=== PATIENT | male | born 1945 | race Caucasian/White ===

== ENCOUNTER → 2017-10-04 09:44 | Outpatient (CLI) | payer MEDICARE, SELFPAY ==
[2017-10-04 11:13] LABS: Absolute Lymphocyte Count 0.58 X10^3/ul (0.83-4.51); Absolute Neutrophil Count 7.9 X10^3/uL (2.0-7.7); Basophil# 0.04 X10^3/uL; Basophil% 0.4 % (0-1); Eosinophil# 0.19 X10^3/uL; Hematocrit 27.2 % (40-54); Hemoglobin 8.2 g/dl (13.0-16.5); Lymphocyte # 0.58 X10^3/ul (4.0); Lymphocyte % 6.2 % (19-41); Mean Corp Hgb Conc 30.1 g/gl (32-36); Mean Corpuscular Hgb 25.6 pg (27.0-32.0); Mean Platelet Vol. 9.4 fl (6.2-12.0); Monocyte# 0.58 X10^3/uL; Monocyte% 6.2 % (0-10); Neutrophil # 7.86 X10^3/uL (2.7-7.7); Platelet Count 267 K/mm3 (150-450); RBC Distribution Width CV 18.6 % (11.6-14.6); RBC Distribution Width SD 55.9 fl (35.1-43.9); White Blood Count 9.4 K/mm3 (4.4-11.0)
[2017-10-04 11:16] LABS: POSITIVE COUNT NO; POSITIVE DIFFERENTIAL YES; POSITIVE MORPHOLOGY NO
[2017-10-04 11:17] LABS: Differential Indicated SCAN CRITERIA MET
[2017-10-04 11:29] LABS: ALB/GLOB Ratio 0.9 RATIO (0.9-2.4); AST(SGOT) 22 U/L (15-37); Alanine Aminotransfer ALT/SGPT 31 U/L (16-61); Albumin, Serum 3.5 g/dL (3.2-5.0); Alkaline Phosphatase 88 U/L (45-117); Anion Gap 14 (5-15); BUN 34 mg/dL (7-18); BUN/Creat Ratio 13.9 RATIO (10-20); Calcium,Total 9.2 mg/dL (8.5-10.1); Chloride 101 mmol/L (98-107); Creatinine, Serum 2.44 mg/dL (0.70-1.30); EST Glomerular Filtration Rate 28 mL/min (>60); Est Glom Filt Rate - Afr Amer 34 mL/min (>60); Globulin 3.9 g/dL (2.2-4.2); Glucose 132 mg/dL (70-110); Potassium 3.9 mmol/L (3.5-5.1); Protein, Total 7.4 g/dL (6.4-8.2); Sodium Level 139 mmol/L (136-145)
[2017-10-04 11:32] LABS: Hypochromasia 2+; Platelet Estimate ADEQUATE (ADEQ); Polychromasia RARE
--- NOTE | 2017-10-04 13:48 | PFT ---
INTRODUCTION: The patient is a 72-year-old male currently under the care of Dr. Argueat that presents for pulmonary function testing secondary to a diagnosis of morbid obesity. Respiratory therapy reports good patient effort and reports no other concerns. Bronchodilators were used during testing. INTERPRETATION: Forced expiration spirometry demonstrates no evidence of a large airways obstructive ventilatory defect. There was no significant response to aerosolized bronchodilators, based upon strict ATS criteria. Spirograms are of good quality and plateau normally. The respiratory flow volume loop appears normal. Body plethysmography was performed and reveals a decreased TLC to 4.02 L, 70% of predicted, indicative of a mild restrictive ventilatory defect. Diffusing capacity by single breath CO is severely reduced at 44% of predicted. When compared to previous pulmonary function studies dated December 2016 there has been a 19% reduction in the patient's diffusing capacity. IMPRESSION: These pulmonary function studies demonstrate the presence of a mild restrictive ventilatory defect with a disproportionate reduction in diffusing capacity. There has been a significant reduction in DLCO since PFTs were last completed in December 2016. Clinical correlation is recommended.
== END ==
LOC: PSN 09:45 → LAB 10:43
PROVIDERS: Family Provider Family Medicine; PCP Family Medicine; Visit Provider Internal Medicine Critical Care Medicine
DX: E66.01 Morbid (severe) obesity due to excess calories (principal); D86.86 Sarcoid arthropathy; D86.0 Sarcoidosis of lung; M65.351 Trigger finger, right little finger; Z79.899 Other long term (current) drug therapy
CPT/HCPCS: 36415; 80053; 85025; 94060; 94726; 94729

== ENCOUNTER → 2017-10-11 10:36 | Outpatient (CLI) | payer MEDICARE, SELFPAY ==
[2017-07-15 23:29] VITALS: BP 157/79
[2017-08-16 13:05] VITALS: BP 126/62; BMI 42.1
[2017-10-11 11:28] VITALS: PULSE 100; PULSE 65; PULSE 84; PULSE 87; PULSE 89; PULSE 92; PULSE 98; O2SAT 98; O2SAT 99
--- NOTE | 2017-10-11 11:34 | CPS ---
Pt arrived for study on RA and uses walker when ambulatory. During test pt states oxygen is not his problem nor will it help fix him. During minute 2 pt stated he needed to sit down or he would collapse. Therapist assisted pt to bench and which pt stated he can't walk anymore. As of minute 3 to end of test pt remained sitting on bench and no further steps were walked.
--- NOTE | 2017-10-12 11:21 | WT_ITS ---
PSN 6 Minute Walk Test - 6 Minute Walk Test 6 Minute Walk Test: 6 Minute Walk Test PSN:6-Minute Walk Test Start: 10/11/17 11: 28 Freq: Status: Active Protocol: [id number].6MINW Document 10/11/17 11:28 SMB (Rec: 10/11/17 11:38 SMB [id number]) 6 Minute Walk Test Date Performed 10/11/17 Time Performed 11:15 Height 5 ft 7 in Weight: 122.47 kg Weight in Pounds 270.[address]: Josh Argueta Assistive device used: Walker Pre-test Oxygen Delivery Method Room Air Pulse Ox (%) 98 Pulse Rate (60-100 beats/min) 89 Dyspnea Sarah Scale (0-10) 0.5 Exertion Sarah Scale (6-20) 6 1st minute Oxygen Delivery Method Room Air Pulse Ox (%) 99 Pulse Rate (60-100 beats/min) 65 Number of Rests Taken 2 Reported Symptoms Increased Work of Breathing 2nd minute Oxygen Delivery Method Room Air Pulse Ox (%) 99 Pulse Rate (60-100 beats/min) 98 Number of Rests Taken 3 Reported Symptoms Increased Work of Breathing 3rd minute Oxygen Delivery Method Room Air Pulse Ox (%) 98 Pulse Rate (60-100 beats/min) 100 Number of Rests Taken 1 Reported Symptoms Increased Work of Breathing 4th minute Oxygen Delivery Method Room Air Pulse Ox (%) 99 Pulse Rate (60-100 beats/min) 89 Number of Rests Taken 1 Reported Symptoms Increased Work of Breathing 5th minute Oxygen Delivery Method Room Air Pulse Ox (%) 99 Pulse Rate (60-100 beats/min) 92 Number of Rests Taken 1 Reported Symptoms Increased Work of Breathing 6th minute Oxygen Delivery Method Room Air Pulse Ox (%) 99 Pulse Rate (60-100 beats/min) 84 Number of Rests Taken 1 Reported Symptoms Increased Work of Breathing Post-test Oxygen Delivery Method Room Air Pulse Ox (%) 98 Pulse Rate (60-100 beats/min) 87 Dyspnea Sarah Scale (0-10) 5 Exertion Sarah Scale (6-20) 14 Number of Rests Taken 0 Full Laps Walked 4 Partial Lap, Number of Tiles Walked 15 Total Distance Walked (ft) 251 10/11/17 11:34 Cardiopulmonary Services by Stephanie Hansen Pt arrived for study on RA and uses walker when ambulatory. During test pt states oxygen is not his problem nor will it help fix him. During minute 2 pt stated he needed to sit down or he would collapse. Therapist assisted pt to bench and which pt stated he can't walk anymore. As of minute 3 to end of test pt remained sitting on bench and no further steps were walked. Initialized on 10/11/17 11:34 - END OF NOTE - Interpretation Interpretation: The patient was able to ambulate only 251 feet over the course of 6 minutes on room air with the assistance of a walker. The patient did not experience any significant desaturation, but reported significant shortness of breath and weakness within 2 minutes of exertion. These findings are consistent with a cardiovascular and musculoskeletal limitation exercise tolerance. - Recommendations Recommendations: No supplemental oxygen is indicated at this time.
== END ==
PROVIDERS: Family Provider Family Medicine; PCP Family Medicine; Visit Provider Internal Medicine Critical Care Medicine
DX: E66.01 Morbid (severe) obesity due to excess calories (principal)
CPT/HCPCS: 94618

== ENCOUNTER → 2017-10-19 13:02 | Outpatient (CLI) | payer MEDICARE, SELFPAY ==
[2017-10-19 13:43] LABS: Hematocrit 25.8 % (40-54); Hemoglobin 7.8 g/dl (13.0-16.5); Mean Corp Hgb Conc 30.2 g/gl (32-36); Mean Corpuscular Hgb 25.5 pg (27.0-32.0); Mean Corpuscular Volume 84.3 fL (80-94); Mean Platelet Vol. 9.8 fl (6.2-12.0); Platelet Count 232 K/mm3 (150-450); RBC Distribution Width CV 17.3 % (11.6-14.6); RBC Distribution Width SD 51.4 fl (35.1-43.9); Red Blood Count 3.06 M/mm3 (4.6-6.2); Scan Indicated on CBC? Y/N NO; White Blood Count 6.2 K/mm3 (4.4-11.0)
[2017-10-19 14:23] LABS: Vitamin B12 1100 pg/mL (211-911)
[2017-10-19 15:03] LABS: Ferritin 12 ng/mL (26-388); Iron 42 ug/dL (65-175); Iron Binding Capacity,Total 390 ug/dL (250-450)
== END ==
PROVIDERS: Family Provider Family Medicine; PCP Family Medicine; Visit Provider Internal Medicine Nephrology
DX: D64.9 Anemia, unspecified (principal)
CPT/HCPCS: 36415; 82607; 82728; 82746; 83540; 83550; 85027

== ENCOUNTER → 2017-10-30 10:37 | Outpatient (CLI) | payer MEDICARE, SELFPAY | PROVIDERS: Family Provider Family Medicine; PCP Family Medicine; Visit Provider Internal Medicine Critical Care Medicine | DX: D86.0 Sarcoidosis of lung (principal) | CPT/HCPCS: 94762 ==

== ENCOUNTER → 2017-11-05 10:14 | Outpatient (CLI) | payer MEDICARE, SELFPAY ==
[2017-11-05 10:52] VITALS: BP 145/84; PULSE 80; RESP 20; TEMP 36.1; O2SAT 100; BMI 42.3
== END ==
PROVIDERS: Family Provider Family Medicine; PCP Family Medicine; Visit Provider Internal Medicine Nephrology
DX: N18.4 Chronic kidney disease, stage 4 (severe) (principal); D63.1 Anemia in chronic kidney disease
CPT/HCPCS: 96365; J1756; J7050

== ENCOUNTER → 2017-11-12 10:16 | Outpatient (CLI) | payer MEDICARE, SELFPAY ==
[2017-11-12 10:47] VITALS: BP 137/71; PULSE 77; RESP 16; TEMP 36; O2SAT 99
== END ==
PROVIDERS: Family Provider Family Medicine; PCP Family Medicine; Visit Provider Internal Medicine Nephrology
DX: N18.4 Chronic kidney disease, stage 4 (severe) (principal); D63.1 Anemia in chronic kidney disease
CPT/HCPCS: 96365; J1756; J7050; A4216

== ENCOUNTER → 2017-11-19 10:15 | Outpatient (CLI) | payer MEDICARE, SELFPAY ==
[2017-11-19 10:22] VITALS: BP 148/73; PULSE 84; RESP 14; TEMP 36.2; O2SAT 98; BMI 42.3
== END ==
PROVIDERS: Family Provider Family Medicine; PCP Family Medicine; Visit Provider Internal Medicine Nephrology
DX: N18.4 Chronic kidney disease, stage 4 (severe) (principal); D63.1 Anemia in chronic kidney disease
CPT/HCPCS: 96365; J1756; J7050

== ENCOUNTER → 2017-11-22 12:57 | Outpatient (CLI) | payer MEDICARE, SELFPAY ==
[2017-11-22 14:38] LABS: Anion Gap 11 (5-15); BUN 37 mg/dL (7-18); BUN/Creat Ratio 18.6 RATIO (10-20); Calcium,Total 8.7 mg/dL (8.5-10.1); Chloride 105 mmol/L (98-107); Creatinine, Serum 1.99 mg/dL (0.70-1.30); EST Glomerular Filtration Rate 35 mL/min (>60); Est Glom Filt Rate - Afr Amer 42 mL/min (>60); Ferritin 276 ng/mL (26-388); Glucose 146 mg/dL (74-106); Iron 32 ug/dL (65-175); Iron Binding Capacity,Total 318 ug/dL (250-450); Potassium 3.7 mmol/L (3.5-5.1); Sodium Level 142 mmol/L (136-145)
[2017-11-23 09:36] LABS: Vitamin B12 745 pg/mL (211-911)
== END ==
PROVIDERS: Family Provider Family Medicine; PCP Family Medicine; Visit Provider Internal Medicine Nephrology
DX: N18.4 Chronic kidney disease, stage 4 (severe) (principal); D64.9 Anemia, unspecified
CPT/HCPCS: 36415; 80048; 82607; 82728; 82746; 83540; 83550

== ENCOUNTER → 2017-11-26 10:11 | Outpatient (CLI) | payer MEDICARE, SELFPAY ==
[2017-11-26 10:18] VITALS: BP 142/40; PULSE 82; RESP 18; TEMP 36.1; O2SAT 99; BMI 42.3
== END ==
PROVIDERS: Family Provider Family Medicine; PCP Family Medicine; Visit Provider Internal Medicine Nephrology
DX: N18.4 Chronic kidney disease, stage 4 (severe) (principal); D63.1 Anemia in chronic kidney disease
CPT/HCPCS: 96365; J1756; J7050; A4216

== ENCOUNTER 2017-12-07 06:49 | Inpatient (IN) | payer MEDICARE, SELFPAY ==
[2017-12-07] VITALS (12 sets, daily range): BP systolic 109–146; BP diastolic 55–86; PULSE 79–119; RESP 12–18; TEMP 36.4–36.8; O2SAT 94–98; BMI 43.7; BMI 41.8
--- NOTE | 2017-12-07 07:19 | EKG12_ITS ---
Test Reason : WEAKNESS Blood Pressure : / mmHG Vent. Rate : 078 BPM Atrial Rate : 078 BPM P-R Int : 204 ms QRS Dur : 106 ms QT Int : 420 ms P-R-T Axes : 040 009 002 degrees QTc Int : 478 ms Normal sinus rhythm Normal ECG Confirmed by TRINITY SU MD ([id number]), senior technical editor STEPHEN SANDY ([id number]) on 12/11/2017 8:21:38 AM Referred By: DC Confirmed By:TRINITY SU MD
--- NOTE | 2017-12-07 07:19 | RAD_ITS ---
STUDY: X-RAY CHEST REASON FOR EXAM: Male, 72 years old. Weakness and fatigue TECHNIQUE: Single AP portable view of the chest. COMPARISON: 07/14/2017 FINDINGS: Hypoinflated lungs. Lungs are essentially clear. No acute air space disease or infiltrates. There is no demonstrated pleural abnormality. There is mild cardiac enlargement. Normal mediastinum and jacqueline. Normal visualized pulmonary arteries. Normal visualized aortic arch and descending thoracic aorta. There are diffuse degenerative changes of the visualized thoracic spine. There is degenerative osteoarthritis of the bilateral shoulders. There is no demonstrated abnormality of the visualized soft tissue structures of the upper abdomen. RAD/Chest 1 View (Portable) IMPRESSION: No acute findings Electronically Signed: Prasanna Allen DO at 7:57 EDT Tel , Service support ,
[2017-12-07 07:43] LABS: ALB/GLOB Ratio 0.9 RATIO (0.9-2.4); AST(SGOT) 25 U/L (15-37); Alanine Aminotransfer ALT/SGPT 31 U/L (16-61); Albumin, Serum 3.6 g/dL (3.2-5.0); Alkaline Phosphatase 86 U/L (45-117); Anion Gap 16 (5-15); BUN 51 mg/dL (7-18); BUN/Creat Ratio 17.3 RATIO (10-20); Calcium,Total 8.9 mg/dL (8.5-10.1); Chloride 98 mmol/L (98-107); Creatinine, Serum 2.94 mg/dL (0.70-1.30); EST Glomerular Filtration Rate 22 mL/min (>60); Est Glom Filt Rate - Afr Amer 27 mL/min (>60); Estimated Creatinine Clearance 20.61 ml/min; Glucose 141 mg/dL (74-106); Magnesium 2.4 mg/dL (1.6-2.6); Phosphorus 3.5 mg/dL (2.5-4.9); Protein, Total 7.6 g/dL (6.4-8.2); Sodium Level 141 mmol/L (136-145)
[2017-12-07 07:45] LABS: Absolute Lymphocyte Count 0.72 X10^3/ul (0.83-4.51); Absolute Neutrophil Count 6.4 X10^3/uL (2.0-7.7); Basophil# 0.03 X10^3/uL; Basophil% 0.4 % (0-1); Differential Indicated SCAN CRITERIA MET; Eosinophil# 0.15 X10^3/uL; Eosinophils% 1.9 % (0-5); Hematocrit 30.3 % (40-54); Hemoglobin 9.2 g/dl (13.0-16.5); Lymphocyte # 0.72 X10^3/ul (4.0); Mean Corp Hgb Conc 30.4 g/gl (32-36); Mean Corpuscular Hgb 26.1 pg (27.0-32.0); Mean Corpuscular Volume 86.1 fL (80-94); Mean Platelet Vol. 9.7 fl (6.2-12.0); Monocyte# 0.63 X10^3/uL; Monocyte% 7.8 % (0-10); Neutrophil # 6.42 X10^3/uL (2.7-7.7); Neutrophil % 79.9 % (47-70); POSITIVE COUNT NO; POSITIVE DIFFERENTIAL NO; POSITIVE MORPHOLOGY YES; Platelet Count 246 K/mm3 (150-450); RBC Distribution Width SD 63.7 fl (35.1-43.9); Red Blood Count 3.52 M/mm3 (4.6-6.2)
--- NOTE | 2017-12-07 07:55 | ED.VISSUMM ---
- ER Visit Summary Date of Service: 12/07/17 Chief Complaint: Tired History of Present Illness: The patient is a 72 M who feels a generalized tiredness and fatigue. Symptoms started about a month and a half ago and are progressively getting worse. This morning he could not even walk across the room and he felt exhausted. He has a history of sarcoidosis. He also has a history of chronic kidney disease stage IV. He has anemia and coronary disease. He tells me that he is supposed to have a coronary bypass, but is too unhealthy at this time. He has had transfusions and iron infusions for his anemia. He denies chest pain, but does get short of breath. No nausea, vomiting, or diarrhea. No urinary symptoms. No cough or fever. Physical Examination: Vitals are unremarkable. Afebrile. No acute distress. Skin is pale. Mucous membranes are pale. Heart is regular. Lungs are clear but limited secondary to effort. Abdomen is soft and nontender. Patient has symmetric lower extremity edema. No focal or lateralizing neurologic abnormalities grossly. Test Results: EKG showed sinus rhythm. No sign of acute ischemia or infarction pattern. I am awaiting results of a chest x-ray and laboratory studies at this time. Emergency Department Course and Treatment: Patient was placed on a monitor. He will likely need admission as I suspect chronic kidney disease, anemia, and cardiopulmonary complications. I am awaiting results at this time. Workup was fairly unremarkable. He is anemic but his hemoglobin is 9.2. Potassium 3.0. Mag and false normal. Creatinine is slightly elevated at 2.94 and BUN is 51. Urinalysis fairly unremarkable. Troponin and BNP unremarkable. Chest x-ray showed no acute abnormalities. I thought that maybe the patient can go home, and we had an ambulation trial. He felt extremely short of breath with just a couple steps. His oxygen dropped to 92% on room air, but his heart rate dropped to the 40s. Called the hospitalist for admission. Treatment Plan: As above Disposition: Admission Impression: 1. Dyspnea 2. Anemia 3. CKD 4. Bradycardia 5. Hypokalemia This note was generated with Fandeavor dictation software. It may contain incorrect words, spelling, and punctuation that were not noted in review of the chart prior to signing ED Disposition - Plan for ED Patient: Chief Complaint: Weakness Referrals: Vaughn Armenta III, MD [Primary Care Provider] -
[2017-12-07 08:06] LABS: Anisocytosis 1+; Ovalocyte 2+
[2017-12-07 08:08] LABS: Mucous, Urine 0 SEEN /hpf (<or=2+); Red Blood Cells-Urine 0 SEEN /hpf (0-5)
[2017-12-07 08:14] LABS: Color, Urine Yellow (Yellow); Glucose, Dipstick Normal (Normal); Ketone-Dipstick Negative (Negative); Leukocyte Esterase-Dipstick 25 /ul (Negative); Nitrite-Dipstick Negative (Negative); Occult Blood-Urine Negative /ul (Negative); Protein-Dipstick Negative (Negative); Urine Bilirubin Dipstick Negative (Negative); Urine Clarity Clear (Clear); Urine Urobilinogen Normal (Normal)
[2017-12-07 08:32] LABS: Bacteria RARE /hpf (None Seen); Hyaline Cast 0-5 SEEN /lpf (0-5); Squamous Epithelial Cells - UA 0-5 SEEN /hpf (0-5); White Blood Cells 0-5 SEEN /hpf (0-5)
[2017-12-07 10:46] LABS: BNP,B-Type NATRIURETIC PEPTIDE 36.2 pg/mL (0-100)
--- NOTE | 2017-12-07 15:17 | PCM.HP.STD ---
Problem List (1) Weakness Status: Acute (2) Body mass index (BMI) of 40.0-44.9 in adult Status: Chronic (3) Chronic diastolic (congestive) heart failure Status: Chronic (4) Chronic kidney disease Status: Chronic Qualifiers: (5) Hyperlipemia, mixed Status: Chronic (6) Sarcoidosis Status: Chronic (7) Debility Status: Acute (8) Cardiomyopathy Status: Chronic (9) Iron deficiency anemia Status: Chronic (10) GERD (gastroesophageal reflux disease) Status: Chronic Qualifiers: (11) Hypertension Status: Chronic Qualifiers: (12) Coronary artery disease Status: Chronic Qualifiers: History of Present Illness Date of Admission: 12/07/17 Chief Complaint: fatigue The patient is a 72 year old M who presented to the ED with chief complaint of lethargy increasing over the past several weeks. He has a hx significant for CKD for which he follows Dr. Carcamo, CAD for which he follows Dr. Kam with current multi vessel disease but is not a CABG candidate, and sarcoidosis in his lungs, kidneys, and joints - he follows Dr. Argueta for his lungs. He has been receiving iron infusions for the last week for severe anemia which with a Hgb in the 7's. He reports todays Hgb is significantly better than it usually is. He says his renal function was at his baseline when he saw Dr. Carcamo a week ago. His fatigue has only worsened. Today he became severely tired and SOB just putting on his pants and walking from bed to a chair in the same room. He does have a cough with white mucus production. He denies sick contacts. He has no CP, dizziness, or LH. In the ER he was found to have increased creatinine and had an episode of bradycardia with a pulse of 44 when ambulating. He notes that his BLE edema has improved lately, and that his weight is down from 278 to 267 lbs since starting xaroxalyn. He feels that his worsening renal function has to do with his prednisone being reduced from 10 to 7.[address] Alba for rheumatology. [] Past Medical History Past Medical History (Chronic Problems): Chronic Problems (Last Reviewed 10/16/17 @ 08:39 by Kimberli Adan) Dyspnea (Chronic) Hypercalcemia (Chronic) Body mass index (BMI) of 40.0-44.9 in adult (Chronic) Chronic diastolic (congestive) heart failure (Chronic) Bilateral leg edema (Chronic) Hypersomnia (Chronic) Chronic kidney disease (Chronic) Hyperlipemia, mixed (Chronic) Diastolic dysfunction (Chronic) Atherosclerosis of [place] coronary artery of [place] heart without angina pectoris (Chronic) Polyarthropathy (Chronic) Morbid obesity (Chronic) Sarcoidosis (Chronic) Cardiomyopathy (Chronic) Iron deficiency anemia (Chronic) Constipation (Chronic) 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 Gout (Chronic) Morbid obesity with BMI of 40.0-44.9, adult (Chronic) GERD (gastroesophageal reflux disease) (Chronic) Allergic rhinitis (Chronic) Hypertension (Chronic) Nephrolithiasis (Chronic) Renal cyst (Chronic) Splenomegaly (Chronic) Coronary artery disease (Chronic) CKD (chronic kidney disease) stage 4, GFR 15-29 ml/min (Chronic) Polyarthropathy of ankle and foot (Chronic) Allergies Influenza Virus Vaccines Allergy (Verified 12/07/17 06:56) CAN'T BREATHE Latex, Natural Rubber Allergy (Verified 12/07/17 06:56) Rash Penicillins Allergy (Verified 12/07/17 06:56) CAN'T BREATHE Sulfa (Sulfonamide Antibiotics) Allergy (Verified 12/07/17 06:56) Rash PEPPERS Allergy (Uncoded 12/07/17 06:56) Anaphylaxis Home Medications: Ambulatory Orders Medication Instructions Recorded Aspirin [Aspirin, Baby] 81 mg PO DAILY@0800 09/10/16 Atorvastatin Calcium [Lipitor] 80 mg PO QHS 09/10/16 Carvedilol [Coreg (Beta Trevor)] 25 mg PO BID 09/10/16 Multivitamin [Daily Multiple 1 ea PO DAILY 09/10/16 Vitamin] Hydroxychloroquine [Plaquenil] 200 mg PO BIDCM 12/29/16 Pantoprazole Sodium [Protonix] 40 mg PO DAILY 12/29/16 Allopurinol 200 mg PO DAILY 07/14/17 Iron Polysaccharide Complex 150 mg PO TID #90 07/23/17 [Ferrex 150] doxazosin 2 mg tablet 2 mg PO QDAY tab 08/16/17 leflunomide 10 mg tablet 10 mg PO QDAY 08/16/17 furosemide 40 mg tablet 80 mg PO BID tab 10/16/17 prednisone 10 mg tablet 5 mg PO DAILY tab 10/16/17 0.9% Saline Lock 5 - 30 ml IV UD PRN syringe 04/06/18 Potassium Chloride [K-Dur] 20 meq PO DAILY 12/07/17 Surgical History: no surgical history Psychiatric History: No pertinent psych hx Lives: Spouse/ Significant Other Smoking Status: Never smoker Tobacco Use: Non-smoker Alcohol: None Drugs: None - *Family History Maternal History Items: Diabetes, - - His mother in her 90s of old age Paternal History Items: Diabetes, - - Father of congestive heart failure in his 80s and had diabetes mellitus Sibling History Items: Diabetes - His sister has diabetes. Review of Systems Constitutional: Denies: Chills, Fever, Weight Change HEENT: Denies: Head Aches, Sinus Congestion, Sinus Drainage Cardiovascular: Denies: Chest Pain, Palpitations Respiratory: Denies: Cough, Shortness of breath at rest, Sputum production Gastrointestinal: Denies: Abdominal Pain, Nausea, Vomiting Genitourinary: Denies: Dysuria Musculoskeletal: Denies: Joint Pain, Joint Tenderness Skin: Denies: Rash, Wounds Neurological: Denies: Numbness, Tingling, Focal weakness Psychiatric: Denies: Anxiety, Depression, Homicidal Ideations, Suicidal Ideations Hematologic/ Lymphatic: Denies: Easy Bruising, Easy Bleeding VTE Information - Inpt Only VTE Present on Admission: No VTE Mechan Device Prophylaxis: SCD's - Physical Exam General: Alert, Oriented x3, Cooperative HEENT: Atraumatic, PERRLA, EOMI, Normocephalic Neck: Supple, No JVD, Negative Carotid Bruits Lungs: Clear to auscultation, Normal air movement Cardiovascular: Regular rate, No murmurs Abdomen: Bowel Sounds Present, Soft, Non Tender Extremities: No edema, Capillary Refill Less than 3 Seconds, Edema - non pitting Skin: No rashes, No breakdown Musculoskeletal: No Tenderness to Palpation of Joints or Extremities Neurological: Cranial nerves II-XII grossly intact Psych/Mental Status: Normal Affect, Appropriate, Alert and oriented to time, place, person, mood and affect Vital Signs Temp Pulse Resp BP Pulse Ox 97.5 F L 83 16 128/67 H 97 12/07/17 13:00 12/07/17 13:56 12/07/17 13:00 12/07/17 13:00 12/07/17 13:00 Oxygen Delivery Method Room Air Weight: 121.1 kg Body Mass Index (BMI) 41.8 Assessment/Plan 1. Increased lethargy - iron defiency anemia is actually improved from last week after receiving iron infusions. He does have a productive cough and SOB, will check influenza screen. He did have an episode of bradycardia at 44 bpm in the ER while ambuting. Will maintain him on Tele here. Get PTOT evals. UA is negative. CXR is negative. Will also check orthos. 2. VICKI on CKD - hold diuretics tonight. He has been significantly diuresed lately dropping his weight from 278-267 over the past week, he has no pitting in his legs currently, they are somewhat puffy. Consult to his magnetic resonance technologist Dr. Carcamo who just saw him last week. 3. CAD - he has significant CAD, however, he went to [facility] last year for CABG but was told he could not have this done. Dr. Kam has been managing him medically. EKG is normal. Troponin is negative. Continue home meds. Asa/Statin, coreg. 4. Hypokalemia - replete. Recheck in AM. Mag normal. 5. Sarcoidosis - pulm, renal, and joint manifestations. Maintain current PO prednisone dose. Continue other anti-rheumatics. Pt of Dr. Jorge. Follows [facility] for pulm manifestations. prior + lung bx. 6. Iron def. Anemia - as above, improved. Monitor. 7. Chronic diastolic CHF - stable. Diuretics held. Restart when appropriate. Immanuel wrap. 8. Morbid obesity with mild hyperglycemia on presentation - Dietary consult. Check A1C. At risk of steroid induced diabetes. + family hx of DM, with his significant coronary disease he should be treated aggressively for DM or pre-DM. 9. GERD - continue PPI. DVT ppx: SCDs DC planning: very weak, may need additional assistance. Has been to TCU in past. This patient was seen by Pop Gomez PA-C under the supervision of Doctor Tucker.
[2017-12-07] MEDS: Hydroxychloroquine 200 MG Tablet PO (17:40)
[2017-12-07] MEDS: Allopurinol 100 MG Tablet 200 MG PO (17:40)
[2017-12-07] MEDS: Carvedilol 25 MG Tablet PO (21:45)
[2017-12-07] MEDS: Iron Polysaccharide Complex 150 MG CAPSULE PO (21:45)
[2017-12-07] MEDS: Aspirin 81 MG TAB.CHEW PO (21:45)
[2017-12-07] MEDS: Atorvastatin Calcium 80 MG Tablet PO (21:45)
[2017-12-08] VITALS (12 sets, daily range): BP systolic 102–141; BP diastolic 34–74; PULSE 80–103; RESP 16–18; TEMP 36.4–37.1; O2SAT 97–98
[2017-12-08] MEDS: Iron Polysaccharide Complex 150 MG CAPSULE PO ×3 (06:30→22:44)
[2017-12-08 08:24] LABS: Absolute Lymphocyte Count 0.75 X10^3/ul (0.83-4.51); Absolute Neutrophil Count 5.1 X10^3/uL (2.0-7.7); Basophil# 0.03 X10^3/uL; Basophil% 0.5 % (0-1); Eosinophil# 0.17 X10^3/uL; Eosinophils% 2.6 % (0-5); Hematocrit 27.2 % (40-54); Hemoglobin 8.2 g/dl (13.0-16.5); Lymphocyte # 0.75 X10^3/ul (4.0); Lymphocyte % 11.5 % (19-41); Mean Corp Hgb Conc 30.1 g/gl (32-36); Mean Corpuscular Hgb 25.9 pg (27.0-32.0); Mean Corpuscular Volume 86.1 fL (80-94); Mean Platelet Vol. 9.4 fl (6.2-12.0); Monocyte# 0.46 X10^3/uL; Neutrophil # 5.09 X10^3/uL (2.7-7.7); Neutrophil % 77.8 % (47-70); Platelet Count 203 K/mm3 (150-450); RBC Distribution Width CV 20.6 % (11.6-14.6); RBC Distribution Width SD 62.3 fl (35.1-43.9); Red Blood Count 3.16 M/mm3 (4.6-6.2); White Blood Count 6.5 K/mm3 (4.4-11.0)
[2017-12-08 08:26] LABS: Differential Indicated SCAN CRITERIA MET; POSITIVE COUNT NO; POSITIVE DIFFERENTIAL NO; POSITIVE MORPHOLOGY YES
[2017-12-08] MEDS: predniSONE 10 MG Tablet 5 MG PO (08:54)
[2017-12-08] MEDS: Hydroxychloroquine 200 MG Tablet PO ×2 (08:56→16:43)
[2017-12-08 08:57] LABS: Hemoglobin A1c 4.8 % (4.2-6.3)
[2017-12-08] MEDS: Pantoprazole Sodium 40 MG Tablet PO (09:00)
[2017-12-08] MEDS: Leflunomide 10 MG TABLET PO (09:00)
[2017-12-08] MEDS: Doxazosin 1 MG Tablet 2 MG PO (09:00)
[2017-12-08] MEDS: Carvedilol 25 MG Tablet PO ×2 (09:00→22:44)
[2017-12-08 09:09] LABS: Anion Gap 13 (5-15); BUN 49 mg/dL (7-18); BUN/Creat Ratio 18.3 RATIO (10-20); Calcium,Total 8.7 mg/dL (8.5-10.1); Chloride 98 mmol/L (98-107); Creatinine, Serum 2.68 mg/dL (0.70-1.30); EST Glomerular Filtration Rate 25 mL/min (>60); Est Glom Filt Rate - Afr Amer 30 mL/min (>60); Estimated Creatinine Clearance 22.61 ml/min; Glucose 113 mg/dL (74-106); Potassium 3.1 mmol/L (3.5-5.1); Sodium Level 138 mmol/L (136-145)
[2017-12-08 09:14] LABS: Anisocytosis 2+
--- NOTE | 2017-12-08 11:29 | NURSING ---
pt was unable to complete standing BP for orthostatic vital signs due to leg fatigue.
--- NOTE | 2017-12-08 11:39 | CASEMGMT ---
See assessemnt. SW spoke w/pt and in room in regard to discharge plan. Pt plans to return home at discharge. SW asked about home health, and pt both declined. Pt has been going to [facility] to exercise, and states they do not want anyone in their home if it's not necessary. indicates she does all homemaking, and helps pt w/meds. sets up pt's shower, pt able to do all other personal ADL's. No further needs anticipated, pt home, likely today. BETTY Vázquez, SCALE EXPERT
--- NOTE | 2017-12-08 13:36 | PN_ITS ---
Addendum entered and electronically signed by MIMI Concepcion 12/08/17 13:43: Code Visit Problem list #10 Orthostatic hypotension - + orthos. Suspect dehydration. Continue to hold diuretic. Original Note: Subjective: Pt did not get any sleep last night, complains this is worse than usual, however he normally does not sleep more than 1-2 hours at a time. He states he has been told he has sleep apnea but refuses to have a formal sleep study even though this was strongly recommended by Dr. Argueta. He states that he does not care if he dies in his sleep because he is going to anyway. He continues to have an occasional productive cough. He does not feel overall any better or worse than when he came in. He has no fever or chills. He is not SOB at all. He reports that the edema in his legs remains much better than normal. He thinks he started xaroxalyn this past sunday. - Physical Exam General: Alert, Oriented x3, Cooperative HEENT: Atraumatic, PERRLA, EOMI, Normocephalic Neck: Supple, No JVD, Negative Carotid Bruits Lungs: Clear to auscultation, Normal air movement Cardiovascular: Regular rate, No murmurs Abdomen: Bowel Sounds Present, Soft, Non Tender, Obese Extremities: No edema, Capillary Refill Less than 3 Seconds, - - immanuel wraps in place Skin: No rashes, No breakdown Musculoskeletal: No Tenderness to Palpation of Joints or Extremities Neurological: Cranial nerves II-XII grossly intact Psych/Mental Status: Normal Affect, Appropriate, Alert and oriented to time, place, person, mood and affect Vital Signs Temp Pulse Resp BP Pulse Ox 98.5 F 85 18 130/55 H 98 12/08/17 08:55 12/08/17 11:59 12/08/17 08:55 12/08/17 11:28 12/08/17 08:55 Oxygen Delivery Method Room Air Weight: 121.1 kg Body Mass Index (BMI) 41.8 Orthostatic Vital Signs Start: 12/08/17 11:27 Freq: q24h Status: Active Protocol: Activity Type Activity Date Activity User E-Sign Co-Sign Detail Recorded Client Recorded Date Recorded By Document 12/08/17 11:28 DANIEL [id number] 12/08/17 11:29 IVYK 12/08/17 11:28 Orthostatic Vitals Standing -Pulse Rate (60-100) 97 Sitting -Blood Pressure (90/60-120/80) 102/72 -Extremity Use Right Arm -Pulse Rate (60-100) 92 Lying -Blood Pressure (90/60-120/80) 130/55 H -Extremity Use Right Arm -Pulse Rate (60-100) 87 Intake and Output for Last 24 Hours 12/06/17 12/07/17 12/08/17 23:59 23:59 23:59 Intake Total 810 / 810 1000 / 1000 Output Total 700 / 700 1100 / 1100 Balance 110 / 110 -100 / -100 Microbiology Past 72 Hours 12/07/17 16:02 Influenza Types A,B Direct FA (SYED) - Final Mucosa - Nose Laboratory Tests Past 24 Hrs 12/08/17 12/08/17 12/08/17 07:35 07:35 07:35 WBC 6.5 RBC 3.16 L Hgb 8.2 L Hct 27.2 L MCV 86.1 MCH 25.9 L MCHC 30.1 L RDW 20.6 H RDW Differential 62.3 H Plt Count 203 MPV 9.4 Immature Gran % (Auto) 0.600 Neut % (Auto) 77.8 H Lymph % (Auto) 11.5 L [place] % (Auto) 7.0 Eos % (Auto) 2.6 Baso % (Auto) 0.5 Absolute Neuts (auto) 5.1 Absolute Lymphs (auto) 0.75 L Total Counted Not Reportable Anisocytosis 2+ Sodium 138 Potassium 3.1 L Chloride 98 Carbon Dioxide 27.0 Anion Gap 13 BUN 49 H Creatinine 2.68 H Estim Creat Clear Calc 22.61 Est GFR (MDRD) Af Amer 30 L Est GFR (MDRD) Non-Af 25 L BUN/Creatinine Ratio 18.3 Glucose 113 H Hemoglobin A1c 4.8 Calcium 8.7 Medical Necessity - Tobacco Use Smoking Status: Never smoker Tobacco Use: Non-smoker Assessment/Plan 1. Increased lethargy - i suspect this is a combination of his chronic anemia and untreated sleep apnea. He refuses to consider a workup for YAIMA. He had a supposed episode of bradycardia with a pulse of 44 in the ER on the pulse ox, but he had a normal EKG and he has had no episodes of clair on the monitor. 2. VICKI on CKD - improved. Diuretics remain held. Wait for renal consult. He will need to at least restart lasix at DC. Monitor for fluid overload. I suspect this is from the xaroxalyn started this week. 3. CAD - he has significant CAD, however, he went to [facility] last year for CABG but was told he could not have this done. Dr. Kam has been managing him medically. EKG is normal. Troponin is negative. Continue home meds. Asa/Statin, coreg. 4. Hypokalemia - continue to replete. Mag/Phos normal. 5. Sarcoidosis - pulm, renal, and joint manifestations. Maintain current PO prednisone dose. Continue other anti-rheumatics. Pt of Dr. Jorge. Follows [facility] for pulm manifestations. prior + lung bx. 6. Iron def. Anemia - Small decline. Monitor. 7. Chronic diastolic CHF - stable. Diuretics held. Restart when appropriate. Immanuel wrap. No peripheral edema. Clear lungs. Large weight loss in the last week. 8. Morbid obesity with mild hyperglycemia on presentation - Dietary consult. A1C is normal. Glucose remains slightly high. 9. GERD - continue PPI. DVT ppx: SCDs DC planning: very weak, may need additional assistance. Has been to TCU in past. This patient was seen by Pop Gomez PA-C under the supervision of Doctor Tucker.
--- NOTE | 2017-12-08 16:05 | NURSING ---
Answering service for Carlos Alberto paged again for consult.
[2017-12-08] MEDS: Allopurinol 100 MG Tablet 200 MG PO (16:43)
[2017-12-08] MEDS: Atorvastatin Calcium 80 MG Tablet PO (22:44)
[2017-12-08] MEDS: Aspirin 81 MG TAB.CHEW PO (22:44)
[2017-12-08] MEDS: MELATONIN 3 MG TABLET PO (22:48)
[2017-12-09] VITALS (11 sets, daily range): BP systolic 97–129; BP diastolic 48–61; PULSE 70–83; RESP 16–18; TEMP 36.6–36.8; O2SAT 96–97
[2017-12-09] MEDS: Iron Polysaccharide Complex 150 MG CAPSULE PO ×3 (06:08→21:43)
[2017-12-09 06:13] LABS: Anion Gap 10 (5-15); BUN 44 mg/dL (7-18); BUN/Creat Ratio 18.4 RATIO (10-20); Calcium,Total 9.1 mg/dL (8.5-10.1); Chloride 101 mmol/L (98-107); Creatinine, Serum 2.39 mg/dL (0.70-1.30); EST Glomerular Filtration Rate 28 mL/min (>60); Est Glom Filt Rate - Afr Amer 34 mL/min (>60); Estimated Creatinine Clearance 25.35 ml/min; Glucose 100 mg/dL (74-106); Potassium 3.3 mmol/L (3.5-5.1); Sodium Level 138 mmol/L (136-145)
[2017-12-09 06:18] LABS: Absolute Lymphocyte Count 0.64 X10^3/ul (0.83-4.51); Absolute Neutrophil Count 4.6 X10^3/uL (2.0-7.7); Basophil# 0.02 X10^3/uL; Basophil% 0.3 % (0-1); Eosinophil# 0.17 X10^3/uL; Eosinophils% 2.8 % (0-5); Hematocrit 26.4 % (40-54); Lymphocyte # 0.64 X10^3/ul (4.0); Lymphocyte % 10.7 % (19-41); Mean Corp Hgb Conc 30.3 g/gl (32-36); Mean Corpuscular Hgb 26.1 pg (27.0-32.0); Mean Corpuscular Volume 86.3 fL (80-94); Mean Platelet Vol. 9.6 fl (6.2-12.0); Monocyte% 8.3 % (0-10); Neutrophil # 4.61 X10^3/uL (2.7-7.7); Neutrophil % 77.1 % (47-70); Platelet Count 198 K/mm3 (150-450); RBC Distribution Width CV 20.7 % (11.6-14.6); RBC Distribution Width SD 62.6 fl (35.1-43.9); Red Blood Count 3.06 M/mm3 (4.6-6.2)
[2017-12-09 06:36] LABS: Differential Indicated SCAN CRITERIA MET; POSITIVE COUNT NO; POSITIVE DIFFERENTIAL NO; POSITIVE MORPHOLOGY YES
[2017-12-09] MEDS: predniSONE 10 MG Tablet 5 MG PO (10:15)
[2017-12-09] MEDS: Hydroxychloroquine 200 MG Tablet PO ×2 (10:15→17:53)
[2017-12-09] MEDS: Doxazosin 1 MG Tablet 2 MG PO (10:16)
[2017-12-09] MEDS: Carvedilol 25 MG Tablet PO ×2 (10:16→21:43)
[2017-12-09] MEDS: Leflunomide 10 MG TABLET PO (10:17)
[2017-12-09] MEDS: Pantoprazole Sodium 40 MG Tablet PO (10:17)
--- NOTE | 2017-12-09 10:43 | PCM.CONS.R ---
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 ADHF with baseline creatinine less 2.5 with CLD admitted with weakness with hypotension and orthostatic with creatinine peaked 2.8 now trending down.Anemia of chronic diseases and debility, bradycardia symptoms better after discontinuing diuretics. - Allergies Allergies: Allergies Influenza Virus Vaccines Allergy (Verified 12/07/17 06:56) CAN'T BREATHE Latex, Natural Rubber Allergy (Verified 12/07/17 06:56) Rash Penicillins Allergy (Verified 12/07/17 06:56) CAN'T BREATHE Sulfa (Sulfonamide Antibiotics) Allergy (Verified 12/07/17 06:56) Rash PEPPERS Allergy (Uncoded 12/07/17 06:56) Anaphylaxis - Current Medications Current Medications: Current Medications Allopurinol (Zyloprim) 200 mg PO DINNER [facility] Last Admin: 12/08/17 16:43 Dose: 200 mg Aspirin (Aspirin, Baby) 81 mg PO DAILY@2200 [facility] Last Admin: 12/08/17 22:44 Dose: 81 mg Atorvastatin Calcium (Lipitor) 80 mg PO QHS [facility] Last Admin: 12/08/17 22:44 Dose: 80 mg Carvedilol (Coreg) 25 mg PO BID [facility] Last Admin: 12/09/17 10:16 Dose: 25 mg Doxazosin Mesylate (Cardura) 2 mg PO DAILY [facility] Last Admin: 12/09/17 10:16 Dose: 2 mg Guaifenesin (Robitussin Dm) 5 ml PO Q6H PRN PRN PRN Reason: COUGH Hydroxychloroquine [facility] Admin: 12/09/17 10:15 Dose: 200 mg Leflunomide (Leflunomide) 10 mg PO DAILY [facility] Last Admin: 12/09/17 10:17 Dose: 10 mg Melatonin (Melatonin) 3 mg PO QHS [facility] Last Admin: 12/08/17 22:48 Dose: 3 mg Pantoprazole Sodium (Protonix) 40 mg PO DAILY [facility] Last Admin: 12/09/17 10:17 Dose: 40 mg Polysaccharide Iron Complex (Ferrex 150) 150 mg PO TID [facility] Last Admin: 12/09/17 06:08 Dose: 150 mg Potassium Chloride (K-Dur) 40 meq PO DAILYCM ALEX Potassium Chloride (K-Dur) 60 meq PO X1 ONE Stop: 12/09/17 10:30 Prednisone () 5 mg PO DAILY@0800 [facility] Last Admin: 12/09/17 10:15 Dose: 5 mg Sodium Chloride () 5 - 30 ml IV UD PRN PRN Reason: SALINE FLUSH - Past Medical History Past Medical History (Chronic Problems): Chronic Problems (Last Reviewed 10/16/17 @ 08:39 by Kimebrli Adan) Dyspnea (Chronic) Hypercalcemia (Chronic) Body mass index (BMI) of 40.0-44.9 in adult (Chronic) Chronic diastolic (congestive) heart failure (Chronic) Bilateral leg edema (Chronic) Hypersomnia (Chronic) Chronic kidney disease (Chronic) Hyperlipemia, mixed (Chronic) Diastolic dysfunction (Chronic) Atherosclerosis of [place] coronary artery of [place] heart without angina pectoris (Chronic) Polyarthropathy (Chronic) Morbid obesity (Chronic) Sarcoidosis (Chronic) Cardiomyopathy (Chronic) Iron deficiency anemia (Chronic) Constipation (Chronic) 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 Gout (Chronic) Morbid obesity with BMI of 40.0-44.9, adult (Chronic) GERD (gastroesophageal reflux disease) (Chronic) Allergic rhinitis (Chronic) Hypertension (Chronic) Nephrolithiasis (Chronic) Renal cyst (Chronic) Splenomegaly (Chronic) Coronary artery disease (Chronic) CKD (chronic kidney disease) stage 4, GFR 15-29 ml/min (Chronic) Polyarthropathy of ankle and foot (Chronic) - Past Surgical History Surgical History: no surgical history - Social History Smoking Status: Never smoker Alcohol: None Drugs: None - Family History Maternal Family History: Family History (Last Reviewed 10/16/17 @ 08:39 by Kimberli Adan) Father Diabetes Heart failure Sister Diabetes Mother Diabetes History Items: Diabetes, - - His mother in her 90s of old age Paternal Family History: Family History (Last Reviewed 10/16/17 @ 08:39 by Kimberli Adan) Father Diabetes Heart failure Sister Diabetes Mother Diabetes History Items: Diabetes, - - Father of congestive heart failure in his 80s and had diabetes mellitus Sibling Family History: Family History (Last Reviewed 10/16/17 @ 08:39 by Kimberli Adan) Father Diabetes Heart failure Sister Diabetes Mother Diabetes History Items: Diabetes - His sister has diabetes. Review of Systems HEENT: Reports: Difficulty Hearing Cardiovascular: Reports: Palpitations, Syncope Respiratory: Denies: Cough, Shortness of breath at rest, Sputum production Gastrointestinal: Denies: Abdominal Pain, Nausea, Vomiting Genitourinary: Reports: Dysuria Musculoskeletal: Reports: Arm Pain Neurological: Reports: Balance problems Psychiatric: Reports: Anxiety Hematologic/ Lymphatic: Denies: Easy Bruising, Easy Bleeding - Physical Exam General: Alert, Oriented x3, Cooperative HEENT: Atraumatic, PERRLA, EOMI, Normocephalic Neck: Supple, No JVD, Negative Carotid Bruits Lungs: Clear to auscultation, Normal air movement Cardiovascular: Regular rate, No murmurs Abdomen: Bowel Sounds Present, Soft, Non Tender Extremities: No edema, Capillary Refill Less than 3 Seconds Skin: No rashes, No breakdown Musculoskeletal: No Tenderness to Palpation of Joints or Extremities Vital Signs Temp Pulse Resp BP Pulse Ox 98.0 F 70 18 118/48 L 96 12/09/17 10:12 12/09/17 10:12 12/09/17 10:12 12/09/17 10:12 12/09/17 10:12 Oxygen Delivery Method Room Air Weight: 120.5 kg Body Mass Index (BMI) 41.8 Orthostatic Vital Signs Start: 12/08/17 11:27 Freq: q24h Status: Active Protocol: Activity Type Activity Date Activity User E-Sign Co-Sign Detail Recorded Client Recorded Date Recorded By Document 12/09/17 04:23 CÉSAR [id number] 12/09/17 04:30 NORMAB 12/09/17 04:23 Orthostatic Vitals Sitting -Blood Pressure (90/60-120/80) 97/48 L -Extremity Use Left Arm Lying -Blood Pressure (90/60-120/80) 129/61 H -Extremity Use Left Arm -Pulse Rate (60-100) 77 Intake and Output for Last 24 Hours 12/07/17 12/08/17 12/09/17 23:59 23:59 23:59 Intake Total 810 / 810 0 / 2090 240 / 240 Output Total 700 / 700 2000 / 2000 600 / 600 Balance 110 / 110 90 / 90 -360 / -360 Microbiology Past 72 Hours 12/07/17 16:02 Influenza Types A,B Direct FA (SYED) - Final Mucosa - Nose Laboratory Tests Past 24 Hrs 12/09/17 12/09/17 05:36 05:36 WBC 6.0 RBC 3.06 L Hgb 8.0 L Hct 26.4 L MCV 86.3 MCH 26.1 L MCHC 30.3 L RDW 20.7 H RDW Differential 62.6 H Plt Count 198 MPV 9.6 Immature Gran % (Auto) 0.800 Neut % (Auto) 77.1 H Lymph % (Auto) 10.7 L [place] % (Auto) 8.3 Eos % (Auto) 2.8 Baso % (Auto) 0.3 Absolute Neuts (auto) 4.6 Absolute Lymphs (auto) 0.64 L Total Counted Not Reportable Sodium 138 Potassium 3.3 L Chloride 101 Carbon Dioxide 27.0 Anion Gap 10 BUN 44 H Creatinine 2.39 H Estim Creat Clear Calc 25.35 Est GFR (MDRD) Af Amer 34 L Est GFR (MDRD) Non-Af 28 L BUN/Creatinine Ratio 18.4 Glucose 100 Calcium 9.1 Assessment/Plan non oliguric VICKI on CKD IV creatinine peaked 2.8 secondary to over diuresis with hypokalemia and contraction alkalosis- agree for holding diuretics- no need of [employer] Anemia - recommend IV iron 200mg daily for 3 days and Aranesp 100mmcg x 1 HTN marked peripheral vascular dilatation- hold doxazosin and decrease carvedilol to 12.5 mg BID hold diuretics CHF now hypovolumic hold diuresis Sarcoidosis with CLD stable FO resolved Hypokalemia due to kaliuresis replete with 40 meq
--- NOTE | 2017-12-09 10:53 | CON.PCM_ITS ---
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 ADHF with baseline creatinine less 2.5 with CLD admitted with weakness with hypotension and orthostatic with creatinine peaked 2.8 now trending down.Anemia of chronic diseases and debility, bradycardia symptoms better after discontinuing diuretics. - Allergies Allergies: Allergies Influenza Virus Vaccines Allergy (Verified 12/07/17 06:56) CAN'T BREATHE Latex, Natural Rubber Allergy (Verified 12/07/17 06:56) Rash Penicillins Allergy (Verified 12/07/17 06:56) CAN'T BREATHE Sulfa (Sulfonamide Antibiotics) Allergy (Verified 12/07/17 06:56) Rash PEPPERS Allergy (Uncoded 12/07/17 06:56) Anaphylaxis - Current Medications Current Medications: Current Medications Allopurinol (Zyloprim) 200 mg PO DINNER [facility] Last Admin: 12/08/17 16:43 Dose: 200 mg Aspirin (Aspirin, Baby) 81 mg PO DAILY@2200 [facility] Last Admin: 12/08/17 22:44 Dose: 81 mg Atorvastatin Calcium (Lipitor) 80 mg PO QHS [facility] Last Admin: 12/08/17 22:44 Dose: 80 mg Carvedilol (Coreg) 25 mg PO BID [facility] Last Admin: 12/09/17 10:16 Dose: 25 mg Doxazosin Mesylate (Cardura) 2 mg PO DAILY [facility] Last Admin: 12/09/17 10:16 Dose: 2 mg Guaifenesin (Robitussin Dm) 5 ml PO Q6H PRN PRN PRN Reason: COUGH Hydroxychloroquine [facility]) [facility] Admin: 12/09/17 10:15 Dose: 200 mg Leflunomide (Leflunomide) 10 mg PO DAILY [facility] Last Admin: 12/09/17 10:17 Dose: 10 mg Melatonin (Melatonin) 3 mg PO QHS [facility] Last Admin: 12/08/17 22:48 Dose: 3 mg Pantoprazole Sodium (Protonix) 40 mg PO DAILY [facility] Last Admin: 12/09/17 10:17 Dose: 40 mg Polysaccharide Iron Complex (Ferrex 150) 150 mg PO TID [facility] Last Admin: 12/09/17 06:08 Dose: 150 mg Potassium Chloride (K-Dur) 40 meq PO DAILYCM ALEX Potassium Chloride (K-Dur) 60 meq PO X1 ONE Stop: 12/09/17 10:30 Prednisone () 5 mg PO DAILY@0800 [facility] Last Admin: 12/09/17 10:15 Dose: 5 mg Sodium Chloride () 5 - 30 ml IV UD PRN PRN Reason: SALINE FLUSH - Past Medical History Past Medical History (Chronic Problems): Chronic Problems (Last Reviewed 10/16/17 @ 08:39 by Kimberli Adan) Dyspnea (Chronic) Hypercalcemia (Chronic) Body mass index (BMI) of 40.0-44.9 in adult (Chronic) Chronic diastolic (congestive) heart failure (Chronic) Bilateral leg edema (Chronic) Hypersomnia (Chronic) Chronic kidney disease (Chronic) Hyperlipemia, mixed (Chronic) Diastolic dysfunction (Chronic) Atherosclerosis of [place] coronary artery of [place] heart without angina pectoris (Chronic) Polyarthropathy (Chronic) Morbid obesity (Chronic) Sarcoidosis (Chronic) Cardiomyopathy (Chronic) Iron deficiency anemia (Chronic) Constipation (Chronic) 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 Gout (Chronic) Morbid obesity with BMI of 40.0-44.9, adult (Chronic) GERD (gastroesophageal reflux disease) (Chronic) Allergic rhinitis (Chronic) Hypertension (Chronic) Nephrolithiasis (Chronic) Renal cyst (Chronic) Splenomegaly (Chronic) Coronary artery disease (Chronic) CKD (chronic kidney disease) stage 4, GFR 15-29 ml/min (Chronic) Polyarthropathy of ankle and foot (Chronic) - Past Surgical History Surgical History: no surgical history - Social History Smoking Status: Never smoker Alcohol: None Drugs: None - Family History Maternal Family History: Family History (Last Reviewed 10/16/17 @ 08:39 by Kimberli Adan) Father Diabetes Heart failure Sister Diabetes Mother Diabetes History Items: Diabetes, - - His mother in her 90s of old age Paternal Family History: Family History (Last Reviewed 10/16/17 @ 08:39 by Kimberli Adan) Father Diabetes Heart failure Sister Diabetes Mother Diabetes History Items: Diabetes, - - Father of congestive heart failure in his 80s and had diabetes mellitus Sibling Family History: Family History (Last Reviewed 10/16/17 @ 08:39 by Kimberli Adan) Father Diabetes Heart failure Sister Diabetes Mother Diabetes History Items: Diabetes - His sister has diabetes. Review of Systems HEENT: Reports: Difficulty Hearing Cardiovascular: Reports: Palpitations, Syncope Respiratory: Denies: Cough, Shortness of breath at rest, Sputum production Gastrointestinal: Denies: Abdominal Pain, Nausea, Vomiting Genitourinary: Reports: Dysuria Musculoskeletal: Reports: Arm Pain Neurological: Reports: Balance problems Psychiatric: Reports: Anxiety Hematologic/ Lymphatic: Denies: Easy Bruising, Easy Bleeding - Physical Exam General: Alert, Oriented x3, Cooperative HEENT: Atraumatic, PERRLA, EOMI, Normocephalic Neck: Supple, No JVD, Negative Carotid Bruits Lungs: Clear to auscultation, Normal air movement Cardiovascular: Regular rate, No murmurs Abdomen: Bowel Sounds Present, Soft, Non Tender Extremities: No edema, Capillary Refill Less than 3 Seconds Skin: No rashes, No breakdown Musculoskeletal: No Tenderness to Palpation of Joints or Extremities Vital Signs Temp Pulse Resp BP Pulse Ox 98.0 F 70 18 118/48 L 96 12/09/17 10:12 12/09/17 10:12 12/09/17 10:12 12/09/17 10:12 12/09/17 10:12 Oxygen Delivery Method Room Air Weight: 120.5 kg Body Mass Index (BMI) 41.8 Orthostatic Vital Signs Start: 12/08/17 11:27 Freq: q24h Status: Active Protocol: Activity Type Activity Date Activity User E-Sign Co-Sign Detail Recorded Client Recorded Date Recorded By Document 12/09/17 04:23 CÉSAR [id number] 12/09/17 04:30 NORMAB 12/09/17 04:23 Orthostatic Vitals Sitting -Blood Pressure (90/60-120/80) 97/48 L -Extremity Use Left Arm Lying -Blood Pressure (90/60-120/80) 129/61 H -Extremity Use Left Arm -Pulse Rate (60-100) 77 Intake and Output for Last 24 Hours 12/07/17 12/08/17 12/09/17 23:59 23:59 23:59 Intake Total 810 / 810 0 / 2090 240 / 240 Output Total 700 / 700 2000 / 2000 600 / 600 Balance 110 / 110 90 / 90 -360 / -360 Microbiology Past 72 Hours 12/07/17 16:02 Influenza Types A,B Direct FA (SYED) - Final Mucosa - Nose Laboratory Tests Past 24 Hrs 12/09/17 12/09/17 05:36 05:36 WBC 6.0 RBC 3.06 L Hgb 8.0 L Hct 26.4 L MCV 86.3 MCH 26.1 L MCHC 30.3 L RDW 20.7 H RDW Differential 62.6 H Plt Count 198 MPV 9.6 Immature Gran % (Auto) 0.800 Neut % (Auto) 77.1 H Lymph % (Auto) 10.7 L [place] % (Auto) 8.3 Eos % (Auto) 2.8 Baso % (Auto) 0.3 Absolute Neuts (auto) 4.6 Absolute Lymphs (auto) 0.64 L Total Counted Not Reportable Sodium 138 Potassium 3.3 L Chloride 101 Carbon Dioxide 27.0 Anion Gap 10 BUN 44 H Creatinine 2.39 H Estim Creat Clear Calc 25.35 Est GFR (MDRD) Af Amer 34 L Est GFR (MDRD) Non-Af 28 L BUN/Creatinine Ratio 18.4 Glucose 100 Calcium 9.1 Assessment/Plan non oliguric VICKI on CKD IV creatinine peaked 2.8 secondary to over diuresis with hypokalemia and contraction alkalosis- agree for holding diuretics- no need of [employer]OPER Anemia - recommend IV iron 200mg daily for 3 days and Aranesp 100mmcg x 1 HTN marked peripheral vascular dilatation- hold doxazosin and decrease carvedilol to 12.5 mg BID hold diuretics CHF now hypovolumic hold diuresis Sarcoidosis with CLD stable FO resolved Hypokalemia due to kaliuresis replete with 40 meq
--- NOTE | 2017-12-09 15:38 | PN_ITS ---
<Pop Gomez - Last Filed: 12/09/17 15:32> Subjective: Pt reports he has not felt as weak since admission. He has been able to get up and ambulate across the room with minimal issue. He was becoming very weak when standing at home, he could barely walk to his chair. He continues to have a cough. No CP. No dizziness or LH, no palp. Significant + orthos. He takes cardura for BPH. He is still reluctant to consider a sleep study. No swelling of his LE. No SOB. - Physical Exam General: Alert, Oriented x3, Cooperative HEENT: Atraumatic, PERRLA, EOMI, Normocephalic Neck: Supple, No JVD, Negative Carotid Bruits Lungs: Clear to auscultation, Normal air movement Cardiovascular: Regular rate, No murmurs Abdomen: Bowel Sounds Present, Soft, Non Tender Extremities: No edema, Capillary Refill Less than 3 Seconds Skin: No rashes, No breakdown Musculoskeletal: No Tenderness to Palpation of Joints or Extremities Neurological: Cranial nerves II-XII grossly intact Psych/Mental Status: Normal Affect, Appropriate, Alert and oriented to time, place, person, mood and affect Vital Signs Temp Pulse Resp BP Pulse Ox 98.0 F 75 18 118/48 L 96 12/09/17 10:12 12/09/17 11:30 12/09/17 10:12 12/09/17 10:12 12/09/17 10:12 Oxygen Delivery Method Room Air Weight: 120.5 kg Body Mass Index (BMI) 41.8 Orthostatic Vital Signs Start: 12/08/17 11:27 Freq: q24h Status: Active Protocol: Activity Type Activity Date Activity User E-Sign Co-Sign Detail Recorded Client Recorded Date Recorded By Document 12/09/17 04:23 ZZB [id number] 12/09/17 04:30 ZZB 12/09/17 04:23 Orthostatic Vitals Sitting -Blood Pressure (90/60-120/80) 97/48 L -Extremity Use Left Arm Lying -Blood Pressure (90/60-120/80) 129/61 H -Extremity Use Left Arm -Pulse Rate (60-100) 77 Intake and Output for Last 24 Hours 12/07/17 12/08/17 12/09/17 23:59 23:59 23:59 Intake Total 810 / 810 2089 / 0 840 / 840 Output Total 700 / 700 1999 / 1999 600 / 600 Balance 110 / 110 90 / 90 240 / 240 Microbiology Past 72 Hours 12/07/17 16:02 Influenza Types A,B Direct FA (SYED) - Final Mucosa - Nose Laboratory Tests Past 24 Hrs 12/09/17 12/09/17 05:36 05:36 WBC 6.0 RBC 3.06 L Hgb 8.0 L Hct 26.4 L MCV 86.3 MCH 26.1 L MCHC 30.3 L RDW 20.7 H RDW Differential 62.6 H Plt Count 198 MPV 9.6 Immature Gran % (Auto) 0.800 Neut % (Auto) 77.1 H Lymph % (Auto) 10.7 L [place] % (Auto) 8.3 Eos % (Auto) 2.8 Baso % (Auto) 0.3 Absolute Neuts (auto) 4.6 Absolute Lymphs (auto) 0.64 L Total Counted Not Reportable Sodium 138 Potassium 3.3 L Chloride 101 Carbon Dioxide 27.0 Anion Gap 10 BUN 44 H Creatinine 2.39 H Estim Creat Clear Calc 25.35 Est GFR (MDRD) Af Amer 34 L Est GFR (MDRD) Non-Af 28 L BUN/Creatinine Ratio 18.4 Glucose 100 Calcium 9.1 Medical Necessity - Tobacco Use Smoking Status: Never smoker Tobacco Use: Non-smoker Assessment/Plan 1. Increased lethargy - improving. Renal function continues to improve. Anemia still trending down. Renal to dose Epo. 2. Orthostatic hypotension - discontinue cardura. Maintain coreg at current dose. Continue to hold lasix x 1 more night. 3. VICKI on CKD - Nephro consulted. Improving. Plan to restart lasix tomorrow for discharge. Plan to remain off Xaroxalyn. 4. CAD - he has significant CAD, however, he went to [facility] last year for CABG but was told he could not have this done. Dr. Kam has been managing him medically. EKG is normal. Troponin is negative. Continue home meds. Asa/Statin, coreg. 5. Hypokalemia - continue to replete aggressively. Mag/Phos normal. 6. Sarcoidosis - pulm, renal, and joint manifestations. Maintain current PO prednisone dose. Continue other anti-rheumatics. Pt of Dr. Jorge. Follows [facility] for pulm manifestations. prior + lung bx. 7. Iron def. Anemia - as above. Epo per renal. s/p multiple iron infusions. Nephrology planning on 3 more iron infusions. Continue PO iron. 8. Chronic diastolic CHF - stable. Diuretics held. Restart when appropriate. Immanuel wrap. No peripheral edema. Clear lungs. Large weight loss in the last week. 9. Morbid obesity with mild hyperglycemia on presentation - Dietary consult. A1C is normal. 10. GERD - continue PPI. DVT ppx: SCDs DC planning: Pt will not consider placement in SNF at this time. He insists on discharge home. This patient was seen by Pop Gomez PA-C under the supervision of Doctor Caitlin. <Sunny Tucker - Last Filed: 12/09/17 17:59> - Physical Exam Vital Signs Temp Pulse Resp BP Pulse Ox 97.9 F 79 18 102/58 L 97 12/09/17 15:41 12/09/17 15:41 12/09/17 15:41 12/09/17 15:41 12/09/17 15:41 Oxygen Delivery Method Room Air Weight: 265 lb 10.512 oz Body Mass Index (BMI) 41.8 Orthostatic Vital Signs Start: 12/08/17 11:27 Freq: q24h Status: Active Protocol: Activity Type Activity Date Activity User E-Sign Co-Sign Detail Recorded Client Recorded Date Recorded By Document 12/09/17 04:23 ZZB [id number] 12/09/17 04:30 ZZB 12/09/17 04:23 Orthostatic Vitals Sitting -Blood Pressure (90/60-120/80 mm Hg) 97/48 L -Extremity Use Left Arm Lying -Blood Pressure (90/60-120/80 mm Hg) 129/61 H -Extremity Use Left Arm -Pulse Rate (60-100 beats/min) 77 Intake and Output for Last 24 Hours 12/07/17 12/08/17 12/09/17 23:59 23:59 23:59 Intake Total 810 / 810 2090 / 2090 840 / 840 Output Total 700 / 700 2000 / 2000 600 / 600 Balance 110 / 110 90 / 90 240 / 240 Microbiology Past 72 Hours 12/07/17 16:02 Influenza Types A,B Direct FA (SYED) - Final Mucosa - Nose Laboratory Tests Past 24 Hrs 12/09/17 12/09/17 05:36 05:36 WBC 6.0 RBC 3.06 L Hgb 8.0 L Hct 26.4 L MCV 86.3 MCH 26.1 L MCHC 30.3 L RDW 20.7 H RDW Differential 62.6 H Plt Count 198 MPV 9.6 Immature Gran % (Auto) 0.800 Neut % (Auto) 77.1 H Lymph % (Auto) 10.7 L [place] % (Auto) 8.3 Eos % (Auto) 2.8 Baso % (Auto) 0.3 Absolute Neuts (auto) 4.6 Absolute Lymphs (auto) 0.64 L Total Counted Not Reportable Sodium 138 Potassium 3.3 L Chloride 101 Carbon Dioxide 27.0 Anion Gap 10 BUN 44 H Creatinine 2.39 H Estim Creat Clear Calc 25.35 Est GFR (MDRD) Af Amer 34 L Est GFR (MDRD) Non-Af 28 L BUN/Creatinine Ratio 18.4 Glucose 100 Calcium 9.1 Code Visit Patient was seen independently and in conjunction with Pop LE. Orthostatic vital signs are still positive. Patient is however asymptomatic. He reports that he has very limited respiratory reserve and gets markedly short of breath with even short distances. He is not on oxygen. He recently had a 6 minute walk and did not desaturate. He also recently had an overnight trending pulse ox and there was no significant desaturation. He does wear compression stockings at home but does not put them on immediately when arising from bed and sometimes his legs are too swollen after a few hours to even get the stockings on. He was seen in consultation by Dr. Valentine from [facility] today and I reviewed his consult. He recommends iron supplementation and discontinuation of Cardura and decreasing the dose of Coreg to 12.5 mg twice daily. We will continue to hold diuretics. Repeat orthostatics will be done in the a.m. and I encouraged him to have his bring his compression stockings and so that these may be applied prior to the orthostatics in the morning. Will repeat an overnight trending pulse ox tonight. I agree with the physical exam as documented by Pop Gomez below. Inpatient E&M: 39162 Subs Hosp L2
[2017-12-09] MEDS: Allopurinol 100 MG Tablet 200 MG PO (17:53)
[2017-12-09] MEDS: Atorvastatin Calcium 80 MG Tablet PO (21:44)
[2017-12-09] MEDS: MELATONIN 3 MG TABLET PO (21:45)
[2017-12-09] MEDS: Aspirin 81 MG TAB.CHEW PO (21:45)
[2017-12-10] VITALS (11 sets, daily range): BP systolic 93–147; BP diastolic 55–84; PULSE 66–96; RESP 16–18; TEMP 36.4–36.9; O2SAT 95–98
[2017-12-10] MEDS: Iron Polysaccharide Complex 150 MG CAPSULE PO ×3 (05:46→21:34)
[2017-12-10 06:45] LABS: Anion Gap 11 (5-15); BUN 39 mg/dL (7-18); BUN/Creat Ratio 16.7 RATIO (10-20); Calcium,Total 8.9 mg/dL (8.5-10.1); Chloride 103 mmol/L (98-107); Creatinine, Serum 2.34 mg/dL (0.70-1.30); EST Glomerular Filtration Rate 29 mL/min (>60); Est Glom Filt Rate - Afr Amer 35 mL/min (>60); Estimated Creatinine Clearance 25.89 ml/min; Glucose 91 mg/dL (74-106); Potassium 3.7 mmol/L (3.5-5.1); Sodium Level 140 mmol/L (136-145)
[2017-12-10 06:54] LABS: Absolute Lymphocyte Count 0.59 X10^3/ul (0.83-4.51); Absolute Neutrophil Count 4.7 X10^3/uL (2.0-7.7); Basophil# 0.02 X10^3/uL; Basophil% 0.3 % (0-1); Eosinophil# 0.18 X10^3/uL; Hematocrit 26.6 % (40-54); Hemoglobin 8.2 g/dl (13.0-16.5); Lymphocyte # 0.59 X10^3/ul (4.0); Lymphocyte % 9.8 % (19-41); Mean Corp Hgb Conc 30.8 g/gl (32-36); Mean Corpuscular Hgb 26.1 pg (27.0-32.0); Mean Corpuscular Volume 84.7 fL (80-94); Mean Platelet Vol. 8.7 fl (6.2-12.0); Monocyte# 0.49 X10^3/uL; Monocyte% 8.1 % (0-10); Neutrophil # 4.71 X10^3/uL (2.7-7.7); Platelet Count 174 K/mm3 (150-450); RBC Distribution Width CV 20.6 % (11.6-14.6); RBC Distribution Width SD 63.1 fl (35.1-43.9); Red Blood Count 3.14 M/mm3 (4.6-6.2)
[2017-12-10 07:04] LABS: Differential Indicated SCAN CRITERIA MET; POSITIVE COUNT NO; POSITIVE DIFFERENTIAL YES; POSITIVE MORPHOLOGY YES
[2017-12-10 07:19] LABS: Anisocytosis 3+; Differential Comment SCANNED; Microcytosis 2+; Ovalocyte 1+
[2017-12-10] MEDS: predniSONE 20 MG Tablet PO (08:49)
[2017-12-10] MEDS: Hydroxychloroquine 200 MG Tablet PO ×2 (08:49→16:30)
[2017-12-10] MEDS: predniSONE 20 MG Tablet 40 MG PO (10:19)
[2017-12-10] MEDS: Carvedilol 25 MG Tablet PO ×2 (10:20→21:34)
[2017-12-10] MEDS: Pantoprazole Sodium 40 MG Tablet PO (10:20)
[2017-12-10] MEDS: Leflunomide 10 MG TABLET PO (10:24)
--- NOTE | 2017-12-10 12:09 | PCM.PN.REN ---
Subjective: Patient is complaining of severe leg pain wit any touch. \ Breathing is the same / Not on NC currently Leg edema is much better - Physical Exam General: Alert, Oriented x3 HEENT: Atraumatic Oral: Moist Mucosa Neck: Supple, No JVD Lungs: Clear to auscultation, Normal air movement, No rhonchi, No wheeze Cardiovascular: Regular rate, Regular Rhythm, Normal S1, Normal S2 Abdomen: Bowel Sounds Present, Soft, Non Tender, Non-Distended Extremities: No clubbing, No cyanosis, No edema Skin: - - severe tenderness with any touch over both legs brom knee and down Lymphatic: No Cervical, Supraclavicular, or Inguinal Adenopathy Neurological: Cranial nerves II-XII grossly intact, Neuro grossly intact Psych/Mental Status: Normal Affect Vital Signs Temp Pulse Resp BP Pulse Ox 97.6 F L 80 16 108/60 97 12/10/17 08:35 12/10/17 11:12 12/10/17 08:35 12/10/17 10:28 12/10/17 08:35 Oxygen Delivery Method Room Air Weight: 119.2 kg Body Mass Index (BMI) 41.8 Orthostatic Vital Signs Start: 12/08/17 11:27 Freq: q24h Status: Active Protocol: Activity Type Activity Date Activity User E-Sign Co-Sign Detail Recorded Client Recorded Date Recorded By Document 12/10/17 10:28 CAD [id number] 12/10/17 10:35 CAD 12/10/17 10:28 Orthostatic Vitals Standing -Blood Pressure (90/60-120/80 mm Hg) 93/61 -Extremity Use Right Arm -Pulse Rate (60-100 beats/min) 66 Sitting -Blood Pressure (90/60-120/80 mm Hg) 105/59 L -Extremity Use Right Arm -Pulse Rate (60-100 beats/min) 80 Lying -Blood Pressure (90/60-120/80 mm Hg) 108/60 -Extremity Use Right Arm -Pulse Rate (60-100 beats/min) 81 Intake and Output for Last 24 Hours 12/08/17 12/09/17 12/10/17 23:59 23:59 23:59 Intake Total 2090 / 2090 1740 / 1740 240 / 240 Output Total 1999 / 1999 1450 / 1450 500 / 500 Balance 90 / 90 290 / 290 -260 / -260 Microbiology Past 72 Hours 12/07/17 16:02 Influenza Types A,B Direct FA (SYED) - Final Mucosa - Nose Laboratory Tests Past 24 Hrs 12/10/17 12/10/17 06:00 06:00 WBC 6.0 RBC 3.14 L Hgb 8.2 L Hct 26.6 L MCV 84.7 MCH 26.1 L MCHC 30.8 L RDW 20.6 H RDW Differential 63.1 H Plt Count 174 MPV 8.7 Immature Gran % (Auto) 0.800 Neut % (Auto) 78.0 H Lymph % (Auto) 9.8 L [place] % (Auto) 8.1 Eos % (Auto) 3.0 Baso % (Auto) 0.3 Absolute Neuts (auto) 4.7 Absolute Lymphs (auto) 0.59 L Total Counted Not Reportable Differential Comment SCANNED Anisocytosis 3+ Microcytosis 2+ Ovalocytes 1+ Sodium 140 Potassium 3.7 Chloride 103 Carbon Dioxide 26.0 Anion Gap 11 BUN 39 H Creatinine 2.34 H Estim Creat Clear Calc 25.89 Est GFR (MDRD) Af Amer 35 L Est GFR (MDRD) Non-Af 29 L BUN/Creatinine Ratio 16.7 Glucose 91 Calcium 8.9 Medical Necessity - Tobacco Use Smoking Status: Never smoker Tobacco Use: Non-smoker Assessment/Plan 1- VICKI on CKD, 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 UA showed moderate LES . No WBC No protein ( VICKI is most probably from prerenal due to decreased effective circulatory volume induced by diuretics ( Patient was on lasix 40 BID and metolazone at home) along with hemodynamic instability ( VICKI is less likely due to flare od renal sarcoidosis since the UA is benign ) Cr improved with holding diuretics. Cr peaked at 2.9 mg/dL and now is stable at 2.3 mg/dL No need of diuretics for now. continue holding Please avoid ACEI/ARB No need of ORDER MANAGER 2- Hypokalemia . due to renal loss Resolved with replacement 3- Leg edema: multifactorial from CKD/CHF. improved with diuretics. Patient is at risk for right side heart failure with chronic interstitial lung disease. please do echocardiogram to evaluate the right ventricle systolic function and pressures. 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 will defer the management to the primary service Will continue to follow Jeimy Bello MD [phone]
--- NOTE | 2017-12-10 12:19 | PN.RENAL_ITS ---
Subjective: Patient is complaining of severe leg pain wit any touch. \ Breathing is the same / Not on NC currently Leg edema is much better - Physical Exam General: Alert, Oriented x3 HEENT: Atraumatic Oral: Moist Mucosa Neck: Supple, No JVD Lungs: Clear to auscultation, Normal air movement, No rhonchi, No wheeze Cardiovascular: Regular rate, Regular Rhythm, Normal S1, Normal S2 Abdomen: Bowel Sounds Present, Soft, Non Tender, Non-Distended Extremities: No clubbing, No cyanosis, No edema Skin: - - severe tenderness with any touch over both legs brom knee and down Lymphatic: No Cervical, Supraclavicular, or Inguinal Adenopathy Neurological: Cranial nerves II-XII grossly intact, Neuro grossly intact Psych/Mental Status: Normal Affect Vital Signs Temp Pulse Resp BP Pulse Ox 97.6 F L 80 16 108/60 97 12/10/17 08:35 12/10/17 11:12 12/10/17 08:35 12/10/17 10:28 12/10/17 08:35 Oxygen Delivery Method Room Air Weight: 119.2 kg Body Mass Index (BMI) 41.8 Orthostatic Vital Signs Start: 12/08/17 11:27 Freq: q24h Status: Active Protocol: Activity Type Activity Date Activity User E-Sign Co-Sign Detail Recorded Client Recorded Date Recorded By Document 12/10/17 10:28 CAD [email or web address] 12/10/17 10:35 CAD 12/10/17 10:28 Orthostatic Vitals Standing -Blood Pressure (90/60-120/80 mm Hg) 93/61 -Extremity Use Right Arm -Pulse Rate (60-100 beats/min) 66 Sitting -Blood Pressure (90/60-120/80 mm Hg) 105/59 L -Extremity Use Right Arm -Pulse Rate (60-100 beats/min) 80 Lying -Blood Pressure (90/60-120/80 mm Hg) 108/60 -Extremity Use Right Arm -Pulse Rate (60-100 beats/min) 81 Intake and Output for Last 24 Hours 12/08/17 12/09/17 12/10/17 23:59 23:59 23:59 Intake Total 2090 / 2090 1740 / 1740 240 / 240 Output Total 1999 / 1999 1450 / 1450 500 / 500 Balance 90 / 90 290 / 290 -260 / -260 Microbiology Past 72 Hours 12/07/17 16:02 Influenza Types A,B Direct FA (SYED) - Final Mucosa - Nose Laboratory Tests Past 24 Hrs 12/10/17 12/10/17 06:00 06:00 WBC 6.0 RBC 3.14 L Hgb 8.2 L Hct 26.6 L MCV 84.7 MCH 26.1 L MCHC 30.8 L RDW 20.6 H RDW Differential 63.1 H Plt Count 174 MPV 8.7 Immature Gran % (Auto) 0.800 Neut % (Auto) 78.0 H Lymph % (Auto) 9.8 L [place] % (Auto) 8.1 Eos % (Auto) 3.0 Baso % (Auto) 0.3 Absolute Neuts (auto) 4.7 Absolute Lymphs (auto) 0.59 L Total Counted Not Reportable Differential Comment SCANNED Anisocytosis 3+ Microcytosis 2+ Ovalocytes 1+ Sodium 140 Potassium 3.7 Chloride 103 Carbon Dioxide 26.0 Anion Gap 11 BUN 39 H Creatinine 2.34 H Estim Creat Clear Calc 25.89 Est GFR (MDRD) Af Amer 35 L Est GFR (MDRD) Non-Af 29 L BUN/Creatinine Ratio 16.7 Glucose 91 Calcium 8.9 Medical Necessity - Tobacco Use Smoking Status: Never smoker Tobacco Use: Non-smoker Assessment/Plan 1- VICKI on CKD, 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 UA showed moderate LES . No WBC No protein ( VICKI is most probably from prerenal due to decreased effective circulatory volume induced by diuretics ( Patient was on lasix 40 BID and metolazone at home ) along with hemodynamic instability ( VICKI is less likely due to flare od renal sarcoidosis since the UA is benign ) Cr improved with holding diuretics. Cr peaked at 2.9 mg/dL and now is stable at 2.3 mg/dL No need of diuretics for now. continue holding Please avoid ACEI/ARB No need of LOAN ANALYST 2- Hypokalemia . due to renal loss Resolved with replacement 3- Leg edema: multifactorial from CKD/CHF. improved with diuretics. Patient is at risk for right side heart failure with chronic interstitial lung disease. please do echocardiogram to evaluate the right ventricle systolic function and pressures. 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 will defer the management to the primary service Will continue to follow Jeimy Bello MD [phone]
--- NOTE | 2017-12-10 13:04 | PN_ITS ---
Subjective: BL distal leg, ankle, and foot pain today 7-05/13 despite starting 20 mg prednisone. He feels that his sarcoidosis is flaring up. He had severe pain attempting to get out of bed and transitioning to the chair where he sits now in apparent severe discomfort. He does not feel dizzy or LH today. - Physical Exam General: Alert, Oriented x3, Cooperative HEENT: Atraumatic, PERRLA, EOMI, Normocephalic Neck: Supple, No JVD, Negative Carotid Bruits Lungs: Clear to auscultation, Normal air movement Cardiovascular: Regular rate, No murmurs Abdomen: Bowel Sounds Present, Soft, Non Tender Extremities: No edema, Capillary Refill Less than 3 Seconds, - - BL LE tender to very light touch Skin: No rashes, No breakdown Musculoskeletal: No Tenderness to Palpation of Joints or Extremities Neurological: Cranial nerves II-XII grossly intact Psych/Mental Status: Normal Affect, Appropriate, Alert and oriented to time, place, person, mood and affect Vital Signs Temp Pulse Resp BP Pulse Ox 97.6 F L 80 16 108/60 97 12/10/17 08:35 12/10/17 11:12 12/10/17 08:35 12/10/17 10:28 12/10/17 08:35 Oxygen Delivery Method Room Air Weight: 119.2 kg Body Mass Index (BMI) 41.8 Orthostatic Vital Signs Start: 12/08/17 11:27 Freq: q24h Status: Active Protocol: Activity Type Activity Date Activity User E-Sign Co-Sign Detail Recorded Client Recorded Date Recorded By Document 12/10/17 10:28 CAD [id number] 12/10/17 10:35 CAD 12/10/17 10:28 Orthostatic Vitals Standing -Blood Pressure (90/60-120/80) 93/61 -Extremity Use Right Arm -Pulse Rate (60-100) 66 Sitting -Blood Pressure (90/60-120/80) 105/59 L -Extremity Use Right Arm -Pulse Rate (60-100) 80 Lying -Blood Pressure (90/60-120/80) 108/60 -Extremity Use Right Arm -Pulse Rate (60-100) 81 Intake and Output for Last 24 Hours 12/08/17 12/09/17 12/10/17 23:59 23:59 23:59 Intake Total 2089 / 2090 1740 / 1740 360 / 360 Output Total 1999 1450 / 1450 800 / 800 Balance 90 / 90 290 / 290 -440 / -440 Microbiology Past 72 Hours 12/07/17 16:02 Influenza Types A,B Direct FA (SYED) - Final Mucosa - Nose Laboratory Tests Past 24 Hrs 12/10/17 12/10/17 06:00 06:00 WBC 6.0 RBC 3.14 L Hgb 8.2 L Hct 26.6 L MCV 84.7 MCH 26.1 L MCHC 30.8 L RDW 20.6 H RDW Differential 63.1 H Plt Count 174 MPV 8.7 Immature Gran % (Auto) 0.800 Neut % (Auto) 78.0 H Lymph % (Auto) 9.8 L [place] % (Auto) 8.1 Eos % (Auto) 3.0 Baso % (Auto) 0.3 Absolute Neuts (auto) 4.7 Absolute Lymphs (auto) 0.59 L Total Counted Not Reportable Differential Comment SCANNED Anisocytosis 3+ Microcytosis 2+ Ovalocytes 1+ Sodium 140 Potassium 3.7 Chloride 103 Carbon Dioxide 26.0 Anion Gap 11 BUN 39 H Creatinine 2.34 H Estim Creat Clear Calc 25.89 Est GFR (MDRD) Af Amer 35 L Est GFR (MDRD) Non-Af 29 L BUN/Creatinine Ratio 16.7 Glucose 91 Calcium 8.9 Medical Necessity - Tobacco Use Smoking Status: Never smoker Tobacco Use: Non-smoker Assessment/Plan 1. Increased lethargy - now with sarvoid flare. Renal function continues to improve, low K resolved. Anemia stable. 2. Orthostatic hypotension - discontinue cardura. Maintain coreg at current dose. Continue to hold lasix per nephrology. 3. Chronic diastolic CHF - Currently his edema has not returned yet. Closely monitor as he has had a significantly positive fluid balance and is at risk for return of edema and CHF as we continue to hold. Nephrology wants us to continue to hold at this time. Restart when appropriate. Immanuel wrap if he can tolerate. Clear lungs. Large weight loss prior to admission. Current daily weights do not seem accurate as he has had a large gain in his daily fluid balance. 4. VICKI on CKD - Nephro consulted. Improving. Plan to restart lasix tomorrow for discharge. Do not restart lasix yet per nephro. Plan to remain off Xaroxalyn. 5. Sarcoidosis - now with acute flare up and severe lower extremity pain. - increased steroids to 60 mg today, will reevaluate in AM. Will need Rheumatology follow up. He has underlying pulm, renal, and joint manifestations. Maintain current PO prednisone dose. Continue other anti- rheumatics. Pt of Dr. Jorge. Follows [facility] for pulm manifestations. prior + lung bx. 6. CAD - he has significant CAD, however, he went to [facility] last year for CABG but was told he could not have this done. Dr. Kam has been managing him medically. EKG is normal. Troponin is negative. Continue home meds. Asa/Statin, coreg. 7. Hypokalemia - continue to replete aggressively. Mag/Phos normal. 8. Iron def. Anemia - as above. Epo per renal. s/p multiple iron infusions. Continue PO iron. 9. Morbid obesity with mild hyperglycemia on presentation - Dietary consult. A1C is normal. Will be fluctuant on high dose steroids. 10. GERD - continue PPI. 11. Hypokalemia - resolved. 12. BPH - cardura stopped for + orthos. Continue to monitor and plan for follow up with his urologist as an outpatient. DVT ppx: SCDs if he is able to tolerate them on his legs. DC planning: continue PTOT, physical needs are increased now with sarcoid flare up. This patient was seen by Pop Gomez PA-C under the supervision of Doctor Tucker.
[2017-12-10] MEDS: Allopurinol 100 MG Tablet 200 MG PO (16:30)
--- NOTE | 2017-12-10 18:47 | NURSING ---
Reviewed and agreed on all charting with Manasa Man RN
[2017-12-10] MEDS: 0.9% NaCl Peripheral Flush Adult/Peds IV (20:24)
[2017-12-10] MEDS: Aspirin 81 MG TAB.CHEW PO (21:33)
[2017-12-10] MEDS: MELATONIN 3 MG TABLET PO (21:34)
[2017-12-10] MEDS: Atorvastatin Calcium 80 MG Tablet PO (21:34)
[2017-12-11] VITALS (8 sets, daily range): BP systolic 135–153; BP diastolic 66–97; PULSE 73–87; RESP 16; TEMP 36.6–36.8; O2SAT 95–97
[2017-12-11] MEDS: Iron Polysaccharide Complex 150 MG CAPSULE PO ×2 (05:24→13:10)
[2017-12-11 06:15] LABS: Hematocrit 26.3 % (40-54); Hemoglobin 8.1 g/dl (13.0-16.5)
[2017-12-11 06:28] LABS: Anion Gap 9 (5-15); BUN 38 mg/dL (7-18); BUN/Creat Ratio 16.8 RATIO (10-20); Calcium,Total 8.9 mg/dL (8.5-10.1); Chloride 103 mmol/L (98-107); Creatinine, Serum 2.26 mg/dL (0.70-1.30); EST Glomerular Filtration Rate 30 mL/min (>60); Est Glom Filt Rate - Afr Amer 37 mL/min (>60); Estimated Creatinine Clearance 26.81 ml/min; Glucose 127 mg/dL (74-106); Potassium 4.3 mmol/L (3.5-5.1); Sodium Level 138 mmol/L (136-145)
[2017-12-11] MEDS: predniSONE 20 MG Tablet 60 MG PO (09:39)
[2017-12-11] MEDS: Carvedilol 25 MG Tablet PO (09:39)
[2017-12-11] MEDS: Hydroxychloroquine 200 MG Tablet PO (09:40)
[2017-12-11] MEDS: Leflunomide 10 MG TABLET PO (09:41)
[2017-12-11] MEDS: Pantoprazole Sodium 40 MG Tablet PO (09:48)
--- NOTE | 2017-12-11 12:13 | PCM.PN.REN ---
Subjective: Patient said his leg pain is much better. No complaints - Physical Exam General: Alert, Oriented x3 HEENT: Atraumatic Oral: Moist Mucosa Neck: Supple, No JVD Lungs: Clear to auscultation, Normal air movement, No rhonchi, No wheeze, No rales Cardiovascular: Regular rate, Regular Rhythm, Normal S1, Normal S2, No murmurs Abdomen: Bowel Sounds Present, Soft, Non Tender Extremities: No clubbing, No cyanosis, No edema Skin: No rashes Musculoskeletal: No Tenderness to Palpation of Joints or Extremities Lymphatic: No Cervical, Supraclavicular, or Inguinal Adenopathy Neurological: Cranial nerves II-XII grossly intact, Neuro grossly intact Psych/Mental Status: Normal Affect Vital Signs Temp Pulse Resp BP Pulse Ox 98.2 F 73 16 153/79 H 97 12/11/17 09:00 12/11/17 10:59 12/11/17 09:00 12/11/17 09:16 12/11/17 09:00 Oxygen Delivery Method Room Air Weight: 119.1 kg Body Mass Index (BMI) 41.8 Orthostatic Vital Signs Start: 12/08/17 11:27 Freq: q24h Status: Active Protocol: Activity Type Activity Date Activity User E-Sign Co-Sign Detail Recorded Client Recorded Date Recorded By Document 12/11/17 09:16 NN [id number] 12/11/17 09:17 NN 12/11/17 09:16 Orthostatic Vitals Lying -Blood Pressure (90/60-120/80) 153/79 H -Extremity Use Right Arm -Pulse Rate (60-100) 85 Intake and Output for Last 24 Hours 12/09/17 12/10/17 12/11/17 23:59 23:59 23:59 Intake Total 1740 / 1740 720 / 720 360 / 360 Output Total 1450 / 1450 1185 / 1185 325 / 325 Balance 290 / 290 -465 / -465 35 / 35 Laboratory Tests Past 24 Hrs 12/11/17 12/11/17 05:35 05:35 Hgb 8.1 L Hct 26.3 L Sodium 138 Potassium 4.3 Chloride 103 Carbon Dioxide 26.0 Anion Gap 9 BUN 38 H Creatinine 2.26 H Estim Creat Clear Calc 26.81 Est GFR (MDRD) Af Amer 37 L Est GFR (MDRD) Non-Af 30 L BUN/Creatinine Ratio 16.8 Glucose 127 H Calcium 8.9 Medical Necessity - Tobacco Use Smoking Status: Never smoker Tobacco Use: Non-smoker Assessment/Plan 1- VICKI on CKD, 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 UA showed moderate LES . No WBC No protein VICKI is most probably from prerenal due to decreased effective circulatory volume induced by diuretics ( Patient was on lasix 40 BID and metolazone at home) along with hemodynamic instability ( VICKI is less likely due to flare of renal sarcoidosis since the UA is benign ) Cr improved with holding diuretics. Cr peaked at 2.9 mg/dL and now is stable at 2.3 mg/dL No need of diuretics for now. continue holding Please avoid ACEI/ARB No need of EGG CRATER 2- Hypokalemia . due to renal loss will d/c Kcl since the patient is off diuretics 3- Leg edema: multifactorial from CKD/CHF. improved with diuretics. Patient is at risk for right side heart failure with chronic interstitial lung disease. please do echocardiogram to evaluate the right ventricle systolic function and pressures. 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 will defer the management to the primary service 5- Anemia: h/o iron deficiency. received IV iron before. Will give the patient one dose of Epo 10,000 U SC one time Okay to discharge the patient home from nephrology stand point. Please discharge patient on lasix 40 PO daily and norvasc 5 mg PO daily. repeat BMP in 1 week. Will arrange for follow up with Dr. Carcamo in 2 weeks after discharge Will d/w with Dr. Caitlin Bello MD [phone]
--- NOTE | 2017-12-11 12:17 | PN.RENAL_ITS ---
Subjective: Patient said his leg pain is much better. No complaints - Physical Exam General: Alert, Oriented x3 HEENT: Atraumatic Oral: Moist Mucosa Neck: Supple, No JVD Lungs: Clear to auscultation, Normal air movement, No rhonchi, No wheeze, No rales Cardiovascular: Regular rate, Regular Rhythm, Normal S1, Normal S2, No murmurs Abdomen: Bowel Sounds Present, Soft, Non Tender Extremities: No clubbing, No cyanosis, No edema Skin: No rashes Musculoskeletal: No Tenderness to Palpation of Joints or Extremities Lymphatic: No Cervical, Supraclavicular, or Inguinal Adenopathy Neurological: Cranial nerves II-XII grossly intact, Neuro grossly intact Psych/Mental Status: Normal Affect Vital Signs Temp Pulse Resp BP Pulse Ox 98.2 F 73 16 153/79 H 97 12/11/17 09:00 12/11/17 10:59 12/11/17 09:00 12/11/17 09:16 12/11/17 09:00 Oxygen Delivery Method Room Air Weight: 119.1 kg Body Mass Index (BMI) 41.8 Orthostatic Vital Signs Start: 12/08/17 11:27 Freq: q24h Status: Active Protocol: Activity Type Activity Date Activity User E-Sign Co-Sign Detail Recorded Client Recorded Date Recorded By Document 12/11/17 09:16 NN [id number] 12/11/17 09:17 NN 12/11/17 09:16 Orthostatic Vitals Lying -Blood Pressure (90/60-120/80) 153/79 H -Extremity Use Right Arm -Pulse Rate (60-100) 85 Intake and Output for Last 24 Hours 12/09/17 12/10/17 12/11/17 23:59 23:59 23:59 Intake Total 1740 / 1740 720 / 720 360 / 360 Output Total 1450 / 1450 1185 / 1185 325 / 325 Balance 290 / 290 -465 / -465 35 / 35 Laboratory Tests Past 24 Hrs 12/11/17 12/11/17 05:35 05:35 Hgb 8.1 L Hct 26.3 L Sodium 138 Potassium 4.3 Chloride 103 Carbon Dioxide 26.0 Anion Gap 9 BUN 38 H Creatinine 2.26 H Estim Creat Clear Calc 26.81 Est GFR (MDRD) Af Amer 37 L Est GFR (MDRD) Non-Af 30 L BUN/Creatinine Ratio 16.8 Glucose 127 H Calcium 8.9 Medical Necessity - Tobacco Use Smoking Status: Never smoker Tobacco Use: Non-smoker Assessment/Plan 1- VICKI on CKD, 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 UA showed moderate LES . No WBC No protein VICKI is most probably from prerenal due to decreased effective circulatory volume induced by diuretics ( Patient was on lasix 40 BID and metolazone at home ) along with hemodynamic instability ( VICKI is less likely due to flare of renal sarcoidosis since the UA is benign ) Cr improved with holding diuretics. Cr peaked at 2.9 mg/dL and now is stable at 2.3 mg/dL No need of diuretics for now. continue holding Please avoid ACEI/ARB No need of GAUGE OPERATOR 2- Hypokalemia . due to renal loss will d/c Kcl since the patient is off diuretics 3- Leg edema: multifactorial from CKD/CHF. improved with diuretics. Patient is at risk for right side heart failure with chronic interstitial lung disease. please do echocardiogram to evaluate the right ventricle systolic function and pressures. 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 will defer the management to the primary service 5- Anemia: h/o iron deficiency. received IV iron before. Will give the patient one dose of Epo 10,000 U SC one time Okay to discharge the patient home from nephrology stand point. Please discharge patient on lasix 40 PO daily and norvasc 5 mg PO daily. repeat BMP in 1 week. Will arrange for follow up with Dr. Carcamo in 2 weeks after discharge Will d/w with Dr. Caitlin Bello MD [phone]
--- NOTE | 2017-12-11 13:14 | DCINST_ITS ---
You will use the following diet at home:: Calorie/Carbohydrate Controlled ( specify 1200, 1400, etc), Cardiac - <2 grams sodium per day Your food should be the consistency of: Regular Your liquids should be the consistency of: Regular/Thin Discharge Activity: Return to Normal Activity Allergies/Adverse Reactions: Allergies Influenza Virus Vaccines Allergy (Verified 12/07/17 06:56) CAN'T BREATHE Latex, Natural Rubber Allergy (Verified 12/07/17 06:56) Rash Penicillins Allergy (Verified 12/07/17 06:56) CAN'T BREATHE Sulfa (Sulfonamide Antibiotics) Allergy (Verified 12/07/17 06:56) Rash PEPPERS Allergy (Uncoded 12/07/17 06:56) Anaphylaxis Medications to take at Discharge Aspirin [Aspirin, Baby] 81 mg PO DAILY@0800 09/10/16 Atorvastatin Calcium [Lipitor] 80 mg PO QHS 09/10/16 Carvedilol [Coreg (Beta Trevor)] 25 mg PO BID 09/10/16 Multivitamin [Daily Multiple Vitamin] 1 ea PO DAILY 09/10/16 Hydroxychloroquine [Plaquenil] 200 mg PO BIDCM 12/29/16 Pantoprazole Sodium [Protonix] 40 mg PO DAILY 12/29/16 Allopurinol 200 mg PO DAILY 07/14/17 Iron Polysaccharide Complex [Ferrex 150] 150 mg PO TID #90 07/23/17 leflunomide 10 mg tablet 10 mg PO QDAY 08/16/17 0.9% Saline Lock 5 - 30 ml IV UD PRN syringe 12/07/17 Potassium Chloride [K-Dur] 20 meq PO DAILY 12/07/17 Amlodipine [Norvasc] 5 mg PO DAILY #30 tab 12/11/17 Atorvastatin Calcium [Lipitor] 80 mg PO QHS tablet 12/11/17 Furosemide [Lasix] 40 mg PO DAILY #30 tab 12/11/17 Prednisone 5 mg PO DAILY #30 tab 12/11/17 Prednisone 10 mg PO DAILY #42 tab 12/11/17 The following prescriptions were given: Amlodipine [Norvasc] 5 mg PO DAILY #30 tab Furosemide [Lasix] 40 mg PO DAILY #30 tab Prednisone 10 mg PO DAILY #42 tab Primary Care Physician: Vaughn Armenta III, MD [Primary Care Provider] - Please follow up with your Primary Care Physician in: 2-3 weeks Please Follow Up With: Jeimy Bello MD When: 2 weeks Please Follow Up With: Chetna Faye MD When: 5-7 days Proposed Discharge Date: 12/11/17
--- NOTE | 2017-12-11 13:14 | PCM.DC.SUM ---
Discharge Date and Diagnosis Date of Admission: 12/07/17 Date of Discharge: 12/11/17 - Primary Discharge Diagnosis VICKI sarcoidosis with acute flare Orthostatic hypotension Debility suspected YAIMA, untreated Chronic iron deficiency anemia Hypokalemia Chronic diastolic CHF CAD Morbid obesity GERD BPH - Secondary Discharge Diagnosis Chronic Problems (Last Reviewed 10/16/17 @ 08:39 by Kimberli Adan) Dyspnea (Chronic) Hypercalcemia (Chronic) Body mass index (BMI) of 40.0-44.9 in adult (Chronic) Chronic diastolic (congestive) heart failure (Chronic) Bilateral leg edema (Chronic) Hypersomnia (Chronic) Chronic kidney disease (Chronic) Hyperlipemia, mixed (Chronic) Diastolic dysfunction (Chronic) Atherosclerosis of [place] coronary artery of [place] heart without angina pectoris (Chronic) Polyarthropathy (Chronic) Morbid obesity (Chronic) Sarcoidosis (Chronic) Cardiomyopathy (Chronic) Iron deficiency anemia (Chronic) Constipation (Chronic) 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 Gout (Chronic) Morbid obesity with BMI of 40.0-44.9, adult (Chronic) GERD (gastroesophageal reflux disease) (Chronic) Allergic rhinitis (Chronic) Hypertension (Chronic) Nephrolithiasis (Chronic) Renal cyst (Chronic) Splenomegaly (Chronic) Coronary artery disease (Chronic) CKD (chronic kidney disease) stage 4, GFR 15-29 ml/min (Chronic) Polyarthropathy of ankle and foot (Chronic) Hospital Course and Treatment Imaging Results: RAD/Chest 1 View (Portable) IMPRESSION: No acute findings Consults: [facility] - nephrology Operations: None Procedures: None Summary of Care Provided: Physical exam on day of discharge: General: Resting comfortably NAD Psych: A/Ox3 normal affect HEENT: PEARRLA AT [place] Neck: Supple NT CV: RRR no m/t/r/g/h Resp: CTA Abd: [id number] Soft NT no guarding or rigidity Ext: DP2+= no edema Skin: W/D normal turgor Lymph/Heme: No active bleeding or adenopathy Neuro: CN2-12 intact Hospital course: The patient is a 72 year old M with a hx of sarcoidosis with renal, pulm, and joint manifestations who presented to the ER with severe lethargy. He was found to have VICKI and hypokalemia and was admitted to the telemetry floor as there was a concern he may have had bradycardia on the pulse ox in the ER when ambulating. He had a normal EKG. He had been started on xaroxayln for edema and CHF about a week prior and had a large volume diuresis and weight loss which was felt to be the etiology for his low K and VICKI. His diuretics were held and he was given k supplementations, with good improvement in his renal function. He was also found to have significant orthostatic hypotension felt to be 2/2 his volume loss and cardura treatment for BPH. This was discontinued, and his orthos did improve somewhat. He unfortunately developed severe LE pain and further debility, feeling that his sarcoidosis was flaring up. He was started on high dose steroids which he will taper to his baseline 5 mg at [place] and we strongly encouraged close follow up with his campground cleaning attendant Dr. Soto within a week to assess this. After starting steroids he felt much better, and was ambulating in the hallways without difficulty. Also of note, he was maintained on tele throughout his stay without any episodes of bradycardia. He will also need a BMP in 1 week, and will need to see nephrology in 1 week. He was restarted on his home lasix dose, but told to not resume xaroxalyn at all. He also received 1 dose of EPO per renal prior to [place]. Please also follow up with your PCP. This patient was seen by Pop Gomez PA-C under the supervision of Doctor Tucker. [] Discharge Diet: Low fat/ Low Cholesterol, 2000 mg Sodium Diet Discharge Activity: Return to Normal Activity Home Medications: Medications to take at Discharge Aspirin [Aspirin, Baby] 81 mg PO DAILY@0800 09/10/16 Atorvastatin Calcium [Lipitor] 80 mg PO QHS 09/10/16 Carvedilol [Coreg (Beta Trevor)] 25 mg PO BID 09/10/16 Multivitamin [Daily Multiple Vitamin] 1 ea PO DAILY 09/10/16 Hydroxychloroquine [Plaquenil] 200 mg PO BIDCM 12/29/16 Pantoprazole Sodium [Protonix] 40 mg PO DAILY 12/29/16 Allopurinol 200 mg PO DAILY 07/14/17 Iron Polysaccharide Complex [Ferrex 150] 150 mg PO TID #90 07/23/17 leflunomide 10 mg tablet 10 mg PO QDAY 08/16/17 0.9% Saline Lock 5 - 30 ml IV UD PRN syringe 04/06/18 Potassium Chloride [K-Dur] 20 meq PO DAILY 12/07/17 Amlodipine [Norvasc] 5 mg PO DAILY #30 tab 12/11/17 Atorvastatin Calcium [Lipitor] 80 mg PO QHS tablet 12/11/17 Furosemide [Lasix] 40 mg PO DAILY #30 tab 12/11/17 Prednisone 5 mg PO DAILY #30 tab 12/11/17 Prednisone 10 mg PO DAILY #42 tab 12/11/17 Following Prescrptions Were Given to Patient: Amlodipine [Norvasc] 5 mg PO DAILY #30 tab Furosemide [Lasix] 40 mg PO DAILY #30 tab Prednisone 10 mg PO DAILY #42 tab Primary Care Physician: Vaughn Armenta III, MD [Primary Care Provider] - Please follow up with your Primary Care Physician in: 2-3 weeks Please Follow Up With: Jeimy Bello MD When: 2 weeks Please Follow Up With: Chetna Faye MD When: 5-7 days Disposition: Home Minutes spent on discharge:: 35 Patient Condition:: Stable Medical Necessity - Tobacco Use Smoking Status: Never smoker Tobacco Use: Non-smoker Meaningful Use Info Meaningful Use Diagnoses (Choose all that apply): None applicable
--- NOTE | 2017-12-11 13:24 | DS.PCM_ITS ---
Discharge Date and Diagnosis Date of Admission: 12/07/17 Date of Discharge: 12/11/17 - Primary Discharge Diagnosis VICKI sarcoidosis with acute flare Orthostatic hypotension Debility suspected YAIMA, untreated Chronic iron deficiency anemia Hypokalemia Chronic diastolic CHF CAD Morbid obesity GERD BPH - Secondary Discharge Diagnosis Chronic Problems (Last Reviewed 10/16/17 @ 08:39 by Kimberli Adan) Dyspnea (Chronic) Hypercalcemia (Chronic) Body mass index (BMI) of 40.0-44.9 in adult (Chronic) Chronic diastolic (congestive) heart failure (Chronic) Bilateral leg edema (Chronic) Hypersomnia (Chronic) Chronic kidney disease (Chronic) Hyperlipemia, mixed (Chronic) Diastolic dysfunction (Chronic) Atherosclerosis of [place] coronary artery of [place] heart without angina pectoris (Chronic) Polyarthropathy (Chronic) Morbid obesity (Chronic) Sarcoidosis (Chronic) Cardiomyopathy (Chronic) Iron deficiency anemia (Chronic) Constipation (Chronic) 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 Gout (Chronic) Morbid obesity with BMI of 40.0-44.9, adult (Chronic) GERD (gastroesophageal reflux disease) (Chronic) Allergic rhinitis (Chronic) Hypertension (Chronic) Nephrolithiasis (Chronic) Renal cyst (Chronic) Splenomegaly (Chronic) Coronary artery disease (Chronic) CKD (chronic kidney disease) stage 4, GFR 15-29 ml/min (Chronic) Polyarthropathy of ankle and foot (Chronic) Hospital Course and Treatment Imaging Results: RAD/Chest 1 View (Portable) IMPRESSION: No acute findings Consults: [facility] - nephrology Operations: None Procedures: None Summary of Care Provided: Physical exam on day of discharge: General: Resting comfortably NAD Psych: A/Ox3 normal affect HEENT: PEARRLA AT [place] Neck: Supple NT CV: RRR no m/t/r/g/h Resp: CTA Abd: [id number] Soft NT no guarding or rigidity Ext: DP2+= no edema Skin: W/D normal turgor Lymph/Heme: No active bleeding or adenopathy Neuro: CN2-12 intact Hospital course: The patient is a 72 year old M with a hx of sarcoidosis with renal, pulm, and joint manifestations who presented to the ER with severe lethargy. He was found to have VICKI and hypokalemia and was admitted to the telemetry floor as there was a concern he may have had bradycardia on the pulse ox in the ER when ambulating. He had a normal EKG. He had been started on xaroxayln for edema and CHF about a week prior and had a large volume diuresis and weight loss which was felt to be the etiology for his low K and VICKI. His diuretics were held and he was given k supplementations, with good improvement in his renal function. He was also found to have significant orthostatic hypotension felt to be 2/2 his volume loss and cardura treatment for BPH. This was discontinued, and his orthos did improve somewhat. He unfortunately developed severe LE pain and further debility, feeling that his sarcoidosis was flaring up. He was started on high dose steroids which he will taper to his baseline 5 mg at [place] and we strongly encouraged close follow up with his underpresser hand Dr. Soto within a week to assess this. After starting steroids he felt much better, and was ambulating in the hallways without difficulty. Also of note, he was maintained on tele throughout his stay without any episodes of bradycardia. He will also need a BMP in 1 week, and will need to see nephrology in 1 week. He was restarted on his home lasix dose, but told to not resume xaroxalyn at all. He also received 1 dose of EPO per renal prior to [place]. Please also follow up with your PCP. This patient was seen by Pop Gomez PA-C under the supervision of Doctor Tucker. [] Discharge Diet: Low fat/ Low Cholesterol, 2000 mg Sodium Diet Discharge Activity: Return to Normal Activity Home Medications: Medications to take at Discharge Aspirin [Aspirin, Baby] 81 mg PO DAILY@0800 09/10/16 Atorvastatin Calcium [Lipitor] 80 mg PO QHS 09/10/16 Carvedilol [Coreg (Beta Trevor)] 25 mg PO BID 09/10/16 Multivitamin [Daily Multiple Vitamin] 1 ea PO DAILY 09/10/16 Hydroxychloroquine [Plaquenil] 200 mg PO BIDCM 12/29/16 Pantoprazole Sodium [Protonix] 40 mg PO DAILY 12/29/16 Allopurinol 200 mg PO DAILY 07/14/17 Iron Polysaccharide Complex [Ferrex 150] 150 mg PO TID #90 07/23/17 leflunomide 10 mg tablet 10 mg PO QDAY 08/16/17 0.9% Saline Lock 5 - 30 ml IV UD PRN syringe 04/06/18 Potassium Chloride [K-Dur] 20 meq PO DAILY 12/07/17 Amlodipine [Norvasc] 5 mg PO DAILY #30 tab 12/11/17 Atorvastatin Calcium [Lipitor] 80 mg PO QHS tablet 12/11/17 Furosemide [Lasix] 40 mg PO DAILY #30 tab 12/11/17 Prednisone 5 mg PO DAILY #30 tab 12/11/17 Prednisone 10 mg PO DAILY #42 tab 12/11/17 Following Prescrptions Were Given to Patient: Amlodipine [Norvasc] 5 mg PO DAILY #30 tab Furosemide [Lasix] 40 mg PO DAILY #30 tab Prednisone 10 mg PO DAILY #42 tab Primary Care Physician: Vaughn Armenta III, MD [Primary Care Provider] - Please follow up with your Primary Care Physician in: 2-3 weeks Please Follow Up With: Jeimy Bello MD When: 2 weeks Please Follow Up With: Chetna Faye MD When: 5-7 days Disposition: Home Minutes spent on discharge:: 35 Patient Condition:: Stable Medical Necessity - Tobacco Use Smoking Status: Never smoker Tobacco Use: Non-smoker Meaningful Use Info Meaningful Use Diagnoses (Choose all that apply): None applicable
--- NOTE | 2017-12-11 15:08 | NURSING ---
Reviewed and agreed on all charting with Manasa Man RN
--- NOTE | 2017-12-13 15:54 | CASEMGMT ---
CARMEN VASQUEZ DISCHARGE F/U PHONE CALL LACE: 12 STRATA: 4 CALL DATE: 12/13/17 DISCHARGE DATE: 12/11/17 TIME OF CALL: 1553 DURATION: 2 MINUTES ADM DX: INCREASED LETHARGY, VICKI ON CKD PT VERY SHORT BUT POLITE WITH ANSWERS VIA PHONE. PT STATES THAT HE HAS BEEN 'GOOD' SINCE DISCHARGE. PT STATES NO QUESTIONS REGARDING DISCHARGE INSTRUCTIONS/MEDICATIONS. PT AWARE OF F/U APPOINTMENTS SCHEDULED. PT STATES NO SUGGESTIONS OR CONCERNS FOR VISIT AND STATES THAT [facility] IS 'FIRST CLASS.' PT DECLINES TO TAKE THIS CARMEN VASQUEZ'S PHONE NUMBER FOR ANY FURTHER CORRESPONDENCE. SSTATEN CARMEN VASQUEZ
== END 2017-12-11 14:41 | disposition home or self-care (01) | DRG 683 ==
LOC: ED 08:43 → PCU 12:25
PROVIDERS: Physician Assistant; Admitting Provider Internal Medicine; Emergency Provider Emergency Medicine; Family Provider Family Medicine; PCP Family Medicine; Visit Provider Internal Medicine
DX: N17.9 Acute kidney failure, unspecified (principal); I50.32 Chronic diastolic (congestive) heart failure; I13.0 Hypertensive heart and chronic kidney disease with heart failure and stage 1 through stage 4 chronic kidney disease, or unspecified chronic kidney disease; Z68.41 Body mass index [BMI] 40.0-44.9, adult; E87.3 Alkalosis; D86.9 Sarcoidosis, unspecified; N18.4 Chronic kidney disease, stage 4 (severe); T50.2X5A Adverse effect of carbonic-anhydrase inhibitors, benzothiadiazides and other diuretics, initial encounter; D50.9 Iron deficiency anemia, unspecified; E66.01 Morbid (severe) obesity due to excess calories; I25.10 Atherosclerotic heart disease of native coronary artery without angina pectoris; E87.6 Hypokalemia; I95.1 Orthostatic hypotension; N40.0 Benign prostatic hyperplasia without lower urinary tract symptoms; K21.9 Gastro-esophageal reflux disease without esophagitis; G47.33 Obstructive sleep apnea (adult) (pediatric); D63.8 Anemia in other chronic diseases classified elsewhere; N26.9 Renal sclerosis, unspecified; J30.9 Allergic rhinitis, unspecified; Z83.3 Family history of diabetes mellitus; Z79.82 Long term (current) use of aspirin
CPT/HCPCS: 36415; 71045; 80048; 80053; 81001; 83036; 83735; 83880; 84100; 84484; 85014; 85018; 85025; 87804; 93005; 97110; 97116; 97162; 97166; 97530; 97802; 99285; J0885; J7050; A4216

== ENCOUNTER → 2017-12-13 13:30 | Outpatient (CLI) | payer MEDICARE, SELFPAY ==
[2017-12-13 14:11] LABS: Hematocrit 33.2 % (40-54); Mean Corp Hgb Conc 30.1 g/gl (32-36); Mean Corpuscular Volume 86.2 fL (80-94); Mean Platelet Vol. 9.6 fl (6.2-12.0); Platelet Count 275 K/mm3 (150-450); RBC Distribution Width CV 20.9 % (11.6-14.6); RBC Distribution Width SD 65.3 fl (35.1-43.9); Red Blood Count 3.85 M/mm3 (4.6-6.2); White Blood Count 10.8 K/mm3 (4.4-11.0)
[2017-12-13 14:13] LABS: Scan Indicated on CBC? Y/N YES- FLAGS NOTED
== END ==
PROVIDERS: Family Provider Family Medicine; PCP Family Medicine; Visit Provider Internal Medicine Nephrology
DX: D64.9 Anemia, unspecified (principal)
CPT/HCPCS: 36415; 85027

== ENCOUNTER → 2017-12-28 13:14 | Outpatient (CLI) | payer MEDICARE, SELFPAY ==
[2017-12-28 14:24] LABS: Absolute Lymphocyte Count 0.33 X10^3/ul (0.83-4.51); Absolute Neutrophil Count 5.8 X10^3/uL (2.0-7.7); Eosinophil# 0.07 X10^3/uL; Eosinophils% 1.1 % (0-5); Hematocrit 34.2 % (40-54); Hemoglobin 10.3 g/dl (13.0-16.5); Lymphocyte # 0.33 X10^3/ul (4.0); Mean Corp Hgb Conc 30.1 g/gl (32-36); Mean Corpuscular Hgb 26.7 pg (27.0-32.0); Mean Corpuscular Volume 88.6 fL (80-94); Monocyte# 0.37 X10^3/uL; Monocyte% 5.6 % (0-10); Neutrophil # 5.77 X10^3/uL (2.7-7.7); Platelet Count 168 K/mm3 (150-450); RBC Distribution Width CV 20.4 % (11.6-14.6); RBC Distribution Width SD 64.6 fl (35.1-43.9); Red Blood Count 3.86 M/mm3 (4.6-6.2); White Blood Count 6.6 K/mm3 (4.4-11.0)
[2017-12-28 14:30] LABS: Differential Indicated SCAN CRITERIA MET; POSITIVE COUNT NO; POSITIVE DIFFERENTIAL YES; POSITIVE MORPHOLOGY YES
[2017-12-28 14:43] LABS: AST(SGOT) 25 U/L (15-37); Alanine Aminotransfer ALT/SGPT 40 U/L (16-61); Albumin, Serum 3.5 g/dL (3.2-5.0); Alkaline Phosphatase 90 U/L (45-117); Anion Gap 9 (5-15); BUN 32 mg/dL (7-18); BUN/Creat Ratio 14.7 RATIO (10-20); Calcium,Total 8.9 mg/dL (8.5-10.1); Chloride 106 mmol/L (98-107); Creatinine, Serum 2.17 mg/dL (0.70-1.30); EST Glomerular Filtration Rate 32 mL/min (>60); Est Glom Filt Rate - Afr Amer 38 mL/min (>60); Globulin 3.5 g/dL (2.2-4.2); Glucose 123 mg/dL (74-106); Potassium 3.9 mmol/L (3.5-5.1); Sodium Level 140 mmol/L (136-145)
[2017-12-28 18:43] LABS: Anisocytosis 1+
== END ==
PROVIDERS: Family Provider Family Medicine; PCP Family Medicine; Visit Provider Internal Medicine Rheumatology
DX: D86.86 Sarcoid arthropathy (principal); Z79.899 Other long term (current) drug therapy; D86.0 Sarcoidosis of lung; M65.351 Trigger finger, right little finger; N18.4 Chronic kidney disease, stage 4 (severe); D63.1 Anemia in chronic kidney disease; I25.10 Atherosclerotic heart disease of native coronary artery without angina pectoris; I50.9 Heart failure, unspecified; I12.9 Hypertensive chronic kidney disease with stage 1 through stage 4 chronic kidney disease, or unspecified chronic kidney disease
CPT/HCPCS: 36415; 80053; 85025

== ENCOUNTER → 2018-01-25 12:46 | Outpatient (CLI) | payer MEDICARE, SELFPAY ==
[2018-01-25 12:52] VITALS: PULSE 83; RESP 18; TEMP 36.2; O2SAT 97; BMI 42.3
[2018-01-25 13:05] LABS: Basophil# 0.02 X10^3/uL; Basophil% 0.2 % (0-1); Differential Indicated SCAN CRITERIA MET; Eosinophil# 0.08 X10^3/uL; Hematocrit 33.5 % (40-54); Hemoglobin 10.6 g/dl (13.0-16.5); Mean Corp Hgb Conc 31.6 g/gl (32-36); Mean Corpuscular Hgb 27.7 pg (27.0-32.0); Mean Corpuscular Volume 87.7 fL (80-94); Monocyte# 0.48 X10^3/uL; Monocyte% 5.9 % (0-10); Neutrophil # 7.01 X10^3/uL (2.7-7.7); Neutrophil % 86.8 % (47-70); POSITIVE COUNT NO; POSITIVE DIFFERENTIAL YES; POSITIVE MORPHOLOGY NO; Platelet Count 194 K/mm3 (150-450); RBC Distribution Width CV 18.7 % (11.6-14.6); RBC Distribution Width SD 58.3 fl (35.1-43.9); Red Blood Count 3.82 M/mm3 (4.6-6.2); White Blood Count 8.1 K/mm3 (4.4-11.0)
[2018-01-25 13:46] LABS: Albumin, Serum 3.6 g/dL (3.2-5.0); BUN 29 mg/dL (7-18); BUN/Creat Ratio 13.7 RATIO (10-20); Calcium,Total 9.1 mg/dL (8.5-10.1); Chloride 105 mmol/L (98-107); Creatinine, Serum 2.12 mg/dL (0.70-1.30); EST Glomerular Filtration Rate 33 mL/min (>60); Est Glom Filt Rate - Afr Amer 39 mL/min (>60); Estimated Creatinine Clearance 28.58 ml/min; Ferritin 70 ng/mL (26-388); Glucose 132 mg/dL (74-106); Iron 50 ug/dL (65-175); Iron Binding Capacity,Total 360 ug/dL (250-450); PERCENT IRON SATURATION 13.9 % (15.0-55.0); Phosphorus 3.5 mg/dL (2.5-4.9); Potassium 4.9 mmol/L (3.5-5.1); Sodium Level 144 mmol/L (136-145)
== END ==
PROVIDERS: Family Provider Family Medicine; PCP Family Medicine; Visit Provider Internal Medicine Nephrology
DX: N18.4 Chronic kidney disease, stage 4 (severe) (principal); D63.1 Anemia in chronic kidney disease
CPT/HCPCS: 36415; 80069; 82728; 83540; 83550; 85025; 96372; J0885

== ENCOUNTER → 2018-02-08 12:45 | Outpatient (CLI) | payer MEDICARE, SELFPAY ==
--- NOTE | 2018-02-08 12:45 | DT_ITS ---
This patient was seen during an EMR downtime February 04, 2018 - February 11, 2018. This patient may have a combination of paper and electronic documentation or all paper documentation. All documentation is viewable within the e-chart portion of [facility] for each patient visit.
[2018-02-08 14:12] LABS: Differential Indicated SCAN CRITERIA MET; Hematocrit 35.4 % (40-54); Hemoglobin 10.9 g/dl (13.0-16.5); Mean Corp Hgb Conc 30.8 g/gl (32-36); Mean Corpuscular Hgb 26.8 pg (27.0-32.0); Mean Platelet Vol. 10.2 fl (6.2-12.0); POSITIVE COUNT NO; POSITIVE DIFFERENTIAL YES; POSITIVE MORPHOLOGY NO; Platelet Count 200 K/mm3 (150-450); RBC Distribution Width CV 18.5 % (11.6-14.6); RBC Distribution Width SD 59.2 fl (35.1-43.9); Red Blood Count 4.07 M/mm3 (4.6-6.2); White Blood Count 9.1 K/mm3 (4.4-11.0)
[2018-02-08 14:13] LABS: Absolute Lymphocyte Count 0.48 X10^3/ul (0.83-4.51); Basophil# 0.02 X10^3/uL; Basophil% 0.2 % (0-1); Eosinophil# 0.07 X10^3/uL; Eosinophils% 0.8 % (0-5); Lymphocyte # 0.48 X10^3/ul (4.0); Lymphocyte % 5.3 % (19-41); Monocyte% 5.5 % (0-10); Neutrophil # 7.98 X10^3/uL (2.7-7.7); Neutrophil % 87.4 % (47-70)
== END ==
PROVIDERS: Family Provider Family Medicine; PCP Family Medicine; Visit Provider Internal Medicine Nephrology
DX: N18.4 Chronic kidney disease, stage 4 (severe) (principal)
CPT/HCPCS: 36415; 85025; 96372; J0885

== ENCOUNTER → 2018-02-21 12:43 | Outpatient (CLI) | payer MEDICARE, SELFPAY ==
[2018-02-21 13:21] LABS: Absolute Lymphocyte Count 0.46 X10^3/ul (0.83-4.51); Absolute Neutrophil Count 7.6 X10^3/uL (2.0-7.7); Basophil# 0.02 X10^3/uL; Basophil% 0.2 % (0-1); Eosinophils% 1.2 % (0-5); Hematocrit 34.1 % (40-54); Hemoglobin 10.4 g/dl (13.0-16.5); Lymphocyte # 0.46 X10^3/ul (4.0); Lymphocyte % 5.4 % (19-41); Mean Corp Hgb Conc 30.5 g/gl (32-36); Mean Corpuscular Hgb 26.8 pg (27.0-32.0); Mean Corpuscular Volume 87.9 fL (80-94); Mean Platelet Vol. 9.5 fl (6.2-12.0); Monocyte# 0.36 X10^3/uL; Monocyte% 4.2 % (0-10); Neutrophil # 7.55 X10^3/uL (2.7-7.7); Neutrophil % 88.3 % (47-70); Platelet Count 201 K/mm3 (150-450); RBC Distribution Width CV 18.1 % (11.6-14.6); RBC Distribution Width SD 57.9 fl (35.1-43.9); Red Blood Count 3.88 M/mm3 (4.6-6.2); White Blood Count 8.6 K/mm3 (4.4-11.0)
[2018-02-21 13:22] LABS: Differential Indicated SCAN CRITERIA MET; POSITIVE COUNT NO; POSITIVE DIFFERENTIAL YES; POSITIVE MORPHOLOGY NO
[2018-02-21 13:29] LABS: Albumin, Serum 3.4 g/dL (3.2-5.0); BUN 32 mg/dL (7-18); BUN/Creat Ratio 15.1 RATIO (10-20); Calcium,Total 9.3 mg/dL (8.5-10.1); Chloride 105 mmol/L (98-107); Creatinine, Serum 2.12 mg/dL (0.70-1.30); EST Glomerular Filtration Rate 33 mL/min (>60); Est Glom Filt Rate - Afr Amer 39 mL/min (>60); Glucose 144 mg/dL (74-106); Phosphorus 3.4 mg/dL (2.5-4.9); Potassium 4.1 mmol/L (3.5-5.1); Sodium Level 142 mmol/L (136-145)
[2018-02-21 13:35] VITALS: BP 156/72; PULSE 77; RESP 18; TEMP 36.2; O2SAT 98; BMI 42.3
== END ==
PROVIDERS: Family Provider Family Medicine; PCP Family Medicine; Visit Provider Internal Medicine Nephrology
DX: N18.4 Chronic kidney disease, stage 4 (severe) (principal); D63.1 Anemia in chronic kidney disease
CPT/HCPCS: 36415; 80069; 85025; 96372; J0885

== ENCOUNTER → 2018-03-08 12:44 | Outpatient (CLI) | payer MEDICARE, SELFPAY ==
[2018-03-08 13:12] LABS: Absolute Lymphocyte Count 0.58 X10^3/ul (0.83-4.51); Absolute Neutrophil Count 8.7 X10^3/uL (2.0-7.7); Basophil# 0.04 X10^3/uL; Basophil% 0.4 % (0-1); Eosinophil# 0.14 X10^3/uL; Eosinophils% 1.4 % (0-5); Hematocrit 33.3 % (40-54); Hemoglobin 10.6 g/dl (13.0-16.5); Lymphocyte # 0.58 X10^3/ul (4.0); Lymphocyte % 5.8 % (19-41); Mean Corp Hgb Conc 31.8 g/gl (32-36); Mean Corpuscular Hgb 27.7 pg (27.0-32.0); Mean Corpuscular Volume 86.9 fL (80-94); Mean Platelet Vol. 10.2 fl (6.2-12.0); Monocyte# 0.44 X10^3/uL; Monocyte% 4.4 % (0-10); Platelet Count 198 K/mm3 (150-450); RBC Distribution Width CV 17.3 % (11.6-14.6); RBC Distribution Width SD 53.6 fl (35.1-43.9); Red Blood Count 3.83 M/mm3 (4.6-6.2)
[2018-03-08 13:13] LABS: Differential Indicated SCAN CRITERIA MET; POSITIVE COUNT NO; POSITIVE DIFFERENTIAL YES; POSITIVE MORPHOLOGY NO
[2018-03-08 13:54] VITALS: BP 142/60; PULSE 78; RESP 16; TEMP 36.8; BMI 43.8
== END ==
PROVIDERS: Family Provider Family Medicine; PCP Family Medicine; Visit Provider Internal Medicine Nephrology
DX: N18.4 Chronic kidney disease, stage 4 (severe) (principal); D63.1 Anemia in chronic kidney disease
CPT/HCPCS: 36415; 85025; 96372; J0885

== ENCOUNTER → 2018-03-12 13:03 | Outpatient (CLI) | payer MEDICARE, SELFPAY ==
[2018-03-12 14:23] LABS: Anion Gap 13 (5-15); BUN 50 mg/dL (7-18); BUN/Creat Ratio 20.7 RATIO (10-20); Calcium,Total 9.2 mg/dL (8.5-10.1); Chloride 99 mmol/L (98-107); Creatinine, Serum 2.41 mg/dL (0.70-1.30); EST Glomerular Filtration Rate 28 mL/min (>60); Est Glom Filt Rate - Afr Amer 34 mL/min (>60); Glucose 135 mg/dL (74-106); Potassium 3.6 mmol/L (3.5-5.1); Sodium Level 139 mmol/L (136-145)
== END ==
PROVIDERS: Family Provider Family Medicine; PCP Family Medicine; Visit Provider Internal Medicine Cardiovascular Disease
DX: N18.9 Chronic kidney disease, unspecified (principal)
CPT/HCPCS: 36415; 80048

== ENCOUNTER → 2018-03-19 13:20 | Outpatient (CLI) | payer MEDICARE, SELFPAY ==
[2018-03-19 14:24] LABS: Absolute Lymphocyte Count 0.51 X10^3/ul (0.83-4.51); Absolute Neutrophil Count 9.3 X10^3/uL (2.0-7.7); Basophil# 0.03 X10^3/uL; Basophil% 0.3 % (0-1); Eosinophil# 0.14 X10^3/uL; Eosinophils% 1.3 % (0-5); Hematocrit 33.8 % (40-54); Hemoglobin 10.5 g/dl (13.0-16.5); Lymphocyte # 0.51 X10^3/ul (4.0); Lymphocyte % 4.9 % (19-41); Mean Corp Hgb Conc 31.1 g/gl (32-36); Mean Corpuscular Hgb 27.1 pg (27.0-32.0); Mean Corpuscular Volume 87.3 fL (80-94); Mean Platelet Vol. 10.2 fl (6.2-12.0); Monocyte# 0.47 X10^3/uL; Monocyte% 4.5 % (0-10); Neutrophil # 9.27 X10^3/uL (2.7-7.7); Neutrophil % 88.4 % (47-70); Platelet Count 185 K/mm3 (150-450); RBC Distribution Width SD 56.5 fl (35.1-43.9); Red Blood Count 3.87 M/mm3 (4.6-6.2); White Blood Count 10.5 K/mm3 (4.4-11.0)
[2018-03-19 14:26] LABS: Differential Indicated SCAN CRITERIA MET; POSITIVE COUNT NO; POSITIVE DIFFERENTIAL YES; POSITIVE MORPHOLOGY NO
[2018-03-19 14:58] LABS: ALB/GLOB Ratio 0.8 RATIO (0.9-2.4); AST(SGOT) 27 U/L (15-37); Alanine Aminotransfer ALT/SGPT 33 U/L (16-61); Albumin, Serum 3.5 g/dL (3.2-5.0); Alkaline Phosphatase 83 U/L (45-117); Anion Gap 12 (5-15); BUN 54 mg/dL (7-18); BUN/Creat Ratio 20.5 RATIO (10-20); Calcium,Total 9.1 mg/dL (8.5-10.1); Chloride 100 mmol/L (98-107); Creatinine, Serum 2.63 mg/dL (0.70-1.30); EST Glomerular Filtration Rate 25 mL/min (>60); Est Glom Filt Rate - Afr Amer 31 mL/min (>60); Globulin 4.2 g/dL (2.2-4.2); Glucose 146 mg/dL (74-106); Potassium 3.7 mmol/L (3.5-5.1); Protein, Total 7.7 g/dL (6.4-8.2); Sodium Level 140 mmol/L (136-145)
== END ==
PROVIDERS: Family Provider Family Medicine; PCP Family Medicine; Visit Provider Internal Medicine Rheumatology
DX: D86.86 Sarcoid arthropathy (principal); Z79.899 Other long term (current) drug therapy; D86.0 Sarcoidosis of lung; M65.351 Trigger finger, right little finger; N18.4 Chronic kidney disease, stage 4 (severe); D63.1 Anemia in chronic kidney disease; I25.10 Atherosclerotic heart disease of native coronary artery without angina pectoris; I12.9 Hypertensive chronic kidney disease with stage 1 through stage 4 chronic kidney disease, or unspecified chronic kidney disease; I50.9 Heart failure, unspecified
CPT/HCPCS: 36415; 80053; 85025

== ENCOUNTER → 2018-03-22 12:53 | Outpatient (CLI) | payer MEDICARE, SELFPAY ==
[2018-03-22 13:16] LABS: Hematocrit 35.1 % (40-54); Hemoglobin 11.1 g/dl (13.0-16.5); Mean Corp Hgb Conc 31.6 g/gl (32-36); Mean Corpuscular Hgb 27.7 pg (27.0-32.0); Mean Corpuscular Volume 87.5 fL (80-94); Mean Platelet Vol. 9.9 fl (6.2-12.0); Platelet Count 198 K/mm3 (150-450); RBC Distribution Width CV 17.9 % (11.6-14.6); RBC Distribution Width SD 55.4 fl (35.1-43.9); Red Blood Count 4.01 M/mm3 (4.6-6.2); Scan Indicated on CBC? Y/N NO; White Blood Count 9.9 K/mm3 (4.4-11.0)
[2018-03-22 13:25] LABS: Albumin, Serum 3.7 g/dL (3.2-5.0); BUN 49 mg/dL (7-18); BUN/Creat Ratio 19.1 RATIO (10-20); Calcium,Total 9.5 mg/dL (8.5-10.1); Chloride 98 mmol/L (98-107); Creatinine, Serum 2.56 mg/dL (0.70-1.30); EST Glomerular Filtration Rate 26 mL/min (>60); Est Glom Filt Rate - Afr Amer 32 mL/min (>60); Glucose 131 mg/dL (74-106); Phosphorus 3.1 mg/dL (2.5-4.9); Potassium 3.6 mmol/L (3.5-5.1); Sodium Level 138 mmol/L (136-145)
[2018-03-22 13:27] VITALS: BP 122/61; PULSE 80; RESP 16; TEMP 36.2; O2SAT 97; BMI 42.3
== END ==
PROVIDERS: Family Provider Family Medicine; PCP Family Medicine; Visit Provider Internal Medicine Nephrology
DX: N18.4 Chronic kidney disease, stage 4 (severe) (principal); D63.1 Anemia in chronic kidney disease
CPT/HCPCS: 36415; 80069; 85027; 96372; J0885

== ENCOUNTER → 2018-04-02 11:11 | Outpatient (CLI) | payer MEDICARE, SELFPAY ==
[2018-04-02 12:37] LABS: Protein, Urine (Random) 14.1 mg/dL (<11.9); Protein:Creat Ratio 172 mg/g CRE (0-200)
[2018-04-02 12:44] LABS: Anion Gap 16 (5-15); BUN 58 mg/dL (7-18); BUN/Creat Ratio 21.8 RATIO (10-20); Calcium,Total 9.3 mg/dL (8.5-10.1); Chloride 96 mmol/L (98-107); Creatinine, Serum 2.66 mg/dL (0.70-1.30); EST Glomerular Filtration Rate 25 mL/min (>60); Est Glom Filt Rate - Afr Amer 30 mL/min (>60); Glucose 137 mg/dL (74-106); Potassium 3.5 mmol/L (3.5-5.1); Sodium Level 140 mmol/L (136-145); Uric Acid 9.4 mg/dL (3.5-7.2)
== END ==
PROVIDERS: Family Provider Family Medicine; PCP Family Medicine; Visit Provider Internal Medicine Nephrology
DX: N18.4 Chronic kidney disease, stage 4 (severe) (principal); E79.0 Hyperuricemia without signs of inflammatory arthritis and tophaceous disease
CPT/HCPCS: 36415; 80048; 82570; 84156; 84550

== ENCOUNTER 2018-04-03 10:09 | Emergency (ER) | payer MEDICARE, SELFPAY ==
[2018-04-03 10:11] VITALS: BP 126/80; PULSE 86; RESP 22; TEMP 36.2; O2SAT 98; BMI 42.5
[2018-04-03 10:21] VITALS: BP 130/65; PULSE 82; RESP 15; O2SAT 100
[2018-04-03 10:24] VITALS: O2SAT 100
--- NOTE | 2018-04-03 10:42 | RAD_ITS ---
STUDY: X-RAY CHEST REASON FOR EXAM: Male, 72 years old. Increasing shortness of breath. The patient has a history of sarcoidosis. TECHNIQUE: AP and lateral views of the chest. COMPARISON: Comparison is made with prior study dated December 07, 2017. FINDINGS: EKG lectures are seen. Stable appearance of the nodular density in the left upper lobe measuring 2.3 cm x 2.2 cm. Stable increased interstitial markings in both lungs worse in the lung bases in keeping with the patient's history of sarcoidosis. There is no demonstrated pleural abnormality. There is mild cardiac enlargement. Normal mediastinum and jacqueline. Normal visualized pulmonary arteries. There is atherosclerotic tortuosity of the aortic arch and descending thoracic aorta. There are degenerative changes of the visualized thoracic spine. Normal visualized ribs, clavicles, and shoulders. There is no demonstrated abnormality of the visualized soft tissue structures of the upper abdomen. RAD/Chest PA and Lateral IMPRESSION: Stable examination. No acute infiltration is seen. Electronically Signed: Mathew Maurer MD at 12:33 EDT Tel [phone], Service support ,
--- NOTE | 2018-04-03 10:42 | EKG12_ITS ---
Test Reason : SOB Blood Pressure : / mmHG Vent. Rate : 080 BPM Atrial Rate : 080 BPM P-R Int : 212 ms QRS Dur : 132 ms QT Int : 414 ms P-R-T Axes : 033 034 -06 degrees QTc Int : 477 ms Sinus rhythm with 1st degree A-V block Non-specific intra-ventricular conduction block Abnormal ECG Confirmed by MARY RAND, PRITI ([id number]), editor book STEPHEN SANDY ([id number]) on 04/04/2018 11:56:44 AM Referred By: Floridalma Carcamo Confirmed By:PRITI HERNANDEZ MD
[2018-04-03 11:29] LABS: Absolute Lymphocyte Count 0.47 X10^3/ul (0.83-4.51); Absolute Neutrophil Count 6.8 X10^3/uL (2.0-7.7); Basophil# 0.02 X10^3/uL; Basophil% 0.3 % (0-1); Eosinophil# 0.05 X10^3/uL; Eosinophils% 0.6 % (0-5); Hemoglobin 9.1 g/dl (13.0-16.5); Lymphocyte # 0.47 X10^3/ul (4.0); Lymphocyte % 5.9 % (19-41); Mean Corp Hgb Conc 31.4 g/gl (32-36); Mean Corpuscular Hgb 27.7 pg (27.0-32.0); Mean Corpuscular Volume 88.1 fL (80-94); Mean Platelet Vol. 10.2 fl (6.2-12.0); Monocyte# 0.52 X10^3/uL; Monocyte% 6.6 % (0-10); Neutrophil # 6.77 X10^3/uL (2.7-7.7); Neutrophil % 85.7 % (47-70); Platelet Count 180 K/mm3 (150-450); RBC Distribution Width CV 18.8 % (11.6-14.6); RBC Distribution Width SD 59.1 fl (35.1-43.9); Red Blood Count 3.29 M/mm3 (4.6-6.2); White Blood Count 7.9 K/mm3 (4.4-11.0)
[2018-04-03 11:30] LABS: Differential Indicated SCAN CRITERIA MET; POSITIVE COUNT NO; POSITIVE DIFFERENTIAL YES; POSITIVE MORPHOLOGY NO
[2018-04-03] MEDS: 0.9% Normal Saline 1,000 ML 150 ML IV (11:40)
[2018-04-03 11:42] LABS: Anion Gap 8 (5-15); BUN 64 mg/dL (7-18); BUN/Creat Ratio 24.2 RATIO (10-20); Calcium,Total 9.4 mg/dL (8.5-10.1); Chloride 97 mmol/L (98-107); Creatinine, Serum 2.64 mg/dL (0.70-1.30); EST Glomerular Filtration Rate 25 mL/min (>60); Est Glom Filt Rate - Afr Amer 31 mL/min (>60); Estimated Creatinine Clearance 22.95 ml/min; Glucose 157 mg/dL (74-106); Sodium Level 139 mmol/L (136-145)
[2018-04-03 11:53] LABS: BNP,B-Type NATRIURETIC PEPTIDE 56.2 pg/mL (0-100)
[2018-04-03 12:09] VITALS: BP 108/62; PULSE 73; RESP 15; O2SAT 99
--- NOTE | 2018-04-03 13:17 | ED.DCSUM_ITS ---
- ER Visit Summary Date of Service: 04/03/18 Chief Complaint: [Shortness of breath] History of Present Illness: The patient is a 72 M [presents with shortness of breath since yesterday morning. Patient has had a cough for about 2 months and is been coughing up some yellow sputum. Patient states that yesterday try to stand while he was at the hospital get some blood test done and he felt very weak. Patient states she has been having a hard time sleeping when lying flat and having a hard time breathing. Patient's had some mild discomfort in his chest especially with deep breath. Patient had a metallic taste in his mouth today. Patient states that he always has black stool due to iron that he takes which is a chronic finding for him. Patient does have a history of coronary artery disease and has had evaluations by cardiology and is been [facility] however he was deemed not to be a surgical candidate although he does need a four-vessel CABG. Patient has a history of sarcoidosis as well and stage IV renal failure.] Physical Examination: [HEENT-PERRLA, EOMI. Cranial nerves II through XII grossly intact. TMs clear. Mucous membranes moist. No adenopathy. Cardiovascular-regular rate and rhythm out of 6 systolic ejection murmur Lungs-clear to auscultation, chest wall stable without crepitus or subcu emphysema Abdomen-normoactive bowel sounds, soft, nontender, no rebound or rigidity, no peritoneal signs. Extremities-intact ?4, normal range of motion, normal pulses, atraumatic]. Patient has +1 edema both lower extremities. Test Results: [EKG obtained on arrival shows sinus rhythm with a ventricular rate of 80 bpm. Patient had a first-degree AV block. Patient had some nonspecific ST changes noted laterally and inferiorly. CBC with differential showed a white count of 7.9, hemoglobin 9.1, hematocrit 29, platelets 180. Chemistries unremarkable other than slightly depressed potassium at 3.0. His BUN was 64 and creatinine was 2.64. Troponin was 0.289. BNP was 59. Chest x- ray showed nothing acute.] Emergency Department Course and Treatment: [Patient was given 40 mEq potassium chloride p.o. and he will be admitted to the hospitalist] Treatment Plan: [Admit] Disposition: [Admit] Impression: [Dyspnea Elevated troponin Anemia Hypokalemia Chronic renal failure] This note was generated with Dragon dictation software. It may contain incorrect words, spelling, and punctuation that were not noted in review of the chart prior to signing ED Disposition - Plan for ED Patient: Chief Complaint: Shortness of Breath Referrals: Vaughn Armenta III, MD [Primary Care Provider] -
[2018-04-03 13:25] LABS: Platelet Estimate ADEQUATE (ADEQ)
[2018-04-03 13:26] LABS: Anisocytosis 2+; Ovalocyte 1+; Red Cell Morphology N CHROM NORMAL (NORM C&C)
[2018-04-03 13:57] VITALS: BP 127/52; PULSE 80; RESP 16; O2SAT 98
--- NOTE | 2018-04-03 13:59 | ED.VISSUMM ---
- ER Visit Summary Date of Service: 04/03/18 Chief Complaint: [This is an addendum to my initial dictation] History of Present Illness: The patient is a 72 M [presented with dyspnea and was found to have an elevated troponin and anemia with a hemoglobin 9.1. Patient was evaluated by hospitalist who spoke with patient's bracelet form coverer and at this point the patient is now refusing admission for further workup and evaluation of his anemia and dyspnea. Patient understands that I cannot rule out acute coronary syndrome. Patient states that he understands that he is not a surgical candidate and he would be medical management only. He understands that I am not clear if his troponin will continue to elevate which could be a life-threatening issue and he understands that his anemia could continue to worsen as I do not have a clear etiology for this as well. Patient is refusing admission and understands my concerns. Patient's is with him and at this point they agree that they will be going home. Patient will sign out AGAINST MEDICAL ADVICE] Physical Examination: [] Test Results: [] Emergency Department Course and Treatment: [] Treatment Plan: [] Disposition: [Signed out AGAINST MEDICAL ADVICE]. Patient understands he may return at any time and advised to return if chest pain, increasing shortness of breath, or condition should worsen in any way. Impression: [Dyspnea Anemia Elevated troponin Chronic renal failure] This note was generated with [employer] dictation software. It may contain incorrect words, spelling, and punctuation that were not noted in review of the chart prior to signing ED Disposition - Plan for ED Patient: Chief Complaint: Shortness of Breath Instructions: ED Dyspnea Shortness of Breath Referrals: Vaughn Armenta III, MD [Primary Care Provider] - 3-5 Days
--- NOTE | 2018-04-04 10:25 | CM.ED ---
ED CALLBACK: Call placed to patient with no answer. Voicemail left with return contact information.
== END 2018-04-03 14:30 | disposition home or self-care (01) ==
PROVIDERS: Emergency Provider Emergency Medicine; Family Provider Family Medicine; PCP Family Medicine
DX: R06.00 Dyspnea, unspecified (principal); D64.9 Anemia, unspecified; E87.6 Hypokalemia; N18.9 Chronic kidney disease, unspecified; I25.10 Atherosclerotic heart disease of native coronary artery without angina pectoris; I25.2 Old myocardial infarction; D86.9 Sarcoidosis, unspecified; I44.0 Atrioventricular block, first degree
CPT/HCPCS: 36415; 71046; 80048; 83880; 84484; 85025; 87040; 87077; 87186; 93005; 99284; J7030; A4216

== ENCOUNTER → 2018-04-05 12:39 | Outpatient (CLI) | payer MEDICARE, SELFPAY ==
[2018-04-05 13:04] VITALS: BP 100/77; PULSE 78; RESP 16; TEMP 36.5; O2SAT 96; BMI 42.3
[2018-04-05 13:09] LABS: Absolute Lymphocyte Count 0.64 X10^3/ul (0.83-4.51); Absolute Neutrophil Count 7.6 X10^3/uL (2.0-7.7); Basophil# 0.02 X10^3/uL; Basophil% 0.2 % (0-1); Eosinophil# 0.04 X10^3/uL; Eosinophils% 0.5 % (0-5); Hematocrit 28.4 % (40-54); Hemoglobin 8.9 g/dl (13.0-16.5); Lymphocyte # 0.64 X10^3/ul (4.0); Lymphocyte % 7.4 % (19-41); Mean Corp Hgb Conc 31.3 g/gl (32-36); Mean Corpuscular Hgb 27.7 pg (27.0-32.0); Mean Corpuscular Volume 88.5 fL (80-94); Monocyte# 0.32 X10^3/uL; Monocyte% 3.7 % (0-10); Neutrophil # 7.57 X10^3/uL (2.7-7.7); Neutrophil % 87.5 % (47-70); POSITIVE COUNT NO; POSITIVE DIFFERENTIAL NO; POSITIVE MORPHOLOGY NO; Platelet Count 181 K/mm3 (150-450); RBC Distribution Width CV 18.9 % (11.6-14.6); RBC Distribution Width SD 60.1 fl (35.1-43.9); Red Blood Count 3.21 M/mm3 (4.6-6.2); White Blood Count 8.7 K/mm3 (4.4-11.0)
[2018-04-05 13:37] LABS: Ferritin 49 ng/mL (26-388); Iron 38 ug/dL (65-175); Iron Binding Capacity,Total 363 ug/dL (250-450); PERCENT IRON SATURATION 10.5 % (15.0-55.0)
== END ==
PROVIDERS: Family Provider Family Medicine; PCP Family Medicine; Visit Provider Internal Medicine Nephrology
DX: N18.4 Chronic kidney disease, stage 4 (severe) (principal); D63.1 Anemia in chronic kidney disease; N15.1 Renal and perinephric abscess
CPT/HCPCS: 36415; 82728; 83540; 83550; 85025; 96372; J0885

== ENCOUNTER → 2018-04-10 14:09 | Outpatient (CLI) | payer MEDICARE, SELFPAY | PROVIDERS: Family Provider Family Medicine; PCP Family Medicine; Visit Provider Family Medicine | DX: R78.81 Bacteremia (principal) | CPT/HCPCS: 36415; 87040 ==

== ENCOUNTER 2018-04-14 14:41 | Inpatient (IN) | payer MEDICARE, SELFPAY ==
[2018-04-14] VITALS (10 sets, daily range): BP systolic 122–181; BP diastolic 76–102; PULSE 80–93; RESP 13–22; TEMP 36.5–37.2; O2SAT 97–99; BMI 42.3; BMI 125.4; BMI 43.2
--- NOTE | 2018-04-14 15:11 | ED.DCSUM_ITS ---
- ER Visit Summary Date of Service: 04/14/18 Chief Complaint: Shortness of breath/chest pain History of Present Illness: The patient is a 72 M with a history of sarcoidosis , cardiomyopathy, coronary artery disease, chronic kidney disease. Patient states that he needs to have a four-way bypass surgery but is not a candidate due to his other medical problems. Patient reports shortness of breath when waking from a nap. He sat upright and try the cough, but did not bring up much sputum. He states his breathing did not improve. When getting in the car to come to the hospital he developed some chest heaviness. That now seems to be improved. Breathing is improved but not back to baseline at this time. He denies wheezing. He has not had recent fever or chills. Physical Examination: Vital signs include blood pressure of 181/93, temp 98.9, heart rate 93, respiratory rate 22, pulse ox 98% on 2 L nasal cannula. Head neck examination unremarkable. Heart is regular rate and rhythm. Lung sounds are slightly diminished. Abdomen is soft nontender. Extremity examination was 2+ edema in the lower extremities that is symmetric. No sign of cellulitis. Test Results: EKG is sinus at 97 with inferior and lateral ST depression and T- wave inversions. This is more pronounced when compared to his EKG from last week. Two-view chest x-ray shows moderate vascular congestion. CBC was a white count 11.5. Hemoglobin is 9.2 which is consistent with his prior values. Chemistry studies reveal BUN 36 and creatinine 2.68, which is again consistent with his baseline. Glucose is 181. His troponin is 0.871. Last week his troponin was 0.289. BNP is 314. Emergency Department Course and Treatment: Repeat examination patient is resting comfortably. He states his breathing is nearly back to baseline. He denies any chest heaviness or pressure. Repeat EKG is performed. Inferior lateral ST depression remains but is not as pronounced as the initial EKG. Patient is given his dose of aspirin as he normally only takes it at bedtime. I spoke with Dr. Paula who advised me to have hospitalist admit the patient and they would see him in the morning. Heparin drip will be started. I spoke with the hospitalist. Treatment Plan: [] Disposition: Admit Impression: 1. Chest pain, improved 2. CHF 3. Elevated troponin This note was generated with Dragon dictation software. It may contain incorrect words, spelling, and punctuation that were not noted in review of the chart prior to signing ED Disposition - Plan for ED Patient: Chief Complaint: Chest Pain Referrals: Vaughn Armenta III, MD [Primary Care Provider] -
--- NOTE | 2018-04-14 15:20 | RAD_ITS ---
STUDY: X-RAY CHEST REASON FOR EXAM: Male, 72 years old. Shortness of breath TECHNIQUE: Frontal view of the chest COMPARISON: 04/03/2018 FINDINGS: There are moderate congestive changes noted. The lungs are otherwise clear. There are no pleural effusions. There is no pneumothorax. The heart is enlarged, but stable. The visualized osseous structures are within normal limits. RAD/Chest PA and Lateral IMPRESSION: Moderate pulmonary vascular congestion. Electronically Signed: Parviz Busch, at 15:40 EDT Tel , Service support ,
[2018-04-14 15:22] LABS: Absolute Lymphocyte Count 1.32 X10^3/ul (0.83-4.51); Basophil# 0.03 X10^3/uL; Basophil% 0.3 % (0-1); Eosinophils% 0.9 % (0-5); Hematocrit 31.2 % (40-54); Hemoglobin 9.2 g/dl (13.0-16.5); Lymphocyte # 1.32 X10^3/ul (4.0); Lymphocyte % 11.4 % (19-41); Mean Corp Hgb Conc 29.5 g/gl (32-36); Mean Corpuscular Hgb 26.9 pg (27.0-32.0); Mean Corpuscular Volume 91.2 fL (80-94); Mean Platelet Vol. 9.9 fl (6.2-12.0); Monocyte# 0.05 X10^3/uL; Monocyte% 0.4 % (0-10); Neutrophil # 9.95 X10^3/uL (2.7-7.7); Neutrophil % 86.3 % (47-70); POSITIVE COUNT NO; POSITIVE DIFFERENTIAL NO; POSITIVE MORPHOLOGY NO; Platelet Count 272 K/mm3 (150-450); RBC Distribution Width SD 62.5 fl (35.1-43.9); Red Blood Count 3.42 M/mm3 (4.6-6.2); White Blood Count 11.5 K/mm3 (4.4-11.0)
[2018-04-14 15:39] LABS: Anion Gap 10 (5-15); BUN 36 mg/dL (7-18); BUN/Creat Ratio 13.4 RATIO (10-20); Calcium,Total 9.1 mg/dL (8.5-10.1); Chloride 104 mmol/L (98-107); Creatinine, Serum 2.68 mg/dL (0.70-1.30); EST Glomerular Filtration Rate 25 mL/min (>60); Est Glom Filt Rate - Afr Amer 30 mL/min (>60); Estimated Creatinine Clearance 22.61 ml/min; Glucose 181 mg/dL (74-106); Sodium Level 141 mmol/L (136-145)
[2018-04-14] MEDS: Aspirin 325 MG Tablet PO (16:18)
--- NOTE | 2018-04-14 16:29 | NURSING ---
DR VELOZ IN ER
[2018-04-14] MEDS: Heparin Injection (Vial) 5,000 UNIT/ML VIAL 9500 UNIT IV (16:38)
[2018-04-14] MEDS: HEPARIN/D5w 25,000 UNITS 25,000 UNITS/250 ML IV.SOLN. 16 UNITS IV (16:38)
--- NOTE | 2018-04-14 16:53 | PCM.HP.STD ---
Problem List (1) NSTEMI (non-ST elevated myocardial infarction) Status: Acute (2) CHF (congestive heart failure) Status: Acute Qualifiers: Heart failure type: unspecified Heart failure chronicity: acute Qualified Code(s): I50.9 - Heart failure, unspecified History of Present Illness Date of Admission: 04/14/18 Chief Complaint: shortness of breath The patient is a 72 year old M presents with shortness of breath that began today. Patient was in his normal state of health and then felt that he had cough and when he did, typically he feels better, however this time, he did not feel better and got worse. Notified his and taken to the hospital. Chest x-ray showed pulmonary patient had a troponin of 0.871. Patient did have feeling of someone sitting on his chest when this occurred. Patient was brought to the emergency room and received aspirin and heparin. Vision was put on oxygen and currently he is feeling better at this time. Patient was seen here on the first for shortness of breath and had a troponin of 0.2 at that time was advised patient be admitted. Patient has a complicated history and has been evaluated at tertiary facilities for intervention but due to his comorbidities was not a candidate for bypass surgery. Patient elected to go home that time. Patient will be admitted for non-ST elevation myocardial infarction as well as CHF. [] Past Medical History Past Medical History (Chronic Problems): Chronic Problems (Last Reviewed 02/26/18 @ 14:16 by Ministerio Kam MD) History of left heart catheterization (Chronic) 04/05/2016 @ [facility] per Dr. العراقي and 01/01/2017 @ [facility] per Dr. 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 Gout (Chronic) Morbid obesity with BMI of 40.0-44.9, adult (Chronic) GERD (gastroesophageal reflux disease) (Chronic) Allergic rhinitis (Chronic) Hypertension (Chronic) Nephrolithiasis (Chronic) Renal cyst (Chronic) Splenomegaly (Chronic) Coronary artery disease (Chronic) CKD (chronic kidney disease) stage 4, GFR 15-29 ml/min (Chronic) Polyarthropathy of ankle and foot (Chronic) Medical History: Medical History (Last Reviewed 04/14/18 @ 16:56 by Pancho Peterson DO) Dyspnea (Chronic) R06.00 Acute respiratory failure with hypoxia (Acute) J96.01 Hypercalcemia (Chronic) E83.52 Body mass index (BMI) of 40.0-44.9 in adult (Chronic) Z68.41 Chronic diastolic (congestive) heart failure (Chronic) I50.32 Bilateral leg edema (Chronic) R60.0 Hypersomnia (Chronic) G47.10 Chronic kidney disease (Chronic) N18.9 Hyperlipemia, mixed (Chronic) E78.2 Diastolic dysfunction (Chronic) I51.9 Atherosclerosis of [place] coronary artery of [place] heart without angina pectoris (Chronic) I25.10 NSTEMI (non-ST elevated myocardial infarction) (Acute) I21.4 Pain in right toe(s) (Acute) M79.674 Tinea unguium (Acute) B35.1 Ingrown toenail (Acute) L60.0 Anemia of chronic renal failure, stage 4 (severe) (Acute) N18.4, D63.1 Polyarthropathy (Chronic) M13.0 Edema (Acute) R60.9 Weakness (Acute) R53.1 Morbid obesity (Chronic) E66.01 Sarcoidosis (Chronic) D86.9 Debility (Acute) R53.81 Cardiomyopathy (Chronic) I42.9 Iron deficiency anemia (Chronic) D50.9 Constipation (Chronic) K59.00 Sarcoidosis of lung (Chronic) D86.0 diagnosed in 2011 on a lung biopsy Gout (Chronic) M10.9 Morbid obesity with BMI of 40.0-44.9, adult (Chronic) E66.01, Z68.41 GERD (gastroesophageal reflux disease) (Chronic) K21.9 Allergic rhinitis (Chronic) J30.9 Hypertension (Chronic) I10 Nephrolithiasis (Chronic) Renal cyst (Chronic) N28.1 Splenomegaly (Chronic) R16.1 Coronary artery disease (Chronic) I25.10 CKD (chronic kidney disease) stage 4, GFR 15-29 ml/min (Chronic) N18.4 Polyarthropathy of ankle and foot (Chronic) M13.0 Allergies Influenza Virus Vaccines Allergy (Verified 04/14/18 16:44) CAN'T BREATHE Latex, Natural Rubber Allergy (Verified 04/14/18 16:44) Rash Penicillins Allergy (Verified 04/14/18 16:44) CAN'T BREATHE Sulfa (Sulfonamide Antibiotics) Allergy (Verified 04/14/18 16:44) Rash PEPPERS Allergy (Uncoded 04/14/18 16:44) Anaphylaxis Home Medications: Ambulatory Orders Medication Instructions Recorded Aspirin [Aspirin, Baby] 81 mg PO DAILY@0800 09/10/16 Carvedilol [Coreg (Beta Trevor)] 25 mg PO BID 09/10/16 Multivitamin [Daily Multiple 1 ea PO DAILY 09/10/16 Vitamin] Hydroxychloroquine [Plaquenil] 200 mg PO BIDCM 12/29/16 Pantoprazole Sodium [Protonix] 40 mg PO DAILY 12/29/16 Allopurinol 200 mg PO DAILY 07/14/17 Iron Polysaccharide Complex 150 mg PO TID #90 07/23/17 [Ferrex 150] leflunomide 10 mg tablet 5 mg PO DAILY 08/16/17 Furosemide [Lasix] 80 mg PO DAILY 01/25/18 Prednisone 7.5 mg PO DAILY 01/25/18 Senna [Senokot] 1 tab PO DAILY 01/25/18 Surgical History: Surgical History (Last Reviewed 04/14/18 @ 16:56 by Pancho Peterson DO) History of left heart catheterization (Chronic) Z98.890 04/05/2016 @ [facility] per Dr. العراقي and 01/01/2017 @ [facility] per Dr. Kam Surgical History: no surgical history Smoking Status: Never smoker Tobacco Use: Non-smoker Alcohol: None - *Family History Maternal Family History: Family History (Last Reviewed 04/14/18 @ 16:56 by Pancho Peterson DO) Father Diabetes Heart failure Sister Diabetes Mother Diabetes History Items: Diabetes, - - His mother in her 90s of old age Paternal Family History: Family History (Last Reviewed 04/14/18 @ 16:56 by Pancho Peterson DO) Father Diabetes Heart failure Sister Diabetes Mother Diabetes History Items: Diabetes, - - Father of congestive heart failure in his 80s and had diabetes mellitus Sibling Family History: Family History (Last Reviewed 04/14/18 @ 16:56 by Pancho Peterson DO) Father Diabetes Heart failure Sister Diabetes Mother Diabetes History Items: Diabetes - His sister has diabetes. Review of Systems Constitutional: Denies: Chills, Fever, Weight Change Eyes: Denies: Blurred vision, Double vision HEENT: Denies: Head Aches, Sinus Congestion, Sinus Drainage Cardiovascular: Reports: Chest Pain, Edema - Edema is worse when his legs are more dependent and actually improved when they are up Respiratory: Reports: Cough, Shortness of Breath, Shortness of breath at rest. Denies: Sputum production Gastrointestinal: Denies: Abdominal Pain, Nausea, Vomiting Genitourinary: Denies: Dysuria Musculoskeletal: Denies: Joint Pain, Joint Tenderness Skin: Reports: - - Bruising due to Plaquenil. Denies: Dryness, Jaundice Neurological: Denies: Numbness, Tingling, Focal weakness Psychiatric: Denies: Anxiety, Depression Endocrine: Denies: Change in Body Habitus, Heat/ Cold Intolerance Hematologic/ Lymphatic: Reports: Easy Bruising. Denies: Easy Bleeding, Hx of blood clot Comment: All review of systems are negative except as mentioned in the history of present illness and the other review of systems. VTE Information - Inpt Only VTE Present on Admission: No VTE Mechan Device Prophylaxis: None VTE Pharm Prophylaxis ordered?: Yes Patient Problems: Active and Suspected Problems (Last Reviewed 02/26/18 @ 14:16 by Ministerio Kam MD) NSTEMI (non-ST elevated myocardial infarction) (Acute) CHF (congestive heart failure) (Acute) - Physical Exam General: Alert, Cooperative, No apparent distress HEENT: Atraumatic, Normocephalic, - - No icterus Oral: Moist Mucosa, No Gingival or Mucosal Lesions/ Ulcerations Neck: No JVD, Thyroid Normal Size and Texture, - - Thick neck so unable to appreciate any JVD Lungs: Clear to auscultation, No rhonchi, No wheeze, Diminished Cardiovascular: Regular rate, Regular Rhythm, Normal S1, Normal S2, No murmurs Abdomen: Bowel Sounds Present, Soft, Non Tender, Non-Distended, No Hepato-splenomegaly, Obese Extremities: No Calf Tenderness, Edema Skin: No rashes, - - Noted bruising Musculoskeletal: No Tenderness to Palpation of Joints or Extremities, No Muscle Wasting Neurological: Neuro grossly intact, Motor Exam 5/5 strength throughout, - - No clonus Psych/Mental Status: Normal Affect, Appropriate Vital Signs Temp Pulse Resp BP Pulse Ox 37.2 C 88 18 158/85 H 98 04/14/18 14:42 04/14/18 16:44 04/14/18 16:44 04/14/18 16:44 04/14/18 16:44 Oxygen Flow Rate (L/min) 2 Oxygen Delivery Method Room Air Weight: 122.47 kg Body Mass Index (BMI) 42.3 Laboratory Tests Past 24 Hrs 04/14/18 04/14/18 04/14/18 14:50 14:50 14:50 WBC 11.5 H RBC 3.42 L Hgb 9.2 L Hct 31.2 L MCV 91.2 MCH 26.9 L MCHC 29.5 L RDW 19.0 H RDW Differential 62.5 H Plt Count 272 MPV 9.9 Immature Gran % (Auto) 0.700 Neut % (Auto) 86.3 H Lymph % (Auto) 11.4 L [place] % (Auto) 0.4 Eos % (Auto) 0.9 Baso % (Auto) 0.3 Absolute Neuts (auto) 10.0 H Absolute Lymphs (auto) 1.32 Total Counted Not Reportable Sodium 141 Potassium 5.0 Chloride 104 Carbon Dioxide 27.0 Anion Gap 10 BUN 36 H Creatinine 2.68 H Estim Creat Clear Calc 22.61 Est GFR (MDRD) Af Amer 30 L Est GFR (MDRD) Non-Af 25 L BUN/Creatinine Ratio 13.4 Glucose 181 H Calcium 9.1 Troponin I 0.871 H* B-Natriuretic Peptide 314.0 H Chest x-ray reviewed and shows diffuse pulmonary edema. Essentially unchanged from previous chest x-rays EKG reviewed and showed normal sinus rhythm. Inferior Q waves. ST depressions in the lateral leads. Assessment/Plan All Active Problems (Last Reviewed 02/26/18 @ 14:16 by Ministerio Kam MD) NSTEMI (non-ST elevated myocardial infarction) (Acute) CHF (congestive heart failure) (Acute) Acute respiratory failure with hypoxia (Acute) NSTEMI (non-ST elevated myocardial infarction) (Acute) Pain in right toe(s) (Acute) Tinea unguium (Acute) Ingrown toenail (Acute) Anemia of chronic renal failure, stage 4 (severe) (Acute) Edema (Acute) Weakness (Acute) Debility (Acute) 1. Non-STEMI Patient currently hemodynamically stable This may be a new events from his troponins that were elevated last time but it is unclear since he went home during that time but given his new symptoms of suspect that it is Medical management at this time with heparin drip, aspirin, carvedilol Unclear this is a primary event or demand ischemia related to the patient's heart failure Cardiology will be on consultation Start statin Has been evaluated at [facility] in to his comorbidities was deemed not a candidate for surgical revascularization 2. Acute heart failure No previous echocardiogram in the system Will hold the patient's oral Lasix and change him over to IV Lasix 40 mg twice daily Continue with carvedilol Patient not a candidate for ALEXIS inhibitor nor angiotensin receptor trevor given chronic kidney disease May consider nitrates and hydralazine but will hold off right now 3. Chronic kidney disease stage IV Creatinine 2.68 which appears to be around his baseline Monitor particular since patient will be on Lasix The patient does require heart catheterization then will need to consult nephrology for further guidance 4. Sarcoidosis Complicating his overall care Continue with Plaquenil leflunomide and prednisone 5. Anemia Suspect anemia of chronic disease Patient is on Epo and iron 6. DVT prophylaxis: Patient will be anticoagulated 7. Advanced care planning: Discussed with patient about CPR if he would want that as he has had that previously. Patient stated that he would only want it for 10 minutes. I told him that it is all or nothing approach. Patient remains undecided therefore he will be full CODE STATUS at this time Case discussed with the patient's at bedside.
--- NOTE | 2018-04-14 16:57 | HP.PCM_ITS ---
Problem List (1) NSTEMI (non-ST elevated myocardial infarction) Status: Acute (2) CHF (congestive heart failure) Status: Acute Qualifiers: Heart failure type: unspecified Heart failure chronicity: acute Qualified Code(s): I50.9 - Heart failure, unspecified History of Present Illness Date of Admission: 04/14/18 Chief Complaint: shortness of breath The patient is a 72 year old M presents with shortness of breath that began today. Patient was in his normal state of health and then felt that he had cough and when he did, typically he feels better, however this time, he did not feel better and got worse. Notified his and taken to the hospital. Chest x-ray showed pulmonary patient had a troponin of 0.871. Patient did have feeling of someone sitting on his chest when this occurred. Patient was brought to the emergency room and received aspirin and heparin. Vision was put on oxygen and currently he is feeling better at this time. Patient was seen here on the first for shortness of breath and had a troponin of 0.2 at that time was advised patient be admitted. Patient has a complicated history and has been evaluated at tertiary facilities for intervention but due to his comorbidities was not a candidate for bypass surgery. Patient elected to go home that time. Patient will be admitted for non-ST elevation myocardial infarction as well as CHF. [] Past Medical History Past Medical History (Chronic Problems): Chronic Problems (Last Reviewed 02/26/18 @ 14:16 by Ministerio Kam MD) History of left heart catheterization (Chronic) 04/05/2016 @ [facility] per Dr. العراقي and 01/01/2017 @ [facility] per Dr. 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 Gout (Chronic) Morbid obesity with BMI of 40.0-44.9, adult (Chronic) GERD (gastroesophageal reflux disease) (Chronic) Allergic rhinitis (Chronic) Hypertension (Chronic) Nephrolithiasis (Chronic) Renal cyst (Chronic) Splenomegaly (Chronic) Coronary artery disease (Chronic) CKD (chronic kidney disease) stage 4, GFR 15-29 ml/min (Chronic) Polyarthropathy of ankle and foot (Chronic) Medical History: Medical History (Last Reviewed 04/14/18 @ 16:56 by Pancho Peterson DO) Dyspnea (Chronic) R06.00 Acute respiratory failure with hypoxia (Acute) J96.01 Hypercalcemia (Chronic) E83.52 Body mass index (BMI) of 40.0-44.9 in adult (Chronic) Z68.41 Chronic diastolic (congestive) heart failure (Chronic) I50.32 Bilateral leg edema (Chronic) R60.0 Hypersomnia (Chronic) G47.10 Chronic kidney disease (Chronic) N18.9 Hyperlipemia, mixed (Chronic) E78.2 Diastolic dysfunction (Chronic) I51.9 Atherosclerosis of [place] coronary artery of [place] heart without angina pectoris (Chronic) I25.10 NSTEMI (non-ST elevated myocardial infarction) (Acute) I21.4 Pain in right toe(s) (Acute) M79.674 Tinea unguium (Acute) B35.1 Ingrown toenail (Acute) L60.0 Anemia of chronic renal failure, stage 4 (severe) (Acute) N18.4, D63.1 Polyarthropathy (Chronic) M13.0 Edema (Acute) R60.9 Weakness (Acute) R53.1 Morbid obesity (Chronic) E66.01 Sarcoidosis (Chronic) D86.9 Debility (Acute) R53.81 Cardiomyopathy (Chronic) I42.9 Iron deficiency anemia (Chronic) D50.9 Constipation (Chronic) K59.00 Sarcoidosis of lung (Chronic) D86.0 diagnosed in 2011 on a lung biopsy Gout (Chronic) M10.9 Morbid obesity with BMI of 40.0-44.9, adult (Chronic) E66.01, Z68.41 GERD (gastroesophageal reflux disease) (Chronic) K21.9 Allergic rhinitis (Chronic) J30.9 Hypertension (Chronic) I10 Nephrolithiasis (Chronic) Renal cyst (Chronic) N28.1 Splenomegaly (Chronic) R16.1 Coronary artery disease (Chronic) I25.10 CKD (chronic kidney disease) stage 4, GFR 15-29 ml/min (Chronic) N18.4 Polyarthropathy of ankle and foot (Chronic) M13.0 Allergies Influenza Virus Vaccines Allergy (Verified 04/14/18 16:44) CAN'T BREATHE Latex, Natural Rubber Allergy (Verified 04/14/18 16:44) Rash Penicillins Allergy (Verified 04/14/18 16:44) CAN'T BREATHE Sulfa (Sulfonamide Antibiotics) Allergy (Verified 04/14/18 16:44) Rash PEPPERS Allergy (Uncoded 04/14/18 16:44) Anaphylaxis Home Medications: Ambulatory Orders Medication Instructions Recorded Aspirin [Aspirin, Baby] 81 mg PO DAILY@0800 09/10/16 Carvedilol [Coreg (Beta Trevor)] 25 mg PO BID 09/10/16 Multivitamin [Daily Multiple 1 ea PO DAILY 09/10/16 Vitamin] Hydroxychloroquine [Plaquenil] 200 mg PO BIDCM 12/29/16 Pantoprazole Sodium [Protonix] 40 mg PO DAILY 12/29/16 Allopurinol 200 mg PO DAILY 07/14/17 Iron Polysaccharide Complex 150 mg PO TID #90 07/23/17 [Ferrex 150] leflunomide 10 mg tablet 5 mg PO DAILY 08/16/17 Furosemide [Lasix] 80 mg PO DAILY 01/25/18 Prednisone 7.5 mg PO DAILY 01/25/18 Senna [Senokot] 1 tab PO DAILY 01/25/18 Surgical History: Surgical History (Last Reviewed 04/14/18 @ 16:56 by Pancho Peterson DO) History of left heart catheterization (Chronic) Z98.890 04/05/2016 @ [facility] per Dr. العراقي and 01/01/2017 @ [facility] per Dr. Kam Surgical History: no surgical history Smoking Status: Never smoker Tobacco Use: Non-smoker Alcohol: None - *Family History Maternal Family History: Family History (Last Reviewed 04/14/18 @ 16:56 by Pancho Peterson DO) Father Diabetes Heart failure Sister Diabetes Mother Diabetes History Items: Diabetes, - - His mother in her 90s of old age Paternal Family History: Family History (Last Reviewed 04/14/18 @ 16:56 by Pancho Peterson DO) Father Diabetes Heart failure Sister Diabetes Mother Diabetes History Items: Diabetes, - - Father of congestive heart failure in his 80s and had diabetes mellitus Sibling Family History: Family History (Last Reviewed 04/14/18 @ 16:56 by Pancho Peterson DO) Father Diabetes Heart failure Sister Diabetes Mother Diabetes History Items: Diabetes - His sister has diabetes. Review of Systems Constitutional: Denies: Chills, Fever, Weight Change Eyes: Denies: Blurred vision, Double vision HEENT: Denies: Head Aches, Sinus Congestion, Sinus Drainage Cardiovascular: Reports: Chest Pain, Edema - Edema is worse when his legs are more dependent and actually improved when they are up Respiratory: Reports: Cough, Shortness of Breath, Shortness of breath at rest. Denies: Sputum production Gastrointestinal: Denies: Abdominal Pain, Nausea, Vomiting Genitourinary: Denies: Dysuria Musculoskeletal: Denies: Joint Pain, Joint Tenderness Skin: Reports: - - Bruising due to Plaquenil. Denies: Dryness, Jaundice Neurological: Denies: Numbness, Tingling, Focal weakness Psychiatric: Denies: Anxiety, Depression Endocrine: Denies: Change in Body Habitus, Heat/ Cold Intolerance Hematologic/ Lymphatic: Reports: Easy Bruising. Denies: Easy Bleeding, Hx of blood clot Comment: All review of systems are negative except as mentioned in the history of present illness and the other review of systems. VTE Information - Inpt Only VTE Present on Admission: No VTE Mechan Device Prophylaxis: None VTE Pharm Prophylaxis ordered?: Yes Patient Problems: Active and Suspected Problems (Last Reviewed 02/26/18 @ 14:16 by Ministerio Kam MD ) NSTEMI (non-ST elevated myocardial infarction) (Acute) CHF (congestive heart failure) (Acute) - Physical Exam General: Alert, Cooperative, No apparent distress HEENT: Atraumatic, Normocephalic, - - No icterus Oral: Moist Mucosa, No Gingival or Mucosal Lesions/ Ulcerations Neck: No JVD, Thyroid Normal Size and Texture, - - Thick neck so unable to appreciate any JVD Lungs: Clear to auscultation, No rhonchi, No wheeze, Diminished Cardiovascular: Regular rate, Regular Rhythm, Normal S1, Normal S2, No murmurs Abdomen: Bowel Sounds Present, Soft, Non Tender, Non-Distended, No Hepato- splenomegaly, Obese Extremities: No Calf Tenderness, Edema Skin: No rashes, - - Noted bruising Musculoskeletal: No Tenderness to Palpation of Joints or Extremities, No Muscle Wasting Neurological: Neuro grossly intact, Motor Exam 5/5 strength throughout, - - No clonus Psych/Mental Status: Normal Affect, Appropriate Vital Signs Temp Pulse Resp BP Pulse Ox 37.2 C 88 18 158/85 H 98 04/14/18 14:42 04/14/18 16:44 04/14/18 16:44 04/14/18 16:44 04/14/18 16:44 Oxygen Flow Rate (L/min) 2 Oxygen Delivery Method Room Air Weight: 122.47 kg Body Mass Index (BMI) 42.3 Laboratory Tests Past 24 Hrs 04/14/18 04/14/18 04/14/18 14:50 14:50 14:50 WBC 11.5 H RBC 3.42 L Hgb 9.2 L Hct 31.2 L MCV 91.2 MCH 26.9 L MCHC 29.5 L RDW 19.0 H RDW Differential 62.5 H Plt Count 272 MPV 9.9 Immature Gran % (Auto) 0.700 Neut % (Auto) 86.3 H Lymph % (Auto) 11.4 L [place] % (Auto) 0.4 Eos % (Auto) 0.9 Baso % (Auto) 0.3 Absolute Neuts (auto) 10.0 H Absolute Lymphs (auto) 1.32 Total Counted Not Reportable Sodium 141 Potassium 5.0 Chloride 104 Carbon Dioxide 27.0 Anion Gap 10 BUN 36 H Creatinine 2.68 H Estim Creat Clear Calc 22.61 Est GFR (MDRD) Af Amer 30 L Est GFR (MDRD) Non-Af 25 L BUN/Creatinine Ratio 13.4 Glucose 181 H Calcium 9.1 Troponin I 0.871 H* B-Natriuretic Peptide 314.0 H Chest x-ray reviewed and shows diffuse pulmonary edema. Essentially unchanged from previous chest x-rays EKG reviewed and showed normal sinus rhythm. Inferior Q waves. ST depressions in the lateral leads. Assessment/Plan All Active Problems (Last Reviewed 02/26/18 @ 14:16 by Ministerio Kam MD) NSTEMI (non-ST elevated myocardial infarction) (Acute) CHF (congestive heart failure) (Acute) Acute respiratory failure with hypoxia (Acute) NSTEMI (non-ST elevated myocardial infarction) (Acute) Pain in right toe(s) (Acute) Tinea unguium (Acute) Ingrown toenail (Acute) Anemia of chronic renal failure, stage 4 (severe) (Acute) Edema (Acute) Weakness (Acute) Debility (Acute) 1. Non-STEMI * Patient currently hemodynamically stable * This may be a new events from his troponins that were elevated last time but it is unclear since he went home during that time but given his new symptoms of suspect that it is * Medical management at this time with heparin drip, aspirin, carvedilol * Unclear this is a primary event or demand ischemia related to the patient's heart failure * Cardiology will be on consultation * Start statin * Has been evaluated at [facility] in to his comorbidities was deemed not a candidate for surgical revascularization 2. Acute heart failure * No previous echocardiogram in the system * Will hold the patient's oral Lasix and change him over to IV Lasix 40 mg twice daily * Continue with carvedilol * Patient not a candidate for ALEXIS inhibitor nor angiotensin receptor trevor given chronic kidney disease * May consider nitrates and hydralazine but will hold off right now 3. Chronic kidney disease stage IV * Creatinine 2.68 which appears to be around his baseline * Monitor particular since patient will be on Lasix * The patient does require heart catheterization then will need to consult nephrology for further guidance 4. Sarcoidosis * Complicating his overall care * Continue with Plaquenil leflunomide and prednisone 5. Anemia * Suspect anemia of chronic disease * Patient is on Epo and iron 6. DVT prophylaxis: Patient will be anticoagulated 7. Advanced care planning: Discussed with patient about CPR if he would want that as he has had that previously. Patient stated that he would only want it for 10 minutes. I told him that it is all or nothing approach. Patient remains undecided therefore he will be full CODE STATUS at this time Case discussed with the patient's at bedside.
--- NOTE | 2018-04-14 17:01 | NURSING ---
PCU NSTEMI, CHF MAGDIEL
--- NOTE | 2018-04-14 17:17 | NURSING ---
Called ED Charge nurse at 1705 to send patient.
[2018-04-14 18:08] LABS: International Normalized Ratio 1.3; Prothrombin Time (Protime)PT. 16.4 SECONDS (11.7-14.9)
[2018-04-14 18:24] LABS: Partial Thromboplast Time > 250.0 Seconds (24.1-36.2)
[2018-04-14] MEDS: Hydroxychloroquine 200 MG Tablet PO (19:04)
[2018-04-14] MEDS: Furosemide 40 MG/4 ML Vial IV (19:05)
[2018-04-14] MEDS: 0.9% NaCl Peripheral Flush Adult/Peds IV (19:05)
[2018-04-14 21:10] LABS: Partial Thromboplast Time > 250.0 Seconds (24.1-36.2)
[2018-04-14] MEDS: Carvedilol 25 MG Tablet PO (21:47)
[2018-04-14] MEDS: Atorvastatin Calcium 40 MG Tablet PO (21:47)
[2018-04-14] MEDS: Iron Polysaccharide Complex 150 MG CAPSULE PO (21:47)
[2018-04-15] VITALS (13 sets, daily range): BP systolic 108–114; BP diastolic 55–66; PULSE 78–87; RESP 16–18; TEMP 36.4–36.7; O2SAT 94–98
[2018-04-15 04:22] LABS: Anion Gap 13 (5-15); BUN 37 mg/dL (7-18); BUN/Creat Ratio 15.6 RATIO (10-20); Calcium,Total 8.6 mg/dL (8.5-10.1); Chloride 105 mmol/L (98-107); Creatinine, Serum 2.37 mg/dL (0.70-1.30); EST Glomerular Filtration Rate 29 mL/min (>60); Est Glom Filt Rate - Afr Amer 35 mL/min (>60); Estimated Creatinine Clearance 25.57 ml/min; Glucose 84 mg/dL (74-106); Potassium 3.6 mmol/L (3.5-5.1); Sodium Level 144 mmol/L (136-145)
--- NOTE | 2018-04-15 07:58 | PCM.CONS.C ---
Reason for Consult Date of Consultation: 04/15/18 Reason for Consultation: Chest discomfort and shortness of breath History of Present Illness: MERLY PATEL, is a 72 M who presents to the emergency room with shortness of breath as well as chest pain. He does have a history of anxiety disorder and panic attacks but he says that on this occasion he felt that when he took in a deep breath it hurt on the right side and he also had a heaviness across his chest as well as shortness of breath. He is a gentleman with a history of significant coronary artery disease status post non-ST elevation myocardial infarction. His last cardiac catheterization had demonstrated 40% tubular stenosis of the distal left main coronary artery 80% stenosis noted in left anterior descending artery 90% stenosis in the second diagonal vessel and the circumflex artery and ramus intermedius were completely excluded. He was referred to [facility] where he was thought to be too high risk to undergo bypass surgery and medical therapy has been recommended it was not felt that he was an interventional candidate as well. He has had some problems with his kidneys and more recently was admitted to the hospital. He was noted to be in renal failure with his creatinine up to about 2.9 he was admitted he was gently hydrated he was also treated with his steroids for his sarcoidosis. His creatinine improved to approximately 2.25 and he was subsequently discharged. He has been on medical therapy but has had repeated presentations to the emergency room with mild chest discomfort. At this visit he was noted to be in sinus rhythm with no acute changes but his cardiac enzymes were noted to be abnormal. He does not think that he can take care of himself at home as well. He has not had any palpitations or paroxysmal nocturnal dyspnea. He has had mild pedal edema Past Medical History Allergies/Adverse Reactions: Allergies Influenza Virus Vaccines Allergy (Verified 04/14/18 16:44) CAN'T BREATHE Latex, Natural Rubber Allergy (Verified 04/14/18 16:44) Rash Penicillins Allergy (Verified 04/14/18 16:44) CAN'T BREATHE Sulfa (Sulfonamide Antibiotics) Allergy (Verified 04/14/18 16:44) Rash PEPPERS Allergy (Uncoded 04/14/18 16:44) Anaphylaxis Home Medications: Ambulatory Orders Medication Instructions Recorded Aspirin [Aspirin, Baby] 81 mg PO DAILY@0800 09/10/16 Carvedilol [Coreg (Beta Trevor)] 25 mg PO BID 09/10/16 Multivitamin [Daily Multiple 1 ea PO DAILY 09/10/16 Vitamin] Hydroxychloroquine [Plaquenil] 200 mg PO BIDCM 12/29/16 Pantoprazole Sodium [Protonix] 40 mg PO DAILY 12/29/16 Allopurinol 200 mg PO DAILY 07/14/17 Iron Polysaccharide Complex 150 mg PO TID #90 07/23/17 [Ferrex 150] leflunomide 10 mg tablet 5 mg PO DAILY 08/16/17 Furosemide [Lasix] 80 mg PO DAILY 01/25/18 Prednisone 7.5 mg PO DAILY 01/25/18 Senna [Senokot] 1 tab PO DAILY 01/25/18 Atorvastatin Calcium [Lipitor] 80 mg PO QHS 04/14/18 Past Medical History (Chronic Problems): Chronic Problems (Last Reviewed 04/14/18 @ 16:56 by Pancho Peterson DO) History of left heart catheterization (Chronic) 04/05/2016 @ [facility] per Dr. العراقي and 01/01/[address] [facility] per Dr. 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 Gout (Chronic) Morbid obesity with BMI of 40.0-44.9, adult (Chronic) GERD (gastroesophageal reflux disease) (Chronic) Allergic rhinitis (Chronic) Hypertension (Chronic) Nephrolithiasis (Chronic) Renal cyst (Chronic) Splenomegaly (Chronic) Coronary artery disease (Chronic) CKD (chronic kidney disease) stage 4, GFR 15-29 ml/min (Chronic) Polyarthropathy of ankle and foot (Chronic) Surgical History: no surgical history - *Family History Maternal Family History: Family History (Last Reviewed 04/14/18 @ 16:56 by Pancho Peterson DO) Father Diabetes Heart failure Sister Diabetes Mother Diabetes History Items: Diabetes, - - His mother in her 90s of old age Paternal Family History: Family History (Last Reviewed 04/14/18 @ 16:56 by Pancho Peterson DO) Father Diabetes Heart failure Sister Diabetes Mother Diabetes History Items: Diabetes, - - Father of congestive heart failure in his 80s and had diabetes mellitus Sibling Family History: Family History (Last Reviewed 04/14/18 @ 16:56 by Pancho Peterson DO) Father Diabetes Heart failure Sister Diabetes Mother Diabetes History Items: Diabetes - His sister has diabetes. Smoking Status: Never smoker Tobacco Use: Non-smoker Alcohol: None Drugs: None Review of Systems - Review of Systems General: Denies: Fever, Night Sweats, Fatigue Cardiovascular: Reports: Chest Discomfort. Denies: Shortness of Breath, Orthopnea, PND, Peripheral Edema, Palpitations, Lightheadedness, Dizziness, Near Syncope, Syncope Respiratory: Denies: Cough, Sputum Production, Hemoptysis Gastrointestinal: Denies: Hematemesis, Hematochezia, Melena Genitourinary: Denies: Dysuria, Hematuria Skin: Denies: Rash Subjectve: Pleasant gentleman in no apparent distress. Rather loquacious. Objective: Vital Signs Temp Pulse Resp BP Pulse Ox 98.0 F 80 16 108/66 98 04/15/18 03:20 04/15/18 03:20 04/15/18 03:20 04/15/18 03:20 04/15/18 03:20 Oxygen Flow Rate (L/min) 2 Oxygen Delivery Method Nasal Cannula Weight: 276 lb 7.355 oz Body Mass Index (BMI) 43.2 Intake and Output for Last 24 Hours 04/13/18 04/14/18 04/15/18 23:59 23:59 23:59 Intake Total 194 / 194 Output Total 200 / 200 100 / 100 Balance -180 / -180 94 / 94 General: Awake, Alert, Oriented x 3 HEENT: PERRL, EOMI, Sclera Non Icteric Neck: Supple, Good ROM, No Lymph Node Enlargement Lungs: Clear to auscultation Cardiovascular: Regular Rhythm, Normal S1, Normal S2, No Murmurs, No Rubs, No Gallops Vascular: No Carotid Bruits, Normal Femoral Pulses, Normal Radial Pulses, Normal Dorsalis Pedal Pulse, Normal Posterior Tibial Pulses Abdomen: Bowel Sounds Present, Soft, Non Tender, No HSM, No Organomegaly Extremities: No Cyanosis, No Clubbing, No edema Neurological: No Focal Motor or Sensory Deficit 04/14/18 17:40: PT 16.4 H, INR 1.3, APTT > 250.0 H* 04/14/18 18:30: Troponin I 0.917 H* 04/14/18 20:22: APTT > 250.0 H* 04/14/18 21:17: Troponin I 1.000 H* 04/15/18 03:44: Sodium 144, Potassium 3.6, Chloride 105, Carbon Dioxide 26.0, Anion Gap 13, BUN 37 H, Creatinine 2.37 H, Est GFR (MDRD) Af Amer 35 L, Est GFR (MDRD) Non-Af 29 L, BUN/Creatinine Ratio 15.6, Glucose 84, Calcium 8.6 04/15/18 03:44: APTT 79.0 H Rhythm: EKG:NSR with no acute changes Assessment/Plan 1. NSTEMI Patient has a non-ST elevation myocardial infarction. His cardiac catheterization films were reviewed once again. At this time will continue with medical therapy and see how he does. Due to his renal dysfunction I am not sure that we are willing to consider a high risk angioplasty. Would recommend starting oral nitrates Would recommend starting Ranexa Continue beta-trevor Continue aspirin Continue high intensity statin 2. Hypertension Patient blood pressure appears to be under decent control and will continue current medications without making major changes. 3. Mild congestive heart failure-acute diastolic The above is likely secondary to diastolic dysfunction and coronary ischemia. Will attempt to afterload reduce as well as vasodilated with nitrates. Immanuel inhibitors do not appear to be appropriate at this time due to the abnormal renal dysfunction. We will continue with aggressive medical therapy and see how he does. After discussion with the patient it may also be appropriate for us to talk about long-term care for him. He is willing to undergo the above discussion. organic lab worker will contact him. Thank you for allowing me to participate in the care of your patient. Please don't hesitate to call if any issues arise
--- NOTE | 2018-04-15 08:02 | CON.PCM_ITS ---
Reason for Consult Date of Consultation: 04/15/18 Reason for Consultation: Chest discomfort and shortness of breath History of Present Illness: MERLY PATEL, is a 72 M who presents to the emergency room with shortness of breath as well as chest pain. He does have a history of anxiety disorder and panic attacks but he says that on this occasion he felt that when he took in a deep breath it hurt on the right side and he also had a heaviness across his chest as well as shortness of breath. He is a gentleman with a history of significant coronary artery disease status post non-ST elevation myocardial infarction. His last cardiac catheterization had demonstrated 40% tubular stenosis of the distal left main coronary artery 80% stenosis noted in left anterior descending artery 90% stenosis in the second diagonal vessel and the circumflex artery and ramus intermedius were completely excluded. He was referred to [facility] where he was thought to be too high risk to undergo bypass surgery and medical therapy has been recommended it was not felt that he was an interventional candidate as well. He has had some problems with his kidneys and more recently was admitted to the hospital. He was noted to be in renal failure with his creatinine up to about 2.9 he was admitted he was gently hydrated he was also treated with his steroids for his sarcoidosis. His creatinine improved to approximately 2.25 and he was subsequently discharged. He has been on medical therapy but has had repeated presentations to the emergency room with mild chest discomfort. At this visit he was noted to be in sinus rhythm with no acute changes but his cardiac enzymes were noted to be abnormal. He does not think that he can take care of himself at home as well. He has not had any palpitations or paroxysmal nocturnal dyspnea. He has had mild pedal edema Past Medical History Allergies/Adverse Reactions: Allergies Influenza Virus Vaccines Allergy (Verified 04/14/18 16:44) CAN'T BREATHE Latex, Natural Rubber Allergy (Verified 04/14/18 16:44) Rash Penicillins Allergy (Verified 04/14/18 16:44) CAN'T BREATHE Sulfa (Sulfonamide Antibiotics) Allergy (Verified 04/14/18 16:44) Rash PEPPERS Allergy (Uncoded 04/14/18 16:44) Anaphylaxis Home Medications: Ambulatory Orders Medication Instructions Recorded Aspirin [Aspirin, Baby] 81 mg PO DAILY@0800 09/10/16 Carvedilol [Coreg (Beta Trevor)] 25 mg PO BID 09/10/16 Multivitamin [Daily Multiple 1 ea PO DAILY 09/10/16 Vitamin] Hydroxychloroquine [Plaquenil] 200 mg PO BIDCM 12/29/16 Pantoprazole Sodium [Protonix] 40 mg PO DAILY 12/29/16 Allopurinol 200 mg PO DAILY 07/14/17 Iron Polysaccharide Complex 150 mg PO TID #90 07/23/17 [Ferrex 150] leflunomide 10 mg tablet 5 mg PO DAILY 08/16/17 Furosemide [Lasix] 80 mg PO DAILY 01/25/18 Prednisone 7.5 mg PO DAILY 01/25/18 Senna [Senokot] 1 tab PO DAILY 01/25/18 Atorvastatin Calcium [Lipitor] 80 mg PO QHS 04/14/18 Past Medical History (Chronic Problems): Chronic Problems (Last Reviewed 04/14/18 @ 16:56 by Pancho Peterson DO) History of left heart catheterization (Chronic) 04/05/2016 @ [facility] per Dr. العراقي and 01/01/2017 @ [facility] per Dr. 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 Gout (Chronic) Morbid obesity with BMI of 40.0-44.9, adult (Chronic) GERD (gastroesophageal reflux disease) (Chronic) Allergic rhinitis (Chronic) Hypertension (Chronic) Nephrolithiasis (Chronic) Renal cyst (Chronic) Splenomegaly (Chronic) Coronary artery disease (Chronic) CKD (chronic kidney disease) stage 4, GFR 15-29 ml/min (Chronic) Polyarthropathy of ankle and foot (Chronic) Surgical History: no surgical history - *Family History Maternal Family History: Family History (Last Reviewed 04/14/18 @ 16:56 by Pancho Peterson DO) Father Diabetes Heart failure Sister Diabetes Mother Diabetes History Items: Diabetes, - - His mother in her 90s of old age Paternal Family History: Family History (Last Reviewed 04/14/18 @ 16:56 by Pancho Peterson DO) Father Diabetes Heart failure Sister Diabetes Mother Diabetes History Items: Diabetes, - - Father of congestive heart failure in his 80s and had diabetes mellitus Sibling Family History: Family History (Last Reviewed 04/14/18 @ 16:56 by Pancho Peterson DO) Father Diabetes Heart failure Sister Diabetes Mother Diabetes History Items: Diabetes - His sister has diabetes. Smoking Status: Never smoker Tobacco Use: Non-smoker Alcohol: None Drugs: None Review of Systems - Review of Systems General: Denies: Fever, Night Sweats, Fatigue Cardiovascular: Reports: Chest Discomfort. Denies: Shortness of Breath, Orthopnea, PND, Peripheral Edema, Palpitations, Lightheadedness, Dizziness, Near Syncope, Syncope Respiratory: Denies: Cough, Sputum Production, Hemoptysis Gastrointestinal: Denies: Hematemesis, Hematochezia, Melena Genitourinary: Denies: Dysuria, Hematuria Skin: Denies: Rash Subjectve: Pleasant gentleman in no apparent distress. Rather loquacious. Objective: Vital Signs Temp Pulse Resp BP Pulse Ox 98.0 F 80 16 108/66 98 04/15/18 03:20 04/15/18 03:20 04/15/18 03:20 04/15/18 03:20 04/15/18 03:20 Oxygen Flow Rate (L/min) 2 Oxygen Delivery Method Nasal Cannula Weight: 276 lb 7.355 oz Body Mass Index (BMI) 43.2 Intake and Output for Last 24 Hours 04/13/18 04/14/18 04/15/18 23:59 23:59 23:59 Intake Total 194 / 194 Output Total 200 / 200 100 / 100 Balance -180 / -180 94 / 94 General: Awake, Alert, Oriented x 3 HEENT: PERRL, EOMI, Sclera Non Icteric Neck: Supple, Good ROM, No Lymph Node Enlargement Lungs: Clear to auscultation Cardiovascular: Regular Rhythm, Normal S1, Normal S2, No Murmurs, No Rubs, No Gallops Vascular: No Carotid Bruits, Normal Femoral Pulses, Normal Radial Pulses, Normal Dorsalis Pedal Pulse, Normal Posterior Tibial Pulses Abdomen: Bowel Sounds Present, Soft, Non Tender, No HSM, No Organomegaly Extremities: No Cyanosis, No Clubbing, No edema Neurological: No Focal Motor or Sensory Deficit 04/14/18 17:40: PT 16.4 H, INR 1.3, APTT > 250.0 H* 04/14/18 18:30: Troponin I 0.917 H* 04/14/18 20:22: APTT > 250.0 H* 04/14/18 21:17: Troponin I 1.000 H* 04/15/18 03:44: Sodium 144, Potassium 3.6, Chloride 105, Carbon Dioxide 26.0, Anion Gap 13, BUN 37 H, Creatinine 2.37 H, Est GFR (MDRD) Af Amer 35 L, Est GFR (MDRD) Non-Af 29 L, BUN/Creatinine Ratio 15.6, Glucose 84, Calcium 8.6 04/15/18 03:44: APTT 79.0 H Rhythm: EKG:NSR with no acute changes Assessment/Plan 1. NSTEMI * Patient has a non-ST elevation myocardial infarction. His cardiac catheterization films were reviewed once again. At this time will continue with medical therapy and see how he does. Due to his renal dysfunction I am not sure that we are willing to consider a high risk angioplasty. * Would recommend starting oral nitrates * Would recommend starting Ranexa * Continue beta-trevor * Continue aspirin * Continue high intensity statin * 2. Hypertension * Patient blood pressure appears to be under decent control and will continue current medications without making major changes. * 3. Mild congestive heart failure-acute diastolic * The above is likely secondary to diastolic dysfunction and coronary ischemia. * Will attempt to afterload reduce as well as vasodilated with nitrates. * Immanuel inhibitors do not appear to be appropriate at this time due to the abnormal renal dysfunction. * We will continue with aggressive medical therapy and see how he does. After discussion with the patient it may also be appropriate for us to talk about long -term care for him. He is willing to undergo the above discussion. stockroom worker will contact him. Thank you for allowing me to participate in the care of your patient. Please don't hesitate to call if any issues arise
[2018-04-15] MEDS: Pantoprazole Sodium 40 MG Tablet PO (09:10)
[2018-04-15] MEDS: Multivitamins,Therapeutic Tablet 1 TABLET PO (09:10)
[2018-04-15] MEDS: Furosemide 40 MG/4 ML Vial IV ×2 (09:10→18:20)
[2018-04-15] MEDS: 0.9% NaCl Peripheral Flush Adult/Peds IV ×2 (09:10→18:21)
[2018-04-15] MEDS: Aspirin 81 MG TAB.CHEW PO (09:10)
[2018-04-15] MEDS: Allopurinol 100 MG Tablet 200 MG PO (09:11)
[2018-04-15] MEDS: Carvedilol 25 MG Tablet PO ×2 (09:11→22:07)
[2018-04-15] MEDS: predniSONE 5 MG Tablet 7.5 MG PO (09:11)
[2018-04-15] MEDS: Hydroxychloroquine 200 MG Tablet PO ×2 (09:12→16:28)
[2018-04-15] MEDS: Senna Tablet 1 TABLET PO (09:12)
[2018-04-15] MEDS: Ranolazine 500 MG Tablet PO ×2 (09:24→22:08)
[2018-04-15] MEDS: Isosorbide Mononitrate 30 MG Tablet PO (09:24)
[2018-04-15] MEDS: Clopidogrel Bisulfate 75 MG Tablet PO (09:24)
[2018-04-15] MEDS: Leflunomide 10 MG TABLET 5 MG PO (09:28)
[2018-04-15 10:12] LABS: Partial Thromboplast Time 56.2 Seconds (24.1-36.2)
--- NOTE | 2018-04-15 10:43 | CASEMGMT ---
Face to Face with patient for initial transition planning/care coordination assessment. CARMEN VASQUEZ introduced self and role at [facility], pt voices understanding and consents to assessment at this time. Pt is lying in bed in no distress at this time. Pt is A/O x4 at this time and answers all questions appropriately at this time. Care providers, pharmacy, and demographics verified. See attached link. Pt/ voice concerns with going home at time of discharge and are interested in TCU as pt has been there before. Referral to [facility] at this time, voices understanding. Advised pt/ to ask for CM if any further questions/concerns/needs arise, voices understanding. PLAN: TCU, pending precert [place] CARMEN VASQUEZ
--- NOTE | 2018-04-15 11:16 | CASEMGMT ---
Addendum entered by Liz Ward 04/15/18 12:03: TCU will have a bed for patient and [facility] will start the pre-cert once therapy sees patient. Plan: TCU pending insurance approval Liz FERGUSON Original Note: RN CM said patient would like to go to TCU at d/c. SW called [facility] post acute referral line and left a message with patient's name. Await return call to see if they will have a bed for patient. Liz FERGUSON
--- NOTE | 2018-04-15 12:26 | PCM.PN.HOSP ---
Patient Problems: Active and Suspected Problems (Last Reviewed 04/14/18 @ 16:56 by Pancho Peterson DO) NSTEMI (non-ST elevated myocardial infarction) (Acute) CHF (congestive heart failure) (Acute) Subjective: started breathing better this am around 9am. Had some chest pain, but now resolved. Vitals/I&O's: Vital Signs Temp Pulse Resp BP Pulse Ox 36.6 C 82 18 108/57 L 98 04/15/18 09:17 04/15/18 09:17 04/15/18 09:17 04/15/18 09:17 04/15/18 09:17 Oxygen Flow Rate (L/min) 2 Oxygen Delivery Method Nasal Cannula Weight: 125.4 kg Body Mass Index (BMI) 43.2 Intake and Output for Last 24 Hours 04/13/18 04/14/18 04/15/18 23:59 23:59 23:59 Intake Total 20 / 20 194 / 194 Output Total 200 / 200 100 / 100 Balance -180 / -180 94 / 94 General: Alert, No apparent distress HEENT: Atraumatic, Normocephalic Oral: Moist Mucosa, No Gingival or Mucosal Lesions/ Ulcerations Neck: No Nodes, Thyroid Normal Size and Texture Lungs: Diminished, Wheezes Cardiovascular: Regular rate, Regular Rhythm, Normal S1, Normal S2, No murmurs Abdomen: Bowel Sounds Present, Soft, Non Tender, Non-Distended, No Hepato-splenomegaly Extremities: No Calf Tenderness, Edema - trace Skin: No rashes, No breakdown Psych/Mental Status: Normal Affect, Appropriate Laboratory Results 04/14/18 17:40: PT 16.4 H, INR 1.3, APTT > 250.0 H* 04/14/18 18:30: Troponin I 0.917 H* 04/14/18 20:22: APTT > 250.0 H* 04/14/18 21:17: Troponin I 1.000 H* 04/15/18 03:44: Sodium 144, Potassium 3.6, Chloride 105, Carbon Dioxide 26.0, Anion Gap 13, BUN 37 H, Creatinine 2.37 H, Estim Creat Clear Calc 25.57, Est GFR (MDRD) Af Amer 35 L, Est GFR (MDRD) Non-Af 29 L, BUN/Creatinine Ratio 15.6, Glucose 84, Calcium 8.6 04/15/18 03:44: APTT 79.0 H 04/15/18 09:45: APTT 56.2 H Current Medications Acetaminophen (Tylenol) 650 mg PO Q6H PRN PRN PRN Reason: Mild Pain (1-3)/Temp > 100.7 F Albuterol Sulfate (Ventolin Aerosols) 2.5 mg INHALATION Q2H PRN PRN PRN Reason: SHORTNESS OF BREATH Albuterol/Ipratropium (Duoneb) [address] [facility] Last Admin: 04/15/18 07:00 Dose: Not Given [facility] ([facility]) [facility] Last Admin: 04/15/18 09:11 Dose: 200 mg Aspirin (Aspirin, Baby) 81 mg PO DAILY@0800 [facility] Last Admin: 04/15/18 09:10 Dose: 81 mg Atorvastatin Calcium (Lipitor) [address] [facility] Last Admin: 04/14/18 21:47 Dose: 40 mg Carvedilol (Coreg) [address] [facility] Last Admin: 04/15/18 09:11 Dose: 25 mg Clopidogrel Bisulfate (Plavix) [address] [facility] Last Admin: 04/15/18 09:24 Dose: 75 mg Furosemide (Lasix) [address] [facility] Last Admin: 04/15/18 09:10 Dose: 40 mg Hydroxychloroquine Sulfate (Plaquenil) [facility] Last Admin: 04/15/18 09:12 Dose: 200 mg Isosorbide Mononitrate (Imdur) [address] [facility] Last Admin: 04/15/18 09:24 Dose: 30 mg Leflunomide (Leflunomide) [address] [facility] Last Admin: 04/15/18 09:28 Dose: 5 mg Magnesium Hydroxide (Milk Of Magnesia) 30 ml PO DAILY PRN PRN Reason: Constipation Multivitamins (Multivitamin) 1 tablet PO DAILY@0800 [facility] Last Admin: 04/15/18 09:10 Dose: 1 tablet Nitroglycerin (Nitrostat) 0.4 mg SUBLINGUAL Q5M PRN PRN Reason: CHEST PAIN Ondansetron HCl (Zofran) 4 mg IV Q8H PRN PRN PRN Reason: NAUSEA Oxycodone HCl (Oxyir) 5 mg PO Q4H PRN PRN PRN Reason: MOD-SEVERE PAIN (4-10/10) Pantoprazole Sodium (Protonix) [address] [facility] Last Admin: 04/15/18 09:10 Dose: 40 mg Polysaccharide Iron Complex (Ferrex 150) [address] [facility] Last Admin: 04/15/18 06:14 Dose: Not Given Prednisone () 7.[address] [facility] Last Admin: 04/15/18 09:11 Dose: 7.5 mg Ranolazine (Ranexa) [address] [facility] Last Admin: 04/15/18 09:24 Dose: 500 mg Senna (Senokot) [address] [facility] Last Admin: 04/15/18 09:12 Dose: 1 tablet Sodium Chloride () 5 - 30 ml IV UD PRN PRN Reason: SALINE FLUSH Last Admin: 04/15/18 09:10 Dose: 10 ml Medical Necessity - Tobacco Use Smoking Status: Never smoker Tobacco Use: Non-smoker Assessment/Plan All Active Problems (Last Reviewed 04/14/18 @ 16:56 by Pancho Peterson DO) NSTEMI (non-ST elevated myocardial infarction) (Acute) CHF (congestive heart failure) (Acute) Acute respiratory failure with hypoxia (Acute) NSTEMI (non-ST elevated myocardial infarction) (Acute) Pain in right toe(s) (Acute) Tinea unguium (Acute) Ingrown toenail (Acute) Anemia of chronic renal failure, stage 4 (severe) (Acute) Edema (Acute) Weakness (Acute) Debility (Acute) 1. Non-STEMI Patient currently hemodynamically stable This may be a new events from his troponins that were elevated last time but it is unclear since he went home during that time but given his new symptoms of suspect that it is Medical management at this time with aspirin, carvedilol, Plavix, isosorbide ranexa started Unclear this is a primary event or demand ischemia related to the patient's heart failure Cardiology will be on consultation Start statin Has been evaluated at [facility] in to his comorbidities was deemed not a candidate for surgical revascularization Pt expressed no interest in [facility]. 2. Acute heart failure No previous echocardiogram in the system Will hold the patient's oral Lasix and change him over to IV Lasix 40 mg twice daily Continue with carvedilol Patient not a candidate for ALEXIS inhibitor nor angiotensin receptor agustín given chronic kidney disease May consider nitrates and hydralazine but will hold off right now 3. Chronic kidney disease stage IV Creatinine 2.37 which appears to be around his baseline Monitor particular since patient will be on Lasix The patient does require heart catheterization then will need to consult nephrology for further guidance 4. Sarcoidosis Complicating his overall care Continue with Plaquenil leflunomide and prednisone 5. Anemia Suspect anemia of chronic disease Patient is on Epo and iron 6. DVT prophylaxis: Patient will be anticoagulated 7. Advanced care planning: Patient stated that he would only want it for 10 minutes. I told him that it is all or nothing approach. Patient remains undecided therefore he will be full CODE STATUS at this time Code Visit Inpatient E&M: 04792 Subs Hosp L2
[2018-04-15] MEDS: Iron Polysaccharide Complex 150 MG CAPSULE PO ×2 (13:57→22:07)
[2018-04-15] MEDS: Heparin Injection (Vial) 5,000 UNIT/ML VIAL 5000 UNIT SC (22:07)
[2018-04-15] MEDS: Atorvastatin Calcium 40 MG Tablet PO (22:07)
[2018-04-16] VITALS (16 sets, daily range): BP systolic 99–134; BP diastolic 53–73; PULSE 74–87; RESP 16–22; TEMP 36.4–37.2; O2SAT 96–99
[2018-04-16] MEDS: Ipratropium/Albuterol Sulfate 3 ML AMPUL.NEB INHALATION (02:48)
--- NOTE | 2018-04-16 02:51 | CPS ---
pt has been refusing aero tx since admit-pt claimed to be sob-agreed to try aero tx-pt sleeping with no sob noted at this time
[2018-04-16] MEDS: Iron Polysaccharide Complex 150 MG CAPSULE PO ×3 (05:35→21:35)
[2018-04-16 06:28] LABS: Anion Gap 14 (5-15); BUN 38 mg/dL (7-18); BUN/Creat Ratio 15.6 RATIO (10-20); Calcium,Total 8.8 mg/dL (8.5-10.1); Chloride 105 mmol/L (98-107); Creatinine, Serum 2.44 mg/dL (0.70-1.30); EST Glomerular Filtration Rate 28 mL/min (>60); Est Glom Filt Rate - Afr Amer 34 mL/min (>60); Estimated Creatinine Clearance 24.83 ml/min; Glucose 75 mg/dL (74-106); Magnesium 2.1 mg/dL (1.6-2.6); Potassium 3.6 mmol/L (3.5-5.1); Sodium Level 145 mmol/L (136-145)
--- NOTE | 2018-04-16 06:58 | PCM.PN.CARD ---
Subjectve: Patient seen and evaluated. Appears to be doing better though he says that he cannot breathe. Objective: Vital Signs Temp Pulse Resp BP Pulse Ox 97.8 F 79 20 H 106/54 L 99 04/16/18 05:32 04/16/18 05:32 04/16/18 05:32 04/16/18 05:32 04/16/18 05:32 Oxygen Flow Rate (L/min) 2 Oxygen Delivery Method Nasal Cannula Weight: 276 lb 7.355 oz Body Mass Index (BMI) 43.2 Intake and Output for Last 24 Hours 04/14/18 04/15/18 04/16/18 23:59 23:59 23:59 Intake Total 20 20 1527 / 1527 120 / 120 Output Total 200 / 200 1450 / 1450 200 / 200 Balance -180 / -180 77 / 77 -80 / -80 General: Awake, Alert, Oriented x 3 HEENT: PERRL, EOMI, Sclera Non Icteric Neck: Supple, Good ROM, No Lymph Node Enlargement Lungs: Diminished Luis Manuel Bases Cardiovascular: Regular Rhythm, Normal S1, Normal S2, No Murmurs, No Rubs, No Gallops Vascular: No Carotid Bruits, Normal Femoral Pulses, Normal Radial Pulses, Normal Dorsalis Pedal Pulse, Normal Posterior Tibial Pulses Abdomen: Bowel Sounds Present, Soft, Non Tender, No HSM, No Organomegaly Extremities: No Cyanosis, No Clubbing, No edema Neurological: No Focal Motor or Sensory Deficit 04/15/18 09:45: APTT 56.2 H 04/16/18 05:15: Sodium 145, Potassium 3.6, Chloride 105, Carbon Dioxide 26.0, Anion Gap 14, BUN 38 H, Creatinine 2.44 H, Est GFR (MDRD) Af Amer 34 L, Est GFR (MDRD) Non-Af 28 L, BUN/Creatinine Ratio 15.6, Glucose 75, Calcium 8.8, Magnesium 2.1 Rhythm: EKG: ECHO: Stress Test: Cardiac Cath: PCI: CT Surgery: Holter monitor: EPS: PPM: CXR: Chest CT Scan: Medical Necessity - Tobacco Use Smoking Status: Never smoker Tobacco Use: Non-smoker Assessment/Plan 1. NSTEMI Patient has a non-ST elevation myocardial infarction. His cardiac catheterization films were reviewed once again. At this time will continue with medical therapy and see how he does. Due to his renal dysfunction I am not sure that we are willing to consider a high risk angioplasty. Would recommend continuing oral nitrates Would recommend continuing Ranexa Continue beta-agustín Continue aspirin Continue high intensity statin 2. Hypertension Patient blood pressure appears to be under decent control and will continue current medications without making major changes. 3. Mild congestive heart failure-acute diastolic The above is likely secondary to diastolic dysfunction and coronary ischemia. Will attempt to afterload reduce as well as vasodilated with nitrates. Immanuel inhibitors do not appear to be appropriate at this time due to the abnormal renal dysfunction. We will continue with aggressive medical therapy and see how he does. After discussion with the patient it may also be appropriate for us to talk about long-term care for him. He is willing to undergo the above discussion. warehouse production worker will contact him. Thank you for allowing me to participate in the care of your patient. Please don't hesitate to call if any issues arise
[2018-04-16] MEDS: Multivitamins,Therapeutic Tablet 1 TABLET PO (07:49)
[2018-04-16] MEDS: Hydroxychloroquine 200 MG Tablet PO ×2 (07:49→16:59)
[2018-04-16] MEDS: Allopurinol 100 MG Tablet 200 MG PO (07:49)
[2018-04-16] MEDS: Aspirin 81 MG TAB.CHEW PO (07:50)
[2018-04-16] MEDS: predniSONE 5 MG Tablet 7.5 MG PO (07:50)
[2018-04-16] MEDS: Senna Tablet 1 TABLET PO (09:41)
[2018-04-16] MEDS: Clopidogrel Bisulfate 75 MG Tablet PO (09:41)
[2018-04-16] MEDS: Ranolazine 500 MG Tablet PO ×2 (09:41→21:36)
[2018-04-16] MEDS: Carvedilol 25 MG Tablet PO ×2 (09:42→21:35)
[2018-04-16] MEDS: Furosemide 40 MG/4 ML Vial IV (09:42)
[2018-04-16] MEDS: 0.9% NaCl Peripheral Flush Adult/Peds IV (09:42)
[2018-04-16] MEDS: Pantoprazole Sodium 40 MG Tablet PO (09:42)
[2018-04-16] MEDS: Heparin Injection (Vial) 5,000 UNIT/ML VIAL 5000 UNIT SC ×2 (09:42→21:35)
[2018-04-16] MEDS: Leflunomide 10 MG TABLET 5 MG PO (09:42)
--- NOTE | 2018-04-16 10:53 | CASEMGMT ---
Received call from Marlyn in TCU and she obtained insurance authorization. Per physician patient will be ready tomorrow. GIBSON will notify patient. Plan: [facility] TCU under skilled level of care, Insurance approved. Liz FERGUSON
--- NOTE | 2018-04-16 11:49 | PCM.PN.HOSP ---
Patient Problems: Active and Suspected Problems (Last Reviewed 04/14/18 @ 16:56 by Pancho Peterson DO) NSTEMI (non-ST elevated myocardial infarction) (Acute) CHF (congestive heart failure) (Acute) Subjective: Had some chest pain earlier today but less severe than it was when he initially presented. He was also short of breath. This just occurred when patient transfers from the bed to his chair. Patient was seen by Dr. Kam, who told patient to breathe deeper as it patient was breathing fast at that time. Patient states that since then patient has been able to ambulate with therapy does get short of breath but did not have any chest pain or any of the severity of the shortness of breath he had earlier. Vitals/I&O's: Vital Signs Temp Pulse Resp BP Pulse Ox 36.9 C 83 16 99/55 L 97 04/16/18 09:22 04/16/18 09:22 04/16/18 09:22 04/16/18 09:22 04/16/18 09:22 Oxygen Flow Rate (L/min) 2 Oxygen Delivery Method Room Air Weight: 125.4 kg Body Mass Index (BMI) 43.2 Intake and Output for Last 24 Hours 04/14/18 04/15/18 04/16/18 23:59 23:59 23:59 Intake Total 20 / 20 1527 / 1527 120 / 120 Output Total 200 / 200 1450 / 1450 200 / 200 Balance -180 / -180 77 / 77 -80 / -80 General: Alert, No apparent distress, - - Up in chair. No respiratory distress. No conversational dyspnea. Not on oxygen. HEENT: Atraumatic, Normocephalic Oral: Moist Mucosa, No Gingival or Mucosal Lesions/ Ulcerations Neck: No Nodes, Thyroid Normal Size and Texture, - - Redundant neck tissue Lungs: Clear to auscultation, No rhonchi, No wheeze, Diminished Cardiovascular: Regular rate, Regular Rhythm, Normal S1, Normal S2, No murmurs Abdomen: Bowel Sounds Present, Soft, Non Tender, Non-Distended, No Hepato-splenomegaly Extremities: No clubbing, No edema Skin: No rashes, No breakdown Musculoskeletal: No Tenderness to Palpation of Joints or Extremities, No Muscle Wasting Neurological: Muscle tone normal, Sensory exam intact to light touch and pain, Coordination normal Psych/Mental Status: Normal Affect, Appropriate Laboratory Results 04/16/18 05:15: Sodium 145, Potassium 3.6, Chloride 105, Carbon Dioxide 26.0, Anion Gap 14, BUN 38 H, Creatinine 2.44 H, Estim Creat Clear Calc 24.83, Est GFR (MDRD) Af Amer 34 L, Est GFR (MDRD) Non-Af 28 L, BUN/Creatinine Ratio 15.6, Glucose 75, Calcium 8.8, Magnesium 2.1 Current Medications Acetaminophen (Tylenol) 650 mg PO Q6H PRN PRN PRN Reason: Mild Pain (1-3)/Temp > 100.7 F Albuterol Sulfate (Ventolin Aerosols) 2.5 mg INHALATION Q2H PRN PRN PRN Reason: SHORTNESS OF BREATH Albuterol/Ipratropium (Duoneb) 3 ml INHALATION Q6HWA.RT [facility] Last Admin: 04/16/18 07:00 Dose: Not Given [facility]) [facility] Last Admin: 04/16/18 07:49 Dose: 200 mg Aspirin (Aspirin, Baby) 81 mg PO DAILY@0800 [facility] Last Admin: 04/16/18 07:50 Dose: 81 mg Atorvastatin Calcium (Lipitor) 40 mg PO QHS [facility] Last Admin: 04/15/18 22:07 Dose: 40 mg Carvedilol (Coreg) 25 mg PO BID [facility] Last Admin: 04/16/18 09:42 Dose: 25 mg Clopidogrel Bisulfate (Plavix) 75 mg PO DAILY [facility] Last Admin: 04/16/18 09:41 Dose: 75 mg Furosemide (Lasix) 40 mg IV BIDLX [facility] Last Admin: 04/16/18 09:42 Dose: 40 mg Heparin Sodium (Porcine) (Heparin Na) 5,000 unit SC Q12 [facility] Last Admin: 04/16/18 09:42 Dose: 5,000 unit Hydroxychloroquine Sulfate (Plaquenil) 200 mg PO BIDCM [facility] Last Admin: 04/16/18 07:49 Dose: 200 mg Isosorbide Mononitrate (Imdur) 30 mg PO DAILY [facility] Last Admin: 04/15/18 09:24 Dose: 30 mg Leflunomide (Leflunomide) 5 mg PO DAILY [facility] Last Admin: 04/16/18 09:42 Dose: 5 mg Magnesium Hydroxide (Milk Of Magnesia) 30 ml PO DAILY PRN PRN Reason: Constipation Multivitamins (Multivitamin) 1 tablet PO DAILY@0800 [facility] Last Admin: 04/16/18 07:49 Dose: 1 tablet Nitroglycerin (Nitrostat) 0.4 mg SUBLINGUAL Q5M PRN PRN Reason: CHEST PAIN Ondansetron HCl (Zofran) 4 mg IV Q8H PRN PRN PRN Reason: NAUSEA Oxycodone HCl (Oxyir) 5 mg PO Q4H PRN PRN PRN Reason: MOD-SEVERE PAIN (4-10/10) Pantoprazole Sodium (Protonix) 40 mg PO DAILY [facility] Last Admin: 04/16/18 09:42 Dose: 40 mg Polysaccharide Iron Complex (Ferrex 150) 150 mg PO TID [facility] Last Admin: 04/16/18 05:35 Dose: 150 mg Prednisone () 7.5 mg PO DAILYCM [facility] Last Admin: 04/16/18 07:50 Dose: 7.5 mg Ranolazine (Ranexa) 500 mg PO BID [facility] Last Admin: 04/16/18 09:41 Dose: 500 mg Senna (Senokot) 1 tablet PO DAILY [facility] Last Admin: 04/16/18 09:41 Dose: 1 tablet Sodium Chloride () 5 - 30 ml IV UD PRN PRN Reason: SALINE FLUSH Last Admin: 04/16/18 09:42 Dose: 10 ml Medical Necessity - Tobacco Use Smoking Status: Never smoker Tobacco Use: Non-smoker Assessment/Plan All Active Problems (Last Reviewed 04/14/18 @ 16:56 by Pancho Peterson DO) NSTEMI (non-ST elevated myocardial infarction) (Acute) CHF (congestive heart failure) (Acute) Acute respiratory failure with hypoxia (Acute) NSTEMI (non-ST elevated myocardial infarction) (Acute) Pain in right toe(s) (Acute) Tinea unguium (Acute) Ingrown toenail (Acute) Anemia of chronic renal failure, stage 4 (severe) (Acute) Edema (Acute) Weakness (Acute) Debility (Acute) 1. Non-STEMI Patient currently hemodynamically stable This may be a new events from his troponins that were elevated last time but it is unclear since he went home during that time but given his new symptoms of suspect that it is Medical management at this time with aspirin, carvedilol, Plavix, isosorbide ranexa started Unclear this is a primary event or demand ischemia related to the patient's heart failure statin Has been evaluated at [facility] in to his comorbidities was deemed not a candidate for surgical revascularization Pt expressed no interest in [facility]. Given events from today, would continue to monitor the patient another night to ensure that he is otherwise doing well. Overall, patient is symptomatically improved with the modifications of his medications. 2. Acute HFpEF EF 55% from echo 04/15 Continue with carvedilol Patient not a candidate for ALEXIS inhibitor nor angiotensin receptor agustín given chronic kidney disease Change lasix to 40 BID 3. Chronic kidney disease stage IV Creatinine 2.44 which appears to be around his baseline Monitor particular since patient will be on Lasix 4. Sarcoidosis Complicating his overall care Continue with Plaquenil, leflunomide and prednisone 5. Anemia Suspect anemia of chronic disease Patient is on Epo and iron 6. DVT prophylaxis: Patient will be anticoagulated 7. Disposition: If patient remains stable and symptoms are well controlled, the plan is for the patient to go to the transitional care unit on the . Advanced care planning: Spent 20 minutes at site of above history and physical discussing advanced care planning with patient. Previously, patient expressed that he would only want 10 minutes of CPR. Patient states that he does not want to be intubated. I discussed the patient further about CPR and many times when people are revived with CPR that many times are intubated if you are not to want intubation that would certainly be him actually surviving cardiopulmonary arrest. I recommend DNR Comfort Care arrest. Patient was in agreement. Therefore, patient's CODE STATUS DNR Comfort Care arrest no intubation. Code Visit Inpatient E&M: 93969 [facility] Hosp L3 Procedures: 43016 Advncd Care Plan 30 Min
[2018-04-16] MEDS: Isosorbide Mononitrate 30 MG Tablet PO (12:56)
[2018-04-16] MEDS: Furosemide 40 MG Tablet PO (16:59)
[2018-04-16] MEDS: Atorvastatin Calcium 40 MG Tablet PO (21:35)
[2018-04-17] VITALS (7 sets, daily range): BP systolic 98–112; BP diastolic 49–62; PULSE 75–84; RESP 18–20; TEMP 36.5–36.7; O2SAT 97
[2018-04-17] MEDS: Iron Polysaccharide Complex 150 MG CAPSULE PO ×2 (06:23→13:12)
[2018-04-17 06:32] LABS: Anion Gap 9 (5-15); BUN 35 mg/dL (7-18); BUN/Creat Ratio 14.5 RATIO (10-20); Calcium,Total 9.2 mg/dL (8.5-10.1); Chloride 104 mmol/L (98-107); Creatinine, Serum 2.41 mg/dL (0.70-1.30); EST Glomerular Filtration Rate 28 mL/min (>60); Est Glom Filt Rate - Afr Amer 34 mL/min (>60); Estimated Creatinine Clearance 25.14 ml/min; Glucose 82 mg/dL (74-106); Potassium 3.4 mmol/L (3.5-5.1); Sodium Level 142 mmol/L (136-145)
--- NOTE | 2018-04-17 07:29 | PCM.PN.HOSP ---
Patient Problems: Active and Suspected Problems (Last Reviewed 04/14/18 @ 16:56 by Pancho Peterson DO) NSTEMI (non-ST elevated myocardial infarction) (Acute) CHF (congestive heart failure) (Acute) Subjective: Patient seen and examined. Denies any chest pain, dizziness, palpitations. He admits to feeling generally weak intermittently. His SOB with exertion has improved. Vitals/I&O's: Vital Signs Temp Pulse Resp BP Pulse Ox 97.7 F L 80 18 112/57 L 97 04/17/18 03:30 04/17/18 06:57 04/17/18 03:30 04/17/18 03:30 04/17/18 03:40 Oxygen Flow Rate (L/min) 2 Oxygen Delivery Method Room Air Weight: 121.2 kg Body Mass Index (BMI) 43.2 Intake and Output for Last 24 Hours 04/15/18 04/16/18 04/17/18 23:59 23:59 23:59 Intake Total 1527 / 1527 790 / 790 129 / 129 Output Total 1450 / 1450 1675 / 1675 Balance 77 / 77 -885 / -885 129 / 129 General: Alert, Oriented x3, Cooperative, No apparent distress, - - obese HEENT: Atraumatic, PERRLA, EOMI, Normocephalic Oral: Moist Mucosa Neck: Supple Lungs: Clear to auscultation, Normal air movement Cardiovascular: Regular rate, Regular Rhythm, Normal S1, Normal S2, No murmurs Abdomen: Bowel Sounds Present, Soft, Non Tender, Non-Distended, No Hepato-splenomegaly Extremities: No edema Skin: No rashes, No breakdown Musculoskeletal: No Tenderness to Palpation of Joints or Extremities Lymphatic: No Cervical, Supraclavicular, or Inguinal Adenopathy Neurological: Cranial nerves II-XII grossly intact Psych/Mental Status: Normal Affect, Appropriate Laboratory Results 04/17/18 05:10: Sodium 142, Potassium 3.4 L, Chloride 104, Carbon Dioxide 29.0, Anion Gap 9, BUN 35 H, Creatinine 2.41 H, Estim Creat Clear Calc 25.14, Est GFR (MDRD) Af Amer 34 L, Est GFR (MDRD) Non-Af 28 L, BUN/Creatinine Ratio 14.5, Glucose 82, Calcium 9.2 Current Medications Acetaminophen (Tylenol) 650 mg PO Q6H PRN PRN PRN Reason: Mild Pain (1-3)/Temp > 100.7 F Albuterol Sulfate (Ventolin Aerosols) 2.5 mg INHALATION Q2H PRN PRN PRN Reason: SHORTNESS OF BREATH Albuterol/Ipratropium (Duoneb) 3 ml INHALATION Q6HWA.RT [facility] Last Admin: 04/16/18 18:55 Dose: Not Given [facility]op[facility] ([facility]) [facility] Last Admin: 04/16/18 07:49 Dose: 200 mg Aspirin (Aspirin, Baby) 81 mg PO DAILY@0800 [facility] Last Admin: 04/16/18 07:50 Dose: 81 mg Atorvastatin Calcium (Lipitor) 40 mg PO QHS [facility] Last Admin: 04/16/18 21:35 Dose: 40 mg Carvedilol (Coreg) 25 mg PO BID [facility] Last Admin: 04/16/18 21:35 Dose: 25 mg Clopidogrel Bisulfate (Plavix) 75 mg PO DAILY [facility] Last Admin: 04/16/18 09:41 Dose: 75 mg Furosemide (Lasix) 40 mg PO BID@1000,1800 [facility] Last Admin: 04/16/18 16:59 Dose: 40 mg Heparin Sodium (Porcine) (Heparin Na) 5,000 unit SC Q12 [facility] Last Admin: 04/16/18 21:35 Dose: 5,000 unit Hydroxychloroquine Sulfate (Plaquenil) [facility] Last Admin: 04/16/18 16:59 Dose: 200 mg Isosorbide Mononitrate (Imdur) 30 mg PO DAILY [facility] Last Admin: 04/16/18 12:56 Dose: 30 mg Leflunomide (Leflunomide) 5 mg PO DAILY [facility] Last Admin: 04/16/18 09:42 Dose: 5 mg Magnesium Hydroxide (Milk Of Magnesia) 30 ml PO DAILY PRN PRN Reason: Constipation Multivitamins (Multivitamin) 1 tablet PO DAILY@0800 [facility] Last Admin: 04/16/18 07:49 Dose: 1 tablet Nitroglycerin (Nitrostat) 0.4 mg SUBLINGUAL Q5M PRN PRN Reason: CHEST PAIN Ondansetron HCl (Zofran) 4 mg IV Q8H PRN PRN PRN Reason: NAUSEA Oxycodone HCl (Oxyir) 5 mg PO Q4H PRN PRN PRN Reason: MOD-SEVERE PAIN (4-10/10) Pantoprazole Sodium (Protonix) 40 mg PO DAILY [facility] Last Admin: 04/16/18 09:42 Dose: 40 mg Polysaccharide Iron Complex (Ferrex 150) 150 mg PO TID [facility] Last Admin: 04/17/18 06:23 Dose: 150 mg Prednisone () 7.5 mg PO DAILYCM [facility] Last Admin: 04/16/18 07:50 Dose: 7.5 mg Ranolazine (Ranexa) 500 mg PO BID [facility] Last Admin: 04/16/18 21:36 Dose: 500 mg Senna (Senokot) 1 tablet PO DAILY [facility] Last Admin: 04/16/18 09:41 Dose: 1 tablet Sodium Chloride () 5 - 30 ml IV UD PRN PRN Reason: SALINE FLUSH Last Admin: 04/16/18 09:42 Dose: 10 ml Medical Necessity - Tobacco Use Smoking Status: Never smoker Tobacco Use: Non-smoker Assessment/Plan All Active Problems (Last Reviewed 04/14/18 @ 16:56 by Pancho Peterson DO) NSTEMI (non-ST elevated myocardial infarction) (Acute) CHF (congestive heart failure) (Acute) Acute respiratory failure with hypoxia (Acute) NSTEMI (non-ST elevated myocardial infarction) (Acute) Pain in right toe(s) (Acute) Tinea unguium (Acute) Ingrown toenail (Acute) Anemia of chronic renal failure, stage 4 (severe) (Acute) Edema (Acute) Weakness (Acute) Debility (Acute) 72-year-old male with past medical history of sarcoidosis, CAD status post CABG, ischemic cardiomyopathy, seen in [facility], not a candidate for any further intervention, admitted with shortness of breath and chest pain and found to have acute NSTEMI. Cardiology consulted. 1. Acute Non-STEMI, TITI 6, on aspirin, plavix, atorvastatin, Isosorbide, carvedilol, diet on Ranexa Not a candidate for surgical intervention, patient refuses left heart cath. Cardiology consulted, recommended aggressive medical management. 2. Acute HFpEF, likely secondary to ischemic cardiomyopathy, EF 55%, on beta-agustín, isosorbide, statin, not on ALEXIS inhibitor on account of CKD 3. Chronic kidney disease stage IV, appears stable 4. Sarcoidosis, stable 5. Anemia of chronic disease, on Epo and iron 6. DVT prophylaxis - Heparin SC Code Visit Inpatient E&M: 44831 Subs Hosp L2
[2018-04-17] MEDS: Hydroxychloroquine 200 MG Tablet PO (07:55)
[2018-04-17] MEDS: Allopurinol 100 MG Tablet 200 MG PO (07:55)
[2018-04-17] MEDS: Multivitamins,Therapeutic Tablet 1 TABLET PO (07:55)
[2018-04-17] MEDS: Aspirin 81 MG TAB.CHEW PO (07:55)
[2018-04-17] MEDS: predniSONE 5 MG Tablet 7.5 MG PO (07:55)
--- NOTE | 2018-04-17 07:58 | PCM.PN.CARD ---
Subjectve: Patient seen and evaluated. Appears to be doing well. His breathing better. Objective: Vital Signs Temp Pulse Resp BP Pulse Ox 97.7 F L 80 18 112/57 L 97 04/17/18 03:30 04/17/18 06:57 04/17/18 03:30 04/17/18 03:30 04/17/18 03:40 Oxygen Flow Rate (L/min) 2 Oxygen Delivery Method Room Air Weight: 267 lb 3.204 oz Body Mass Index (BMI) 43.2 Intake and Output for Last 24 Hours 04/15/18 04/16/18 04/17/18 23:59 23:59 23:59 Intake Total 1527 / 1527 790 / 790 129 / 129 Output Total 1450 / 1450 1675 / 1675 Balance 77 / 77 -885 / -885 129 / 129 General: Awake, Alert, Oriented x 3 HEENT: PERRL, EOMI, Sclera Non Icteric Neck: Supple, Good ROM, No Lymph Node Enlargement Lungs: Clear to auscultation Cardiovascular: Regular Rhythm, Normal S1, Normal S2, No Murmurs, No Rubs, No Gallops Vascular: No Carotid Bruits, Normal Femoral Pulses, Normal Radial Pulses, Normal Dorsalis Pedal Pulse, Normal Posterior Tibial Pulses Abdomen: Bowel Sounds Present, Soft, Non Tender, No HSM, No Organomegaly Extremities: No Cyanosis, No Clubbing, No edema Neurological: No Focal Motor or Sensory Deficit 04/17/18 05:10: Sodium 142, Potassium 3.4 L, Chloride 104, Carbon Dioxide 29.0, Anion Gap 9, BUN 35 H, Creatinine 2.41 H, Est GFR (MDRD) Af Amer 34 L, Est GFR (MDRD) Non-Af 28 L, BUN/Creatinine Ratio 14.5, Glucose 82, Calcium 9.2 Rhythm: EKG: ECHO: Stress Test: Cardiac Cath: PCI: CT Surgery: Holter monitor: EPS: PPM: CXR: Chest CT Scan: Medical Necessity - Tobacco Use Smoking Status: Never smoker Tobacco Use: Non-smoker Assessment/Plan 1. NSTEMI Patient has a non-ST elevation myocardial infarction. He overall appears to be doing better with no complaints this morning. His cardiac catheterization films were reviewed once again. At this time will continue with medical therapy and see how he does. Due to his renal dysfunction I am not sure that we are willing to consider a high risk angioplasty. Would recommend continuing oral nitrates Would recommend continuing Ranexa Continue beta-agustín Continue aspirin Continue high intensity statin 2. Hypertension Patient blood pressure appears to be under decent control and will continue current medications without making major changes. 3. Mild congestive heart failure-acute diastolic The above is likely secondary to diastolic dysfunction and coronary ischemia. Will attempt to afterload reduce as well as vasodilated with nitrates. Immanuel inhibitors do not appear to be appropriate at this time due to the abnormal renal dysfunction. Overall he appears to have improved and we may be able to discharge him on the current dose of his diuretic. We will continue with aggressive medical therapy and see how he does. After discussion with the patient it may also be appropriate for us to talk about long-term care for him. He is willing to undergo the above discussion. pantry goods worker will contact him. Thank you for allowing me to participate in the care of your patient. Please don't hesitate to call if any issues arise
[2018-04-17] MEDS: Carvedilol 25 MG Tablet PO (09:18)
[2018-04-17] MEDS: Heparin Injection (Vial) 5,000 UNIT/ML VIAL 5000 UNIT SC (09:18)
[2018-04-17] MEDS: Furosemide 40 MG Tablet PO (09:18)
[2018-04-17] MEDS: Leflunomide 10 MG TABLET 5 MG PO (09:18)
[2018-04-17] MEDS: Senna Tablet 1 TABLET PO (09:18)
[2018-04-17] MEDS: Clopidogrel Bisulfate 75 MG Tablet PO (09:18)
[2018-04-17] MEDS: Ranolazine 500 MG Tablet PO (09:18)
[2018-04-17] MEDS: Pantoprazole Sodium 40 MG Tablet PO (09:24)
[2018-04-17] MEDS: Isosorbide Mononitrate 30 MG Tablet PO (13:00)
--- NOTE | 2018-04-17 13:28 | PCM.TXEXTCAR ---
- Diet 04/15/18 12:27 Diet: Cardiac/Low Cholesterol 2200 calorie, cardiac/low sodium with 1500 ml FR; 70 gm protein restriction as needed depending on kidney function. Is pt able to select menu?: Yes - Routine Orders/Code Status Routine Lab Work: CBC - in 3 days, BMP - on 04/18/18 and then in 3 days Code Status: Full Code - Therapies Weight Bearing: Weight bearing as tolerated Physical Therapy: Eval and Treat Occupational Therapy: Eval and Treat - Allergies/Procedures Done in Hospital Allergies/Adverse Reactions: Allergies Influenza Virus Vaccines Allergy (Verified 04/14/18 16:44) CAN'T BREATHE Latex, Natural Rubber Allergy (Verified 04/14/18 16:44) Rash Penicillins Allergy (Verified 04/14/18 16:44) CAN'T BREATHE Sulfa (Sulfonamide Antibiotics) Allergy (Verified 04/14/18 16:44) Rash PEPPERS Allergy (Uncoded 04/14/18 16:44) Anaphylaxis Procedures: 2-D Echocardiogram - Type of Care/Length of Stay Estimated LOS: Convalescent Care Less Than 30 days Type of Care Needed: Skilled Rehab Potential: Good Prognosis: Good - Additional Orders/Day of Discharge Day of Discharge: 04/17/18 - Dietary and Speech Recommendations Dietitian Recommendations/Changes: Suggest diet change to 2200 calorie, cardiac/low sodium with 1500 ml FR; 70 gm protein restriction as needed depending on kidney function. - Follow Up Care Primary Care Physician: Vaughn Armenta III, MD [Primary Care Provider] - Please follow up with your Primary Care Physician in: within 1-2 weeks after discharge from TCU Please Follow Up With: Ministerio Kam MD When: in 1 month
--- NOTE | 2018-04-17 13:36 | PCM.DC.SUM ---
Discharge Date and Diagnosis - Problem List Patient Problems: Active and Suspected Problems (Last Reviewed 04/14/18 @ 16:56 by Pancho Peterson DO) Shortness of breath (Acute) Acute on chronic diastolic heart failure (Acute) Date of Admission: 04/14/18 Date of Discharge: 04/17/18 - Primary Discharge Diagnosis Active and Suspected Problems (Last Reviewed 04/14/18 @ 16:56 by Pancho Peterson DO) NSTEMI (non-ST elevated myocardial infarction) (Acute) CHF (congestive heart failure) (Acute) - Secondary Discharge Diagnosis Chronic Problems (Last Reviewed 04/14/18 @ 16:56 by Pancho Peterson DO) History of left heart catheterization (Chronic) 04/05/2016 @ [facility] per Dr. العراقي and 01/01/2017 @ [facility] per Dr. 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 Electronically Signed: Parviz uBsch, at 15:40 EDT Tel , Service support , Cardiology Operations: None Procedures: 2-D Echocardiogram Summary of Care Provided: 72-year-old male with past medical history of sarcoidosis, CAD status post CABG, ischemic cardiomyopathy, seen in [facility], not a candidate for any further intervention, admitted with shortness of breath and chest pain and found to have acute NSTEMI. Cardiology consulted. 1. Acute Non-STEMI, TITI 6, on aspirin, plavix, atorvastatin, Isosorbide, carvedilol, started on Ranexa Not a candidate for surgical intervention, seen earlier by [facility], patient refused left heart cath. Cardiology consulted, recommended aggressive medical management. 2. Acute HFpEF, likely secondary to ischemic cardiomyopathy, EF 55%, on beta-trevor, isosorbide, statin, not on ALEXIS inhibitor on account of CKD 3. Chronic kidney disease stage IV, appears stable 4. Sarcoidosis, stable 5. Anemia of chronic disease, on Epo and iron Discharge Diet: Low fat/ Low Cholesterol, 2000 mg Sodium Diet Discharge Activity: Return to Normal Activity Home Medications: Medications to take at Discharge Aspirin [Aspirin, Baby] 81 mg PO DAILY@0800 09/10/16 Carvedilol [Coreg (Beta Trevor)] 25 mg PO BID 09/10/16 Multivitamin [Daily Multiple Vitamin] 1 ea PO DAILY 09/10/16 Hydroxychloroquine [Plaquenil] 200 mg PO BIDCM 12/29/16 Pantoprazole Sodium [Protonix] 40 mg PO DAILY 12/29/16 Allopurinol 200 mg PO DAILY 07/14/17 Iron Polysaccharide Complex [Ferrex 150] 150 mg PO TID #90 07/23/17 leflunomide 10 mg tablet 5 mg PO DAILY 08/16/17 Prednisone 7.5 mg PO DAILY 01/25/18 Senna [Senokot] 1 tab PO DAILY 01/25/18 Acetaminophen [Tylenol Tablet] 650 mg PO Q6H PRN PRN tablet 04/17/18 Albuterol Aerosols [Ventolin Aerosols] 2.5 mg INHALATION Q2H PRN PRN vial.neb. 04/17/18 Atorvastatin Calcium [Lipitor] 40 mg PO QHS 04/17/18 Clopidogrel Bisulfate [Plavix] 75 mg PO DAILY 04/17/18 Furosemide [Lasix] 40 mg PO BID@1000,1800 04/17/18 Ipratropium/Albuterol Sulfate [Duoneb] 3 ml INHALATION Q6HWA.RT 04/17/18 Isosorbide Mononitrate [Imdur] 30 mg PO DAILY 04/17/18 Nitroglycerin [Nitrostat] 0.4 mg SUBLINGUAL Q5M PRN tablet 04/17/18 Ranolazine [Ranexa] 500 mg PO BID 04/17/18 Primary Care Physician: Vaughn Armenta III, MD [Primary Care Provider] - Please follow up with your Primary Care Physician in: within 1-2 weeks after discharge from TCU Please Follow Up With: Ministerio Kam MD When: in 1 month Disposition: Longterm facility Minutes spent on discharge:: 40 Patient Condition:: Stable Medical Necessity - Tobacco Use Smoking Status: Never smoker Tobacco Use: Non-smoker Meaningful Use Info Meaningful Use Diagnoses (Choose all that apply): CHF - CHF ALEXIS/ARB ordered at discharge?: No Reason ALEXIS/ARB not ordered?: Worsening renal dysfunctn Documented LVEF (%): 55 Code Visit Inpatient E&M: 45880 Disch Hosp
--- NOTE | 2018-04-17 13:41 | NURSING ---
Called report to Rosy MORALES in TCU
== END 2018-04-17 14:09 | disposition skilled nursing facility (03) | DRG 280 ==
LOC: ED 17:01 → PCU 17:09
PROVIDERS: Emergency Provider Emergency Medicine; Family Provider Family Medicine; PCP Family Medicine; Visit Provider Internal Medicine
DX: I21.4 Non-ST elevation (NSTEMI) myocardial infarction (principal); I50.33 Acute on chronic diastolic (congestive) heart failure; I13.0 Hypertensive heart and chronic kidney disease with heart failure and stage 1 through stage 4 chronic kidney disease, or unspecified chronic kidney disease; N18.4 Chronic kidney disease, stage 4 (severe); Z68.41 Body mass index [BMI] 40.0-44.9, adult; E66.01 Morbid (severe) obesity due to excess calories; Z79.899 Other long term (current) drug therapy; D63.8 Anemia in other chronic diseases classified elsewhere; M10.9 Gout, unspecified; I25.5 Ischemic cardiomyopathy; K21.9 Gastro-esophageal reflux disease without esophagitis; D86.0 Sarcoidosis of lung; I25.10 Atherosclerotic heart disease of native coronary artery without angina pectoris
CPT/HCPCS: 36415; 71046; 80048; 83735; 83880; 84484; 85025; 85610; 85730; 93005; 93306; 94640; 97110; 97116; 97163; 97166; 99284; Q9957; A4216; C8929; J1940

== ENCOUNTER 2018-04-17 14:31 | Inpatient (IN) | payer MEDICARE, SELFPAY ==
[2018-04-17 15:45] VITALS: BP 122/43; BP 135/60; PULSE 78; PULSE 83; RESP 20; TEMP 36.2; TEMP 36.8; O2SAT 95; O2SAT 97
--- NOTE | 2018-04-17 16:47 | NURSING ---
Pt admitted to room 3 from PCU via bed. Patient oriented to room and call light system explained.
[2018-04-17] MEDS: Hydroxychloroquine 200 MG Tablet PO (18:13)
[2018-04-17] MEDS: Ranolazine 500 MG Tablet PO (18:13)
[2018-04-17] MEDS: Furosemide 40 MG Tablet PO (18:13)
[2018-04-17] MEDS: Carvedilol 25 MG Tablet PO (18:13)
[2018-04-17] MEDS: Senna/Docusate Sodium 1 Tablet PO (18:13)
[2018-04-17] MEDS: Atorvastatin Calcium 40 MG Tablet PO (20:33)
[2018-04-17] MEDS: Iron Polysaccharide Complex 150 MG CAPSULE PO (20:33)
[2018-04-17 22:40] VITALS: BMI 42.0
[2018-04-17 22:44] VITALS: BMI 42.0
[2018-04-17 22:47] VITALS: O2SAT 97
--- NOTE | 2018-04-17 23:52 | PCM.HP.STD ---
Problem List (1) Shortness of breath Status: Acute (2) Acute on chronic diastolic heart failure Status: Acute (3) Allergic rhinitis due to [place] house dust mite Status: Chronic (4) Chronic kidney disease Status: Chronic Qualifiers: (5) NSTEMI (non-ST elevated myocardial infarction) Status: Acute (6) Morbid obesity Status: Chronic (7) Sarcoidosis Status: Chronic (8) Iron deficiency anemia Status: Chronic (9) Constipation Status: Chronic (10) Gout Status: Chronic Qualifiers: (11) GERD (gastroesophageal reflux disease) Status: Chronic Qualifiers: (12) Allergic rhinitis Status: Chronic (13) Hypertension Status: Chronic Qualifiers: (14) Coronary artery disease Status: Chronic Qualifiers: History of Present Illness Date of Admission: 04/17/18 Chief Complaint: Here for rehabilitation, strengthening, prior to discharge home with spouse. The patient is a 72 year old Male with below past medical history presented to [facility] Emergency Department 04/14/2018 with shortness of breath, chest pain. Needs CABG x 4, but risk too high. Shortness of breath waking from nap. Chest heaviness. EKG sinus rhythm, inferolateral ST depression, T wave inversion. Chest X-ray moderate vascular congestion. WBC 11.5, Hemoglobin 9.2, BUN 36, Cr 2.68. Troponin 0.871, BNP 314. Aspirin, Heparin drip given. 04/14/2018 Admit to Hospital. Aspirin, carvedilol, heparin drip for NSTEMI. Lasix 40MG IV BID for heart failure. 04/15/2018 Dr. Kam recommended nitrates, Ranexa, consider long term care administrator care. 04/15/2018 Echo showed normal LV size. Left ventricular systolic function normal. EF 55%. Stage 1 diastolic dysfunction. Patient refused left heart catheterization. 04/17/2018 Admit to TCU with debility, here for rehabilitation, strengthening, prior to discharge home with spouse. Past Medical History Past Medical History (Chronic Problems): Chronic Problems (Last Reviewed 04/14/18 @ 16:56 by Pancho Peterson DO) Allergic rhinitis due to [place] house dust mite (Chronic) History of left heart catheterization (Chronic) 04/05/2016 @ [facility] per Dr. العراقي and 01/01/2017 @ [facility] per Dr. 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 Gout (Chronic) Morbid obesity with BMI of 40.0-44.9, adult (Chronic) GERD (gastroesophageal reflux disease) (Chronic) Allergic rhinitis (Chronic) Hypertension (Chronic) Nephrolithiasis (Chronic) Renal cyst (Chronic) Splenomegaly (Chronic) Coronary artery disease (Chronic) CKD (chronic kidney disease) stage 4, GFR 15-29 ml/min (Chronic) Polyarthropathy of ankle and foot (Chronic) Medical History: Medical History (Last Reviewed 04/14/18 @ 16:56 by Pancho Peterson DO) Dyspnea (Chronic) R06.00 Acute respiratory failure with hypoxia (Acute) J96.01 Hypercalcemia (Chronic) E83.52 Body mass index (BMI) of 40.0-44.9 in adult (Chronic) Z68.41 Chronic diastolic (congestive) heart failure (Chronic) I50.32 Bilateral leg edema (Chronic) R60.0 Hypersomnia (Chronic) G47.10 Chronic kidney disease (Chronic) N18.9 Hyperlipemia, mixed (Chronic) E78.2 Diastolic dysfunction (Chronic) I51.9 Atherosclerosis of [place] coronary artery of [place] heart without angina pectoris (Chronic) I25.10 NSTEMI (non-ST elevated myocardial infarction) (Acute) I21.4 Pain in right toe(s) (Acute) M79.674 Tinea unguium (Acute) B35.1 Ingrown toenail (Acute) L60.0 Anemia of chronic renal failure, stage 4 (severe) (Acute) N18.4, D63.1 Polyarthropathy (Chronic) M13.0 Edema (Acute) R60.9 Weakness (Acute) R53.1 Morbid obesity (Chronic) E66.01 Sarcoidosis (Chronic) D86.9 Debility (Acute) R53.81 Cardiomyopathy (Chronic) I42.9 Iron deficiency anemia (Chronic) D50.9 Constipation (Chronic) K59.00 Sarcoidosis of lung (Chronic) D86.0 diagnosed in 2012 on a lung biopsy Gout (Chronic) M10.9 Morbid obesity with BMI of 40.0-44.9, adult (Chronic) E66.01, Z68.41 GERD (gastroesophageal reflux disease) (Chronic) K21.9 Allergic rhinitis (Chronic) J30.9 Hypertension (Chronic) I10 Nephrolithiasis (Chronic) Renal cyst (Chronic) N28.1 Splenomegaly (Chronic) R16.1 Coronary artery disease (Chronic) I25.10 CKD (chronic kidney disease) stage 4, GFR 15-29 ml/min (Chronic) N18.4 Polyarthropathy of ankle and foot (Chronic) M13.0 Allergies Influenza Virus Vaccines Allergy (Verified 04/14/18 16:44) CAN'T BREATHE Latex, Natural Rubber Allergy (Verified 04/14/18 16:44) Rash Penicillins Allergy (Verified 04/14/18 16:44) CAN'T BREATHE Sulfa (Sulfonamide Antibiotics) Allergy (Verified 04/14/18 16:44) Rash PEPPERS Allergy (Uncoded 04/14/18 16:44) Anaphylaxis Home Medications: Ambulatory Orders Medication Instructions Recorded Aspirin [Aspirin, Baby] 81 mg PO DAILY@0800 09/10/16 Carvedilol [Coreg (Beta Trevor)] 25 mg PO BID 09/10/16 Multivitamin [Daily Multiple 1 ea PO DAILY 09/10/16 Vitamin] Hydroxychloroquine [Plaquenil] 200 mg PO BIDCM 12/29/16 Pantoprazole Sodium [Protonix] 40 mg PO DAILY 12/29/16 Allopurinol 200 mg PO DAILY 07/14/17 Iron Polysaccharide Complex 150 mg PO TID #90 07/23/17 [Ferrex 150] leflunomide 10 mg tablet 5 mg PO DAILY 08/16/17 Prednisone 7.5 mg PO DAILY 01/25/18 Senna [Senokot] 1 tab PO DAILY 01/25/18 Acetaminophen [Tylenol Tablet] 650 mg PO Q6H PRN PRN tablet 04/17/18 Albuterol Aerosols [Ventolin 2.5 mg INHALATION Q2H PRN PRN 04/17/18 Aerosols] vial.neb. Atorvastatin Calcium [Lipitor] 40 mg PO QHS 04/17/18 Clopidogrel Bisulfate [Plavix] 75 mg PO DAILY 04/17/18 Furosemide [Lasix] 40 mg PO BID@1000,1800 04/17/18 Ipratropium/Albuterol Sulfate 3 ml INHALATION Q6HWA.RT 04/17/18 [Duoneb] Isosorbide Mononitrate [Imdur] 30 mg PO DAILY 04/17/18 Nitroglycerin [Nitrostat] 0.4 mg SUBLINGUAL Q5M PRN tablet 04/17/18 Ranolazine [Ranexa] 500 mg PO BID 04/17/18 Surgical History: Surgical History (Last Reviewed 04/14/18 @ 16:56 by Pancho Peterson DO) History of left heart catheterization (Chronic) Z98.890 04/05/2016 @ [facility] per Dr. العراقي and 01/01/2017 @ [facility] per Dr. Kam Surgical History: no surgical history Psychiatric History: No pertinent psych hx Lives: Spouse/ Significant Other Smoking Status: Never smoker Tobacco Use: Non-smoker Alcohol: None Drugs: None - *Family History Maternal Family History: Family History (Last Reviewed 04/14/18 @ 16:56 by Pancho Petreson DO) Father Diabetes Heart failure Sister Diabetes Mother Diabetes History Items: Diabetes, - - His mother in her 90s of old age Paternal Family History: Family History (Last Reviewed 04/14/18 @ 16:56 by Pancho Peterson DO) Father Diabetes Heart failure Sister Diabetes Mother Diabetes History Items: Diabetes, - - Father of congestive heart failure in his 80s and had diabetes mellitus Sibling Family History: Family History (Last Reviewed 04/14/18 @ 16:56 by Pancho Peterson DO) Father Diabetes Heart failure Sister Diabetes Mother Diabetes History Items: Diabetes - His sister has diabetes. Review of Systems Constitutional: Denies: Chills, Fever, Weight Change HEENT: Denies: Head Aches, Sinus Congestion, Sinus Drainage Cardiovascular: Denies: Chest Pain, Palpitations Respiratory: Denies: Cough, Shortness of breath at rest, Sputum production Gastrointestinal: Denies: Abdominal Pain, Nausea, Vomiting Genitourinary: Denies: Dysuria Musculoskeletal: Denies: Joint Pain, Joint Tenderness Skin: Denies: Rash, Wounds Neurological: Denies: Numbness, Tingling, Focal weakness Psychiatric: Denies: Anxiety, Depression, Homicidal Ideations, Suicidal Ideations Hematologic/ Lymphatic: Denies: Easy Bruising, Easy Bleeding VTE Information - Inpt Only VTE Present on Admission: No VTE Mechan Device Prophylaxis: Knee High MAHAD Hose VTE Pharm Prophylaxis ordered?: Yes Patient Problems: Active and Suspected Problems (Last Reviewed 04/14/18 @ 16:56 by Pancho Peterson DO) Shortness of breath (Acute) Acute on chronic diastolic heart failure (Acute) - Physical Exam General: Alert, Oriented x3, Cooperative HEENT: Atraumatic, PERRLA, EOMI, Normocephalic Neck: Supple, No JVD, Negative Carotid Bruits Lungs: Clear to auscultation, Normal air movement Cardiovascular: Regular rate, No murmurs Abdomen: Bowel Sounds Present, Soft, Non Tender Extremities: No edema, Capillary Refill Less than 3 Seconds Skin: No rashes, No breakdown Musculoskeletal: No Tenderness to Palpation of Joints or Extremities Neurological: Cranial nerves II-XII grossly intact Psych/Mental Status: Normal Affect, Appropriate Vital Signs Temp Pulse Resp BP Pulse Ox 97.2 F L 83 20 H 135/60 H 97 04/17/18 15:45 04/17/18 15:45 04/17/18 15:45 04/17/18 15:45 04/17/18 22:47 Oxygen Delivery Method Room Air Weight: 121.653 kg Body Mass Index (BMI) 42.0 Intake and Output for Last 24 Hours 04/15/18 04/16/18 04/17/18 23:59 23:59 23:59 Intake Total 120 / 120 Balance 120 / 120 Assessment/Plan All Active Problems (Last Reviewed 04/14/18 @ 16:56 by Pancho Peterson DO) NSTEMI (non-ST elevated myocardial infarction) (Acute) CHF (congestive heart failure) (Acute) Shortness of breath (Acute) Acute on chronic diastolic heart failure (Acute) Acute respiratory failure with hypoxia (Acute) NSTEMI (non-ST elevated myocardial infarction) (Acute) Pain in right toe(s) (Acute) Tinea unguium (Acute) Ingrown toenail (Acute) Anemia of chronic renal failure, stage 4 (severe) (Acute) Edema (Acute) Weakness (Acute) Debility (Acute) 72 year old male with below past medical history hospitalized for NSTEMI, acute on chronic diastolic heart failure, patient refused heart catheterization, too high risk for CABG, admitted to TCU with debility, here for rehabilitation, strengthening, prior to discharge home with spouse. Debility - PT/OT. Pain - Tylenol 1000MG Q8H PRN mild pain. Bowel - Miralax 17GM daily, Senna/colace 2 tablets BID, Dulcolax 10MG PO daily. Pneumonia vaccination - Administer Prevnar 13 and/or Pneumovax 23 as necessary. DVT prophylaxis - Lovenox 30MG SC daily. Shortness of breath - Duoneb 3ML Q6HWA, Albuterol 2.5MG Q2H PRN. Gout - Allopurinol 200MG daily. Coronary Artery Disease - Coreg 25MG BID, Imdur 30MG QHS, Ranexa 500MG BID, Plavix 75MG daily, Aspirin 81MG daily, NTG 0.4MG Q5M PRN. Hyperlipidemia - Atorvastatin 40MG QHS. Acute on chronic diastolic heart failure - Coreg 25MG BID, Imdur 30MG QHS, Lasix 40MG BID. Polyarthralgia - Plaquenil 200MG BID, Leflunomide 5MG daily, Prednisone 7.5MG daily. Iron Deficiency Anemia - Ferrex 150MG TID. Nutrition - MVI daily. GERD - Pantoprazole 40MG daily.
--- NOTE | 2018-04-18 00:02 | HP.PCM_ITS ---
Problem List (1) Shortness of breath Status: Acute (2) Acute on chronic diastolic heart failure Status: Acute (3) Allergic rhinitis due to [place] house dust mite Status: Chronic (4) Chronic kidney disease Status: Chronic Qualifiers: (5) NSTEMI (non-ST elevated myocardial infarction) Status: Acute (6) Morbid obesity Status: Chronic (7) Sarcoidosis Status: Chronic (8) Iron deficiency anemia Status: Chronic (9) Constipation Status: Chronic (10) Gout Status: Chronic Qualifiers: (11) GERD (gastroesophageal reflux disease) Status: Chronic Qualifiers: (12) Allergic rhinitis Status: Chronic (13) Hypertension Status: Chronic Qualifiers: (14) Coronary artery disease Status: Chronic Qualifiers: History of Present Illness Date of Admission: 04/17/18 Chief Complaint: Here for rehabilitation, strengthening, prior to discharge home with spouse. The patient is a 72 year old Male with below past medical history presented to [facility] Emergency Department 04/14/2018 with shortness of breath, chest pain. Needs CABG x 4, but risk too high. Shortness of breath waking from nap. Chest heaviness. EKG sinus rhythm, inferolateral ST depression, T wave inversion. Chest X-ray moderate vascular congestion. WBC 11.5, Hemoglobin 9.2, BUN 36, Cr 2.68. Troponin 0.871, BNP 314. Aspirin, Heparin drip given. 04/14/2018 Admit to Hospital. Aspirin, carvedilol, heparin drip for NSTEMI. Lasix 40MG IV BID for heart failure. 04/15/2018 Dr. Kam recommended nitrates, Ranexa, consider moth exterminator care. 04/15/2018 Echo showed normal LV size. Left ventricular systolic function normal. EF 55%. Stage 1 diastolic dysfunction. Patient refused left heart catheterization. 04/17/2018 Admit to TCU with debility, here for rehabilitation, strengthening, prior to discharge home with spouse. Past Medical History Past Medical History (Chronic Problems): Chronic Problems (Last Reviewed 04/14/18 @ 16:56 by Pancho Peterson DO) Allergic rhinitis due to [place] house dust mite (Chronic) History of left heart catheterization (Chronic) 04/05/2016 @ [facility] per Dr. العراقي and 01/01/2017 @ [facility] per Dr. 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 Gout (Chronic) Morbid obesity with BMI of 40.0-44.9, adult (Chronic) GERD (gastroesophageal reflux disease) (Chronic) Allergic rhinitis (Chronic) Hypertension (Chronic) Nephrolithiasis (Chronic) Renal cyst (Chronic) Splenomegaly (Chronic) Coronary artery disease (Chronic) CKD (chronic kidney disease) stage 4, GFR 15-29 ml/min (Chronic) Polyarthropathy of ankle and foot (Chronic) Medical History: Medical History (Last Reviewed 04/14/18 @ 16:56 by Pancho Peterson DO) Dyspnea (Chronic) R06.00 Acute respiratory failure with hypoxia (Acute) J96.01 Hypercalcemia (Chronic) E83.52 Body mass index (BMI) of 40.0-44.9 in adult (Chronic) Z68.41 Chronic diastolic (congestive) heart failure (Chronic) I50.32 Bilateral leg edema (Chronic) R60.0 Hypersomnia (Chronic) G47.10 Chronic kidney disease (Chronic) N18.9 Hyperlipemia, mixed (Chronic) E78.2 Diastolic dysfunction (Chronic) I51.9 Atherosclerosis of [place] coronary artery of [place] heart without angina pectoris (Chronic) I25.10 NSTEMI (non-ST elevated myocardial infarction) (Acute) I21.4 Pain in right toe(s) (Acute) M79.674 Tinea unguium (Acute) B35.1 Ingrown toenail (Acute) L60.0 Anemia of chronic renal failure, stage 4 (severe) (Acute) N18.4, D63.1 Polyarthropathy (Chronic) M13.0 Edema (Acute) R60.9 Weakness (Acute) R53.1 Morbid obesity (Chronic) E66.01 Sarcoidosis (Chronic) D86.9 Debility (Acute) R53.81 Cardiomyopathy (Chronic) I42.9 Iron deficiency anemia (Chronic) D50.9 Constipation (Chronic) K59.00 Sarcoidosis of lung (Chronic) D86.0 diagnosed in 2012 on a lung biopsy Gout (Chronic) M10.9 Morbid obesity with BMI of 40.0-44.9, adult (Chronic) E66.01, Z68.41 GERD (gastroesophageal reflux disease) (Chronic) K21.9 Allergic rhinitis (Chronic) J30.9 Hypertension (Chronic) I10 Nephrolithiasis (Chronic) Renal cyst (Chronic) N28.1 Splenomegaly (Chronic) R16.1 Coronary artery disease (Chronic) I25.10 CKD (chronic kidney disease) stage 4, GFR 15-29 ml/min (Chronic) N18.4 Polyarthropathy of ankle and foot (Chronic) M13.0 Allergies Influenza Virus Vaccines Allergy (Verified 04/14/18 16:44) CAN'T BREATHE Latex, Natural Rubber Allergy (Verified 04/14/18 16:44) Rash Penicillins Allergy (Verified 04/14/18 16:44) CAN'T BREATHE Sulfa (Sulfonamide Antibiotics) Allergy (Verified 04/14/18 16:44) Rash PEPPERS Allergy (Uncoded 04/14/18 16:44) Anaphylaxis Home Medications: Ambulatory Orders Medication Instructions Recorded Aspirin [Aspirin, Baby] 81 mg PO DAILY@0800 09/10/16 Carvedilol [Coreg (Beta Trevor)] 25 mg PO BID 09/10/16 Multivitamin [Daily Multiple 1 ea PO DAILY 09/10/16 Vitamin] Hydroxychloroquine [Plaquenil] 200 mg PO BIDCM 12/29/16 Pantoprazole Sodium [Protonix] 40 mg PO DAILY 12/29/16 Allopurinol 200 mg PO DAILY 07/14/17 Iron Polysaccharide Complex 150 mg PO TID #90 07/23/17 [Ferrex 150] leflunomide 10 mg tablet 5 mg PO DAILY 08/16/17 Prednisone 7.5 mg PO DAILY 01/25/18 Senna [Senokot] 1 tab PO DAILY 01/25/18 Acetaminophen [Tylenol Tablet] 650 mg PO Q6H PRN PRN tablet 04/17/18 Albuterol Aerosols [Ventolin 2.5 mg INHALATION Q2H PRN PRN 04/17/18 Aerosols] vial.neb. Atorvastatin Calcium [Lipitor] 40 mg PO QHS 04/17/18 Clopidogrel Bisulfate [Plavix] 75 mg PO DAILY 04/17/18 Furosemide [Lasix] 40 mg PO BID@1000,1800 04/17/18 Ipratropium/Albuterol Sulfate 3 ml INHALATION Q6HWA.RT 04/17/18 [Duoneb] Isosorbide Mononitrate [Imdur] 30 mg PO DAILY 04/17/18 Nitroglycerin [Nitrostat] 0.4 mg SUBLINGUAL Q5M PRN tablet 04/17/18 Ranolazine [Ranexa] 500 mg PO BID 04/17/18 Surgical History: Surgical History (Last Reviewed 04/14/18 @ 16:56 by Pancho Peterson DO) History of left heart catheterization (Chronic) Z98.890 04/05/2016 @ [facility] per Dr. العراقي and 01/01/2017 @ [facility] per Dr. Kam Surgical History: no surgical history Psychiatric History: No pertinent psych hx Lives: Spouse/ Significant Other Smoking Status: Never smoker Tobacco Use: Non-smoker Alcohol: None Drugs: None - *Family History Maternal Family History: Family History (Last Reviewed 04/14/18 @ 16:56 by Pancho Peterson DO) Father Diabetes Heart failure Sister Diabetes Mother Diabetes History Items: Diabetes, - - His mother in her 90s of old age Paternal Family History: Family History (Last Reviewed 04/14/18 @ 16:56 by Pancho Peterson DO) Father Diabetes Heart failure Sister Diabetes Mother Diabetes History Items: Diabetes, - - Father of congestive heart failure in his 80s and had diabetes mellitus Sibling Family History: Family History (Last Reviewed 04/14/18 @ 16:56 by Pancho Peterson DO) Father Diabetes Heart failure Sister Diabetes Mother Diabetes History Items: Diabetes - His sister has diabetes. Review of Systems Constitutional: Denies: Chills, Fever, Weight Change HEENT: Denies: Head Aches, Sinus Congestion, Sinus Drainage Cardiovascular: Denies: Chest Pain, Palpitations Respiratory: Denies: Cough, Shortness of breath at rest, Sputum production Gastrointestinal: Denies: Abdominal Pain, Nausea, Vomiting Genitourinary: Denies: Dysuria Musculoskeletal: Denies: Joint Pain, Joint Tenderness Skin: Denies: Rash, Wounds Neurological: Denies: Numbness, Tingling, Focal weakness Psychiatric: Denies: Anxiety, Depression, Homicidal Ideations, Suicidal Ideations Hematologic/ Lymphatic: Denies: Easy Bruising, Easy Bleeding VTE Information - Inpt Only VTE Present on Admission: No VTE Mechan Device Prophylaxis: Knee High MAHAD Hose VTE Pharm Prophylaxis ordered?: Yes Patient Problems: Active and Suspected Problems (Last Reviewed 04/14/18 @ 16:56 by Pancho Peterson DO) Shortness of breath (Acute) Acute on chronic diastolic heart failure (Acute) - Physical Exam General: Alert, Oriented x3, Cooperative HEENT: Atraumatic, PERRLA, EOMI, Normocephalic Neck: Supple, No JVD, Negative Carotid Bruits Lungs: Clear to auscultation, Normal air movement Cardiovascular: Regular rate, No murmurs Abdomen: Bowel Sounds Present, Soft, Non Tender Extremities: No edema, Capillary Refill Less than 3 Seconds Skin: No rashes, No breakdown Musculoskeletal: No Tenderness to Palpation of Joints or Extremities Neurological: Cranial nerves II-XII grossly intact Psych/Mental Status: Normal Affect, Appropriate Vital Signs Temp Pulse Resp BP Pulse Ox 97.2 F L 83 20 H 135/60 H 97 04/17/18 15:45 04/17/18 15:45 04/17/18 15:45 04/17/18 15:45 04/17/18 22:47 Oxygen Delivery Method Room Air Weight: 121.653 kg Body Mass Index (BMI) 42.0 Intake and Output for Last 24 Hours 04/15/18 04/16/18 04/17/18 23:59 23:59 23:59 Intake Total 120 / 120 Balance 120 / 120 Assessment/Plan All Active Problems (Last Reviewed 04/14/18 @ 16:56 by Pancho Peterson DO) NSTEMI (non-ST elevated myocardial infarction) (Acute) CHF (congestive heart failure) (Acute) Shortness of breath (Acute) Acute on chronic diastolic heart failure (Acute) Acute respiratory failure with hypoxia (Acute) NSTEMI (non-ST elevated myocardial infarction) (Acute) Pain in right toe(s) (Acute) Tinea unguium (Acute) Ingrown toenail (Acute) Anemia of chronic renal failure, stage 4 (severe) (Acute) Edema (Acute) Weakness (Acute) Debility (Acute) 72 year old male with below past medical history hospitalized for NSTEMI, acute on chronic diastolic heart failure, patient refused heart catheterization, too high risk for CABG, admitted to TCU with debility, here for rehabilitation, strengthening, prior to discharge home with spouse. * Debility - PT/OT. * Pain - Tylenol 1000MG Q8H PRN mild pain. * Bowel - Miralax 17GM daily, Senna/colace 2 tablets BID, Dulcolax 10MG PO daily. * Pneumonia vaccination - Administer Prevnar 13 and/or Pneumovax 23 as necessary. * DVT prophylaxis - Lovenox 30MG SC daily. * Shortness of breath - Duoneb 3ML Q6HWA, Albuterol 2.5MG Q2H PRN. * Gout - Allopurinol 200MG daily. * Coronary Artery Disease - Coreg 25MG BID, Imdur 30MG QHS, Ranexa 500MG BID, Plavix 75MG daily, Aspirin 81MG daily, NTG 0.4MG Q5M PRN. * Hyperlipidemia - Atorvastatin 40MG QHS. * Acute on chronic diastolic heart failure - Coreg 25MG BID, Imdur 30MG QHS, Lasix 40MG BID. * Polyarthralgia - Plaquenil 200MG BID, Leflunomide 5MG daily, Prednisone 7.5MG daily. * Iron Deficiency Anemia - Ferrex 150MG TID. * Nutrition - MVI daily. * GERD - Pantoprazole 40MG daily.
[2018-04-18 05:57] LABS: Absolute Lymphocyte Count 0.57 X10^3/ul (0.83-4.51); Absolute Neutrophil Count 5.6 X10^3/uL (2.0-7.7); Basophil# 0.01 X10^3/uL; Basophil% 0.1 % (0-1); Eosinophil# 0.07 X10^3/uL; Hematocrit 28.1 % (40-54); Hemoglobin 8.4 g/dl (13.0-16.5); Lymphocyte # 0.57 X10^3/ul (4.0); Lymphocyte % 8.5 % (19-41); Mean Corp Hgb Conc 29.9 g/gl (32-36); Mean Corpuscular Hgb 27.1 pg (27.0-32.0); Mean Corpuscular Volume 90.6 fL (80-94); Mean Platelet Vol. 9.5 fl (6.2-12.0); Monocyte# 0.41 X10^3/uL; Monocyte% 6.1 % (0-10); Neutrophil # 5.58 X10^3/uL (2.7-7.7); Neutrophil % 83.7 % (47-70); Platelet Count 196 K/mm3 (150-450); RBC Distribution Width CV 18.8 % (11.6-14.6); White Blood Count 6.7 K/mm3 (4.4-11.0)
[2018-04-18 05:58] LABS: Anion Gap 12 (5-15); BUN 41 mg/dL (7-18); BUN/Creat Ratio 14.2 RATIO (10-20); Chloride 104 mmol/L (98-107); Creatinine, Serum 2.89 mg/dL (0.70-1.30); EST Glomerular Filtration Rate 23 mL/min (>60); Est Glom Filt Rate - Afr Amer 28 mL/min (>60); Estimated Creatinine Clearance 20.97 ml/min; Glucose 83 mg/dL (74-106); Potassium 3.6 mmol/L (3.5-5.1); Sodium Level 143 mmol/L (136-145)
[2018-04-18 06:01] LABS: Differential Indicated SCAN CRITERIA MET; POSITIVE COUNT NO; POSITIVE DIFFERENTIAL YES; POSITIVE MORPHOLOGY NO
[2018-04-18] MEDS: Iron Polysaccharide Complex 150 MG CAPSULE PO ×3 (06:52→20:01)
[2018-04-18] MEDS: Menthol/Lanolin/Calamine/Znox 113 GM Tube 1 APPLIC TOPICAL ×2 (06:52→20:01)
[2018-04-18] MEDS: Isosorbide Mononitrate 30 MG Tablet PO (06:52)
[2018-04-18] MEDS: Carvedilol 25 MG Tablet PO ×2 (06:52→17:31)
[2018-04-18] MEDS: Leflunomide 10 MG TABLET 5 MG PO (06:53)
[2018-04-18] MEDS: Senna/Docusate Sodium 1 Tablet 2 TABLET PO ×2 (06:54→17:32)
[2018-04-18] MEDS: Enoxaparin 30 MG/0.3 ML Syringe SC (06:54)
[2018-04-18] MEDS: Pantoprazole Sodium 40 MG Tablet PO (06:55)
[2018-04-18] MEDS: Ranolazine 500 MG Tablet PO ×2 (06:55→17:31)
[2018-04-18] MEDS: Clopidogrel Bisulfate 75 MG Tablet PO (06:55)
[2018-04-18] MEDS: Multivitamins,Therapeutic Tablet 1 TABLET PO (08:27)
[2018-04-18] MEDS: Allopurinol 100 MG Tablet 200 MG PO (08:27)
[2018-04-18] MEDS: Hydroxychloroquine 200 MG Tablet PO ×2 (08:27→17:31)
[2018-04-18] MEDS: Aspirin 81 MG TAB.CHEW PO (08:27)
[2018-04-18] MEDS: predniSONE 5 MG Tablet 7.5 MG PO (08:27)
[2018-04-18 08:57] VITALS: PULSE 76; O2SAT 94
[2018-04-18] MEDS: Furosemide 40 MG Tablet PO ×2 (11:09→17:31)
--- NOTE | 2018-04-18 11:54 | PCM.PN.RX ---
<PedrojoelTobin pruittip D - Last Filed: 04/18/18 11:54> Progress Note - Pharmacy Subjective: TCU Admission Objective: Allergies Influenza Virus Vaccines Allergy (Verified 04/14/18 16:44) CAN'T BREATHE Latex, Natural Rubber Allergy (Verified 04/14/18 16:44) Rash Penicillins Allergy (Verified 04/14/18 16:44) CAN'T BREATHE Sulfa (Sulfonamide Antibiotics) Allergy (Verified 04/14/18 16:44) Rash PEPPERS Allergy (Uncoded 04/14/18 16:44) Anaphylaxis Current Medications Generic Name Dose Route Start Last Admin Trade Name Freq PRN Reason Stop Dose Admin Acetaminophen 1,000 mg 04/18/18 00:14 Tylenol PO Q8H PRN PRN MILD PAIN (1-3/10) Albuterol Sulfate 2.5 mg 04/17/18 16:36 Ventolin Aerosols INHALATION Q2H PRN PRN SHORTNESS OF BREATH Allopurinol 200 mg 04/18/18 08:00 04/18/18 08:27 Zyloprim PO 200 mg DAILY@0800 ALEX Administration Aspirin 81 mg 04/18/18 08:00 04/18/18 08:27 Aspirin, Baby PO 81 mg DAILY@0800 ALEX Administration Atorvastatin Calcium 40 mg 04/17/18 22:00 04/17/18 20:33 Lipitor PO 40 mg QHS ALEX Administration Bisacodyl 10 mg 04/18/18 00:13 Dulcolax PO DAILY PRN Constipation Calamine/Phenol 1 applic 04/18/18 06:00 04/18/18 06:52 Calmoseptine Ointment TOPICAL 1 applicatio 0600,2200 [facility] Administration Protocol Carvedilol 25 mg 04/17/18 18:00 04/18/18 06:52 Coreg PO 25 mg BID ALEX Administration Clopidogrel Bisulfate 75 mg 04/18/18 06:00 04/18/18 06:55 Plavix PO 75 mg DAILY ALEX Administration Enoxaparin Sodium 30 mg 04/18/18 06:00 04/18/18 06:54 Lovenox SC 30 mg DAILY@0600 ALEX Administration Furosemide 40 mg 04/17/18 18:00 04/18/18 11:09 Lasix PO 40 mg BID@1000,1800 ALEX Administration Hydroxychloroquine Sulfate 200 mg 04/17/18 17:00 04/18/18 08:27 Plaquenil PO 200 mg BIDCM [facility] Administration Isosorbide Mononitrate 30 mg 04/18/18 06:00 04/18/18 06:52 Imdur PO 30 mg DAILY [facility] Administration Leflunomide 5 mg 04/18/18 06:00 04/18/18 06:53 Leflunomide PO 5 mg DAILY [facility] Administration Multivitamins 1 tablet 04/18/18 08:00 04/18/18 08:27 Multivitamin PO 1 tablet DAILY@0800 [facility] Administration Nitroglycerin 0.4 mg 04/17/18 16:36 Nitrostat SUBLINGUAL Q5M PRN CHEST PAIN Nystatin 1 applic 04/18/18 06:00 Mycostatin Powder TOPICAL 0600,2200 [facility] Protocol Pantoprazole Sodium 40 mg 04/18/18 06:00 04/18/18 06:55 Protonix PO 40 mg DAILY [facility] Administration Polyethylene Glycol 17 gm 04/18/18 06:00 04/18/18 06:55 Miralax PO Not Given DAILY [facility] Polysaccharide Iron Complex 150 mg 04/17/18 22:00 04/18/18 06:52 Ferrex 150 PO 150 mg TID [facility] Administration Prednisone 7.5 mg 04/18/18 08:00 04/18/18 08:27 PO 7.5 mg DAILY@0800 [facility] Administration Ranolazine 500 mg 04/17/18 18:00 04/18/18 06:55 Ranexa PO 500 mg BID [facility] Administration Senna/Docusate Sodium 2 tablet 04/18/18 00:14 04/18/18 06:54 Senokot-S, Isa-Colace PO 2 tablet BID [facility] Administration Tuberculin PPD 5 tu 04/25/18 10:00 Tubersol, Aplisol, Ppd ID 04/25/18 10:01 X1 ONE Problem List (Last Reviewed 04/14/18 @ 16:56 by Pancho Peterson DO) Shortness of breath (Acute) Acute on chronic diastolic heart failure (Acute) Allergic rhinitis due to [place] house dust mite (Chronic) Vital Signs Temp Pulse Resp BP Pulse Ox 97.2 F L 76 20 H 135/60 H 94 04/17/18 15:45 04/18/18 08:57 04/17/18 15:45 04/17/18 15:45 04/18/18 08:57 Oxygen Delivery Method Room Air Weight: 121.653 kg Body Mass Index (BMI) 42.0 Sodium 143 mmol/L (136-145) 04/18/18 05:05 Potassium 3.6 mmol/L (3.5-5.1) 04/18/18 05:05 Chloride 104 mmol/L (98-107) 04/18/18 05:05 Carbon Dioxide 27.0 mmol/L (21.0-32.0) 04/18/18 05:05 Anion Gap 12 (5-15) 04/18/18 05:05 BUN 41 mg/dL (7-18) H 04/18/18 05:05 Creatinine 2.89 mg/dL (0.70-1.30) H 04/18/18 05:05 Est GFR (MDRD) Af Amer 28 mL/min (>60) L 04/18/18 05:05 Est GFR (MDRD) Non-Af 23 mL/min (>60) L 04/18/18 05:05 BUN/Creatinine Ratio 14.2 RATIO (10-20) 04/18/18 05:05 Glucose 83 mg/dL (74-106) 04/18/18 05:05 Assessment/Plan: 1) Pain APAP for mild pain, hydroxychloroquine, leflunomide, prednisone. Continue to monitor daily pain scores, prn medication use. 2) CAD/CHF ASA, atorvastatin, carvedilol, clopidogrel, isosorbide, furosemide, prn ntg, ranolazine. Continue to monitor prn medication use, BP/HR, renal function, electrolytes, lipids, hepatic enzymes, for chest pain. 3) Gout Allopurinol daily. Continue to monitor s/s gout. 4) GI Pantoprazole daily. Continue to monitor s/s GI distress. 5) DVT PPx Enoxaparin daily. Continue to monitor s/s bleeding/clot. 6) Nutrition Fe, multivitamin. Continue to monitor clinically. 7) Derm Calmoseptine, nystatin topically. Continue to monitor clinically. Psychotropic Medications: None Unnecessary Medications: None Bowel Regimen: 8) Senna/s, PEG, prn bisacodyl. Continue to monitor prn medication use, for constipation. Date of Note:: 04/18/18 - Provider Comments Provider responsibility: Provider responsible to enter orders to implement recommendations <John June Chi - Last Filed: 04/18/18 18:04> Progress Note - Pharmacy Subjective: [] Objective: Allergies Influenza Virus Vaccines Allergy (Verified 04/14/18 16:44) CAN'T BREATHE Latex, Natural Rubber Allergy (Verified 04/14/18 16:44) Rash Penicillins Allergy (Verified 04/14/18 16:44) CAN'T BREATHE Sulfa (Sulfonamide Antibiotics) Allergy (Verified 04/14/18 16:44) Rash PEPPERS Allergy (Uncoded 04/14/18 16:44) Anaphylaxis Current Medications Generic Name Dose Route Start Last Admin Trade Name Freq PRN Reason Stop Dose Admin Acetaminophen 1,000 mg 04/18/18 00:14 Tylenol PO Q8H PRN PRN MILD PAIN (1-3/10) Albuterol Sulfate 2.5 mg 04/17/18 16:36 Ventolin Aerosols INHALATION Q2H PRN PRN SHORTNESS OF BREATH Allopurinol 200 mg 04/18/18 08:00 04/18/18 08:27 Zyloprim PO 200 mg DAILY@0800 ALEX Administration Aspirin 81 mg 04/18/18 08:00 04/18/18 08:27 Aspirin, Baby PO 81 mg DAILY@0800 ALEX Administration Atorvastatin Calcium 40 mg 04/17/18 22:00 04/17/18 20:33 Lipitor PO 40 mg QHS ALEX Administration Bisacodyl 10 mg 04/18/18 00:13 Dulcolax PO DAILY PRN Constipation Calamine/Phenol 1 applic 04/18/18 06:00 04/18/18 06:52 Calmoseptine Ointment TOPICAL 1 applicatio 0600,2200 [facility] Administration Protocol Carvedilol 25 mg 04/17/18 18:00 04/18/18 17:31 Coreg PO 25 mg BID ALEX Administration Clopidogrel Bisulfate 75 mg 04/18/18 06:00 04/18/18 06:55 Plavix PO 75 mg DAILY ALEX Administration Enoxaparin Sodium 30 mg 04/18/18 06:00 04/18/18 06:54 Lovenox SC 30 mg DAILY@0600 ALEX Administration Furosemide 40 mg 04/17/18 18:00 04/18/18 17:31 Lasix PO 40 mg BID@1000,1800 ALEX Administration Hydroxychloroquine Sulfate 200 mg 04/17/18 17:00 04/18/18 17:31 Plaquenil PO 200 mg BIDCM [facility] Administration Isosorbide Mononitrate 30 mg 04/18/18 06:00 04/18/18 06:52 Imdur PO 30 mg DAILY [facility] Administration Leflunomide 5 mg 04/18/18 06:00 04/18/18 06:53 Leflunomide PO 5 mg DAILY [facility] Administration Multivitamins 1 tablet 04/18/18 08:00 04/18/18 08:27 Multivitamin PO 1 tablet DAILY@0800 [facility] Administration Nitroglycerin 0.4 mg 04/17/18 16:36 Nitrostat SUBLINGUAL Q5M PRN CHEST PAIN Nystatin 1 applic 04/18/18 06:00 04/18/18 15:30 Mycostatin Powder TOPICAL Not Given 0600,2200 [facility] Protocol Pantoprazole Sodium 40 mg 04/18/18 06:00 04/18/18 06:55 Protonix PO 40 mg DAILY [facility] Administration Polyethylene Glycol 17 gm 04/18/18 06:00 04/18/18 06:55 Miralax PO Not Given DAILY [facility] Polysaccharide Iron Complex 150 mg 04/17/18 22:00 04/18/18 15:28 Ferrex 150 PO 150 mg TID [facility] Administration Prednisone 7.5 mg 04/18/18 08:00 04/18/18 08:27 PO 7.5 mg DAILY@0800 [facility] Administration Ranolazine 500 mg 04/17/18 18:00 04/18/18 17:31 Ranexa PO 500 mg BID [facility] Administration Senna/Docusate Sodium 2 tablet 04/18/18 00:14 04/18/18 17:32 Senokot-S, Isa-Colace PO 2 tablet BID [facility] Administration Tuberculin PPD 5 tu 04/25/18 10:00 Tubersol, Aplisol, Ppd ID 04/25/18 10:01 X1 ONE Problem List (Last Reviewed 04/14/18 @ 16:56 by Pancho Peterson DO) Shortness of breath (Acute) Acute on chronic diastolic heart failure (Acute) Allergic rhinitis due to [place] house dust mite (Chronic) Vital Signs Temp Pulse Resp BP Pulse Ox 96.7 F L 82 16 123/67 H 97 04/18/18 15:12 04/18/18 15:12 04/18/18 15:12 04/18/18 15:12 04/18/18 15:12 Oxygen Delivery Method Room Air Weight: 121.653 kg Body Mass Index (BMI) 42.0 Sodium 143 mmol/L (136-145) 04/18/18 05:05 Potassium 3.6 mmol/L (3.5-5.1) 04/18/18 05:05 Chloride 104 mmol/L (98-107) 04/18/18 05:05 Carbon Dioxide 27.0 mmol/L (21.0-32.0) 04/18/18 05:05 Anion Gap 12 (5-15) 04/18/18 05:05 BUN 41 mg/dL (7-18) H 04/18/18 05:05 Creatinine 2.89 mg/dL (0.70-1.30) H 04/18/18 05:05 Est GFR (MDRD) Af Amer 28 mL/min (>60) L 04/18/18 05:05 Est GFR (MDRD) Non-Af 23 mL/min (>60) L 04/18/18 05:05 BUN/Creatinine Ratio 14.2 RATIO (10-20) 04/18/18 05:05 Glucose 83 mg/dL (74-106) 04/18/18 05:05 Assessment/Plan: Psychotropic Medications: Unnecessary Medications: Bowel Regimen: - Provider Comments Provider responsibility: Provider responsible to enter orders to implement recommendations Provider Comments to Recommendations by Pharmacy: Agree
--- NOTE | 2018-04-18 12:00 | PHA.CONS_ITS ---
<PedrojoelTobin pruittip D - Last Filed: 04/18/18 11:54> Progress Note - Pharmacy Subjective: TCU Admission Objective: Allergies Influenza Virus Vaccines Allergy (Verified 04/14/18 16:44) CAN'T BREATHE Latex, Natural Rubber Allergy (Verified 04/14/18 16:44) Rash Penicillins Allergy (Verified 04/14/18 16:44) CAN'T BREATHE Sulfa (Sulfonamide Antibiotics) Allergy (Verified 04/14/18 16:44) Rash PEPPERS Allergy (Uncoded 04/14/18 16:44) Anaphylaxis Current Medications Generic Name Dose Route Start Last Admin Trade Name Freq PRN Reason Stop Dose Admin Acetaminophen 1,000 mg 04/18/18 00:14 Tylenol PO Q8H PRN PRN MILD PAIN (1-3/10) Albuterol Sulfate 2.5 mg 04/17/18 16:36 Ventolin Aerosols INHALATION Q2H PRN PRN SHORTNESS OF BREATH Allopurinol 200 mg 04/18/18 08:00 04/18/18 08:27 Zyloprim PO 200 mg DAILY@0800 ALEX Administration Aspirin 81 mg 04/18/18 08:00 04/18/18 08:27 Aspirin, Baby PO 81 mg DAILY@0800 ALEX Administration Atorvastatin Calcium 40 mg 04/17/18 22:00 04/17/18 20:33 Lipitor PO 40 mg QHS ALEX Administration Bisacodyl 10 mg 04/18/18 00:13 Dulcolax PO DAILY PRN Constipation Calamine/Phenol 1 applic 04/18/18 06:00 04/18/18 06:52 Calmoseptine Ointment TOPICAL 1 applicatio 0600,2200 [facility] Administration Protocol Carvedilol 25 mg 04/17/18 18:00 04/18/18 06:52 Coreg PO 25 mg BID ALEX Administration Clopidogrel Bisulfate 75 mg 04/18/18 06:00 04/18/18 06:55 Plavix PO 75 mg DAILY ALEX Administration Enoxaparin Sodium 30 mg 04/18/18 06:00 04/18/18 06:54 Lovenox SC 30 mg DAILY@0600 ALEX Administration Furosemide 40 mg 04/17/18 18:00 04/18/18 11:09 Lasix PO 40 mg BID@1000,1800 ALEX Administration Hydroxychloroquine Sulfate 200 mg 04/17/18 17:00 04/18/18 08:27 Plaquenil PO 200 mg BIDCM [facility] Administration Isosorbide Mononitrate 30 mg 04/18/18 06:00 04/18/18 06:52 Imdur PO 30 mg DAILY [facility] Administration Leflunomide 5 mg 04/18/18 06:00 04/18/18 06:53 Leflunomide PO 5 mg DAILY [facility] Administration Multivitamins 1 tablet 04/18/18 08:00 04/18/18 08:27 Multivitamin PO 1 tablet DAILY@0800 [facility] Administration Nitroglycerin 0.4 mg 04/17/18 16:36 Nitrostat SUBLINGUAL Q5M PRN CHEST PAIN Nystatin 1 applic 04/18/18 06:00 Mycostatin Powder TOPICAL 0600,2200 [facility] Protocol Pantoprazole Sodium 40 mg 04/18/18 06:00 04/18/18 06:55 Protonix PO 40 mg DAILY [facility] Administration Polyethylene Glycol 17 gm 04/18/18 06:00 04/18/18 06:55 Miralax PO Not Given DAILY [facility] Polysaccharide Iron Complex 150 mg 04/17/18 22:00 04/18/18 06:52 Ferrex 150 PO 150 mg TID [facility] Administration Prednisone 7.5 mg 04/18/18 08:00 04/18/18 08:27 PO 7.5 mg DAILY@0800 [facility] Administration Ranolazine 500 mg 04/17/18 18:00 04/18/18 06:55 Ranexa PO 500 mg BID [facility] Administration Senna/Docusate Sodium 2 tablet 04/18/18 00:14 04/18/18 06:54 Senokot-S, Isa-Colace PO 2 tablet BID [facility] Administration Tuberculin PPD 5 tu 04/25/18 10:00 Tubersol, Aplisol, Ppd ID 04/25/18 10:01 X1 ONE Problem List (Last Reviewed 04/14/18 @ 16:56 by Pancho Peterson DO) Shortness of breath (Acute) Acute on chronic diastolic heart failure (Acute) Allergic rhinitis due to [place] Islander house dust mite (Chronic) Vital Signs Temp Pulse Resp BP Pulse Ox 97.2 F L 76 20 H 135/60 H 94 04/17/18 15:45 04/18/18 08:57 04/17/18 15:45 04/17/18 15:45 04/18/18 08:57 Oxygen Delivery Method Room Air Weight: 121.653 kg Body Mass Index (BMI) 42.0 Sodium 143 mmol/L (136-145) 04/18/18 05:05 Potassium 3.6 mmol/L (3.5-5.1) 04/18/18 05:05 Chloride 104 mmol/L (98-107) 04/18/18 05:05 Carbon Dioxide 27.0 mmol/L (21.0-32.0) 04/18/18 05:05 Anion Gap 12 (5-15) 04/18/18 05:05 BUN 41 mg/dL (7-18) H 04/18/18 05:05 Creatinine 2.89 mg/dL (0.70-1.30) H 04/18/18 05:05 Est GFR (MDRD) Af Amer 28 mL/min (>60) L 04/18/18 05:05 Est GFR (MDRD) Non-Af 23 mL/min (>60) L 04/18/18 05:05 BUN/Creatinine Ratio 14.2 RATIO (10-20) 04/18/18 05:05 Glucose 83 mg/dL (74-106) 04/18/18 05:05 Assessment/Plan: 1) Pain APAP for mild pain, hydroxychloroquine, leflunomide, prednisone. Continue to monitor daily pain scores, prn medication use. 2) CAD/CHF ASA, atorvastatin, carvedilol, clopidogrel, isosorbide, furosemide, prn ntg, ranolazine. Continue to monitor prn medication use, BP/HR, renal function, electrolytes, lipids, hepatic enzymes, for chest pain. 3) Gout Allopurinol daily. Continue to monitor s/s gout. 4) GI Pantoprazole daily. Continue to monitor s/s GI distress. 5) DVT PPx Enoxaparin daily. Continue to monitor s/s bleeding/clot. 6) Nutrition Fe, multivitamin. Continue to monitor clinically. 7) Derm Calmoseptine, nystatin topically. Continue to monitor clinically. Psychotropic Medications: None Unnecessary Medications: None Bowel Regimen: 8) Senna/s, PEG, prn bisacodyl. Continue to monitor prn medication use, for constipation. Date of Note:: 04/18/18 - Provider Comments Provider responsibility: Provider responsible to enter orders to implement recommendations <John June Chi - Last Filed: 04/18/18 18:04> Progress Note - Pharmacy Subjective: [] Objective: Allergies Influenza Virus Vaccines Allergy (Verified 04/14/18 16:44) CAN'T BREATHE Latex, Natural Rubber Allergy (Verified 04/14/18 16:44) Rash Penicillins Allergy (Verified 04/14/18 16:44) CAN'T BREATHE Sulfa (Sulfonamide Antibiotics) Allergy (Verified 04/14/18 16:44) Rash PEPPERS Allergy (Uncoded 04/14/18 16:44) Anaphylaxis Current Medications Generic Name Dose Route Start Last Admin Trade Name Freq PRN Reason Stop Dose Admin Acetaminophen 1,000 mg 04/18/18 00:14 Tylenol PO Q8H PRN PRN MILD PAIN (1-3/10) Albuterol Sulfate 2.5 mg 04/17/18 16:36 Ventolin Aerosols INHALATION Q2H PRN PRN SHORTNESS OF BREATH Allopurinol 200 mg 04/18/18 08:00 04/18/18 08:27 Zyloprim PO 200 mg DAILY@0800 ALEX Administration Aspirin 81 mg 04/18/18 08:00 04/18/18 08:27 Aspirin, Baby PO 81 mg DAILY@0800 ALEX Administration Atorvastatin Calcium 40 mg 04/17/18 22:00 04/17/18 20:33 Lipitor PO 40 mg QHS ALEX Administration Bisacodyl 10 mg 04/18/18 00:13 Dulcolax PO DAILY PRN Constipation Calamine/Phenol 1 applic 04/18/18 06:00 04/18/18 06:52 Calmoseptine Ointment TOPICAL 1 applicatio 0600,2200 [facility] Administration Protocol Carvedilol 25 mg 04/17/18 18:00 04/18/18 17:31 Coreg PO 25 mg BID ALEX Administration Clopidogrel Bisulfate 75 mg 04/18/18 06:00 04/18/18 06:55 Plavix PO 75 mg DAILY ALEX Administration Enoxaparin Sodium 30 mg 04/18/18 06:00 04/18/18 06:54 Lovenox SC 30 mg DAILY@0600 ALEX Administration Furosemide 40 mg 04/17/18 18:00 04/18/18 17:31 Lasix PO 40 mg BID@1000,1800 ALEX Administration Hydroxychloroquine Sulfate 200 mg 04/17/18 17:00 04/18/18 17:31 Plaquenil PO 200 mg BIDCM [facility] Administration Isosorbide Mononitrate 30 mg 04/18/18 06:00 04/18/18 06:52 Imdur PO 30 mg DAILY [facility] Administration Leflunomide 5 mg 04/18/18 06:00 04/18/18 06:53 Leflunomide PO 5 mg DAILY [facility] Administration Multivitamins 1 tablet 04/18/18 08:00 04/18/18 08:27 Multivitamin PO 1 tablet DAILY@0800 [facility] Administration Nitroglycerin 0.4 mg 04/17/18 16:36 Nitrostat SUBLINGUAL Q5M PRN CHEST PAIN Nystatin 1 applic 04/18/18 06:00 04/18/18 15:30 Mycostatin Powder TOPICAL Not Given 0600,2200 [facility] Protocol Pantoprazole Sodium 40 mg 04/18/18 06:00 04/18/18 06:55 Protonix PO 40 mg DAILY [facility] Administration Polyethylene Glycol 17 gm 04/18/18 06:00 04/18/18 06:55 Miralax PO Not Given DAILY [facility] Polysaccharide Iron Complex 150 mg 04/17/18 22:00 04/18/18 15:28 Ferrex 150 PO 150 mg TID [facility] Administration Prednisone 7.5 mg 04/18/18 08:00 04/18/18 08:27 PO 7.5 mg DAILY@0800 [facility] Administration Ranolazine 500 mg 04/17/18 18:00 04/18/18 17:31 Ranexa PO 500 mg BID [facility] Administration Senna/Docusate Sodium 2 tablet 04/18/18 00:14 04/18/18 17:32 Senokot-S, Isa-Colace PO 2 tablet BID [facility] Administration Tuberculin PPD 5 tu 04/25/18 10:00 Tubersol, Aplisol, Ppd ID 04/25/18 10:01 X1 ONE Problem List (Last Reviewed 04/14/18 @ 16:56 by Pancho Peterson DO) Shortness of breath (Acute) Acute on chronic diastolic heart failure (Acute) Allergic rhinitis due to [place] Islander house dust mite (Chronic) Vital Signs Temp Pulse Resp BP Pulse Ox 96.7 F L 82 16 123/67 H 97 04/18/18 15:12 04/18/18 15:12 04/18/18 15:12 04/18/18 15:12 04/18/18 15:12 Oxygen Delivery Method Room Air Weight: 121.653 kg Body Mass Index (BMI) 42.0 Sodium 143 mmol/L (136-145) 04/18/18 05:05 Potassium 3.6 mmol/L (3.5-5.1) 04/18/18 05:05 Chloride 104 mmol/L (98-107) 04/18/18 05:05 Carbon Dioxide 27.0 mmol/L (21.0-32.0) 04/18/18 05:05 Anion Gap 12 (5-15) 04/18/18 05:05 BUN 41 mg/dL (7-18) H 04/18/18 05:05 Creatinine 2.89 mg/dL (0.70-1.30) H 04/18/18 05:05 Est GFR (MDRD) Af Amer 28 mL/min (>60) L 04/18/18 05:05 Est GFR (MDRD) Non-Af 23 mL/min (>60) L 04/18/18 05:05 BUN/Creatinine Ratio 14.2 RATIO (10-20) 04/18/18 05:05 Glucose 83 mg/dL (74-106) 04/18/18 05:05 Assessment/Plan: Psychotropic Medications: Unnecessary Medications: Bowel Regimen: - Provider Comments Provider responsibility: Provider responsible to enter orders to implement recommendations Provider Comments to Recommendations by Pharmacy: Agree
[2018-04-18 15:12] VITALS: BP 123/67; PULSE 82; RESP 16; TEMP 35.9; O2SAT 97
[2018-04-18] MEDS: Tuberculin,Purif.prot.deriv. 50 TU/ML Vial 5 ML ID (15:29)
--- NOTE | 2018-04-18 16:45 | CHAPLAIN ---
offer of support and introduction; pt said that he is doing fine right now and did not need anything; pt said that he is tired and would prefer to be quiet
[2018-04-18] MEDS: Atorvastatin Calcium 40 MG Tablet PO (20:01)
[2018-04-18] MEDS: Nystatin Powder 15gm Bottle 1 APPLIC TOPICAL (20:01)
[2018-04-19] MEDS: Enoxaparin 30 MG/0.3 ML Syringe SC (05:32)
[2018-04-19] MEDS: Pantoprazole Sodium 40 MG Tablet PO (05:32)
[2018-04-19] MEDS: Clopidogrel Bisulfate 75 MG Tablet PO (05:32)
[2018-04-19] MEDS: Ranolazine 500 MG Tablet PO ×2 (05:32→17:38)
[2018-04-19] MEDS: Senna/Docusate Sodium 1 Tablet 2 TABLET PO ×2 (05:32→17:38)
[2018-04-19] MEDS: Iron Polysaccharide Complex 150 MG CAPSULE PO ×3 (05:33→20:08)
[2018-04-19] MEDS: Isosorbide Mononitrate 30 MG Tablet PO (05:33)
[2018-04-19] MEDS: Carvedilol 25 MG Tablet PO ×2 (05:33→17:38)
[2018-04-19] MEDS: Menthol/Lanolin/Calamine/Znox 113 GM Tube 1 APPLIC TOPICAL ×2 (05:33→20:05)
[2018-04-19] MEDS: Leflunomide 10 MG TABLET 5 MG PO (05:34)
[2018-04-19] MEDS: Nystatin Powder 15gm Bottle 1 APPLIC TOPICAL ×2 (05:35→20:04)
[2018-04-19] MEDS: Aspirin 81 MG TAB.CHEW PO (08:05)
[2018-04-19] MEDS: predniSONE 5 MG Tablet 7.5 MG PO (08:05)
[2018-04-19] MEDS: Allopurinol 100 MG Tablet 200 MG PO (08:05)
[2018-04-19] MEDS: Hydroxychloroquine 200 MG Tablet PO ×2 (08:05→17:38)
[2018-04-19] MEDS: Multivitamins,Therapeutic Tablet 1 TABLET PO (08:05)
--- NOTE | 2018-04-19 09:54 | NURSING ---
Dr June reviewed chest xray results, no new orders.
[2018-04-19 10:00] VITALS: PULSE 76; RESP 18; O2SAT 98
[2018-04-19] MEDS: Furosemide 40 MG Tablet PO ×2 (10:35→17:38)
[2018-04-19 16:00] VITALS: BP 134/59; PULSE 78; RESP 20; TEMP 36.3; O2SAT 96
[2018-04-19] MEDS: Atorvastatin Calcium 40 MG Tablet PO (20:07)
[2018-04-20] MEDS: Carvedilol 25 MG Tablet PO ×2 (04:43→17:42)
[2018-04-20] MEDS: Menthol/Lanolin/Calamine/Znox 113 GM Tube 1 APPLIC TOPICAL ×2 (04:43→21:36)
[2018-04-20] MEDS: Nystatin Powder 15gm Bottle 1 APPLIC TOPICAL ×2 (04:44→21:37)
[2018-04-20] MEDS: Senna/Docusate Sodium 1 Tablet 2 TABLET PO ×2 (04:44→17:42)
[2018-04-20] MEDS: Ranolazine 500 MG Tablet PO ×2 (04:45→17:42)
[2018-04-20] MEDS: Pantoprazole Sodium 40 MG Tablet PO (04:45)
[2018-04-20] MEDS: Leflunomide 10 MG TABLET 5 MG PO (04:45)
[2018-04-20] MEDS: Isosorbide Mononitrate 30 MG Tablet PO (04:45)
[2018-04-20] MEDS: Furosemide 40 MG Tablet PO ×2 (04:46→17:42)
[2018-04-20] MEDS: Clopidogrel Bisulfate 75 MG Tablet PO (04:46)
[2018-04-20] MEDS: Iron Polysaccharide Complex 150 MG CAPSULE PO ×3 (04:46→21:36)
[2018-04-20] MEDS: Enoxaparin 30 MG/0.3 ML Syringe SC (04:49)
[2018-04-20] MEDS: predniSONE 5 MG Tablet 7.5 MG PO (08:08)
[2018-04-20] MEDS: Allopurinol 100 MG Tablet 200 MG PO (08:08)
[2018-04-20] MEDS: Aspirin 81 MG TAB.CHEW PO (08:08)
[2018-04-20] MEDS: Multivitamins,Therapeutic Tablet 1 TABLET PO (08:08)
[2018-04-20] MEDS: Hydroxychloroquine 200 MG Tablet PO ×2 (08:08→17:42)
[2018-04-20 15:27] VITALS: BP 142/69; PULSE 78; RESP 20; TEMP 36.8; O2SAT 100
[2018-04-20] MEDS: Atorvastatin Calcium 40 MG Tablet PO (21:36)
[2018-04-20 21:48] VITALS: PULSE 65; RESP 18; O2SAT 95
[2018-04-21] MEDS: Menthol/Lanolin/Calamine/Znox 113 GM Tube 1 APPLIC TOPICAL ×2 (05:41→20:33)
[2018-04-21] MEDS: Carvedilol 25 MG Tablet PO ×2 (05:42→18:00)
[2018-04-21] MEDS: Isosorbide Mononitrate 30 MG Tablet PO (05:42)
[2018-04-21] MEDS: Clopidogrel Bisulfate 75 MG Tablet PO (05:42)
[2018-04-21] MEDS: Leflunomide 10 MG TABLET 5 MG PO (05:43)
[2018-04-21] MEDS: Iron Polysaccharide Complex 150 MG CAPSULE PO ×3 (05:43→20:34)
[2018-04-21] MEDS: Enoxaparin 30 MG/0.3 ML Syringe SC (05:45)
[2018-04-21] MEDS: Nystatin Powder 15gm Bottle 1 APPLIC TOPICAL ×2 (05:45→20:34)
[2018-04-21] MEDS: Pantoprazole Sodium 40 MG Tablet PO (05:45)
[2018-04-21] MEDS: Senna/Docusate Sodium 1 Tablet 2 TABLET PO ×2 (05:46→18:00)
[2018-04-21] MEDS: Ranolazine 500 MG Tablet PO ×2 (05:46→18:00)
[2018-04-21 07:00] LABS: Anion Gap 13 (5-15); BUN 43 mg/dL (7-18); BUN/Creat Ratio 15.1 RATIO (10-20); Calcium,Total 9.3 mg/dL (8.5-10.1); Chloride 103 mmol/L (98-107); Creatinine, Serum 2.84 mg/dL (0.70-1.30); EST Glomerular Filtration Rate 23 mL/min (>60); Est Glom Filt Rate - Afr Amer 28 mL/min (>60); Estimated Creatinine Clearance 21.34 ml/min; Glucose 81 mg/dL (74-106); Sodium Level 143 mmol/L (136-145)
[2018-04-21] MEDS: Allopurinol 100 MG Tablet 200 MG PO (08:02)
[2018-04-21] MEDS: predniSONE 5 MG Tablet 7.5 MG PO (08:02)
[2018-04-21] MEDS: Aspirin 81 MG TAB.CHEW PO (08:04)
[2018-04-21] MEDS: Multivitamins,Therapeutic Tablet 1 TABLET PO (08:04)
[2018-04-21] MEDS: Furosemide 40 MG Tablet PO ×2 (08:04→18:00)
[2018-04-21] MEDS: Hydroxychloroquine 200 MG Tablet PO ×2 (08:04→18:00)
--- NOTE | 2018-04-21 12:44 | NURSING ---
Dr. June reviewed labs, potassium 3.0, NO for KCL 40mEq x1 now then start KCL 20mEQ PO BID routine. Recheck BMP in AM. Sputum culture results reviewed, NNO.
[2018-04-21 15:35] VITALS: BP 123/51; PULSE 77; RESP 18; TEMP 36.4; O2SAT 97
[2018-04-21] MEDS: Atorvastatin Calcium 40 MG Tablet PO (20:34)
[2018-04-21 21:11] VITALS: PULSE 68; RESP 20; O2SAT 93
[2018-04-22] MEDS: Menthol/Lanolin/Calamine/Znox 113 GM Tube 1 APPLIC TOPICAL ×2 (05:30→20:01)
[2018-04-22] MEDS: Iron Polysaccharide Complex 150 MG CAPSULE PO ×3 (05:31→19:59)
[2018-04-22] MEDS: Isosorbide Mononitrate 30 MG Tablet PO (05:31)
[2018-04-22] MEDS: Carvedilol 25 MG Tablet PO ×2 (05:31→17:28)
[2018-04-22] MEDS: Leflunomide 10 MG TABLET 5 MG PO (05:31)
[2018-04-22] MEDS: Nystatin Powder 15gm Bottle 1 APPLIC TOPICAL ×2 (05:34→20:00)
[2018-04-22] MEDS: Enoxaparin 30 MG/0.3 ML Syringe SC (05:34)
[2018-04-22] MEDS: Clopidogrel Bisulfate 75 MG Tablet PO (05:34)
[2018-04-22] MEDS: Pantoprazole Sodium 40 MG Tablet PO (05:34)
[2018-04-22] MEDS: Ranolazine 500 MG Tablet PO ×2 (05:35→17:28)
[2018-04-22] MEDS: Senna/Docusate Sodium 1 Tablet 2 TABLET PO ×2 (05:35→17:27)
[2018-04-22 06:44] LABS: Anion Gap 9 (5-15); BUN 39 mg/dL (7-18); BUN/Creat Ratio 14.1 RATIO (10-20); Chloride 101 mmol/L (98-107); Creatinine, Serum 2.76 mg/dL (0.70-1.30); EST Glomerular Filtration Rate 24 mL/min (>60); Est Glom Filt Rate - Afr Amer 29 mL/min (>60); Estimated Creatinine Clearance 21.95 ml/min; Glucose 97 mg/dL (74-106); Potassium 3.2 mmol/L (3.5-5.1); Sodium Level 137 mmol/L (136-145)
[2018-04-22] MEDS: predniSONE 5 MG Tablet 7.5 MG PO (08:42)
[2018-04-22] MEDS: Allopurinol 100 MG Tablet 200 MG PO (08:42)
[2018-04-22] MEDS: Multivitamins,Therapeutic Tablet 1 TABLET PO (08:42)
[2018-04-22] MEDS: Hydroxychloroquine 200 MG Tablet PO ×2 (08:42→17:28)
[2018-04-22] MEDS: Aspirin 81 MG TAB.CHEW PO (08:42)
[2018-04-22] MEDS: Furosemide 40 MG Tablet PO ×2 (08:43→17:28)
--- NOTE | 2018-04-22 11:20 | CASEMGMT ---
Insurance Clinical information sent. Pending continued stay approval at this time. Auth#[id number] Dinora RIGGINS, CONTINUOUS CONVEYOR SCREEN DRIER
[2018-04-22 15:05] VITALS: BP 129/61; PULSE 80; RESP 20; TEMP 36.2; O2SAT 99
[2018-04-22 18:11] VITALS: O2SAT 94
[2018-04-22] MEDS: Atorvastatin Calcium 40 MG Tablet PO (19:59)
[2018-04-23] MEDS: Carvedilol 25 MG Tablet PO ×2 (05:20→17:43)
[2018-04-23] MEDS: Ranolazine 500 MG Tablet PO ×2 (05:21→17:42)
[2018-04-23] MEDS: Pantoprazole Sodium 40 MG Tablet PO (05:21)
[2018-04-23] MEDS: Clopidogrel Bisulfate 75 MG Tablet PO (05:21)
[2018-04-23] MEDS: Isosorbide Mononitrate 30 MG Tablet PO (05:21)
[2018-04-23] MEDS: Senna/Docusate Sodium 1 Tablet 2 TABLET PO ×2 (05:23→17:42)
[2018-04-23] MEDS: Iron Polysaccharide Complex 150 MG CAPSULE PO ×3 (05:23→19:50)
[2018-04-23] MEDS: Leflunomide 10 MG TABLET 5 MG PO (05:25)
[2018-04-23] MEDS: Enoxaparin 30 MG/0.3 ML Syringe SC (05:26)
[2018-04-23] MEDS: Nystatin Powder 15gm Bottle 1 APPLIC TOPICAL ×2 (05:31→19:49)
[2018-04-23] MEDS: Menthol/Lanolin/Calamine/Znox 113 GM Tube 1 APPLIC TOPICAL ×2 (05:32→19:49)
[2018-04-23] MEDS: Aspirin 81 MG TAB.CHEW PO (07:46)
[2018-04-23] MEDS: Multivitamins,Therapeutic Tablet 1 TABLET PO (07:46)
[2018-04-23] MEDS: Hydroxychloroquine 200 MG Tablet PO ×2 (07:46→17:43)
[2018-04-23] MEDS: Allopurinol 100 MG Tablet 200 MG PO (07:46)
[2018-04-23] MEDS: predniSONE 5 MG Tablet 7.5 MG PO (07:46)
[2018-04-23 08:45] VITALS: PULSE 80; RESP 18; O2SAT 98
[2018-04-23] MEDS: Furosemide 40 MG Tablet PO ×2 (09:14→17:42)
--- NOTE | 2018-04-23 11:46 | CASEMGMT ---
Insurance Continued stay approved with next update due on 04/26/18. Auth#[id number] Dinora RIGGINS, ICE HOUSE SUPERVISOR
--- NOTE | 2018-04-23 13:42 | CASEMGMT ---
Brief interview for mental status (BIMS) and resident mood interview (PHQ-9) completed on this day. BIMS score 15. PHQ-9 score 01/27
--- NOTE | 2018-04-23 13:43 | CASEMGMT ---
Social Work Spoke with resident in the room. Resident requesting for discharge date to be set for 04/24/18. Team is recommending for resident to continue with therapy for another week. Resident is declining to continue with stay. Team is recommending for resident to continue with therapy within the home. Resident is declining to have continued therapy services at this time. Resident reporting to have all needed durable medical equipment already set up within the home. Resident reporting that resident spouse will provide transportation home for resident at time of discharge. Resident declining for this social worker delinquency prevention to contact resident spouse in regards to discharge/discharge plan. Resident reporting to be contacting spouse later this evening. Support given. Proposed discharge date: 04/24/18 PLAN: Discharge to home with spouse. Dinora RIGGINS, FREIGHT ENGINEER
[2018-04-23 15:07] VITALS: BP 116/55; PULSE 84; RESP 20; TEMP 36.3; O2SAT 98
[2018-04-23 15:14] VITALS: O2SAT 96
[2018-04-23] MEDS: Atorvastatin Calcium 40 MG Tablet PO (19:50)
--- NOTE | 2018-04-23 22:49 | PCM.DC ---
- Discharge Diagnoses Current Active Problems: Current Active and Chronic Problems (Last Reviewed 04/14/18 @ 16:56 by Pancho Peterson DO) Shortness of breath (Acute) Acute on chronic diastolic heart failure (Acute) Allergic rhinitis due to [place]oc[place] house dust mite (Chronic) You will use the following diet at home:: No restrictions, Regular Your food should be the consistency of: Regular Your liquids should be the consistency of: Regular/Thin Discharge Activity: Return to Normal Activity, May Shower, Use Walker Weight Bearing Status: Weight bearing as tolerated Call your doctor if you observe: Fever of 101 or Higher, Inability to urinate, Inability to have a bowel movement, Shortness of breath, Chest pain, Uncontrolled pain Allergies/Adverse Reactions: Allergies Influenza Virus Vaccines Allergy (Verified 04/14/18 16:44) CAN'T BREATHE Latex, Natural Rubber Allergy (Verified 04/14/18 16:44) Rash Penicillins Allergy (Verified 04/14/18 16:44) CAN'T BREATHE Sulfa (Sulfonamide Antibiotics) Allergy (Verified 04/14/18 16:44) Rash PEPPERS Allergy (Uncoded 04/14/18 16:44) Anaphylaxis Medications to take at Discharge Aspirin [Aspirin, Baby] 81 mg PO DAILY@0800 09/10/16 Carvedilol [Coreg (Beta Trevor)] 25 mg PO BID 09/10/16 Multivitamin [Daily Multiple Vitamin] 1 ea PO DAILY 09/10/16 Hydroxychloroquine [Plaquenil] 200 mg PO BIDCM 12/29/16 Pantoprazole Sodium [Protonix] 40 mg PO DAILY 12/29/16 Allopurinol 200 mg PO DAILY 07/14/17 Iron Polysaccharide Complex [Ferrex 150] 150 mg PO TID #90 07/23/17 leflunomide 10 mg tablet 5 mg PO DAILY 08/16/17 Prednisone 7.5 mg PO DAILY 01/25/18 Furosemide [Lasix] 40 mg PO BID@1000,1800 04/17/18 Acetaminophen [Tylenol] 1,000 mg PO Q8H PRN PRN tablet 04/23/18 Aspirin [Aspirin, Baby] 81 mg PO DAILY@0800 tab.chew 04/23/18 Atorvastatin Calcium [Lipitor] 40 mg PO QHS #30 tab 04/23/18 Clopidogrel Bisulfate [Plavix] 75 mg PO DAILY #30 tab 04/23/18 Isosorbide Mononitrate [Imdur] 30 mg PO DAILY #30 tab 04/23/18 Menthol/Lanolin/Calamine/Znox [Calmoseptine Ointment] 1 applic TOPICAL 0600,2200 tube 04/23/18 Nitroglycerin [Nitrostat] 0.4 mg SUBLINGUAL Q5M PRN #30 tab 04/23/18 Nystatin Powder [Mycostatin Powder] 1 applic TOPICAL 0600,2200 bottle 04/23/18 Potassium Chloride [K-Dur] 20 meq PO TIDCM #90 tab 04/23/18 Ranolazine [Ranexa] 500 mg PO BID #60 tab 04/23/18 The following prescriptions were given: Atorvastatin Calcium [Lipitor] 40 mg PO QHS #30 tab Clopidogrel Bisulfate [Plavix] 75 mg PO DAILY #30 tab Isosorbide Mononitrate [Imdur] 30 mg PO DAILY #30 tab Nitroglycerin [Nitrostat] 0.4 mg SUBLINGUAL Q5M PRN #30 tab PRN Reason: Chest Pain Ranolazine [Ranexa] 500 mg PO BID #60 tab Potassium Chloride [K-Dur] 20 meq PO TIDCM #90 tab Primary Care Physician: Vaughn Armenta III, MD [Primary Care Provider] - Please follow up with your Primary Care Physician in: 1 week. Test Results: Test results from this visit will be discussed in further detail at your follow-up appointment, if applicable. Please Follow Up With: Infusion Dept ([facility]) When: epogen infusion Proposed Discharge Date: 04/24/18
--- NOTE | 2018-04-23 22:51 | PCM.DC.SUM ---
Discharge Date and Diagnosis - Problem List Patient Problems: Active and Suspected Problems (Last Reviewed 04/14/18 @ 16:56 by Pancho Peterson DO) Shortness of breath (Acute) Acute on chronic diastolic heart failure (Acute) Date of Admission: 04/17/18 Date of Discharge: 04/24/18 - Primary Discharge Diagnosis Active and Suspected Problems (Last Reviewed 04/14/18 @ 16:56 by Pancho Peterson DO) Shortness of breath (Acute) Acute on chronic diastolic heart failure (Acute) - Secondary Discharge Diagnosis Chronic Problems (Last Reviewed 04/14/18 @ 16:56 by Pancho Peterson DO) Allergic rhinitis due to Salvadorean house dust mite (Chronic) History of left heart catheterization (Chronic) 04/05/2016 @ [facility] per Dr. العراقي and 01/01/2017 @ [facility] per Dr. 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 Gout (Chronic) Morbid obesity with BMI of 40.0-44.9, adult (Chronic) GERD (gastroesophageal reflux disease) (Chronic) Allergic rhinitis (Chronic) Hypertension (Chronic) Nephrolithiasis (Chronic) Renal cyst (Chronic) Splenomegaly (Chronic) Coronary artery disease (Chronic) CKD (chronic kidney disease) stage 4, GFR 15-29 ml/min (Chronic) Polyarthropathy of ankle and foot (Chronic) Hospital Course and Treatment Imaging Results: 04/17/18 16:09 Diet: Cardiac/Low Cholesterol Food consistency:: Regular Liquid Consistency:: Regular/Thin Dietary Modifications:: Fluid Restricted Diet Diet Comments: 1500 FR, low sodium Clinical Impression(s) from Imaging Studies Chest X-Ray 04/18/18 18:15 IMPRESSION: Interstitial prominence. Cardiomegaly and Central pulmonary vascular prominence. Electronically Signed: Naveed Santos DO at 22:14 EDT Tel [phone], Service support , Labs (Last 48 Hours) 04/22/18 05:15 Sodium 137 Potassium 3.2 L Chloride 101 Carbon Dioxide 27.0 Anion Gap 9 BUN 39 H Creatinine 2.76 H Estim Creat Clear Calc 21.95 Est GFR (MDRD) Af Amer 29 L Est GFR (MDRD) Non-Af 24 L BUN/Creatinine Ratio 14.1 Glucose 97 Calcium 9.0 Operations: None Procedures: None Summary of Care Provided: The patient is a 72 year old Male with below past medical history hospitalized for NSTEMI, acute on chronic diastolic heart failure, patient refused heart catheterization, too high risk for CABG, admitted to TCU with debility, here for rehabilitation, strengthening, prior to discharge home with spouse. Discharge home with spouse, resident declined further inpatient therapy, AND home therapy. Discharge Diet: No Restrictions Discharge Activity: Return to Normal Activity, May Shower, Use Walker Weight Bearing Status: Weight bearing as tolerated Call your doctor if you observe: Fever of 101 or Higher, Inability to urinate, Inability to have a bowel movement, Shortness of breath, Chest pain, Uncontrolled pain Home Medications: Medications to take at Discharge Aspirin [Aspirin, Baby] 81 mg PO DAILY@0800 09/10/16 Carvedilol [Coreg (Beta Trevor)] 25 mg PO BID 09/10/16 Multivitamin [Daily Multiple Vitamin] 1 ea PO DAILY 09/10/16 Hydroxychloroquine [Plaquenil] 200 mg PO BIDCM 12/29/16 Pantoprazole Sodium [Protonix] 40 mg PO DAILY 12/29/16 Allopurinol 200 mg PO DAILY 07/14/17 Iron Polysaccharide Complex [Ferrex 150] 150 mg PO TID #90 07/23/17 leflunomide 10 mg tablet 5 mg PO DAILY 08/16/17 Prednisone 7.5 mg PO DAILY 01/25/18 Furosemide [Lasix] 40 mg PO BID@1000,1800 04/17/18 Acetaminophen [Tylenol] 1,000 mg PO Q8H PRN PRN tablet 04/23/18 Aspirin [Aspirin, Baby] 81 mg PO DAILY@0800 tab.chew 04/23/18 Atorvastatin Calcium [Lipitor] 40 mg PO QHS #30 tab 04/23/18 Clopidogrel Bisulfate [Plavix] 75 mg PO DAILY #30 tab 04/23/18 Isosorbide Mononitrate [Imdur] 30 mg PO DAILY #30 tab 04/23/18 Menthol/Lanolin/Calamine/Znox [Calmoseptine Ointment] 1 applic TOPICAL 0600,2200 tube 04/23/18 Nitroglycerin [Nitrostat] 0.4 mg SUBLINGUAL Q5M PRN #30 tab 04/23/18 Nystatin Powder [Mycostatin Powder] 1 applic TOPICAL 0600,2200 bottle 04/23/18 Potassium Chloride [K-Dur] 20 meq PO TIDCM #90 tab 04/23/18 Ranolazine [Ranexa] 500 mg PO BID #60 tab 04/23/18 Following Prescrptions Were Given to Patient: Atorvastatin Calcium [Lipitor] 40 mg PO QHS #30 tab Clopidogrel Bisulfate [Plavix] 75 mg PO DAILY #30 tab Isosorbide Mononitrate [Imdur] 30 mg PO DAILY #30 tab Nitroglycerin [Nitrostat] 0.4 mg SUBLINGUAL Q5M PRN #30 tab PRN Reason: Chest Pain Ranolazine [Ranexa] 500 mg PO BID #60 tab Potassium Chloride [K-Dur] 20 meq PO TIDCM #90 tab Primary Care Physician: Vaughn Armenta III, MD [Primary Care Provider] - Please follow up with your Primary Care Physician in: 1 week. Please Follow Up With: Infusion Dept ([facility]) When: epogen infusion Disposition: Home Minutes spent on discharge:: 30 Patient Condition:: Poor Medical Necessity - Tobacco Use Smoking Status: Never smoker Tobacco Use: Non-smoker Meaningful Use Info Meaningful Use Diagnoses (Choose all that apply): None applicable
[2018-04-24] MEDS: Nystatin Powder 15gm Bottle 1 APPLIC TOPICAL (05:14)
[2018-04-24] MEDS: Menthol/Lanolin/Calamine/Znox 113 GM Tube 1 APPLIC TOPICAL (05:15)
[2018-04-24] MEDS: Carvedilol 25 MG Tablet PO (05:16)
[2018-04-24] MEDS: Isosorbide Mononitrate 30 MG Tablet PO (05:16)
[2018-04-24] MEDS: Ranolazine 500 MG Tablet PO (05:16)
[2018-04-24] MEDS: Leflunomide 10 MG TABLET 5 MG PO (05:16)
[2018-04-24] MEDS: Iron Polysaccharide Complex 150 MG CAPSULE PO (05:17)
[2018-04-24] MEDS: Pantoprazole Sodium 40 MG Tablet PO (05:17)
[2018-04-24] MEDS: Clopidogrel Bisulfate 75 MG Tablet PO (05:18)
[2018-04-24] MEDS: Senna/Docusate Sodium 1 Tablet 2 TABLET PO (05:18)
[2018-04-24] MEDS: Enoxaparin 30 MG/0.3 ML Syringe SC (05:18)
[2018-04-24 05:44] LABS: Anion Gap 13 (5-15); BUN 40 mg/dL (7-18); BUN/Creat Ratio 14.5 RATIO (10-20); Calcium,Total 9.3 mg/dL (8.5-10.1); Chloride 103 mmol/L (98-107); Creatinine, Serum 2.75 mg/dL (0.70-1.30); EST Glomerular Filtration Rate 24 mL/min (>60); Est Glom Filt Rate - Afr Amer 29 mL/min (>60); Estimated Creatinine Clearance 22.03 ml/min; Glucose 77 mg/dL (74-106); Potassium 3.8 mmol/L (3.5-5.1); Sodium Level 142 mmol/L (136-145)
[2018-04-24 06:00] VITALS: PULSE 80; RESP 18; O2SAT 95
[2018-04-24 06:56] VITALS: O2SAT 95
[2018-04-24] MEDS: Aspirin 81 MG TAB.CHEW PO (08:13)
[2018-04-24] MEDS: Hydroxychloroquine 200 MG Tablet PO (08:13)
[2018-04-24] MEDS: Allopurinol 100 MG Tablet 200 MG PO (08:13)
[2018-04-24] MEDS: predniSONE 5 MG Tablet 7.5 MG PO (08:13)
[2018-04-24] MEDS: Multivitamins,Therapeutic Tablet 1 TABLET PO (08:13)
[2018-04-24] MEDS: Furosemide 40 MG Tablet PO (08:13)
[2018-04-24 09:59] VITALS: BP 113/56; PULSE 81; RESP 16; TEMP 37; O2SAT 94
--- NOTE | 2018-04-24 13:39 | CASEMGMT ---
Insurance Notified insurance of d/c home today. Auth # [id number] GILSON Trujillo
--- NOTE | 2018-04-25 14:03 | MDS.RN ---
Information for the mds was obtained from review of the clinical record, interview of resident, staff, and direct observation of resident's care.
== END 2018-04-24 10:30 | disposition home or self-care (01) | DRG 947 ==
PROVIDERS: Admitting Provider Family Medicine Geriatric Medicine; Family Provider Family Medicine; PCP Family Medicine; Visit Provider Family Medicine Geriatric Medicine
DX: R53.81 Other malaise (principal); I50.33 Acute on chronic diastolic (congestive) heart failure; I13.0 Hypertensive heart and chronic kidney disease with heart failure and stage 1 through stage 4 chronic kidney disease, or unspecified chronic kidney disease; N18.4 Chronic kidney disease, stage 4 (severe); Z68.41 Body mass index [BMI] 40.0-44.9, adult; I42.9 Cardiomyopathy, unspecified; I25.10 Atherosclerotic heart disease of native coronary artery without angina pectoris; M10.9 Gout, unspecified; E78.5 Hyperlipidemia, unspecified; K21.9 Gastro-esophageal reflux disease without esophagitis; D50.9 Iron deficiency anemia, unspecified; M25.50 Pain in unspecified joint; E66.01 Morbid (severe) obesity due to excess calories; Z71.3 Dietary counseling and surveillance; I25.2 Old myocardial infarction; D86.0 Sarcoidosis of lung
CPT/HCPCS: 36415; 71046; 80048; 85025; 87070; 87205; 97110; 97116; 97162; 97165; 97530; 97535; 97802

== ENCOUNTER → 2018-04-19 12:48 | Outpatient (CLI) | payer MEDICARE, SELFPAY ==
[2018-04-19 13:01] VITALS: PULSE 79; RESP 18; TEMP 36.2; O2SAT 96; BMI 41.5
== END ==
PROVIDERS: Family Provider Family Medicine; PCP Family Medicine; Visit Provider Internal Medicine Nephrology
DX: N18.4 Chronic kidney disease, stage 4 (severe) (principal); D63.1 Anemia in chronic kidney disease
CPT/HCPCS: 96372; J0885

== ENCOUNTER 2018-04-26 01:34 | Inpatient (IN) | payer MEDICARE, SELFPAY ==
[2018-04-26] VITALS (13 sets, daily range): BP systolic 112–136; BP diastolic 53–74; PULSE 86–92; RESP 18–20; TEMP 36.4–36.8; O2SAT 95–98; BMI 42.7; BMI 41.5; BMI 41.6
[2018-04-26 01:59] LABS: Absolute Lymphocyte Count 0.55 X10^3/ul (0.83-4.51); Absolute Neutrophil Count 6.7 X10^3/uL (2.0-7.7); Basophil# 0.02 X10^3/uL; Basophil% 0.3 % (0-1); Differential Indicated SCAN CRITERIA MET; Hematocrit 30.5 % (40-54); Hemoglobin 9.2 g/dl (13.0-16.5); Lymphocyte # 0.55 X10^3/ul (4.0); Lymphocyte % 7.1 % (19-41); Mean Corp Hgb Conc 30.2 g/gl (32-36); Mean Corpuscular Hgb 27.1 pg (27.0-32.0); Mean Platelet Vol. 9.1 fl (6.2-12.0); Monocyte# 0.41 X10^3/uL; Monocyte% 5.3 % (0-10); Neutrophil # 6.68 X10^3/uL (2.7-7.7); Neutrophil % 86.4 % (47-70); POSITIVE COUNT NO; POSITIVE DIFFERENTIAL YES; POSITIVE MORPHOLOGY NO; Platelet Count 225 K/mm3 (150-450); RBC Distribution Width CV 18.5 % (11.6-14.6); RBC Distribution Width SD 59.3 fl (35.1-43.9); Red Blood Count 3.39 M/mm3 (4.6-6.2); White Blood Count 7.7 K/mm3 (4.4-11.0)
[2018-04-26 02:00] LABS: Differential Comment SCANNED
[2018-04-26 02:10] LABS: Anion Gap 10 (5-15); BUN 39 mg/dL (7-18); Calcium,Total 9.2 mg/dL (8.5-10.1); Chloride 108 mmol/L (98-107); EST Glomerular Filtration Rate 26 mL/min (>60); Est Glom Filt Rate - Afr Amer 31 mL/min (>60); Glucose 85 mg/dL (74-106); Sodium Level 142 mmol/L (136-145)
[2018-04-26] MEDS: 0.9% Normal Saline 1,000 ML 150 ML IV (02:15)
[2018-04-26 02:27] LABS: Bacteria 0 SEEN /hpf (None Seen); Mucous, Urine 0 SEEN /hpf (<or=2+); Red Blood Cells-Urine 0 SEEN /hpf (0-5)
[2018-04-26 02:28] LABS: Color, Urine Yellow (Yellow); Glucose, Dipstick Normal (Normal); Ketone-Dipstick Negative (Negative); Leukocyte Esterase-Dipstick 500 /ul (Negative); Nitrite-Dipstick Negative (Negative); Occult Blood-Urine 25 /ul (Negative); Protein-Dipstick 15 mg/dl (Negative); Urine Bilirubin Dipstick Negative (Negative); Urine Clarity Clear (Clear); Urine Urobilinogen Normal (Normal); Urine pH 6.5 (5.0 - 8.0)
[2018-04-26 02:39] LABS: Squamous Epithelial Cells - UA 5-10 SEEN /hpf (0-5); White Blood Cells 5-10 SEEN /hpf (0-5)
--- NOTE | 2018-04-26 02:47 | ED.VISSUMM ---
- ER Visit Summary Date of Service: 04/26/18 Chief Complaint: [Weakness] History of Present Illness: The patient is a 72 M [presents the emergency department complaint generalized weakness. Patient apparently has been weak since coming home from the hospital 2 days ago. states that he is had a hard time getting around and that he stumbles a lot. Patient was admitted recently with non-ST elevated IN. Patient spent time in the transitional care unit. Patient states tonight he try to stand go to the bathroom but felt like he was going to fall if he try to move because of just generalized weakness and he was shaking. Patient denies any chest pain or abdominal pain. Patient does have a history of chronic anemia and chronic kidney disease. Patient does take iron. Patient denies any focal weakness or difficulty with speech or vision.] Physical Examination: [HEENT-PERRLA, EOMI. Cranial nerves II through XII grossly intact. TMs clear. Mucous membranes moist. No adenopathy. Cardiovascular-regular rate and rhythm without murmur or ectopy Lungs-clear to auscultation, chest wall stable without crepitus or subcu emphysema Abdomen-normoactive bowel sounds, soft, nontender, no rebound or rigidity, no peritoneal signs. Extremities-intact ?4, normal range of motion, normal pulses, atraumatic] Test Results: [EKG obtained on arrival shows sinus rhythm with a ventricular rate of 88 bpm with some nonspecific ST changes. No changes noted when compared with prior EKG. CBC with differential showed a white count of 7.7, hemoglobin 9.2, hematocrit 30, platelets 225. Chemistries unremarkable. BUN was 39 and creatinine 2.6. Urinalysis showed 500 leukocyte esterase, 5-10 WBCs, 0 bacteria. Troponin was 0.049. Chest x-ray showed nothing acute.] Emergency Department Course and Treatment: [Patient was given IV with normal saline.] Treatment Plan: [Admit] Disposition: [Admit] Impression: [Generalized weakness Chronic anemia Chronic renal insufficiency] This note was generated with [employer] dictation software. It may contain incorrect words, spelling, and punctuation that were not noted in review of the chart prior to signing ED Disposition - Plan for ED Patient: Chief Complaint: Weakness Referrals: Vaughn Armenta III, MD [Primary Care Provider] -
--- NOTE | 2018-04-26 03:24 | PCM.HP.STD ---
Problem List (1) Gait incoordination Status: Acute (2) Generalized weakness Status: Acute (3) NSTEMI (non-ST elevated myocardial infarction) Status: Chronic (4) CHF (congestive heart failure) Status: Chronic Qualifiers: (5) Acute on chronic diastolic heart failure Status: Acute (6) Allergic rhinitis due to [place] house dust mite Status: Chronic (7) History of left heart catheterization Status: Chronic Comment: 04/05/2016 @ [facility] per Dr. العراقي and 01/01/2017 @ [facility] [address] Kam (8) Dyspnea Status: Chronic (9) Acute respiratory failure with hypoxia Status: Chronic (10) Hypercalcemia Status: Chronic (11) Body mass index (BMI) of 40.0-44.9 in adult Status: Chronic (12) Chronic diastolic (congestive) heart failure Status: Chronic (13) Bilateral leg edema Status: Chronic (14) Hypersomnia Status: Chronic (15) Chronic kidney disease Status: Chronic Qualifiers: (16) Hyperlipemia, mixed Status: Chronic (17) Diastolic dysfunction Status: Chronic (18) Atherosclerosis of [place] coronary artery of [place] heart without angina pectoris Status: Chronic (19) NSTEMI (non-ST elevated myocardial infarction) Status: Acute (20) Pain in right toe(s) Status: Acute (21) Tinea unguium Status: Acute (22) Ingrown toenail Status: Acute (23) Anemia of chronic renal failure, stage 4 (severe) Status: Acute (24) Polyarthropathy Status: Chronic (25) Edema Status: Acute (26) Weakness Status: Acute (27) Morbid obesity Status: Chronic (28) Sarcoidosis Status: Chronic (29) Debility Status: Acute (30) Cardiomyopathy Status: Chronic (31) Iron deficiency anemia Status: Chronic (32) Constipation Status: Chronic (33) 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 (34) Gout Status: Chronic Qualifiers: (35) Morbid obesity with BMI of 40.0-44.9, adult Status: Chronic (36) GERD (gastroesophageal reflux disease) Status: Chronic Qualifiers: (37) Allergic rhinitis Status: Chronic (38) Hypertension Status: Chronic Qualifiers: (39) Nephrolithiasis Status: Chronic (40) Renal cyst Status: Chronic (41) Splenomegaly Status: Chronic (42) Coronary artery disease Status: Chronic Qualifiers: (43) CKD (chronic kidney disease) stage 4, GFR 15-29 ml/min Status: Chronic (44) Polyarthropathy of ankle and foot Status: Chronic History of Present Illness Date of Admission: 04/26/18 Chief Complaint: Near fall and gait incoordination The patient is a 72 year old M with multiple comorbidities with recent discharged 2 days ago from TCU after he had management of non-STEMI with acute on chronic diastolic heart failure for which was admitted on 04/14/2018. Patient denies chest pain, shortness of breath, dizziness but he is not able to walk independently or balance himself. He had near full situation 3- 4 times yesterday and today. Patient had a hard time transferring from walker to bed and needed assistance. [] Blood work done in the ER is at baseline with creatinine 2.6, BUN 39. His baseline creatinine runs around 2.75. EKG shows normal sinus rhythm with first-degree AV block at 88 bpm. Chest x-ray shows improved vascular congestion from previous x-ray. No pleural effusion. Past Medical History Past Medical History (Chronic Problems): Chronic Problems (Last Reviewed 04/14/18 @ 16:56 by Pancho Peterson DO) NSTEMI (non-ST elevated myocardial infarction) (Chronic) CHF (congestive heart failure) (Chronic) Allergic rhinitis due to [place] house dust mite (Chronic) History of left heart catheterization (Chronic) 04/05/2016 @ [facility] per Dr. العراقي and 01/01/2017 @ [facility] [address] Kam Dyspnea (Chronic) Acute respiratory failure with hypoxia (Chronic) Hypercalcemia (Chronic) Body mass index (BMI) of 40.0-44.9 in adult (Chronic) Chronic diastolic (congestive) heart failure (Chronic) Bilateral leg edema (Chronic) Hypersomnia (Chronic) Chronic kidney disease (Chronic) Hyperlipemia, mixed (Chronic) Diastolic dysfunction (Chronic) Atherosclerosis of [place] coronary artery of [place] heart without angina pectoris (Chronic) Polyarthropathy (Chronic) Morbid obesity (Chronic) Sarcoidosis (Chronic) Cardiomyopathy (Chronic) Iron deficiency anemia (Chronic) Constipation (Chronic) 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 Gout (Chronic) Morbid obesity with BMI of 40.0-44.9, adult (Chronic) GERD (gastroesophageal reflux disease) (Chronic) Allergic rhinitis (Chronic) Hypertension (Chronic) Nephrolithiasis (Chronic) Renal cyst (Chronic) Splenomegaly (Chronic) Coronary artery disease (Chronic) CKD (chronic kidney disease) stage 4, GFR 15-29 ml/min (Chronic) Polyarthropathy of ankle and foot (Chronic) Medical History: Medical History (Last Reviewed 04/14/18 @ 16:56 by Pancho Peterson DO) Dyspnea (Chronic) R06.00 Acute respiratory failure with hypoxia (Acute) J96.01 Hypercalcemia (Chronic) E83.52 Body mass index (BMI) of 40.0-44.9 in adult (Chronic) Z68.41 Chronic diastolic (congestive) heart failure (Chronic) I50.32 Bilateral leg edema (Chronic) R60.0 Hypersomnia (Chronic) G47.10 Chronic kidney disease (Chronic) N18.9 Hyperlipemia, mixed (Chronic) E78.2 Diastolic dysfunction (Chronic) I51.9 Atherosclerosis of [place] coronary artery of [place] heart without angina pectoris (Chronic) I25.10 NSTEMI (non-ST elevated myocardial infarction) (Acute) I21.4 Pain in right toe(s) (Acute) M79.674 Tinea unguium (Acute) B35.1 Ingrown toenail (Acute) L60.0 Anemia of chronic renal failure, stage 4 (severe) (Acute) N18.4, D63.1 Polyarthropathy (Chronic) M13.0 Edema (Acute) R60.9 Weakness (Acute) R53.1 Morbid obesity (Chronic) E66.01 Sarcoidosis (Chronic) D86.9 Debility (Acute) R53.81 Cardiomyopathy (Chronic) I42.9 Iron deficiency anemia (Chronic) D50.9 Constipation (Chronic) K59.00 Sarcoidosis of lung (Chronic) D86.0 diagnosed in 2011 on a lung biopsy Gout (Chronic) M10.9 Morbid obesity with BMI of 40.0-44.9, adult (Chronic) E66.01, Z68.41 GERD (gastroesophageal reflux disease) (Chronic) K21.9 Allergic rhinitis (Chronic) J30.9 Hypertension (Chronic) I10 Nephrolithiasis (Chronic) Renal cyst (Chronic) N28.1 Splenomegaly (Chronic) R16.1 Coronary artery disease (Chronic) I25.10 CKD (chronic kidney disease) stage 4, GFR 15-29 ml/min (Chronic) N18.4 Polyarthropathy of ankle and foot (Chronic) M13.0 Allergies Influenza Virus Vaccines Allergy (Verified 04/26/18 01:36) CAN'T BREATHE Latex, Natural Rubber Allergy (Verified 04/26/18 01:36) Rash Penicillins Allergy (Verified 04/26/18 01:36) CAN'T BREATHE Sulfa (Sulfonamide Antibiotics) Allergy (Verified 04/26/18 01:36) Rash PEPPERS Allergy (Uncoded 04/26/18 01:36) Anaphylaxis Home Medications: Ambulatory Orders Medication Instructions Recorded Aspirin [Aspirin, Baby] 81 mg PO DAILY@0800 09/10/16 Carvedilol [Coreg (Beta Trevor)] 25 mg PO BID 09/10/16 Multivitamin [Daily Multiple 1 ea PO DAILY 09/10/16 Vitamin] Hydroxychloroquine [Plaquenil] 200 mg PO BIDCM 12/29/16 Pantoprazole Sodium [Protonix] 40 mg PO DAILY 12/29/16 Allopurinol 200 mg PO DAILY 07/14/17 Iron Polysaccharide Complex 150 mg PO TID #90 07/23/17 [Ferrex 150] leflunomide 10 mg tablet 5 mg PO DAILY 08/16/17 Prednisone 7.5 mg PO DAILY 01/25/18 Furosemide [Lasix] 40 mg PO BID@1000,1800 04/17/18 Acetaminophen [Tylenol] 1,000 mg PO Q8H PRN PRN tablet 04/23/18 Atorvastatin Calcium [Lipitor] 40 mg PO QHS #30 tab 04/23/18 Clopidogrel Bisulfate [Plavix] 75 mg PO DAILY #30 tab 04/23/18 Isosorbide Mononitrate [Imdur] 30 mg PO DAILY #30 tab 04/23/18 Menthol/Lanolin/Calamine/Znox 1 applic TOPICAL 0600,2200 tube 04/23/18 [Calmoseptine Ointment] Nitroglycerin [Nitrostat] 0.4 mg SUBLINGUAL Q5M PRN #30 tab 04/23/18 Nystatin Powder [Mycostatin Powder] 1 applic TOPICAL 0600,2200 bottle 04/23/18 Potassium Chloride [K-Dur] 20 meq PO TIDCM #90 tab 04/23/18 Ranolazine [Ranexa] 500 mg PO BID #60 tab 04/23/18 Surgical History: Surgical History (Last Reviewed 04/14/18 @ 16:56 by Pancho Peterson DO) History of left heart catheterization (Chronic) Z98.890 04/05/2016 @ [facility] per Dr. العراقي and 01/01/2017 @ [facility] [address] Kam Surgical History: no surgical history Psychiatric History: No pertinent psych hx Smoking Status: Never smoker - *Family History Maternal Family History: Family History (Last Reviewed 04/14/18 @ 16:56 by Pancho Peterson DO) Father Diabetes Heart failure Sister Diabetes Mother Diabetes History Items: Diabetes, - - His mother in her 90s of old age Paternal Family History: Family History (Last Reviewed 04/14/18 @ 16:56 by Pancho Peterson DO) Father Diabetes Heart failure Sister Diabetes Mother Diabetes History Items: Diabetes, - - Father of congestive heart failure in his 80s and had diabetes mellitus Sibling Family History: Family History (Last Reviewed 04/14/18 @ 16:56 by Pancho Peterson DO) Father Diabetes Heart failure Sister Diabetes Mother Diabetes History Items: Diabetes - His sister has diabetes. Review of Systems Constitutional: Denies: Chills, Fever, Weight Change HEENT: Denies: Head Aches, Sinus Congestion, Sinus Drainage Cardiovascular: Denies: Chest Pain, Palpitations Respiratory: Denies: Cough, Shortness of breath at rest, Sputum production Gastrointestinal: Denies: Abdominal Pain, Nausea, Vomiting Genitourinary: Denies: Dysuria Musculoskeletal: Denies: Joint Pain, Joint Tenderness Skin: Denies: Rash, Wounds Neurological: Reports: Balance problems, Incoordination. Denies: Focal weakness, Numbness, Tingling Psychiatric: Denies: Anxiety, Depression, Homicidal Ideations, Suicidal Ideations Hematologic/ Lymphatic: Denies: Easy Bruising, Easy Bleeding VTE Information - Inpt Only VTE Present on Admission: No VTE Mechan Device Prophylaxis: None VTE Pharm Prophylaxis ordered?: Yes Patient Problems: Active and Suspected Problems (Last Reviewed 04/14/18 @ 16:56 by Pancho Peterson DO) Gait incoordination (Acute) Generalized weakness (Acute) - Physical Exam General: Alert, Oriented x3, Cooperative HEENT: Atraumatic, PERRLA, EOMI, Normocephalic Neck: Supple, No JVD, Negative Carotid Bruits Lungs: Clear to auscultation, Normal air movement, No rhonchi, No wheeze, No rales Cardiovascular: Regular rate, Regular Rhythm, Normal S1, Normal S2, No murmurs Abdomen: Bowel Sounds Present, Soft, Non Tender, Non-Distended Extremities: Capillary Refill Less than 3 Seconds, Edema Skin: No rashes, No breakdown Musculoskeletal: No Tenderness to Palpation of Joints or Extremities, Arthritic Changes, Muscle Wasting Neurological: Cranial nerves II-XII grossly intact, Unsteady Gait, - - Muscle strength lower extremities 4/5 Psych/Mental Status: Normal Affect, Appropriate Vital Signs Temp Pulse Resp BP Pulse Ox 97.5 F L 92 18 118/74 97 04/26/18 01:36 04/26/18 01:36 04/26/18 01:36 04/26/18 01:36 04/26/18 01:36 Oxygen Delivery Method Room Air Weight: 272 lb 7.861 oz Body Mass Index (BMI) 42.7 Laboratory Tests Past 24 Hrs 04/26/18 04/26/18 04/26/18 01:46 01:46 02:21 WBC 7.7 RBC 3.39 L Hgb 9.2 L Hct 30.5 L MCV 90.0 MCH 27.1 MCHC 30.2 L RDW 18.5 H RDW Differential 59.3 H Plt Count 225 MPV 9.1 Immature Gran % (Auto) 0.900 Neut % (Auto) 86.4 H Lymph % (Auto) 7.1 L [place] % (Auto) 5.3 Eos % (Auto) 0.0 Baso % (Auto) 0.3 Absolute Neuts (auto) 6.7 Absolute Lymphs (auto) 0.55 L Total Counted Not Reportable Differential Comment SCANNED Sodium 142 Potassium 5.0 Chloride 108 H Carbon Dioxide 24.0 Anion Gap 10 BUN 39 H Creatinine 2.60 H Estim Creat Clear Calc 23.30 Est GFR (MDRD) Af Amer 31 L Est GFR (MDRD) Non-Af 26 L BUN/Creatinine Ratio 15.0 Glucose 85 Calcium 9.2 Troponin I 0.049 H Urine Color Yellow Urine Clarity Clear Urine pH 6.5 Ur Specific [place] 1.010 Urine Protein 15 H Urine Glucose (UA) Normal Urine Ketones Negative Urine Occult Blood 25 H Urine Nitrite Negative Urine Bilirubin Negative Urine Urobilinogen Normal Ur Leukocyte Esterase 500 H Urine RBC 0 SEEN Urine WBC 5-10 SEEN Ur Squamous Epith Cells 5-10 SEEN Urine Bacteria 0 SEEN Urine Mucus 0 SEEN Assessment/Plan All Active Problems (Last Reviewed 04/14/18 @ 16:56 by Pancho Peterson DO) Acute on chronic diastolic heart failure (Acute) Gait incoordination (Acute) Generalized weakness (Acute) NSTEMI (non-ST elevated myocardial infarction) (Acute) Pain in right toe(s) (Acute) Tinea unguium (Acute) Ingrown toenail (Acute) Anemia of chronic renal failure, stage 4 (severe) (Acute) Edema (Acute) Weakness (Acute) Debility (Acute) The patient is a 72 year old M with multiple comorbidities with recent discharged 2 days ago from TCU after he had management of non-STEMI with acute on chronic diastolic heart failure for which was admitted on 04/14/2018. Patient denies chest pain, shortness of breath, dizziness but he is not able to walk independently or balance himself. He had near full situation 3- 4 times yesterday and today. Patient had a hard time transferring from walker to bed and needed assistance. [] Blood work done in the ER is at baseline with creatinine 2.6, BUN 39. His baseline creatinine runs around 2.75. EKG shows normal sinus rhythm with first-degree AV block at 88 bpm. Chest x-ray shows improved vascular congestion from previous x-ray. No pleural effusion. 1. Generalized weakness, gait incoordination and near fall from physical deconditioning: Patient is being admitted on regular MedSurg floor. PT and OT assessment. renewable energy division manager consult to evaluate for SNF placement. 2. Recent admission for non-STEMI and acute on chronic diastolic heart failure with resolved acute hypoxic respiratory failure: Clinically much improved. Patient does not have shortness of breath. Continue home medications. Patient is not on oxygen. 3. CKD stage IV: Patient creatinine has improved as mentioned above. BMP tomorrow a.m. Monitor intake and output Other chronic comorbidities include polyarthritis secondary to DJD, morbid obesity, sarcoidosis, chronic diagnosis anemia, hypertension, dyslipidemia, and possible obstructive sleep apnea: Home medication reconciliation done. DVT prophylaxis: On Lovenox 30 mg subcu daily adjusted to creatinine clearance. Laboratory Results 04/26/18 01:46: WBC 7.7, RBC 3.39 L, Hgb 9.2 L, Hct 30.5 L, MCV 90.0, MCH 27.1, MCHC 30.2 L, RDW 18.5 H, RDW Differential 59.3 H, Plt Count 225, MPV 9.1, Immature Gran % (Auto) 0.900, Neut % (Auto) 86.4 H, Lymph % (Auto) 7.1 L, [place] % (Auto) 5.3, Eos % (Auto) 0.0, Baso % (Auto) 0.3, Absolute Neuts (auto) 6.7, Absolute Lymphs (auto) 0.55 L, Total Counted Not Reportable, Differential Comment SCANNED 04/26/18 01:46: Sodium 142, Potassium 5.0, Chloride 108 H, Carbon Dioxide 24.0, Anion Gap 10, BUN 39 H, Creatinine 2.60 H, Estim Creat Clear Calc 23.30, Est GFR (MDRD) Af Amer 31 L, Est GFR (MDRD) Non-Af 26 L, BUN/Creatinine Ratio 15.0, Glucose 85, Calcium 9.2, Troponin I 0.049 H 04/26/18 02:21: Urine Color Yellow, Urine Clarity Clear, Urine pH 6.5, Ur Specific [place] 1.010, Urine Protein 15 H, Urine Glucose (UA) Normal, Urine Ketones Negative, Urine Occult Blood 25 H, Urine Nitrite Negative, Urine Bilirubin Negative, Urine Urobilinogen Normal, Ur Leukocyte Esterase 500 H, Urine RBC 0 SEEN, Urine WBC 5-10 SEEN, Ur Squamous Epith Cells 5-10 SEEN, Urine Bacteria 0 SEEN, Urine Mucus 0 SEEN Clinical Impression(s) from Imaging Studies Chest X-Ray 04/26/18 01:48 IMPRESSION: Cardiomegaly with improved central vascular congestive changes. No pneumonia. No pleural effusions. Code Visit OBSV E&M: 91818 Initial observation care L3
[2018-04-26] MEDS: Iron Polysaccharide Complex 150 MG CAPSULE PO ×3 (05:53→21:17)
[2018-04-26] MEDS: Enoxaparin 30 MG/0.3 ML Syringe SC (05:53)
--- NOTE | 2018-04-26 07:40 | PCM.PN.BLA ---
Progress Note 72-year-old male with past medical history of CAD status post CABG, not a candidate for surgical intervention, history of repeated acute NSTEMI, EF 55%, stage I diastolic dysfunction, who was discharged from the hospital on 04/17/2018 to TCU. Patient stayed for 1 week in TCU and he says he felt he was strong enough and asked to be discharged. From the discharge summary from TCU, patient and refused any home health. He said he was doing well until yesterday when his legs gave up under him. He tried exercising them several times directly could not walk. He denies any previous fall or fever or chills or chest pain Vitals are negative Labs are about the same, troponin slightly elevated Physical exam: GEN: Patient is alert oriented ?3, not pale, no jaundice CVS:HS I +II, regular, no murmurs RESP:CTA EXT:No edema A/P 1. Debility 2. Recent acute non-STEMI 3. Stage IV CKD 4. Arthritis 5. Morbid obesity 6. Hypertension 7. Hyperlipidemia 8. YAIMA 9. DVT prophylaxis with Lovenox subcu Will wait for PT/OT evaluation No acute management planned in this admission for now Will discharge for rehab as soon as place is ready Code Visit Procedures: Other Procedure - See Report - Non-billable rounding
[2018-04-26] MEDS: Allopurinol 100 MG Tablet 200 MG PO (07:44)
[2018-04-26] MEDS: Isosorbide Mononitrate 30 MG Tablet PO (07:44)
[2018-04-26] MEDS: Hydroxychloroquine 200 MG Tablet PO ×2 (07:44→16:00)
[2018-04-26] MEDS: Clopidogrel Bisulfate 75 MG Tablet PO (07:44)
[2018-04-26] MEDS: Multivitamins,Therapeutic Tablet 1 TABLET PO (07:44)
[2018-04-26] MEDS: Pantoprazole Sodium 40 MG Tablet PO (07:44)
[2018-04-26] MEDS: Ranolazine 500 MG Tablet PO ×2 (07:45→21:18)
[2018-04-26] MEDS: Leflunomide 10 MG TABLET 5 MG PO (07:45)
[2018-04-26] MEDS: predniSONE 5 MG Tablet 7.5 MG PO (07:45)
[2018-04-26] MEDS: Furosemide 40 MG Tablet PO ×2 (07:45→16:00)
[2018-04-26] MEDS: Carvedilol 25 MG Tablet PO ×2 (07:45→21:17)
[2018-04-26] MEDS: Aspirin 81 MG TAB.CHEW PO (07:46)
[2018-04-26] MEDS: Menthol/Lanolin/Calamine/Znox 113 GM Tube 1 APPLIC TOPICAL ×2 (07:46→21:16)
[2018-04-26] MEDS: Nystatin Powder 15gm Bottle 1 APPLIC TOPICAL ×2 (07:47→21:17)
--- NOTE | 2018-04-26 10:15 | CASEMGMT ---
Social Work Note GIBSON met with pt has pt was recently discharged from TCU (2 days ago). Pt states that he felt strong enough to discharge from TCU but then he realized when he was home that he was unable to walk. Pt states that his had called TCU yesterday to make them aware of situation. GIBSON informed pt that this worker will follow up with TCU referral. GIBSON placed a call to referral line and spoke with Marlyn. Marlyn states that she received a call yesterday from pt's and she had tried to get pre-cert from pt's insurance from pt's home. Marlyn states that his insurance denied this. Marlyn states that she is able to accept pt back and will submit for pre-cert once PT/OT evaluates pt. Plan: TCU pending pre-cert Stephanie Cintron MSW, OIL EXPERT
[2018-04-26] MEDS: Atorvastatin Calcium 40 MG Tablet PO (21:17)
[2018-04-27] VITALS (11 sets, daily range): BP systolic 107–137; BP diastolic 40–73; PULSE 78–85; RESP 18–20; TEMP 36.5–36.8; O2SAT 95–99
[2018-04-27] MEDS: Enoxaparin 30 MG/0.3 ML Syringe SC (06:17)
[2018-04-27] MEDS: Iron Polysaccharide Complex 150 MG CAPSULE PO ×3 (06:18→21:18)
[2018-04-27 07:35] LABS: Anion Gap 12 (5-15); BUN 39 mg/dL (7-18); BUN/Creat Ratio 14.8 RATIO (10-20); Calcium,Total 8.6 mg/dL (8.5-10.1); Chloride 106 mmol/L (98-107); Creatinine, Serum 2.63 mg/dL (0.70-1.30); EST Glomerular Filtration Rate 25 mL/min (>60); Est Glom Filt Rate - Afr Amer 31 mL/min (>60); Estimated Creatinine Clearance 23.04 ml/min; Glucose 73 mg/dL (74-106); Potassium 4.2 mmol/L (3.5-5.1); Sodium Level 145 mmol/L (136-145)
--- NOTE | 2018-04-27 07:44 | PCM.PN.HOSP ---
Patient Problems: Active and Suspected Problems (Last Reviewed 04/14/18 @ 16:56 by Pancho Peterson DO) Gait incoordination (Acute) Generalized weakness (Acute) Subjective: Patient was seen and examined. He feels well. Denies chest pain, dizziness, SOB, palpitations. Waiting on insurance precertification for discharge. Vitals/I&O's: Vital Signs Temp Pulse Resp BP Pulse Ox 97.9 F 82 20 H 107/40 L 95 04/27/18 01:45 04/27/18 04:05 04/27/18 01:45 04/27/18 01:45 04/27/18 01:45 Oxygen Delivery Method Room Air Weight: 120.4 kg Body Mass Index (BMI) 41.5 Intake and Output for Last 24 Hours 04/25/18 04/26/18 04/27/18 23:59 23:59 23:59 Intake Total 900 / 900 320 / 320 Output Total 200 / 200 1450 / 1450 Balance 700 / 700 -1130 / -1130 General: Alert, Oriented x3, Cooperative, No apparent distress HEENT: Atraumatic, PERRLA, EOMI, Normocephalic Oral: Moist Mucosa Neck: Supple Lungs: Clear to auscultation, Normal air movement Cardiovascular: Regular rate, Regular Rhythm, Normal S1, Normal S2, No murmurs Abdomen: Bowel Sounds Present, Soft, Non Tender, Non-Distended, No Hepato-splenomegaly Extremities: No edema Skin: No rashes, No breakdown Musculoskeletal: No Tenderness to Palpation of Joints or Extremities Lymphatic: No Cervical, Supraclavicular, or Inguinal Adenopathy Neurological: Cranial nerves II-XII grossly intact, Neuro grossly intact Psych/Mental Status: Normal Affect, Appropriate Laboratory Results 04/27/18 05:50: Sodium 145, Potassium 4.2, Chloride 106, Carbon Dioxide 27.0, Anion Gap 12, BUN 39 H, Creatinine 2.63 H, Estim Creat Clear Calc 23.04, Est GFR (MDRD) Af Amer 31 L, Est GFR (MDRD) Non-Af 25 L, BUN/Creatinine Ratio 14.8, Glucose 73 L, Calcium 8.6 Current Medications Acetaminophen (Tylenol) 1,000 mg PO Q8H PRN PRN PRN Reason: MILD PAIN (-11/10) Albuterol/Ipratropium (Duoneb) 3 ml INHALATION Q4HWA.RT [facility] Last Admin: 04/26/18 19:25 Dose: Not Given [facility] Last Admin: 04/26/18 07:44 Dose: 200 mg Aspirin (Aspirin, Baby) 81 mg PO DAILY@0800 [facility] Last Admin: 04/26/18 07:46 Dose: 81 mg Atorvastatin Calcium (Lipitor) 40 mg PO QHS [facility] Last Admin: 04/26/18 21:17 Dose: 40 mg Calamine/Phenol (Calmoseptine Ointment) 1 applic TOPICAL 1000,2200 [facility] PRN Reason: Protocol Last Admin: 04/26/18 21:16 Dose: 1 applicatio Carvedilol (Coreg) 25 mg PO BID [facility] Last Admin: 04/26/18 21:17 Dose: 25 mg Clopidogrel Bisulfate (Plavix) 75 mg PO DAILY [facility] Last Admin: 04/26/18 07:44 Dose: 75 mg Enoxaparin Sodium (Lovenox) 30 mg SC DAILY@0600 [facility] Last Admin: 04/27/18 06:17 Dose: 30 mg Furosemide (Lasix) 40 mg PO BID@1000,1800 [facility] Last Admin: 04/26/18 16:00 Dose: 40 mg Hydroxychloroquine Sulfate (Plaquenil) [facility] Last Admin: 04/26/18 16:00 Dose: 200 mg Isosorbide Mononitrate (Imdur) 30 mg PO DAILY [facility] Last Admin: 04/26/18 07:44 Dose: 30 mg Leflunomide (Leflunomide) 5 mg PO DAILY [facility] Last Admin: 04/26/18 07:45 Dose: 5 mg Magnesium Hydroxide (Milk Of Magnesia) 30 ml PO DAILY PRN PRN PRN Reason: Constipation Multivitamins (Multivitamin) [facility] Last Admin: 04/26/18 07:44 Dose: 1 tablet Nitroglycerin (Nitrostat) 0.4 mg SUBLINGUAL Q5M PRN PRN Reason: CHEST PAIN Nutritional Formula (Lactose Free) (Ensure Enlive) 120 ml PO 4X/DAY [facility] Last Admin: 04/26/18 21:17 Dose: 120 ml Nystatin (Mycostatin Powder) 1 applic TOPICAL 1000,2200 [facility] PRN Reason: Protocol Last Admin: 04/26/18 21:17 Dose: 1 applicatio Pantoprazole Sodium (Protonix) 40 mg PO DAILY [facility] Last Admin: 04/26/18 07:44 Dose: 40 mg Polysaccharide Iron Complex (Ferrex 150) 150 mg PO TID [facility] Last Admin: 04/27/18 06:18 Dose: 150 mg Potassium Chloride (K-Dur) 20 meq PO TIDCM [facility] Last Admin: 04/26/18 16:00 Dose: 20 meq Prednisone () 7.5 mg PO DAILYCM [facility] Last Admin: 04/26/18 07:45 Dose: 7.5 mg Psyllium Hydrophilic Mucilloid (Metamucil) 1 packet PO DAILY PRN PRN PRN Reason: CONSTIPATION Ranolazine (Ranexa) 500 mg PO BID [facility] Last Admin: 04/26/18 21:18 Dose: 500 mg Senna/Docusate Sodium (Senokot-S, Isa-Colace) 2 tablet PO BID PRN PRN Reason: Constipation Sodium Chloride () 5 - 30 ml IV UD PRN PRN Reason: SALINE FLUSH Medical Necessity - Tobacco Use Smoking Status: Never smoker Assessment/Plan All Active Problems (Last Reviewed 04/14/18 @ 16:56 by Pancho Peterson DO) Acute on chronic diastolic heart failure (Acute) Gait incoordination (Acute) Generalized weakness (Acute) NSTEMI (non-ST elevated myocardial infarction) (Acute) Pain in right toe(s) (Acute) Tinea unguium (Acute) Ingrown toenail (Acute) Anemia of chronic renal failure, stage 4 (severe) (Acute) Edema (Acute) Weakness (Acute) Debility (Acute) 72y/o male with PMHX of CAD s/p CABG, h/o recent NSTEMI, recently discharged from TCU comes in with progressive weakness, noticed more in the legs. 1. Debility, related to concurrent co-morbidities, seen by PT/OT, case management working on discharge back to possibly TCU. 2. Recent acute non-STEMI, h/o CAD s/p CABG,not surgical candidate, medical management recommended, on aspirin, statin, carvedilol, plavix 3. Stage IV CKD, Cr remains at baseline 2.63 4. Hypertension, controlled, on home regimen, will continue to monitor 5. Hyperlipidemia, on statin 6. Morbid obesity, BMI 41.6, diet and exercises recommended 7. YAIMA 8. DVT prophylaxis with Lovenox subcu Code Visit Inpatient E&M: 80086 Subs Hosp L2
[2018-04-27] MEDS: Isosorbide Mononitrate 30 MG Tablet PO (09:52)
[2018-04-27] MEDS: Pantoprazole Sodium 40 MG Tablet PO (09:52)
[2018-04-27] MEDS: Furosemide 40 MG Tablet PO ×2 (09:52→15:57)
[2018-04-27] MEDS: Ranolazine 500 MG Tablet PO ×2 (09:52→21:18)
[2018-04-27] MEDS: Carvedilol 25 MG Tablet PO ×2 (09:52→21:18)
[2018-04-27] MEDS: Hydroxychloroquine 200 MG Tablet PO ×2 (09:52→16:00)
[2018-04-27] MEDS: predniSONE 5 MG Tablet 7.5 MG PO (09:53)
[2018-04-27] MEDS: Multivitamins,Therapeutic Tablet 1 TABLET PO (09:53)
[2018-04-27] MEDS: Allopurinol 100 MG Tablet 200 MG PO (09:53)
[2018-04-27] MEDS: Aspirin 81 MG TAB.CHEW PO (09:53)
[2018-04-27] MEDS: Leflunomide 10 MG TABLET 5 MG PO (09:54)
[2018-04-27] MEDS: Nystatin Powder 15gm Bottle 1 APPLIC TOPICAL ×2 (09:56→21:19)
[2018-04-27] MEDS: Menthol/Lanolin/Calamine/Znox 113 GM Tube 1 APPLIC TOPICAL ×2 (10:00→21:18)
[2018-04-27] MEDS: Clopidogrel Bisulfate 75 MG Tablet PO (11:02)
[2018-04-27] MEDS: Atorvastatin Calcium 40 MG Tablet PO (21:18)
[2018-04-28] VITALS (11 sets, daily range): BP systolic 114–136; BP diastolic 35–70; PULSE 76–84; RESP 16–18; TEMP 36.4–36.9; O2SAT 95–97
[2018-04-28] MEDS: Enoxaparin 30 MG/0.3 ML Syringe SC (05:56)
[2018-04-28] MEDS: Iron Polysaccharide Complex 150 MG CAPSULE PO ×3 (05:56→22:57)
--- NOTE | 2018-04-28 07:28 | PCM.PN.HOSP ---
Patient Problems: Active and Suspected Problems (Last Reviewed 04/14/18 @ 16:56 by Pancho Peterson DO) Gait incoordination (Acute) Generalized weakness (Acute) Subjective: Patient was seen and examined. Denies any complains. Denies fever, chills. Ambulating with PT/OT. Objective: Physical exam: General: Alert, Oriented x3, Cooperative, No apparent distress HEENT: Atraumatic, PERRLA, EOMI, Normocephalic Oral: Moist Mucosa Neck: Supple Lungs: Clear to auscultation, Normal air movement Cardiovascular: Regular rate, Regular Rhythm, Normal S1, Normal S2, No murmurs Abdomen: Bowel Sounds Present, Soft, Non Tender, Non-Distended, No Hepato-splenomegaly Extremities: No edema Skin: No rashes, No breakdown Musculoskeletal: No Tenderness to Palpation of Joints or Extremities Lymphatic: No Cervical, Supraclavicular, or Inguinal Adenopathy Neurological: Cranial nerves II-XII grossly intact, Neuro grossly intact Psych/Mental Status: Normal Affect, Appropriate Vitals/I&O's: Vital Signs Temp Pulse Resp BP Pulse Ox 98.4 F 84 16 130/70 H 96 04/28/18 02:13 04/28/18 06:11 04/28/18 02:13 04/28/18 02:13 04/28/18 02:13 Oxygen Delivery Method Room Air Weight: 120.4 kg Body Mass Index (BMI) 41.5 Intake and Output for Last 24 Hours 04/26/18 04/27/18 04/28/18 23:59 23:59 23:59 Intake Total 900 / 900 720 / 720 720 / 720 Output Total 200 / 200 1450 / 1450 500 / 500 Balance 700 / 700 -730 / -730 220 / 220 Laboratory Results 04/27/18 05:50: Sodium 145, Potassium 4.2, Chloride 106, Carbon Dioxide 27.0, Anion Gap 12, BUN 39 H, Creatinine 2.63 H, Estim Creat Clear Calc 23.04, Est GFR (MDRD) Af Amer 31 L, Est GFR (MDRD) Non-Af 25 L, BUN/Creatinine Ratio 14.8, Glucose 73 L, Calcium 8.6 Current Medications Acetaminophen (Tylenol) 1,000 mg PO Q8H PRN PRN PRN Reason: MILD PAIN (1-310) Albuterol/Ipratropium (Duoneb) 3 ml INHALATION Q4HWA.RT [facility] Last Admin: 04/27/18 19:20 Dose: Not Given [facility] Last Admin: 04/27/18 09:53 Dose: 200 mg Aspirin (Aspirin, Baby) 81 mg PO DAILY@0800 [facility] Last Admin: 04/27/18 09:53 Dose: 81 mg Atorvastatin Calcium (Lipitor) 40 mg PO QHS [facility] Last Admin: 04/27/18 21:18 Dose: 40 mg Calamine/Phenol (Calmoseptine Ointment) 1 applic TOPICAL 1000,2200 [facility] PRN Reason: Protocol Last Admin: 04/27/18 21:18 Dose: 1 applicatio Carvedilol (Coreg) 25 mg PO BID [facility] Last Admin: 04/27/18 21:18 Dose: 25 mg Clopidogrel Bisulfate (Plavix) 75 mg PO DAILY [facility] Last Admin: 04/27/18 11:02 Dose: 75 mg Enoxaparin Sodium (Lovenox) 30 mg SC DAILY@0600 [facility] Last Admin: 04/28/18 05:56 Dose: 30 mg Furosemide (Lasix) 40 mg PO BID@1000,1800 [facility] Last Admin: 04/27/18 15:57 Dose: 40 mg Hydroxychloroquine [facility] ([facility]il) [facility] Last Admin: 04/27/18 16:00 Dose: 200 mg Isosorbide Mononitrate (Imdur) 30 mg PO DAILY [facility] Last Admin: 04/27/18 09:52 Dose: 30 mg Leflunomide (Leflunomide) 5 mg PO DAILY [facility] Last Admin: 04/27/18 09:54 Dose: 5 mg Magnesium Hydroxide (Milk Of Magnesia) 30 ml PO DAILY PRN PRN PRN Reason: Constipation Multivitamins ([facility]ivitamin) [facility] Last Admin: 04/27/18 09:53 Dose: 1 tablet Nitroglycerin (Nitrostat) 0.4 mg SUBLINGUAL Q5M PRN PRN Reason: CHEST PAIN Nutritional Formula (Lactose Free) (Ensure Enlive) 120 ml PO 4X/DAY [facility] Last Admin: 04/27/18 21:18 Dose: 120 ml Nystatin (Mycostatin Powder) 1 applic TOPICAL 1000,2200 [facility] PRN Reason: Protocol Last Admin: 04/27/18 21:19 Dose: 1 applicatio Pantoprazole Sodium (Protonix) 40 mg PO DAILY [facility] Last Admin: 04/27/18 09:52 Dose: 40 mg Polysaccharide Iron Complex (Ferrex 150) 150 mg PO TID [facility] Last Admin: 04/28/18 05:56 Dose: 150 mg Potassium Chloride (K-Dur) [facility] Last Admin: 04/27/18 15:59 Dose: 20 meq Prednisone () 7.[facility] Last Admin: 04/27/18 09:53 Dose: 7.5 mg Psyllium Hydrophilic Mucilloid (Metamucil) 1 packet PO DAILY PRN PRN PRN Reason: CONSTIPATION Ranolazine (Ranexa) 500 mg PO BID [facility] Last Admin: 04/27/18 21:18 Dose: 500 mg Senna/Docusate Sodium (Senokot-S, Isa-Colace) 2 tablet PO BID PRN PRN Reason: Constipation Sodium Chloride () 5 - 30 ml IV UD PRN PRN Reason: SALINE FLUSH Medical Necessity - Tobacco Use Smoking Status: Never smoker Assessment/Plan All Active Problems (Last Reviewed 04/14/18 @ 16:56 by Pancho Peterson DO) Acute on chronic diastolic heart failure (Acute) Gait incoordination (Acute) Generalized weakness (Acute) NSTEMI (non-ST elevated myocardial infarction) (Acute) Pain in right toe(s) (Acute) Tinea unguium (Acute) Ingrown toenail (Acute) Anemia of chronic renal failure, stage 4 (severe) (Acute) Edema (Acute) Weakness (Acute) Debility (Acute) 72y/o male with PMHX of CAD s/p CABG, h/o recent NSTEMI. Patient had been discharged to TCU for rehab. He was there for 1 week, felt he was better, asked to be discharged, refused home health. He was at home for only 2 days when he comes in with progressive weakness and inability to walk. 1. Debility, related to concurrent co-morbidities, seen by PT/OT, case management working on discharge back to [facility]. 2. Recent acute non-STEMI, h/o CAD s/p CABG,not surgical candidate, medical management recommended, on aspirin, statin, carvedilol, plavix 3. Stage IV CKD, Cr remains at baseline 2.63, BMP in am 4. Hypertension, controlled, on home regimen, will continue to monitor 5. Hyperlipidemia, on statin 6. Morbid obesity, BMI 41.6, diet and exercises recommended 7. DVT prophylaxis with Lovenox subcu Code Visit Inpatient E&M: 68828 Subs Hosp L2
[2018-04-28] MEDS: Multivitamins,Therapeutic Tablet 1 TABLET PO (11:07)
[2018-04-28] MEDS: predniSONE 5 MG Tablet 7.5 MG PO (11:08)
[2018-04-28] MEDS: Isosorbide Mononitrate 30 MG Tablet PO (11:08)
[2018-04-28] MEDS: Hydroxychloroquine 200 MG Tablet PO ×2 (11:08→17:11)
[2018-04-28] MEDS: Allopurinol 100 MG Tablet 200 MG PO (11:08)
[2018-04-28] MEDS: Ranolazine 500 MG Tablet PO ×2 (11:08→22:57)
[2018-04-28] MEDS: Leflunomide 10 MG TABLET 5 MG PO (11:08)
[2018-04-28] MEDS: Aspirin 81 MG TAB.CHEW PO (11:10)
[2018-04-28] MEDS: Menthol/Lanolin/Calamine/Znox 113 GM Tube 1 APPLIC TOPICAL ×2 (11:11→22:56)
[2018-04-28] MEDS: Carvedilol 25 MG Tablet PO ×2 (11:11→22:56)
[2018-04-28] MEDS: Furosemide 40 MG Tablet PO ×2 (11:12→17:10)
[2018-04-28] MEDS: Clopidogrel Bisulfate 75 MG Tablet PO (11:12)
[2018-04-28] MEDS: Nystatin Powder 15gm Bottle 1 APPLIC TOPICAL ×2 (11:12→22:57)
[2018-04-28] MEDS: Pantoprazole Sodium 40 MG Tablet PO (11:13)
[2018-04-28] MEDS: 0.9% NaCl Peripheral Flush Adult/Peds IV (18:16)
[2018-04-28] MEDS: Atorvastatin Calcium 40 MG Tablet PO (22:57)
[2018-04-29] VITALS (13 sets, daily range): BP systolic 110–140; BP diastolic 40–72; PULSE 76–85; RESP 16–20; TEMP 36.3–36.9; O2SAT 96–98
[2018-04-29] MEDS: Iron Polysaccharide Complex 150 MG CAPSULE PO ×3 (05:47→20:37)
[2018-04-29] MEDS: Enoxaparin 30 MG/0.3 ML Syringe SC (05:47)
[2018-04-29 06:04] LABS: Anion Gap 12 (5-15); BUN 45 mg/dL (7-18); BUN/Creat Ratio 17.5 RATIO (10-20); Calcium,Total 8.6 mg/dL (8.5-10.1); Chloride 105 mmol/L (98-107); Creatinine, Serum 2.57 mg/dL (0.70-1.30); EST Glomerular Filtration Rate 26 mL/min (>60); Est Glom Filt Rate - Afr Amer 32 mL/min (>60); Estimated Creatinine Clearance 23.58 ml/min; Glucose 81 mg/dL (74-106); Potassium 3.9 mmol/L (3.5-5.1); Sodium Level 144 mmol/L (136-145)
[2018-04-29] MEDS: predniSONE 5 MG Tablet 7.5 MG PO (09:24)
[2018-04-29] MEDS: Multivitamins,Therapeutic Tablet 1 TABLET PO (09:24)
[2018-04-29] MEDS: Allopurinol 100 MG Tablet 200 MG PO (09:24)
[2018-04-29] MEDS: Ranolazine 500 MG Tablet PO ×2 (09:24→20:37)
[2018-04-29] MEDS: Clopidogrel Bisulfate 75 MG Tablet PO (09:24)
[2018-04-29] MEDS: Hydroxychloroquine 200 MG Tablet PO ×2 (09:24→17:25)
[2018-04-29] MEDS: Aspirin 81 MG TAB.CHEW PO (09:24)
[2018-04-29] MEDS: Isosorbide Mononitrate 30 MG Tablet PO (09:25)
[2018-04-29] MEDS: Furosemide 40 MG Tablet PO ×2 (09:25→17:25)
[2018-04-29] MEDS: Carvedilol 25 MG Tablet PO ×2 (09:25→20:37)
[2018-04-29] MEDS: Leflunomide 10 MG TABLET 5 MG PO (09:25)
[2018-04-29] MEDS: Menthol/Lanolin/Calamine/Znox 113 GM Tube 1 APPLIC TOPICAL ×2 (09:25→20:38)
[2018-04-29] MEDS: Nystatin Powder 15gm Bottle 1 APPLIC TOPICAL ×2 (09:26→20:38)
[2018-04-29] MEDS: Pantoprazole Sodium 40 MG Tablet PO (09:26)
[2018-04-29 09:38] LABS: Mucous, Urine 0 SEEN /hpf (<or=2+)
[2018-04-29 09:45] LABS: Color, Urine Yellow (Yellow); Glucose, Dipstick Normal (Normal); Ketone-Dipstick Negative (Negative); Leukocyte Esterase-Dipstick 500 /ul (Negative); Nitrite-Dipstick Negative (Negative); Occult Blood-Urine 250 /ul (Negative); Protein-Dipstick 15 mg/dl (Negative); Specific Gravity, Urine 1.015 (1.002-1.030); Urine Bilirubin Dipstick Negative (Negative); Urine Clarity Sl. Cloudy (Clear); Urine Urobilinogen Normal (Normal)
[2018-04-29 09:53] LABS: Bacteria 2+ /hpf (None Seen); Red Blood Cells-Urine 0-5 SEEN /hpf (0-5); Squamous Epithelial Cells - UA 0-5 SEEN /hpf (0-5); White Blood Cells 0-5 SEEN /hpf (0-5)
--- NOTE | 2018-04-29 10:18 | CASEMGMT ---
Addendum entered by Stephanie Cintron 04/29/18 11:24: Magalis with [facility] states that she will submit for pre-cert again today for pt for TCU. Original Note: Social Work Note SW received message from Khushboo ARREAGA at [employer] requesting call back. GIBSON placed a call to Khushboo and left voicemail. Khushboo direct number [phone]. Stephanie Cintron DRAUGHTSMAN, [employer]CELAIN ENAMEL LABORER
--- NOTE | 2018-04-29 10:56 | PCM.PN.HOSP ---
Patient Problems: Active and Suspected Problems (Last Reviewed 04/14/18 @ 16:56 by Pancho Peterson DO) Gait incoordination (Acute) Generalized weakness (Acute) Subjective: Feels ok, does describe bad smelling urine. No abdominal pain Vitals/I&O's: Vital Signs Temp Pulse Resp BP Pulse Ox 97.4 F L 83 16 126/40 H 98 04/29/18 09:16 04/29/18 10:23 04/29/18 09:16 04/29/18 09:16 04/29/18 09:16 Oxygen Delivery Method Room Air Weight: 265 lb 6.985 oz Body Mass Index (BMI) 41.5 Intake and Output for Last 24 Hours 04/27/18 04/28/18 04/29/18 23:59 23:59 23:59 Intake Total 720 / 720 1260 / 1260 440 / 440 Output Total 1450 / 1450 1100 / 1100 750 / 750 Balance -730 / -730 160 / 160 -310 / -310 General: Alert, Oriented x3, Cooperative, No apparent distress HEENT: Atraumatic, EOMI, Normocephalic Oral: Moist Mucosa Neck: Supple, No JVD Lungs: Clear to auscultation, Normal air movement, No rhonchi, No wheeze, No rales Cardiovascular: Regular rate, Regular Rhythm, Normal S1, Normal S2, No murmurs Abdomen: Soft, Non Tender, Non-Distended, No Hepato-splenomegaly Extremities: No edema, Capillary Refill Less than 3 Seconds Skin: No rashes, No breakdown, - - senile purpura on upper extremities Psych/Mental Status: Normal Affect, Appropriate Laboratory Results 04/29/18 05:26: Sodium 144, Potassium 3.9, Chloride 105, Carbon Dioxide 27.0, Anion Gap 12, BUN 45 H, Creatinine 2.57 H, Estim Creat Clear Calc 23.58, Est GFR (MDRD) Af Amer 32 L, Est GFR (MDRD) Non-Af 26 L, BUN/Creatinine Ratio 17.5, Glucose 81, Calcium 8.6 04/29/18 09:30: Urine Color Yellow, Urine Clarity Sl. Cloudy, Urine pH 6.0, Ur Specific [place] 1.015, Urine Protein 15 H, Urine Glucose (UA) Normal, Urine Ketones Negative, Urine Occult Blood 250 H, Urine Nitrite Negative, Urine Bilirubin Negative, Urine Urobilinogen Normal, Ur Leukocyte Esterase 500 H, Urine RBC 0-5 SEEN, Urine WBC 0-5 SEEN, Ur Squamous Epith Cells 0-5 SEEN, Urine Bacteria 2+, Urine Mucus 0 SEEN Current Medications Acetaminophen (Tylenol) 1,000 mg PO Q8H PRN PRN PRN Reason: MILD PAIN (1-310) Albuterol/Ipratropium (Duoneb) 3 ml INHALATION Q4HWA.RT [facility] Last Admin: 04/29/18 07:13 Dose: Not Given [facility]) [facility] Last Admin: 04/29/18 09:24 Dose: 200 mg Aspirin (Aspirin, Baby) 81 mg PO DAILY@0800 [facility] Last Admin: 04/29/18 09:24 Dose: 81 mg Atorvastatin Calcium (Lipitor) 40 mg PO QHS [facility] Last Admin: 04/28/18 22:57 Dose: 40 mg Calamine/Phenol (Calmoseptine Ointment) 1 applic TOPICAL 1000,2200 [facility] PRN Reason: Protocol Last Admin: 04/29/18 09:25 Dose: 1 applicatio Carvedilol (Coreg) 25 mg PO BID [facility] Last Admin: 04/29/18 09:25 Dose: 25 mg Clopidogrel Bisulfate (Plavix) 75 mg PO DAILY [facility] Last Admin: 04/29/18 09:24 Dose: 75 mg Enoxaparin Sodium (Lovenox) 30 mg SC DAILY@0600 [facility] Last Admin: 04/29/18 05:47 Dose: 30 mg Furosemide (Lasix) 40 mg PO BID@1000,1800 [facility] Last Admin: 04/29/18 09:25 Dose: 40 mg Hydroxychloroquine Sulfate (Plaquenil) [facility] Last Admin: 04/29/18 09:24 Dose: 200 mg Isosorbide Mononitrate (Imdur) 30 mg PO DAILY [facility] Last Admin: 04/29/18 09:25 Dose: 30 mg Leflunomide (Leflunomide) 5 mg PO DAILY [facility] Last Admin: 04/29/18 09:25 Dose: 5 mg Magnesium Hydroxide (Milk Of Magnesia) 30 ml PO DAILY PRN PRN PRN Reason: Constipation Multivitamins (Multivitamin) [facility] Last Admin: 04/29/18 09:24 Dose: 1 tablet Nitroglycerin (Nitrostat) 0.4 mg SUBLINGUAL Q5M PRN PRN Reason: CHEST PAIN Nutritional Formula (Lactose Free) (Ensure Enlive) 120 ml PO 4X/DAY [facility] Last Admin: 04/29/18 09:25 Dose: 120 ml Nystatin (Mycostatin Powder) 1 applic TOPICAL 1000,2200 [facility] PRN Reason: Protocol Last Admin: 04/29/18 09:26 Dose: 1 applicatio Pantoprazole Sodium (Protonix) 40 mg PO DAILY [facility] Last Admin: 04/29/18 09:26 Dose: 40 mg Polysaccharide Iron Complex (Ferrex 150) 150 mg PO TID [facility] Last Admin: 04/29/18 05:47 Dose: 150 mg Potassium Chloride (K-Dur) 20 meq [facility] Last Admin: 04/29/18 09:23 Dose: 20 meq Prednisone () 7.[facility] Last Admin: 04/29/18 09:24 Dose: 7.5 mg Psyllium Hydrophilic Mucilloid (Metamucil) 1 packet PO DAILY PRN PRN PRN Reason: CONSTIPATION Ranolazine (Ranexa) 500 mg PO BID [facility] Last Admin: 04/29/18 09:24 Dose: 500 mg Senna/Docusate Sodium (Senokot-S, Isa-Colace) 2 tablet PO BID PRN PRN Reason: Constipation Sodium Chloride () 5 - 30 ml IV UD PRN PRN Reason: SALINE FLUSH Last Admin: 04/28/18 18:16 Dose: 10 ml Medical Necessity - Tobacco Use Smoking Status: Never smoker Assessment/Plan All Active Problems (Last Reviewed 04/14/18 @ 16:56 by Pancho Peterson DO) Acute on chronic diastolic heart failure (Acute) Gait incoordination (Acute) Generalized weakness (Acute) NSTEMI (non-ST elevated myocardial infarction) (Acute) Pain in right toe(s) (Acute) Tinea unguium (Acute) Ingrown toenail (Acute) Anemia of chronic renal failure, stage 4 (severe) (Acute) Edema (Acute) Weakness (Acute) Debility (Acute) 1. Inability to ambulate and perform ADLs - PT/OT is recommending SNF for therapy - Will attempt to get hime back to TCU 2. Recent NSTEMI/CAD/Sarcoidosis/HLD - States that he has arteries that are 80-100% blocked, too high risk for CABG - He is on optimal medical therapy with ASA, statin, coreg and plavix 3. Chronic CKD4/HTN/Anemia of chronic disease - stable - will continue to monitor, he continues to make urine - Has received both EPO and iron infusions in the past - Will recheck his hgb today DVT: Lovenox Diet: Cardiac Code: DNR Code Visit Inpatient E&M: 14012 Subs Hosp L2
[2018-04-29 12:53] LABS: Absolute Lymphocyte Count 0.38 X10^3/ul (0.83-4.51); Absolute Neutrophil Count 4.8 X10^3/uL (2.0-7.7); Basophil# 0.03 X10^3/uL; Basophil% 0.5 % (0-1); Differential Indicated SCAN CRITERIA MET; Hematocrit 26.1 % (40-54); Hemoglobin 7.9 g/dl (13.0-16.5); Lymphocyte # 0.38 X10^3/ul (4.0); Lymphocyte % 6.8 % (19-41); Mean Corp Hgb Conc 30.3 g/gl (32-36); Mean Corpuscular Hgb 27.5 pg (27.0-32.0); Mean Corpuscular Volume 90.9 fL (80-94); Mean Platelet Vol. 10.6 fl (6.2-12.0); Monocyte# 0.36 X10^3/uL; Monocyte% 6.4 % (0-10); Neutrophil # 4.77 X10^3/uL (2.7-7.7); Neutrophil % 85.1 % (47-70); POSITIVE COUNT NO; POSITIVE DIFFERENTIAL YES; POSITIVE MORPHOLOGY NO; Platelet Count 192 K/mm3 (150-450); RBC Distribution Width SD 57.5 fl (35.1-43.9); Red Blood Count 2.87 M/mm3 (4.6-6.2); White Blood Count 5.6 K/mm3 (4.4-11.0)
[2018-04-29 13:05] LABS: Anisocytosis 1+; Hypochromasia 2+; Platelet Estimate ADEQUATE (ADEQ); Polychromasia RARE; Tear Drop Cell 1+
--- NOTE | 2018-04-29 13:24 | CASEMGMT ---
Social Work Note GIBSON received message from Magalis stating that pt was denied placement at TCU. SW into update pt of this. Pt states that he will probably go home at discharge. SW educated pt on HHC and outpatient therapy. Pt would like this worker to call his to update her on this. SW placed a call to pt's Elza and updated her on this. Elza states she is unsure on HHC vs. outpatient therapy but asked this worker where pt could go to get outpatient therapy. GIBSON explained that a script can be written for outpatient therapy and they can take the script anywhere and get outpatient therapy. Elza states understanding. SW informed Elza that this worker is unsure if pt will be discharged today. Dr. Campos updated on this. Plan: Home with HHC vs. Outpatient therapy Stephanie Cintron FRONT OFFICE SECRETARY, HYDROGEN POWER PLANT MANAGER
[2018-04-29] MEDS: Ceftriaxone 1 GM/50 ML BAG IV (17:21)
[2018-04-29] MEDS: 0.9% NaCl Peripheral Flush Adult/Peds IV (17:21)
[2018-04-29] MEDS: Atorvastatin Calcium 40 MG Tablet PO (20:37)
[2018-04-30] VITALS (9 sets, daily range): BP systolic 91–130; BP diastolic 48–69; PULSE 80–89; RESP 16–18; TEMP 36.4–36.8; O2SAT 96–99
[2018-04-30 06:00] LABS: Anion Gap 12 (5-15); BUN 47 mg/dL (7-18); BUN/Creat Ratio 17.6 RATIO (10-20); Calcium,Total 8.7 mg/dL (8.5-10.1); Chloride 105 mmol/L (98-107); Creatinine, Serum 2.67 mg/dL (0.70-1.30); EST Glomerular Filtration Rate 25 mL/min (>60); Est Glom Filt Rate - Afr Amer 30 mL/min (>60); Estimated Creatinine Clearance 22.69 ml/min; Glucose 85 mg/dL (74-106); Potassium 3.8 mmol/L (3.5-5.1); Sodium Level 141 mmol/L (136-145)
[2018-04-30 06:12] LABS: Absolute Neutrophil Count 6.3 X10^3/uL (2.0-7.7); Basophil# 0.01 X10^3/uL; Basophil% 0.1 % (0-1); Hematocrit 29.7 % (40-54); Lymphocyte % 5.5 % (19-41); Mean Corp Hgb Conc 30.3 g/gl (32-36); Mean Corpuscular Hgb 27.3 pg (27.0-32.0); Mean Platelet Vol. 9.5 fl (6.2-12.0); Monocyte# 0.47 X10^3/uL; Monocyte% 6.5 % (0-10); Neutrophil # 6.29 X10^3/uL (2.7-7.7); Neutrophil % 86.8 % (47-70); Platelet Count 174 K/mm3 (150-450); RBC Distribution Width CV 17.8 % (11.6-14.6); White Blood Count 7.3 K/mm3 (4.4-11.0)
[2018-04-30 06:15] LABS: Differential Indicated SCAN CRITERIA MET; POSITIVE COUNT NO; POSITIVE DIFFERENTIAL YES; POSITIVE MORPHOLOGY NO
[2018-04-30] MEDS: Iron Polysaccharide Complex 150 MG CAPSULE PO ×3 (06:20→21:55)
[2018-04-30] MEDS: Enoxaparin 30 MG/0.3 ML Syringe SC (06:20)
[2018-04-30] MEDS: Aspirin 81 MG TAB.CHEW PO (08:10)
[2018-04-30] MEDS: predniSONE 5 MG Tablet 7.5 MG PO (08:11)
[2018-04-30] MEDS: Hydroxychloroquine 200 MG Tablet PO ×2 (08:11→16:48)
[2018-04-30] MEDS: Multivitamins,Therapeutic Tablet 1 TABLET PO (08:11)
[2018-04-30] MEDS: Allopurinol 100 MG Tablet 200 MG PO (08:12)
[2018-04-30] MEDS: Menthol/Lanolin/Calamine/Znox 113 GM Tube 1 APPLIC TOPICAL ×2 (08:12→21:54)
[2018-04-30] MEDS: Carvedilol 25 MG Tablet PO ×2 (08:12→21:53)
[2018-04-30] MEDS: Isosorbide Mononitrate 30 MG Tablet PO (08:13)
[2018-04-30] MEDS: Nystatin Powder 15gm Bottle 1 APPLIC TOPICAL ×2 (08:13→21:56)
[2018-04-30] MEDS: Leflunomide 10 MG TABLET 5 MG PO (08:13)
[2018-04-30] MEDS: Furosemide 40 MG Tablet PO ×2 (08:13→16:49)
[2018-04-30] MEDS: Ranolazine 500 MG Tablet PO ×2 (08:14→21:56)
[2018-04-30] MEDS: Clopidogrel Bisulfate 75 MG Tablet PO (08:14)
[2018-04-30] MEDS: Pantoprazole Sodium 40 MG Tablet PO (08:14)
[2018-04-30] MEDS: Ceftriaxone 1 GM/50 ML BAG IV (08:18)
--- NOTE | 2018-04-30 10:01 | PCM.PN.HOSP ---
Patient Problems: Active and Suspected Problems (Last Reviewed 04/14/18 @ 16:56 by Pancho Peterson DO) Gait incoordination (Acute) Generalized weakness (Acute) Subjective: Feels fatigued and washed out today, he thinks the transfusion may have helped a little but not much. He is due for an epo shot this sunday Objective: General: Alert, Oriented x3, Cooperative, No apparent distress HEENT: Atraumatic, EOMI, Normocephalic Oral: Moist Mucosa Neck: Supple, No JVD Lungs: Clear to auscultation, Normal air movement, No rhonchi, No wheeze, No rales Cardiovascular: Regular rate, Regular Rhythm, Normal S1, Normal S2, No murmurs Abdomen: Soft, Non Tender, Non-Distended, No Hepato-splenomegaly Extremities: No edema, Capillary Refill Less than 3 Seconds Skin: No rashes, No breakdown, - - senile purpura on upper extremities Psych/Mental Status: Normal Affect, Appropriate Vitals/I&O's: Vital Signs Temp Pulse Resp BP Pulse Ox 97.9 F 87 18 130/48 H 99 04/30/18 08:06 04/30/18 08:06 04/30/18 08:06 04/30/18 08:06 04/30/18 08:06 Oxygen Delivery Method Room Air Weight: 265 lb 6.985 oz Intake and Output for Last 24 Hours 04/28/18 04/29/18 04/30/18 23:59 23:59 23:59 Intake Total 1960 / 2200 1230 / 1230 Output Total 550 / 950 590 / 590 Balance 1410 / 1250 640 / 640 Laboratory Results 04/29/18 14:25: Blood Type B POSITIVE, Antibody Screen NEGATIVE, Crossmatch See Detail 04/30/18 05:32: WBC 7.3, RBC 3.30 L, Hgb 9.0 L, Hct 29.7 L, MCV 90.0, MCH 27.3, MCHC 30.3 L, RDW 17.8 H, RDW Differential 58.0 H, Plt Count 174, MPV 9.5, Immature Gran % (Auto) 1.100 H, Neut % (Auto) 86.8 H, Lymph % (Auto) 5.5 L, [place] % (Auto) 6.5, Eos % (Auto) 0.0, Baso % (Auto) 0.1, Absolute Neuts (auto) 6.3, Absolute Lymphs (auto) 0.40 L, Total Counted Not Reportable 04/30/18 05:32: Sodium 141, Potassium 3.8, Chloride 105, Carbon Dioxide 24.0, Anion Gap 12, BUN 47 H, Creatinine 2.67 H, Estim Creat Clear Calc 22.69, Est GFR (MDRD) Af Amer 30 L, Est GFR (MDRD) Non-Af 25 L, BUN/Creatinine Ratio 17.6, Glucose 85, Calcium 8.7 Current Medications Acetaminophen (Tylenol) 1,000 mg PO Q8H PRN PRN PRN Reason: MILD PAIN (-11/10) Albuterol/Ipratropium (Duoneb) 3 ml INHALATION Q4HWA.RT [facility] Last Admin: 04/30/18 07:20 Dose: Not Given [facility] ([facility]) [facility] Last Admin: 04/30/18 08:12 Dose: 200 mg Aspirin (Aspirin, Baby) 81 mg PO DAILY@0800 [facility] Last Admin: 04/30/18 08:10 Dose: 81 mg Atorvastatin Calcium (Lipitor) 40 mg PO QHS [facility] Last Admin: 04/29/18 20:37 Dose: 40 mg Calamine/Phenol (Calmoseptine Ointment) 1 applic TOPICAL 1000,2200 [facility] PRN Reason: Protocol Last Admin: 04/30/18 08:12 Dose: 1 applicatio Carvedilol (Coreg) 25 mg PO BID [facility] Last Admin: 04/30/18 08:12 Dose: 25 mg Clopidogrel Bisulfate (Plavix) 75 mg PO DAILY [facility] Last Admin: 04/30/18 08:14 Dose: 75 mg Enoxaparin Sodium (Lovenox) 30 mg SC DAILY@0600 [facility] Last Admin: 04/30/18 06:20 Dose: 30 mg Furosemide (Lasix) 40 mg PO BID@1000,1800 [facility] Last Admin: 04/30/18 08:13 Dose: 40 mg Hydroxychloroquine Sulfate (Plaquenil) [facility] Last Admin: 04/30/18 08:11 Dose: 200 mg Ceftriaxone Sodium (Rocephin) 1 gm in 50 mls @ 100 mls/hr IV Q24 [facility] Last Admin: 04/30/18 08:18 Dose: 100 mls/hr Isosorbide Mononitrate (Imdur) 30 mg PO DAILY [facility] Last Admin: 04/30/18 08:13 Dose: 30 mg Leflunomide (Leflunomide) 5 mg PO DAILY [facility] Last Admin: 04/30/18 08:13 Dose: 5 mg Magnesium Hydroxide (Milk Of Magnesia) 30 ml PO DAILY PRN PRN PRN Reason: Constipation Multivitamins (Multivitamin) [facility] Last Admin: 04/30/18 08:11 Dose: 1 tablet Nitroglycerin (Nitrostat) 0.4 mg SUBLINGUAL Q5M PRN PRN Reason: CHEST PAIN Nutritional Formula (Lactose Free) (Ensure Enlive) 120 ml PO 4X/DAY [facility] Last Admin: 04/30/18 08:12 Dose: 120 ml Nystatin (Mycostatin Powder) 1 applic TOPICAL 1000,2200 [facility] PRN Reason: Protocol Last Admin: 04/30/18 08:13 Dose: 1 applicatio Pantoprazole Sodium (Protonix) 40 mg PO DAILY [facility] Last Admin: 04/30/18 08:14 Dose: 40 mg Polysaccharide Iron Complex (Ferrex 150) 150 mg PO TID [facility] Last Admin: 04/30/18 06:20 Dose: 150 mg Potassium Chloride (K-Dur) [facility] Last Admin: 04/30/18 08:10 Dose: 20 meq Prednisone () 7.[facility] Last Admin: 04/30/18 08:11 Dose: 7.5 mg Psyllium Hydrophilic Mucilloid (Metamucil) 1 packet PO DAILY PRN PRN PRN Reason: CONSTIPATION Ranolazine (Ranexa) 500 mg PO BID [facility] Last Admin: 04/30/18 08:14 Dose: 500 mg Senna/Docusate Sodium (Senokot-S, Isa-Colace) 2 tablet PO BID PRN PRN Reason: Constipation Sodium Chloride () 5 - 30 ml IV UD PRN PRN Reason: SALINE FLUSH Last Admin: 04/29/18 17:21 Dose: 10 ml Medical Necessity - Tobacco Use Smoking Status: Never smoker Assessment/Plan All Active Problems (Last Reviewed 04/14/18 @ 16:56 by Pancho Peterson DO) Acute on chronic diastolic heart failure (Acute) Gait incoordination (Acute) Generalized weakness (Acute) NSTEMI (non-ST elevated myocardial infarction) (Acute) Pain in right toe(s) (Acute) Tinea unguium (Acute) Ingrown toenail (Acute) Anemia of chronic renal failure, stage 4 (severe) (Acute) Edema (Acute) Weakness (Acute) Debility (Acute) 1. Inability to ambulate and perform ADLs/Weakness and fatigue - PT/OT is recommending SNF for therapy - Insurance denied SNF stay because he managed to walk slightly better yesterday - Some of his weakness and fatigue is from the anemia but also the UTI 2. Recent NSTEMI/CAD/Sarcoidosis/HLD - States that he has arteries that are 80-100% blocked, too high risk for CABG - He is on optimal medical therapy with ASA, statin, coreg and plavix 3. Chronic CKD4/HTN/Anemia of chronic disease - stable - will continue to monitor, he continues to make urine - Has received both EPO and iron infusions in the past - Hi does take iron replacement and he continues to refuse an colonoscopy 4. UTI - He had foul smelling urine yesterday - UA shows a UTI culture is pending - Started on rocephin, wait for cx sensitivities prior to DC DVT: SCDs Diet: Cardiac Code: DNR Code Visit Inpatient E&M: 63604 Subs Hosp L2
[2018-04-30] MEDS: Atorvastatin Calcium 40 MG Tablet PO (21:55)
[2018-05-01 00:58] VITALS: PULSE 91
[2018-05-01 04:00] VITALS: BP 107/58; PULSE 78; RESP 16; TEMP 36.4; O2SAT 97
[2018-05-01 06:36] LABS: Anion Gap 11 (5-15); BUN 57 mg/dL (7-18); BUN/Creat Ratio 23.2 RATIO (10-20); Calcium,Total 8.8 mg/dL (8.5-10.1); Chloride 103 mmol/L (98-107); Creatinine, Serum 2.46 mg/dL (0.70-1.30); EST Glomerular Filtration Rate 27 mL/min (>60); Est Glom Filt Rate - Afr Amer 33 mL/min (>60); Estimated Creatinine Clearance 24.63 ml/min; Glucose 88 mg/dL (74-106); Potassium 3.7 mmol/L (3.5-5.1); Sodium Level 141 mmol/L (136-145)
[2018-05-01] MEDS: Iron Polysaccharide Complex 150 MG CAPSULE PO ×2 (06:38→13:41)
[2018-05-01 07:02] LABS: Absolute Lymphocyte Count 0.41 X10^3/ul (0.83-4.51); Absolute Neutrophil Count 5.2 X10^3/uL (2.0-7.7); Basophil# 0.02 X10^3/uL; Basophil% 0.3 % (0-1); Hematocrit 28.3 % (40-54); Hemoglobin 8.5 g/dl (13.0-16.5); Lymphocyte # 0.41 X10^3/ul (4.0); Lymphocyte % 6.7 % (19-41); Mean Corpuscular Hgb 26.9 pg (27.0-32.0); Mean Corpuscular Volume 89.6 fL (80-94); Monocyte# 0.47 X10^3/uL; Monocyte% 7.7 % (0-10); Neutrophil # 5.19 X10^3/uL (2.7-7.7); Neutrophil % 84.6 % (47-70); Platelet Count 199 K/mm3 (150-450); RBC Distribution Width CV 18.1 % (11.6-14.6); RBC Distribution Width SD 59.2 fl (35.1-43.9); Red Blood Count 3.16 M/mm3 (4.6-6.2); White Blood Count 6.1 K/mm3 (4.4-11.0)
[2018-05-01 07:04] LABS: Differential Indicated SCAN CRITERIA MET; POSITIVE COUNT NO; POSITIVE DIFFERENTIAL YES; POSITIVE MORPHOLOGY NO
[2018-05-01 07:43] VITALS: BP 131/59; PULSE 82; RESP 16; TEMP 36.3; O2SAT 98
[2018-05-01] MEDS: Clopidogrel Bisulfate 75 MG Tablet PO (07:44)
[2018-05-01] MEDS: predniSONE 5 MG Tablet 7.5 MG PO (07:44)
[2018-05-01] MEDS: Pantoprazole Sodium 40 MG Tablet PO (07:47)
[2018-05-01] MEDS: Hydroxychloroquine 200 MG Tablet PO (07:47)
[2018-05-01] MEDS: Furosemide 40 MG Tablet PO (07:47)
[2018-05-01] MEDS: Ranolazine 500 MG Tablet PO (07:47)
[2018-05-01] MEDS: Multivitamins,Therapeutic Tablet 1 TABLET PO (07:47)
[2018-05-01] MEDS: Leflunomide 10 MG TABLET 5 MG PO (07:47)
[2018-05-01] MEDS: Carvedilol 25 MG Tablet PO (07:48)
[2018-05-01] MEDS: Menthol/Lanolin/Calamine/Znox 113 GM Tube 1 APPLIC TOPICAL (07:48)
[2018-05-01] MEDS: Allopurinol 100 MG Tablet 200 MG PO (07:48)
[2018-05-01] MEDS: Aspirin 81 MG TAB.CHEW PO (07:48)
[2018-05-01] MEDS: Nystatin Powder 15gm Bottle 1 APPLIC TOPICAL (07:49)
[2018-05-01] MEDS: Isosorbide Mononitrate 30 MG Tablet PO (07:50)
[2018-05-01] MEDS: Ceftriaxone 1 GM/50 ML BAG IV (10:17)
[2018-05-01] MEDS: 0.9% NaCl Peripheral Flush Adult/Peds IV (10:19)
[2018-05-01 10:29] VITALS: PULSE 94
[2018-05-01 13:39] VITALS: BP 109/64; PULSE 83; RESP 16; TEMP 36.7; O2SAT 100
--- NOTE | 2018-05-01 13:46 | CASEMGMT ---
Social Work Note GIBSON received call from pt's Carolann stating that she would like a script for outpatient therapy. GIBSON completed script for outpatient therapy and Dr. Hernández signed script. GIBSON placed script on chart. GIBSON explained to Carolann that if pt is unable to do outpatient therapy then they can talk to pt's PCP about getting HHC. Carolann states understanding. Plan: Pt to discharge home with outpatient therapy Stephanie Cintron MECHANICAL CAR CHECKER, WASTE AND BATTING WASTE CHOPPER
[2018-05-01 13:53] VITALS: PULSE 82
--- NOTE | 2018-05-01 14:53 | PCM.DC ---
- Discharge Diagnoses Current Active Problems: Current Active and Chronic Problems (Last Reviewed 04/14/18 @ 16:56 by Pancho Peterson DO) Gait incoordination (Acute) Generalized weakness (Acute) Allergies/Adverse Reactions: Allergies Influenza Virus Vaccines Allergy (Verified 04/26/18 01:36) CAN'T BREATHE Latex, Natural Rubber Allergy (Verified 04/26/18 01:36) Rash Penicillins Allergy (Verified 04/26/18 01:36) CAN'T BREATHE Sulfa (Sulfonamide Antibiotics) Allergy (Verified 04/26/18 01:36) Rash PEPPERS Allergy (Uncoded 04/26/18 01:36) Anaphylaxis Medications to take at Discharge Aspirin [Aspirin, Baby] 81 mg PO DAILY@0800 09/10/16 Carvedilol [Coreg (Beta Trevor)] 25 mg PO BID 09/10/16 Multivitamin [Daily Multiple Vitamin] 1 ea PO DAILY 09/10/16 Hydroxychloroquine [Plaquenil] 200 mg PO BIDCM 12/29/16 Pantoprazole Sodium [Protonix] 40 mg PO DAILY 12/29/16 Allopurinol 200 mg PO DAILY 07/14/17 Iron Polysaccharide Complex [Ferrex 150] 150 mg PO TID #90 07/23/17 leflunomide 10 mg tablet 5 mg PO DAILY 08/16/17 Prednisone 7.5 mg PO DAILY 01/25/18 Furosemide [Lasix] 40 mg PO BID@1000,1800 04/17/18 Acetaminophen [Tylenol] 1,000 mg PO Q8H PRN PRN tablet 04/23/18 Atorvastatin Calcium [Lipitor] 40 mg PO QHS #30 tab 04/23/18 Clopidogrel Bisulfate [Plavix] 75 mg PO DAILY #30 tab 04/23/18 Isosorbide Mononitrate [Imdur] 30 mg PO DAILY #30 tab 04/23/18 Menthol/Lanolin/Calamine/Znox [Calmoseptine Ointment] 1 applic TOPICAL 0600,2200 tube 04/23/18 Nitroglycerin [Nitrostat] 0.4 mg SUBLINGUAL Q5M PRN #30 tab 04/23/18 Nystatin Powder [Mycostatin Powder] 1 applic TOPICAL 0600,2200 bottle 04/23/18 Potassium Chloride [K-Dur] 20 meq PO TIDCM #90 tab 04/23/18 Ranolazine [Ranexa] 500 mg PO BID #60 tab 04/23/18 Please follow up with your Primary Care Physician in: 1-2 weeks Test Results: Test results from this visit will be discussed in further detail at your follow-up appointment, if applicable. Please Follow Up With: outpatient PT/OT Proposed Discharge Date: 05/01/18
--- NOTE | 2018-05-01 15:21 | PCM.DC ---
- Discharge Diagnoses Current Active Problems: Current Active and Chronic Problems (Last Reviewed 04/14/18 @ 16:56 by Pancho Peterson DO) Gait incoordination (Acute) Generalized weakness (Acute) You will use the following diet at home:: No restrictions Your food should be the consistency of: Regular Discharge Activity: Return to Normal Activity Allergies/Adverse Reactions: Allergies Influenza Virus Vaccines Allergy (Verified 04/26/18 01:36) CAN'T BREATHE Latex, Natural Rubber Allergy (Verified 04/26/18 01:36) Rash Penicillins Allergy (Verified 04/26/18 01:36) CAN'T BREATHE Sulfa (Sulfonamide Antibiotics) Allergy (Verified 04/26/18 01:36) Rash PEPPERS Allergy (Uncoded 04/26/18 01:36) Anaphylaxis Medications to take at Discharge Aspirin [Aspirin, Baby] 81 mg PO DAILY@0800 09/10/16 Carvedilol [Coreg (Beta Trevor)] 25 mg PO BID 09/10/16 Multivitamin [Daily Multiple Vitamin] 1 ea PO DAILY 09/10/16 Hydroxychloroquine [Plaquenil] 200 mg PO BIDCM 12/29/16 Pantoprazole Sodium [Protonix] 40 mg PO DAILY 12/29/16 Allopurinol 200 mg PO DAILY 07/14/17 Iron Polysaccharide Complex [Ferrex 150] 150 mg PO TID #90 07/23/17 leflunomide 10 mg tablet 5 mg PO DAILY 08/16/17 Prednisone 7.5 mg PO DAILY 01/25/18 Furosemide [Lasix] 40 mg PO BID@1000,1800 04/17/18 Acetaminophen [Tylenol] 1,000 mg PO Q8H PRN PRN tablet 04/23/18 Atorvastatin Calcium [Lipitor] 40 mg PO QHS #30 tab 04/23/18 Clopidogrel Bisulfate [Plavix] 75 mg PO DAILY #30 tab 04/23/18 Isosorbide Mononitrate [Imdur] 30 mg PO DAILY #30 tab 04/23/18 Menthol/Lanolin/Calamine/Znox [Calmoseptine Ointment] 1 applic TOPICAL 0600,2200 tube 04/23/18 Nitroglycerin [Nitrostat] 0.4 mg SUBLINGUAL Q5M PRN #30 tab 04/23/18 Nystatin Powder [Mycostatin Powder] 1 applic TOPICAL 0600,2200 bottle 08/21/18 Potassium Chloride [K-Dur] 20 meq PO TIDCM #90 tab 04/23/18 Ranolazine [Ranexa] 500 mg PO BID #60 tab 04/23/18 Primary Care Physician: Vaughn Armenta III, MD [Primary Care Provider] - In 1 Week Test Results: Test results from this visit will be discussed in further detail at your follow-up appointment, if applicable.
--- NOTE | 2018-05-01 15:25 | PCM.DC.SUM ---
Discharge Date and Diagnosis - Problem List Patient Problems: Active and Suspected Problems (Last Reviewed 04/14/18 @ 16:56 by Pancho Peterson DO) Gait incoordination (Acute) Generalized weakness (Acute) Date of Admission: 04/26/18 Date of Discharge: 05/01/18 - Primary Discharge Diagnosis Active and Suspected Problems (Last Reviewed 04/14/18 @ 16:56 by Pancho Peterson DO) Gait incoordination (Acute) Generalized weakness (Acute) - Secondary Discharge Diagnosis Chronic Problems (Last Reviewed 04/14/18 @ 16:56 by Pancho Peterson DO) NSTEMI (non-ST elevated myocardial infarction) (Chronic) CHF (congestive heart failure) (Chronic) Allergic rhinitis due to [place] house dust mite (Chronic) History of left heart catheterization (Chronic) 04/05/2016 @ [facility] per Dr. العراقي and 01/01/2017 @ [facility] per Dr. Kam Dyspnea (Chronic) Acute respiratory failure with hypoxia (Chronic) Hypercalcemia (Chronic) Body mass index (BMI) of 40.0-44.9 in adult (Chronic) Chronic diastolic (congestive) heart failure (Chronic) Bilateral leg edema (Chronic) Hypersomnia (Chronic) Chronic kidney disease (Chronic) Hyperlipemia, mixed (Chronic) Diastolic dysfunction (Chronic) Atherosclerosis of [place] coronary artery of [place] heart without angina pectoris (Chronic) Polyarthropathy (Chronic) Morbid obesity (Chronic) Sarcoidosis (Chronic) Cardiomyopathy (Chronic) Iron deficiency anemia (Chronic) Constipation (Chronic) 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 Admitted on account of weakness and failure to thrive and difficulty with gait Was seen by PT/OT and this has improved Patient denied SNF placement as functional disability was not that severe Seen today and is stable. [] Discharge Activity: Return to Normal Activity Home Medications: Medications to take at Discharge Aspirin [Aspirin, Baby] 81 mg PO DAILY@0800 09/10/16 Carvedilol [Coreg (Beta Trevor)] 25 mg PO BID 09/10/16 Multivitamin [Daily Multiple Vitamin] 1 ea PO DAILY 09/10/16 Hydroxychloroquine [Plaquenil] 200 mg PO BIDCM 12/29/16 Pantoprazole Sodium [Protonix] 40 mg PO DAILY 12/29/16 Allopurinol 200 mg PO DAILY 07/14/17 Iron Polysaccharide Complex [Ferrex 150] 150 mg PO TID #90 07/23/17 leflunomide 10 mg tablet 5 mg PO DAILY 08/16/17 Prednisone 7.5 mg PO DAILY 01/25/18 Furosemide [Lasix] 40 mg PO BID@1000,1800 04/17/18 Acetaminophen [Tylenol] 1,000 mg PO Q8H PRN PRN tablet 04/23/18 Atorvastatin Calcium [Lipitor] 40 mg PO QHS #30 tab 04/23/18 Clopidogrel Bisulfate [Plavix] 75 mg PO DAILY #30 tab 04/23/18 Isosorbide Mononitrate [Imdur] 30 mg PO DAILY #30 tab 04/23/18 Menthol/Lanolin/Calamine/Znox [Calmoseptine Ointment] 1 applic TOPICAL 0600,2200 tube 04/23/18 Nitroglycerin [Nitrostat] 0.4 mg SUBLINGUAL Q5M PRN #30 tab 04/23/18 Nystatin Powder [Mycostatin Powder] 1 applic TOPICAL 0600,2200 bottle 04/23/18 Potassium Chloride [K-Dur] 20 meq PO TIDCM #90 tab 04/23/18 Ranolazine [Ranexa] 500 mg PO BID #60 tab 04/23/18 Primary Care Physician: Vaughn Armenta III, MD [Primary Care Provider] - In 1 Week Medical Necessity - Tobacco Use Smoking Status: Never smoker Meaningful Use Info Meaningful Use Diagnoses (Choose all that apply): None applicable Code Visit Inpatient E&M: 89511 Disch Hosp
== END 2018-05-01 16:37 | disposition home or self-care (01) | DRG 947 ==
LOC: MS3 05-01 07:34 → ED 05-01 15:26 → MS3 10-16 15:46
PROVIDERS: Family Medicine; Internal Medicine; Admitting Provider Internal Medicine; Emergency Provider Emergency Medicine; Family Provider Family Medicine; PCP Family Medicine; Visit Provider Internal Medicine
DX: R53.1 Weakness (principal); I50.33 Acute on chronic diastolic (congestive) heart failure; Z68.41 Body mass index [BMI] 40.0-44.9, adult; I13.0 Hypertensive heart and chronic kidney disease with heart failure and stage 1 through stage 4 chronic kidney disease, or unspecified chronic kidney disease; N18.4 Chronic kidney disease, stage 4 (severe); R27.8 Other lack of coordination; E78.5 Hyperlipidemia, unspecified; E66.01 Morbid (severe) obesity due to excess calories; K21.9 Gastro-esophageal reflux disease without esophagitis; I25.10 Atherosclerotic heart disease of native coronary artery without angina pectoris; D50.9 Iron deficiency anemia, unspecified; M13.879 Other specified arthritis, unspecified ankle and foot; R62.7 Adult failure to thrive; G47.33 Obstructive sleep apnea (adult) (pediatric); D63.1 Anemia in chronic kidney disease; I25.2 Old myocardial infarction; Z71.3 Dietary counseling and surveillance; Z79.82 Long term (current) use of aspirin; Z79.02 Long term (current) use of antithrombotics/antiplatelets; Z79.899 Other long term (current) drug therapy; Z79.52 Long term (current) use of systemic steroids; Z95.1 Presence of aortocoronary bypass graft
CPT/HCPCS: 36415; 36430; 71045; 80048; 81001; 84484; 85025; 86850; 86900; 86920; 86922; 87086; 87088; 87186; 93005; 96361; 96365; 96366; 96372; 97110; 97116; 97162; 97166; 97530; 97535; 97802; 99218; 99285; J7030; J7040; P9016; A4216; G0378

== ENCOUNTER → 2018-05-03 12:41 | Outpatient (CLI) | payer MEDICARE, SELFPAY ==
[2018-05-03 13:30] LABS: Hematocrit 27.6 % (40-54); Hemoglobin 8.4 g/dl (13.0-16.5); Mean Corp Hgb Conc 30.4 g/gl (32-36); Mean Corpuscular Hgb 27.9 pg (27.0-32.0); Mean Corpuscular Volume 91.7 fL (80-94); Mean Platelet Vol. 10.3 fl (6.2-12.0); Platelet Count 207 K/mm3 (150-450); RBC Distribution Width CV 18.3 % (11.6-14.6); RBC Distribution Width SD 58.6 fl (35.1-43.9); Red Blood Count 3.01 M/mm3 (4.6-6.2); White Blood Count 5.4 K/mm3 (4.4-11.0)
[2018-05-03 13:33] LABS: Scan Indicated on CBC? Y/N NO
[2018-05-03 13:45] VITALS: BP 131/56; PULSE 81; RESP 18; TEMP 36.3; O2SAT 98; BMI 41.5
== END ==
PROVIDERS: Family Provider Family Medicine; PCP Family Medicine; Visit Provider Internal Medicine Nephrology
DX: N18.4 Chronic kidney disease, stage 4 (severe) (principal); D63.1 Anemia in chronic kidney disease
CPT/HCPCS: 36415; 85027; 96372; J0885

== ENCOUNTER 2018-05-07 09:17 | Inpatient (IN) | payer MEDICARE, SELFPAY ==
[2018-05-07] VITALS (14 sets, daily range): BP systolic 105–121; BP diastolic 44–73; PULSE 70–82; RESP 12–24; TEMP 36.4–36.9; O2SAT 96–100; BMI 41.5; BMI 42.2
--- NOTE | 2018-05-07 09:47 | ED.VISSUMM ---
- ER Visit Summary Date of Service: 05/07/18 Chief Complaint: Weakness History of Present Illness: The patient is a 72 M who presents with weakness. He was recently discharged from the hospital where he was found to be anemic. He has a complicated medical history with end-stage renal disease, chronic anemia, as well as coronary artery disease which is not amenable to PTCA, he was evaluated at [facility] for this. He normally is able to get around with a walker today he felt more weak and is not able to ambulate quite as well. He has some nausea. He has no chest pain shortness of breath. He has no abdominal pain. Physical Examination: Patient appears chronically ill but not toxic he is obese Heart is regular in, lungs are coarse bilaterally abdomen is soft obese but nontender, he does have ecchymoses from prior heparin injections. He has bilateral pitting edema. His mucous membranes are slightly dry. Emergency Department Course and Treatment: Patient is found to be anemic at 6.9, he is weak. He meets criteria for transfusion. I am wondering if he also may have a GI bleed since he is on Plavix. Regardless patient will be admitted. Disposition: Admit to the hospital Impression: Acute anemia This note was generated with [employer] dictation software. It may contain incorrect words, spelling, and punctuation that were not noted in review of the chart prior to signing ED Disposition - Plan for ED Patient: Chief Complaint: Weakness Referrals: Vaughn Armenta III, MD [Primary Care Provider] -
--- NOTE | 2018-05-07 09:50 | ED.DCSUM_ITS ---
- ER Visit Summary Date of Service: 05/07/18 Chief Complaint: Weakness History of Present Illness: The patient is a 72 M who presents with weakness. He was recently discharged from the hospital where he was found to be anemic. He has a complicated medical history with end-stage renal disease, chronic anemia, as well as coronary artery disease which is not amenable to PTCA, he was evaluated at [facility] for this. He normally is able to get around with a walker today he felt more weak and is not able to ambulate quite as well. He has some nausea. He has no chest pain shortness of breath. He has no abdominal pain. Physical Examination: Patient appears chronically ill but not toxic he is obese Heart is regular in, lungs are coarse bilaterally abdomen is soft obese but nontender, he does have ecchymoses from prior heparin injections. He has bilateral pitting edema. His mucous membranes are slightly dry. Emergency Department Course and Treatment: Patient is found to be anemic at 6.9 , he is weak. He meets criteria for transfusion. I am wondering if he also may have a GI bleed since he is on Plavix. Regardless patient will be admitted. Disposition: Admit to the hospital Impression: Acute anemia This note was generated with [employer] dictation software. It may contain incorrect words, spelling, and punctuation that were not noted in review of the chart prior to signing ED Disposition - Plan for ED Patient: Chief Complaint: Weakness Referrals: Vaughn Armenta III, MD [Primary Care Provider] -
[2018-05-07 10:27] LABS: Absolute Lymphocyte Count 0.37 X10^3/ul (0.83-4.51); Absolute Neutrophil Count 6.7 X10^3/uL (2.0-7.7); Basophil# 0.02 X10^3/uL; Basophil% 0.3 % (0-1); Differential Indicated SCAN CRITERIA MET; Hematocrit 23.3 % (40-54); Hemoglobin 6.9 g/dl (13.0-16.5); Lymphocyte # 0.37 X10^3/ul (4.0); Lymphocyte % 4.9 % (19-41); Mean Corp Hgb Conc 29.6 g/gl (32-36); Mean Corpuscular Hgb 27.2 pg (27.0-32.0); Mean Corpuscular Volume 91.7 fL (80-94); Mean Platelet Vol. 9.8 fl (6.2-12.0); Monocyte# 0.39 X10^3/uL; Monocyte% 5.2 % (0-10); Neutrophil # 6.72 X10^3/uL (2.7-7.7); Neutrophil % 88.7 % (47-70); POSITIVE COUNT NO; POSITIVE DIFFERENTIAL YES; POSITIVE MORPHOLOGY NO; Platelet Count 194 K/mm3 (150-450); RBC Distribution Width CV 18.2 % (11.6-14.6); RBC Distribution Width SD 58.6 fl (35.1-43.9); Red Blood Count 2.54 M/mm3 (4.6-6.2); White Blood Count 7.6 K/mm3 (4.4-11.0)
[2018-05-07 10:38] LABS: ALB/GLOB Ratio 0.9 RATIO (0.9-2.4); AST(SGOT) 22 U/L (15-37); Alanine Aminotransfer ALT/SGPT 38 U/L (16-61); Alkaline Phosphatase 75 U/L (45-117); Anion Gap 10 (5-15); BUN 54 mg/dL (7-18); BUN/Creat Ratio 19.4 RATIO (10-20); Calcium,Total 8.7 mg/dL (8.5-10.1); Chloride 103 mmol/L (98-107); Creatinine, Serum 2.78 mg/dL (0.70-1.30); EST Glomerular Filtration Rate 24 mL/min (>60); Est Glom Filt Rate - Afr Amer 29 mL/min (>60); Globulin 3.4 g/dL (2.2-4.2); Glucose 117 mg/dL (74-106); Potassium 4.7 mmol/L (3.5-5.1); Protein, Total 6.4 g/dL (6.4-8.2); Sodium Level 141 mmol/L (136-145)
[2018-05-07 10:50] LABS: Anisocytosis 1+; Hypochromasia 1+
[2018-05-07 10:52] LABS: Bacteria 0 SEEN /hpf (None Seen); Mucous, Urine 0 SEEN /hpf (<or=2+); Red Blood Cells-Urine 0 SEEN /hpf (0-5); Squamous Epithelial Cells - UA 0 SEEN /hpf (0-5)
[2018-05-07 11:00] LABS: Color, Urine Yellow (Yellow); Glucose, Dipstick Normal (Normal); Ketone-Dipstick Negative (Negative); Leukocyte Esterase-Dipstick 100 /ul (Negative); Nitrite-Dipstick Negative (Negative); Occult Blood-Urine Negative /ul (Negative); Protein-Dipstick 15 mg/dl (Negative); Specific Gravity, Urine 1.015 (1.002-1.030); Urine Bilirubin Dipstick Negative (Negative); Urine Clarity Sl. Cloudy (Clear); Urine Urobilinogen Normal (Normal)
[2018-05-07 11:08] LABS: White Blood Cells 0-5 SEEN /hpf (0-5)
--- NOTE | 2018-05-07 14:47 | PCM.HP.STD ---
Problem List (1) Acute blood loss anemia Status: Acute (2) Heart failure with preserved ejection fraction Status: Acute History of Present Illness Date of Admission: 05/07/18 Chief Complaint: weakness The patient is a 72 year old M who has been progressively feeling weak since his recent discharge. Patient states that he just feels very weak and wiped out with short trips of ambulation. Patient said that when he was discharge he is actually feeling pretty well and was actually declined for assisted facility by his insurance company. Patient did have a transfusion last week and his hemoglobin has dropped to 6.9. Patient states that his symptoms are similar to when his hemoglobin gets into the sub-7 range. Patient was ordered a unit of blood which he is currently being transfused at this time. Patient also does complain of increasing orthopnea which has gotten worse over the past few days. He states that his weight is seen at the same but he has had increased lower extremity. [] Past Medical History Past Medical History (Chronic Problems): Chronic Problems (Last Reviewed 04/14/18 @ 16:56 by Pancho Peterson DO) NSTEMI (non-ST elevated myocardial infarction) (Chronic) CHF (congestive heart failure) (Chronic) Allergic rhinitis due to [place] house dust mite (Chronic) History of left heart catheterization (Chronic) 04/05/2016 @ [facility] [place] per Dr. العراقي and 01/01/[address] [facility] per Dr. Kam Dyspnea (Chronic) Acute respiratory failure with hypoxia (Chronic) Hypercalcemia (Chronic) Body mass index (BMI) of 40.0-44.9 in adult (Chronic) Chronic diastolic (congestive) heart failure (Chronic) Bilateral leg edema (Chronic) Hypersomnia (Chronic) Chronic kidney disease (Chronic) Hyperlipemia, mixed (Chronic) Diastolic dysfunction (Chronic) Atherosclerosis of [place] coronary artery of [place] heart without angina pectoris (Chronic) Polyarthropathy (Chronic) Morbid obesity (Chronic) Sarcoidosis (Chronic) Cardiomyopathy (Chronic) Iron deficiency anemia (Chronic) Constipation (Chronic) 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 Gout (Chronic) Morbid obesity with BMI of 40.0-44.9, adult (Chronic) GERD (gastroesophageal reflux disease) (Chronic) Allergic rhinitis (Chronic) Hypertension (Chronic) Nephrolithiasis (Chronic) Renal cyst (Chronic) Splenomegaly (Chronic) Coronary artery disease (Chronic) CKD (chronic kidney disease) stage 4, GFR 15-29 ml/min (Chronic) Polyarthropathy of ankle and foot (Chronic) Medical History: Medical History (Last Reviewed 05/07/18 @ 14:50 by Pancho Peterson DO) Dyspnea (Chronic) R06.00 Acute respiratory failure with hypoxia (Chronic) J96.01 Hypercalcemia (Chronic) E83.52 Body mass index (BMI) of 40.0-44.9 in adult (Chronic) Z68.41 Chronic diastolic (congestive) heart failure (Chronic) I50.32 Bilateral leg edema (Chronic) R60.0 Hypersomnia (Chronic) G47.10 Chronic kidney disease (Chronic) N18.9 Hyperlipemia, mixed (Chronic) E78.2 Diastolic dysfunction (Chronic) I51.9 Atherosclerosis of [place] coronary artery of [place] heart without angina pectoris (Chronic) I25.10 NSTEMI (non-ST elevated myocardial infarction) (Acute) I21.4 Pain in right toe(s) (Acute) M79.674 Tinea unguium (Acute) B35.1 Ingrown toenail (Acute) L60.0 Anemia of chronic renal failure, stage 4 (severe) (Acute) N18.4, D63.1 Polyarthropathy (Chronic) M13.0 Edema (Acute) R60.9 Weakness (Acute) R53.1 Morbid obesity (Chronic) E66.01 Sarcoidosis (Chronic) D86.9 Debility (Acute) R53.81 Cardiomyopathy (Chronic) I42.9 Iron deficiency anemia (Chronic) D50.9 Constipation (Chronic) K59.00 Sarcoidosis of lung (Chronic) D86.0 diagnosed in 2011 on a lung biopsy Gout (Chronic) M10.9 Morbid obesity with BMI of 40.0-44.9, adult (Chronic) E66.01, Z68.41 GERD (gastroesophageal reflux disease) (Chronic) K21.9 Allergic rhinitis (Chronic) J30.9 Hypertension (Chronic) I10 Nephrolithiasis (Chronic) Renal cyst (Chronic) N28.1 Splenomegaly (Chronic) R16.1 Coronary artery disease (Chronic) I25.10 CKD (chronic kidney disease) stage 4, GFR 15-29 ml/min (Chronic) N18.4 Polyarthropathy of ankle and foot (Chronic) M13.0 Allergies Influenza Virus Vaccines Allergy (Verified 05/07/18 09:24) CAN'T BREATHE Latex, Natural Rubber Allergy (Verified 05/07/18 09:24) Rash Penicillins Allergy (Verified 05/07/18 09:24) CAN'T BREATHE Sulfa (Sulfonamide Antibiotics) Allergy (Verified 05/07/18 09:24) Rash PEPPERS Allergy (Uncoded 05/07/18 09:24) Anaphylaxis Home Medications: Ambulatory Orders Medication Instructions Recorded Aspirin [Aspirin, Baby] 81 mg PO DAILY@0800 09/10/16 Carvedilol [Coreg (Beta Trevor)] 25 mg PO BID 09/10/16 Multivitamin [Daily Multiple 1 ea PO DAILY 09/10/16 Vitamin] Hydroxychloroquine [Plaquenil] 200 mg PO BIDCM 12/29/16 Pantoprazole Sodium [Protonix] 40 mg PO DAILY 12/29/16 Allopurinol 200 mg PO DAILY 07/14/17 Iron Polysaccharide Complex 150 mg PO TID #90 07/23/17 [Ferrex 150] leflunomide 10 mg tablet 5 mg PO DAILY 08/16/17 Prednisone 7.5 mg PO DAILY 01/25/18 Furosemide [Lasix] 40 mg PO BID@1000,1800 04/17/18 Acetaminophen [Tylenol] 1,000 mg PO Q8H PRN PRN tablet 04/23/18 Clopidogrel Bisulfate [Plavix] 75 mg PO DAILY #30 tab 04/23/18 Isosorbide Mononitrate [Imdur] 30 mg PO DAILY #30 tab 04/23/18 Menthol/Lanolin/Calamine/Znox 1 applic TOPICAL 0600,2200 tube 04/23/18 [Calmoseptine Ointment] Nitroglycerin [Nitrostat] 0.4 mg SUBLINGUAL Q5M PRN #30 tab 04/23/18 Nystatin Powder [Mycostatin Powder] 1 applic TOPICAL 0600,2200 bottle 04/23/18 Ranolazine [Ranexa] 500 mg PO BID #60 tab 04/23/18 Atorvastatin Calcium [Lipitor] 20 mg PO QHS 05/03/18 Potassium Chloride [K-Dur] 20 meq PO BID 05/07/18 Surgical History: Surgical History (Last Reviewed 05/07/18 @ 14:50 by Pancho Peterson DO) History of left heart catheterization (Chronic) Z98.890 04/05/2016 @ [facility] [place] per Dr. العراقي and 01/01/[address] [facility] per Dr. Kam Surgical History: no surgical history Psychiatric History: No pertinent psych hx Smoking Status: Never smoker Tobacco Use: Non-smoker Alcohol: None Drugs: None - *Family History Maternal Family History: Family History (Last Reviewed 05/07/18 @ 14:50 by Pancho Peterson DO) Father Diabetes Heart failure Sister Diabetes Mother Diabetes History Items: Diabetes, - - His mother in her 90s of old age Paternal Family History: Family History (Last Reviewed 05/07/18 @ 14:50 by Pancho Peterson DO) Father Diabetes Heart failure Sister Diabetes Mother Diabetes History Items: Diabetes, - - Father of congestive heart failure in his 80s and had diabetes mellitus Sibling Family History: Family History (Last Reviewed 05/07/18 @ 14:50 by Pancho Peterson DO) Father Diabetes Heart failure Sister Diabetes Mother Diabetes History Items: Diabetes - His sister has diabetes. Review of Systems Constitutional: Reports: Anorexia. Denies: Chills, Fever Eyes: Denies: Blurred vision, Double vision HEENT: Denies: Head Aches, Sinus Congestion, Sinus Drainage Cardiovascular: Reports: Edema, Orthopnea. Denies: Chest Pain Respiratory: Reports: Shortness of Breath, Shortness of breath upon exertion. Denies: Cough, Sputum production Gastrointestinal: Reports: Nausea. Denies: Abdominal Pain, Vomiting Genitourinary: Denies: Dysuria Musculoskeletal: Denies: Joint Pain, Joint Tenderness Skin: Denies: Rash, Wounds Neurological: Denies: Numbness, Tingling, Focal weakness Psychiatric: Denies: Anxiety, Depression Endocrine: Reports: Heat/ Cold Intolerance - Chronic cold intolerance. Denies: Change in Body Habitus Hematologic/ Lymphatic: Denies: Easy Bruising, Easy Bleeding, Hx of blood clot VTE Information - Inpt Only VTE Present on Admission: No VTE Mechan Device Prophylaxis: SCD's VTE Pharm Prophylaxis ordered?: No Patient Problems: Active and Suspected Problems (Last Reviewed 04/14/18 @ 16:56 by Pancho Peterson DO) Acute blood loss anemia (Acute) Heart failure with preserved ejection fraction (Acute) - Physical Exam General: Alert, Cooperative, No apparent distress HEENT: Atraumatic, Normocephalic Oral: Moist Mucosa, No Gingival or Mucosal Lesions/ Ulcerations Neck: No Nodes, Thyroid Normal Size and Texture Lungs: Diminished, - - Bibasilar crackles Cardiovascular: Regular rate, Regular Rhythm, Normal S1, Normal S2, No murmurs Abdomen: Bowel Sounds Present, Soft, Non Tender, Non-Distended, No Hepato-splenomegaly Extremities: No Calf Tenderness, Edema Skin: No rashes, No breakdown Musculoskeletal: No Tenderness to Palpation of Joints or Extremities, No Muscle Wasting Neurological: Neuro grossly intact, Coordination normal Psych/Mental Status: Appropriate, Flat Affect Vital Signs Temp Pulse Resp BP Pulse Ox 36.8 C 80 16 118/57 L 97 05/07/18 13:50 05/07/18 13:50 05/07/18 13:50 05/07/18 13:50 05/07/18 13:50 Oxygen Delivery Method Room Air Weight: 122.2 kg Body Mass Index (BMI) 42.2 Intake and Output for Last 24 Hours 05/05/18 05/06/18 05/07/18 23:59 23:59 23:59 Intake Total 0 / 0 Balance 0 / 0 Chest x-ray personally reviewed and shows some mild pulmonary edema Clinical Impression(s) from Imaging Studies Chest X-Ray 05/07/18 09:39 IMPRESSION: Chronic interstitial changes of the lungs bilaterally, stable compared to prior imaging. No acute cardiopulmonary process is evident. The patient has no documented CT chest at this institution. If follow-up CT of the chest is recommended for better characterization of the chronic interstitial changes in each lung. Electronically Signed: John Husain, at 13:50 EDT Tel , Service support , Laboratory Tests 05/07/18 05/07/18 05/07/18 Range/Units 10:45 10:14 10:14 WBC (4.4-11.0) K/mm3 RBC (4.6-6.2) M/mm3 Hgb (13.0-16.5) g/dl Hct (40-54) % MCV (80-94) fL MCH (27.0-32.0) pg MCHC (32-36) g/gl RDW (11.6-14.6) % RDW Differential (35.1-43.9) fl Plt Count (150-450) K/mm3 MPV (6.2-12.0) fl Immature Gran % (Auto) (0.0-0.9) % Neut % (Auto) (47-70) % Lymph % (Auto) (19-41) % [place] % (Auto) (0-10) % Eos % (Auto) (0-5) % Baso % (Auto) (0-1) % Absolute Neuts (auto) (2.0-7.7) X10^3/uL Absolute Lymphs (auto) (0.83-4.51) X10^3/ul Total Counted Hypochromasia Anisocytosis Sodium (136-145) mmol/L Potassium (3.5-5.1) mmol/L Chloride (98-107) mmol/L Carbon Dioxide (21.0-32.0) mmol/L Anion Gap (5-15) BUN (7-18) mg/dL Creatinine (0.70-1.30) mg/dL Estim Creat Clear Calc ml/min Est GFR (MDRD) Af Amer (>60) mL/min Est GFR (MDRD) Non-Af (>60) mL/min BUN/Creatinine Ratio (10-20) RATIO Glucose (74-106) mg/dL Calcium (8.5-10.1) mg/dL Total Bilirubin (0.20-1.00) mg/dL AST (15-37) U/L ALT (16-61) U/L Alkaline Phosphatase (45-117) U/L Total Protein (6.4-8.2) g/dL Albumin (3.2-5.0) g/dL Globulin (2.2-4.2) g/dL Albumin/Globulin Ratio (0.9-2.4) RATIO Urine Color Yellow (Yellow) Urine Clarity Sl. Cloudy (Clear) Urine pH 6.0 (5.0 - 8.0) Ur Specific [place] 1.015 (1.002-1.030) Urine Protein 15 H (Negative) mg/dl Urine Glucose (UA) Normal (Normal) mg/dl Urine Ketones Negative (Negative) mg/dl Urine Occult Blood Negative (Negative) /ul Urine Nitrite Negative (Negative) Urine Bilirubin Negative (Negative) mg/dL Urine Urobilinogen Normal (Normal) mg/dl Ur Leukocyte Esterase 100 H (Negative) /ul Urine RBC 0 SEEN (0-5) /hpf Urine WBC 0-5 SEEN (0-5) /hpf Ur Squamous Epith Cells 0 SEEN (0-5) /hpf Urine Bacteria 0 SEEN (None Seen) /hpf Urine Mucus 0 SEEN (<or=2+) /hpf Blood Type B POSITIVE Antibody Screen NEGATIVE Crossmatch See Detail 05/07/18 05/07/18 Range/Units 10:14 10:14 WBC 7.6 (4.4-11.0) K/mm3 RBC 2.54 L (4.6-6.2) M/mm3 Hgb 6.9 L (13.0-16.5) g/dl Hct 23.3 L (40-54) % MCV 91.7 (80-94) fL MCH 27.2 (27.0-32.0) pg MCHC 29.6 L (32-36) g/gl RDW 18.2 H (11.6-14.6) % RDW Differential 58.6 H (35.1-43.9) fl Plt Count 194 (150-450) K/mm3 MPV 9.8 (6.2-12.0) fl Immature Gran % (Auto) 0.900 (0.0-0.9) % Neut % (Auto) 88.7 H (47-70) % Lymph % (Auto) 4.9 L (19-41) % [place] % (Auto) 5.2 (0-10) % Eos % (Auto) 0.0 (0-5) % Baso % (Auto) 0.3 (0-1) % Absolute Neuts (auto) 6.7 (2.0-7.7) X10^3/uL Absolute Lymphs (auto) 0.37 L (0.83-4.51) X10^3/ul Total Counted Not Reportable Hypochromasia 1+ Anisocytosis 1+ Sodium 141 (136-145) mmol/L Potassium 4.7 (3.5-5.1) mmol/L Chloride 103 (98-107) mmol/L Carbon Dioxide 28.0 (21.0-32.0) mmol/L Anion Gap 10 (5-15) BUN 54 H (7-18) mg/dL Creatinine 2.78 H (0.70-1.30) mg/dL Estim Creat Clear Calc 21.80 ml/min Est GFR (MDRD) Af Amer 29 L (>60) mL/min Est GFR (MDRD) Non-Af 24 L (>60) mL/min BUN/Creatinine Ratio 19.4 (10-20) RATIO Glucose 117 H (74-106) mg/dL Calcium 8.7 (8.5-10.1) mg/dL Total Bilirubin 0.50 (0.20-1.00) mg/dL AST 22 (15-37) U/L ALT 38 (16-61) U/L Alkaline Phosphatase 75 (45-117) U/L Total Protein 6.4 (6.4-8.2) g/dL Albumin 3.0 L (3.2-5.0) g/dL Globulin 3.4 (2.2-4.2) g/dL Albumin/Globulin Ratio 0.9 (0.9-2.4) RATIO Urine Color (Yellow) Urine Clarity (Clear) Urine pH (5.0 - 8.0) Ur Specific [place] (1.002-1.030) Urine Protein (Negative) mg/dl Urine Glucose (UA) (Normal) mg/dl Urine Ketones (Negative) mg/dl Urine Occult Blood (Negative) /ul Urine Nitrite (Negative) Urine Bilirubin (Negative) mg/dL Urine Urobilinogen (Normal) mg/dl Ur Leukocyte Esterase (Negative) /ul Urine RBC (0-5) /hpf Urine WBC (0-5) /hpf Ur Squamous Epith Cells (0-5) /hpf Urine Bacteria (None Seen) /hpf Urine Mucus (<or=2+) /hpf Blood Type Antibody Screen Crossmatch Assessment/Plan All Active Problems (Last Reviewed 04/14/18 @ 16:56 by Pancho Peterson DO) Acute on chronic diastolic heart failure (Acute) Gait incoordination (Acute) Generalized weakness (Acute) Acute blood loss anemia (Acute) Heart failure with preserved ejection fraction (Acute) NSTEMI (non-ST elevated myocardial infarction) (Acute) Pain in right toe(s) (Acute) Tinea unguium (Acute) Ingrown toenail (Acute) Anemia of chronic renal failure, stage 4 (severe) (Acute) Edema (Acute) Weakness (Acute) Debility (Acute) 1. Acute on chronic blood loss anemia Patient is symptomatic with his hemoglobin at 6.9 Patient to be transfused 1 unit packed red blood cells Will hold off on additional transfusions and follow-up his lab work in the morning Only component is anemia of chronic disease which patient receives Epoetin but cannot rule out other source of bleeding such as from the GI tract. Certainly the aspirin and Plavix would make any bleeding source more active, however, medications were put on for coronary artery disease. I will stop the Plavix however and monitor 2. Acute heart failure with preserved ejection fraction Echocardiogram from April 15 showed an EF of 55% in stage I diastolic dysfunction Will change patient's Lasix from 40 mg orally twice daily to IV twice daily Not a candidate for an ALEXIS inhibitor nor angiotensin receptor trevor given his chronic kidney disease 3. Coronary artery disease Currently stable Not amenable to intervention Continue with aspirin and nitrate 4. Chronic kidney disease stage IV Creatinine appears to be at baseline Monitor closely 5. DVT prophylaxis with SCDs. Chemical prophylaxis contraindicated in light of the anemia at this time Advanced care planning: Spent an additional 20 minutes at site of the history and physical discussing advanced care planning. Includes touching on CPR, intubation and PEG tube's. Patient wishes to be DNR Comfort Care arrest no intubation and no feeding tubes. Did discuss with the patient also about talking with palliative care. I told patient I do not feel that he is hospice appropriate but given his multitude of medical issues that it may be helpful for symptom control and at a later point, when he is medically ready, could be transitioned over to hospice. Code Visit Inpatient E&M: 67808 Init Hosp L3 Procedures: 73720 Advncd Care Plan 30 Min
[2018-05-07] MEDS: Iron Polysaccharide Complex 150 MG CAPSULE PO ×2 (14:49→21:29)
[2018-05-07] MEDS: Hydroxychloroquine 200 MG Tablet PO (17:58)
[2018-05-07] MEDS: 0.9% NaCl Peripheral Flush Adult/Peds IV (17:59)
[2018-05-07] MEDS: Furosemide 40 MG/4 ML Vial IV (17:59)
[2018-05-07] MEDS: Carvedilol 25 MG Tablet PO (21:29)
[2018-05-07] MEDS: Atorvastatin Calcium 20 MG Tablet PO (21:29)
[2018-05-07] MEDS: Ranolazine 500 MG Tablet PO (21:30)
[2018-05-07] MEDS: Nystatin Powder 15gm Bottle 1 APPLIC TOPICAL (23:25)
--- NOTE | 2018-05-07 23:38 | EKG12_ITS ---
Test Reason : CP Blood Pressure : / mmHG Vent. Rate : 073 BPM Atrial Rate : 073 BPM P-R Int : 210 ms QRS Dur : 124 ms QT Int : 394 ms P-R-T Axes : 028 052 181 degrees QTc Int : 434 ms Sinus rhythm with 1st degree A-V block Non-specific intra-ventricular conduction delay Nonspecific ST and T wave abnormality Abnormal ECG When compared with ECG of 26-APR-2018 01:54, T wave inversion no longer evident in Inferior leads Confirmed by KINZA ANTONIO ([id number]), greeting card editor STEPHEN SANDY ([id number]) on 05/14/2018 3:14:31 PM Referred By: MJ Confirmed By:KINZA ANTONIO
[2018-05-08] VITALS (14 sets, daily range): BP systolic 109–152; BP diastolic 48–85; PULSE 73–94; RESP 14–16; TEMP 36.4–36.7; O2SAT 96–98
[2018-05-08] MEDS: Iron Polysaccharide Complex 150 MG CAPSULE PO ×3 (05:25→22:30)
[2018-05-08] MEDS: Menthol/Lanolin/Calamine/Znox 113 GM Tube 1 APPLIC TOPICAL ×2 (05:29→22:32)
[2018-05-08 06:52] LABS: Absolute Lymphocyte Count 0.59 X10^3/ul (0.83-4.51); Absolute Neutrophil Count 6.5 X10^3/uL (2.0-7.7); Basophil# 0.03 X10^3/uL; Basophil% 0.4 % (0-1); Hematocrit 24.4 % (40-54); Hemoglobin 7.4 g/dl (13.0-16.5); Lymphocyte # 0.59 X10^3/ul (4.0); Lymphocyte % 7.7 % (19-41); Mean Corp Hgb Conc 30.3 g/gl (32-36); Mean Corpuscular Hgb 27.3 pg (27.0-32.0); Mean Platelet Vol. 10.1 fl (6.2-12.0); Monocyte# 0.52 X10^3/uL; Monocyte% 6.8 % (0-10); Neutrophil # 6.46 X10^3/uL (2.7-7.7); Neutrophil % 84.6 % (47-70); Platelet Count 204 K/mm3 (150-450); RBC Distribution Width CV 17.9 % (11.6-14.6); RBC Distribution Width SD 58.8 fl (35.1-43.9); Red Blood Count 2.71 M/mm3 (4.6-6.2); White Blood Count 7.6 K/mm3 (4.4-11.0)
[2018-05-08 06:53] LABS: International Normalized Ratio 1.1; Prothrombin Time (Protime)PT. 14.6 SECONDS (11.7-14.9)
[2018-05-08 07:10] LABS: POSITIVE COUNT NO; POSITIVE DIFFERENTIAL NO; POSITIVE MORPHOLOGY NO
--- NOTE | 2018-05-08 09:19 | CASEMGMT ---
SW spoke with patient to make sure he was in agreement with Palliative Care referral. SW explained Palliative Care to him again as he could not remember. He was in agreement with talking with them, but would like for his to be a part of discussion. SW called patient's and explained Palliative Care to her and she was okay with talking with them. SW explained to her how the process works. Patient's said things were somewhat okay at home. Patient was able to walk to the bathroom and that was about it. She said outpatient was supposed to start today. SW told her therapy will see him today and we can see what they recommend. SW faxed referral to Palliative Care and tried to call, but was not able to talk with anyone. Liz SANTILLAN MSW
[2018-05-08 09:34] LABS: Anion Gap 10 (5-15); BUN 49 mg/dL (7-18); BUN/Creat Ratio 18.9 RATIO (10-20); Calcium,Total 8.7 mg/dL (8.5-10.1); Chloride 105 mmol/L (98-107); Creatinine, Serum 2.59 mg/dL (0.70-1.30); EST Glomerular Filtration Rate 26 mL/min (>60); Est Glom Filt Rate - Afr Amer 31 mL/min (>60); Estimated Creatinine Clearance 23.39 ml/min; Glucose 74 mg/dL (74-106); Potassium 3.9 mmol/L (3.5-5.1); Sodium Level 139 mmol/L (136-145)
[2018-05-08] MEDS: predniSONE 5 MG Tablet 7.5 MG PO (09:57)
[2018-05-08] MEDS: Allopurinol 100 MG Tablet 200 MG PO (09:57)
[2018-05-08] MEDS: Isosorbide Mononitrate 30 MG Tablet PO (09:57)
[2018-05-08] MEDS: Carvedilol 25 MG Tablet PO ×2 (09:57→22:30)
[2018-05-08] MEDS: Aspirin 81 MG TAB.CHEW PO (09:58)
[2018-05-08] MEDS: Furosemide 40 MG/4 ML Vial IV ×2 (09:58→18:12)
[2018-05-08] MEDS: Pantoprazole Sodium 40 MG Tablet PO (09:58)
[2018-05-08] MEDS: Leflunomide 10 MG TABLET 5 MG PO (09:58)
[2018-05-08] MEDS: Ranolazine 500 MG Tablet PO ×2 (09:58→22:30)
[2018-05-08] MEDS: Multivitamins,Therapeutic Tablet 1 TABLET PO (09:58)
[2018-05-08] MEDS: 0.9% NaCl Peripheral Flush Adult/Peds IV (09:58)
[2018-05-08] MEDS: Hydroxychloroquine 200 MG Tablet PO ×2 (09:58→16:20)
--- NOTE | 2018-05-08 10:25 | CASEMGMT ---
Readmission chart review: See CM assessment completed by this RN PEDRO 04/15/18. Pt admitted this visit for increased fatigue/weakness. Pt's HGB 05/03/[address] Peterson, palliative consult needed. states that pt has been very weak at home and only able to get up to bathroom. Pt was denied for TCU last week when admitted as OBS and sent home with outpt therapy which was supposed to start today. CM to follow PT/OT and for any further discharge planning/needs. [place] CARMEN VASQUEZ
--- NOTE | 2018-05-08 12:18 | PCM.PN.HOSP ---
Patient Problems: Active and Suspected Problems (Last Reviewed 05/07/18 @ 14:50 by Pancho Peterson DO) Acute blood loss anemia (Acute) Heart failure with preserved ejection fraction (Acute) Subjective: Breathing better. Decreased LE edema. Still fatigued. No appetite. Vitals/I&O's: Vital Signs Temp Pulse Resp BP Pulse Ox 36.6 C 79 16 109/48 L 98 05/08/18 09:45 05/08/18 11:15 05/08/18 09:45 05/08/18 09:45 05/08/18 09:45 Oxygen Delivery Method Room Air Weight: 122.2 kg Body Mass Index (BMI) 42.2 Intake and Output for Last 24 Hours 05/06/18 05/07/18 05/08/18 23:59 23:59 23:59 Intake Total 1314 / 1314 420 / 420 Output Total 1200 / 1200 350 / 350 Balance 114 / 114 70 / 70 General: Alert, No apparent distress HEENT: Atraumatic, Normocephalic Oral: Moist Mucosa, No Gingival or Mucosal Lesions/ Ulcerations Neck: No Nodes, Thyroid Normal Size and Texture Lungs: Diminished, - - faint bilateral crackles. Cardiovascular: Regular rate, Regular Rhythm, Normal S1, Normal S2, No murmurs Abdomen: Bowel Sounds Present, Soft, Non Tender, Non-Distended, No Hepato-splenomegaly Extremities: No edema, No Calf Tenderness Skin: No rashes, No breakdown Musculoskeletal: No Tenderness to Palpation of Joints or Extremities, No Muscle Wasting Neurological: Muscle tone normal, Sensory exam intact to light touch and pain Psych/Mental Status: Normal Affect, Appropriate Laboratory Results 05/08/18 00:23: Troponin I 0.079 H 05/08/18 03:24: Troponin I 0.094 H 05/08/18 05:35: PT 14.6, INR 1.1 05/08/18 05:35: Sodium 139, Potassium 3.9, Chloride 105, Carbon Dioxide 24.0, Anion Gap 10, BUN 49 H, Creatinine 2.59 H, Estim Creat Clear Calc 23.39, Est GFR (MDRD) Af Amer 31 L, Est GFR (MDRD) Non-Af 26 L, BUN/Creatinine Ratio 18.9, Glucose 74, Calcium 8.7 05/08/18 05:35: Troponin I 0.115 H 05/08/18 05:35: WBC 7.6, RBC 2.71 L, Hgb 7.4 L, Hct 24.4 L, MCV 90.0, MCH 27.3, MCHC 30.3 L, RDW 17.9 H, RDW Differential 58.8 H, Plt Count 204, MPV 10.1, Immature Gran % (Auto) 0.500, Neut % (Auto) 84.6 H, Lymph % (Auto) 7.7 L, [place] % (Auto) 6.8, Eos % (Auto) 0.0, Baso % (Auto) 0.4, Absolute Neuts (auto) 6.5, Absolute Lymphs (auto) 0.59 L, Total Counted Not Reportable, Differential Comment COMMENT Current Medications Acetaminophen (Tylenol) 1,000 mg PO Q8H PRN PRN PRN Reason: MILD PAIN (-11/10) Allopurinol (Zyloprim) 200 mg PO DAILY [facility] Last Admin: 05/08/18 09:57 Dose: 200 mg Aspirin (Aspirin, Baby) 81 mg PO DAILY@0800 [facility] Last Admin: 05/08/18 09:58 Dose: 81 mg Atorvastatin Calcium (Lipitor) 20 mg PO QHS [facility] Last Admin: 05/07/18 21:29 Dose: 20 mg Calamine/Phenol (Calmoseptine Ointment) 1 applic TOPICAL 0600,2200 [facility] PRN Reason: Protocol Last Admin: 05/08/18 05:29 Dose: 1 applicatio Carvedilol (Coreg) 25 mg PO BID [facility] Last Admin: 05/08/18 09:57 Dose: 25 mg Furosemide (Lasix) 40 mg IV BID@1000,1800 [facility] Last Admin: 05/08/18 09:58 Dose: 40 mg Hydroxychloroquine Sulfate (Plaquenil) 200 mg PO BIDCM [facility] Last Admin: 05/08/18 09:58 Dose: 200 mg Isosorbide Mononitrate (Imdur) 30 mg PO DAILY [facility] Last Admin: 05/08/18 09:57 Dose: 30 mg Leflunomide (Leflunomide) 5 mg PO DAILY [facility] Last Admin: 05/08/18 09:58 Dose: 5 mg Magnesium Hydroxide (Milk Of Magnesia) 30 ml PO DAILY PRN PRN Reason: Constipation Multivitamins (Multivitamin) 1 tablet PO DAILY [facility] Last Admin: 05/08/18 09:58 Dose: 1 tablet Nitroglycerin (Nitrostat) 0.4 mg SUBLINGUAL Q5M PRN PRN Reason: CHEST PAIN Nutritional Formula (Lactose Free) (Ensure Clear) 120 ml PO 4X/DAY [facility] Last Admin: 05/08/18 09:58 Dose: 120 ml Nystatin (Mycostatin Powder) 1 applic TOPICAL 0600,2200 [facility] PRN Reason: Protocol Last Admin: 05/08/18 05:25 Dose: Not Given Pantoprazole Sodium (Protonix) 40 mg PO DAILY [facility] Last Admin: 05/08/18 09:58 Dose: 40 mg Polysaccharide Iron Complex (Ferrex 150) 150 mg PO TID [facility] Last Admin: 05/08/18 05:25 Dose: 150 mg Potassium Chloride (K-Dur) 20 meq PO TIDCM [facility] Last Admin: 05/08/18 12:12 Dose: 20 meq Prednisone () 7.5 mg PO DAILY [facility] Last Admin: 05/08/18 09:57 Dose: 7.5 mg Ranolazine (Ranexa) 500 mg PO BID [facility] Last Admin: 05/08/18 09:58 Dose: 500 mg Sodium Chloride () 5 - 30 ml IV UD PRN PRN Reason: SALINE FLUSH Last Admin: 05/08/18 09:58 Dose: 10 ml Medical Necessity - Tobacco Use Smoking Status: Never smoker Tobacco Use: Non-smoker Assessment/Plan All Active Problems (Last Reviewed 05/07/18 @ 14:50 by Pancho Peterson DO) Acute on chronic diastolic heart failure (Acute) Gait incoordination (Acute) Generalized weakness (Acute) Acute blood loss anemia (Acute) Heart failure with preserved ejection fraction (Acute) NSTEMI (non-ST elevated myocardial infarction) (Acute) Pain in right toe(s) (Acute) Tinea unguium (Acute) Ingrown toenail (Acute) Anemia of chronic renal failure, stage 4 (severe) (Acute) Edema (Acute) Weakness (Acute) Debility (Acute) 1. Acute on chronic blood loss anemia Patient is symptomatic with his hemoglobin at 6.9 Improved to 7.6 after 1 unit Will transfuse another unit given that it is anticipated he will require future transfusions Only component is anemia of chronic disease which patient receives Epoetin but cannot rule out other source of bleeding such as from the GI tract. Certainly the aspirin and Plavix would make any bleeding source more active, however, medications were put on for coronary artery disease. I will stop the Plavix however and monitor 2. Acute heart failure with preserved ejection fraction Echocardiogram from April 15 showed an EF of 55% in stage I diastolic dysfunction Will change patient's Lasix from 40 mg orally twice daily to IV twice daily Not a candidate for an ALEXIS inhibitor nor angiotensin receptor agustín given his chronic kidney disease improved. 3. Coronary artery disease Currently stable Not amenable to intervention Continue with aspirin and nitrate 4. Chronic kidney disease stage IV Creatinine appears to be at baseline Monitor closely 5. DVT prophylaxis with SCDs. Chemical prophylaxis contraindicated in light of the anemia at this time Advanced care planning: Spent an additional 25 minutes outside of H+P discussing with the patient and his about palliative care and hospice. I did inform them that I do not feel that the patient is hospice candidate at this point time but my concern is given his multiple Comorbidities, if he were to get sick that he could decline very quickly. Explained that the purpose of getting them to sleep out of care now is to get them establish so that they understand what they do and how the operates and so that could be used at a later point when it is needed. I also specified that they also help with symptom management if that is requirement. Code Visit Inpatient E&M: 62395 Subs Hosp L3 Procedures: 75390 Advncd Care Plan 30 Min
[2018-05-08] MEDS: Atorvastatin Calcium 20 MG Tablet PO (22:30)
[2018-05-08] MEDS: Nystatin Powder 15gm Bottle 1 APPLIC TOPICAL (22:31)
[2018-05-09] VITALS (11 sets, daily range): BP systolic 103–123; BP diastolic 49–59; PULSE 70–80; RESP 16–20; TEMP 36.1–37; O2SAT 96–98
[2018-05-09] MEDS: Nystatin Powder 15gm Bottle 1 APPLIC TOPICAL ×2 (05:24→21:16)
[2018-05-09] MEDS: Iron Polysaccharide Complex 150 MG CAPSULE PO ×3 (05:24→21:14)
[2018-05-09] MEDS: Menthol/Lanolin/Calamine/Znox 113 GM Tube 1 APPLIC TOPICAL ×2 (05:25→21:16)
[2018-05-09 05:53] LABS: Absolute Lymphocyte Count 0.65 X10^3/ul (0.83-4.51); Absolute Neutrophil Count 6.2 X10^3/uL (2.0-7.7); Basophil# 0.03 X10^3/uL; Basophil% 0.4 % (0-1); Eosinophil# 0.06 X10^3/uL; Eosinophils% 0.8 % (0-5); Hematocrit 28.1 % (40-54); Hemoglobin 8.8 g/dl (13.0-16.5); Lymphocyte # 0.65 X10^3/ul (4.0); Lymphocyte % 8.7 % (19-41); Mean Corp Hgb Conc 31.3 g/gl (32-36); Mean Corpuscular Hgb 28.7 pg (27.0-32.0); Mean Corpuscular Volume 91.5 fL (80-94); Mean Platelet Vol. 10.3 fl (6.2-12.0); Monocyte# 0.47 X10^3/uL; Monocyte% 6.3 % (0-10); Neutrophil # 6.22 X10^3/uL (2.7-7.7); Neutrophil % 82.7 % (47-70); Platelet Count 202 K/mm3 (150-450); RBC Distribution Width CV 17.1 % (11.6-14.6); RBC Distribution Width SD 54.3 fl (35.1-43.9); Red Blood Count 3.07 M/mm3 (4.6-6.2); White Blood Count 7.5 K/mm3 (4.4-11.0)
[2018-05-09 06:08] LABS: Anion Gap 11 (5-15); BUN 47 mg/dL (7-18); BUN/Creat Ratio 18.5 RATIO (10-20); Calcium,Total 8.7 mg/dL (8.5-10.1); Chloride 106 mmol/L (98-107); Creatinine, Serum 2.54 mg/dL (0.70-1.30); EST Glomerular Filtration Rate 26 mL/min (>60); Est Glom Filt Rate - Afr Amer 32 mL/min (>60); Estimated Creatinine Clearance 23.85 ml/min; Glucose 80 mg/dL (74-106); Sodium Level 142 mmol/L (136-145)
[2018-05-09 06:19] LABS: POSITIVE COUNT NO; POSITIVE DIFFERENTIAL NO; POSITIVE MORPHOLOGY NO
[2018-05-09] MEDS: Multivitamins,Therapeutic Tablet 1 TABLET PO (09:07)
[2018-05-09] MEDS: Carvedilol 25 MG Tablet PO ×2 (09:07→21:14)
[2018-05-09] MEDS: Ranolazine 500 MG Tablet PO ×2 (09:07→21:15)
[2018-05-09] MEDS: Allopurinol 100 MG Tablet 200 MG PO (09:07)
[2018-05-09] MEDS: Pantoprazole Sodium 40 MG Tablet PO (09:07)
[2018-05-09] MEDS: Isosorbide Mononitrate 30 MG Tablet PO (09:07)
[2018-05-09] MEDS: 0.9% NaCl Peripheral Flush Adult/Peds IV (09:08)
[2018-05-09] MEDS: predniSONE 5 MG Tablet 7.5 MG PO (09:08)
[2018-05-09] MEDS: Hydroxychloroquine 200 MG Tablet PO ×2 (09:08→16:59)
[2018-05-09] MEDS: Leflunomide 10 MG TABLET 5 MG PO (09:08)
[2018-05-09] MEDS: Furosemide 40 MG/4 ML Vial IV (09:08)
[2018-05-09] MEDS: Aspirin 81 MG TAB.CHEW PO (09:08)
--- NOTE | 2018-05-09 12:48 | CASEMGMT ---
Addendum entered by Liz Ward 05/09/18 12:50: GIBSON also spoke with Gena from [facility] and patient signed up for Palliative. Liz FERGUSON Original Note: Physician spoke with GIBSON and said patient and his would like to try for TCU. GIBSON spoke with Marlyn and she will have a bed Sunday. GIBSON asked her to start the pre-cert process. GIBSON will let patient and his family know this information. Plan: TCU pending insurance approval. Liz FERGUSON
--- NOTE | 2018-05-09 15:42 | PCM.PN.HOSP ---
Patient Problems: Active and Suspected Problems (Last Reviewed 05/07/18 @ 14:50 by Pancho Peterson DO) Acute blood loss anemia (Acute) Heart failure with preserved ejection fraction (Acute) Subjective: feeling better, but still LAU. Vitals/I&O's: Vital Signs Temp Pulse Resp BP Pulse Ox 36.1 C L 74 18 123/59 H 98 05/09/18 15:05 05/09/18 15:14 05/09/18 15:05 05/09/18 15:05 05/09/18 15:05 Oxygen Delivery Method Room Air Weight: 122.1 kg Body Mass Index (BMI) 42.2 Intake and Output for Last 24 Hours 05/07/18 05/08/18 05/09/18 23:59 23:59 23:59 Intake Total 1314 / 1314 1580 / 1580 600 / 600 Output Total 1200 / 1200 625 / 625 975 / 975 Balance 114 / 114 955 / 955 -375 / -375 General: Alert, No apparent distress HEENT: Atraumatic, Normocephalic Oral: Moist Mucosa, No Gingival or Mucosal Lesions/ Ulcerations Neck: No Nodes, Thyroid Normal Size and Texture Lungs: Clear to auscultation, Normal air movement, No rhonchi, No wheeze Cardiovascular: Regular rate, Regular Rhythm, Normal S1, Normal S2 Abdomen: Bowel Sounds Present, Soft, Non Tender, Non-Distended, No Hepato-splenomegaly Extremities: No clubbing, No edema Skin: No rashes, No breakdown Psych/Mental Status: Normal Affect, Appropriate Laboratory Results 05/09/18 05:24: WBC 7.5, RBC 3.07 L, Hgb 8.8 L, Hct 28.1 L, MCV 91.5, MCH 28.7, MCHC 31.3 L, RDW 17.1 H, RDW Differential 54.3 H, Plt Count 202, MPV 10.3, Immature Gran % (Auto) 1.100 H, Neut % (Auto) 82.7 H, Lymph % (Auto) 8.7 L, Hand % (Auto) 6.3, Eos % (Auto) 0.8, Baso % (Auto) 0.4, Absolute Neuts (auto) 6.2, Absolute Lymphs (auto) 0.65 L, Total Counted Not Reportable 05/09/18 05:24: Sodium 142, Potassium 4.0, Chloride 106, Carbon Dioxide 25.0, Anion Gap 11, BUN 47 H, Creatinine 2.54 H, Estim Creat Clear Calc 23.85, Est GFR (MDRD) Af Amer 32 L, Est GFR (MDRD) Non-Af 26 L, BUN/Creatinine Ratio 18.5, Glucose 80, Calcium 8.7 Current Medications Acetaminophen (Tylenol) 1,000 mg PO Q8H PRN PRN PRN Reason: MILD PAIN (-11/10) Allopurinol (Zyloprim) 200 mg PO DAILY [facility] Last Admin: 05/09/18 09:07 Dose: 200 mg Aspirin (Aspirin, Baby) 81 mg PO DAILY@0800 [facility] Last Admin: 05/09/18 09:08 Dose: 81 mg Atorvastatin Calcium (Lipitor) 20 mg PO QHS [facility] Last Admin: 05/08/18 22:30 Dose: 20 mg Calamine/Phenol (Calmoseptine Ointment) 1 applic TOPICAL 0600,2200 [facility] PRN Reason: Protocol Last Admin: 05/09/18 05:25 Dose: 1 applicatio Carvedilol (Coreg) 25 mg PO BID [facility] Last Admin: 05/09/18 09:07 Dose: 25 mg Furosemide (Lasix) 40 mg IV BID@1000,1800 [facility] Last Admin: 05/09/18 09:08 Dose: 40 mg Hydroxychloroquine Sulfate (Plaquenil) 200 mg PO BIDCM [facility] Last Admin: 05/09/18 09:08 Dose: 200 mg Isosorbide Mononitrate (Imdur) 30 mg PO DAILY [facility] Last Admin: 05/09/18 09:07 Dose: 30 mg Leflunomide (Leflunomide) 5 mg PO DAILY [facility] Last Admin: 05/09/18 09:08 Dose: 5 mg Magnesium Hydroxide (Milk Of Magnesia) 30 ml PO DAILY PRN PRN Reason: Constipation Multivitamins (Multivitamin) 1 tablet PO DAILY [facility] Last Admin: 05/09/18 09:07 Dose: 1 tablet Nitroglycerin (Nitrostat) 0.4 mg SUBLINGUAL Q5M PRN PRN Reason: CHEST PAIN Nutritional Formula (Lactose Free) (Ensure Clear) 120 ml PO 4X/DAY [facility] Last Admin: 05/09/18 12:59 Dose: 120 ml Nystatin (Mycostatin Powder) 1 applic TOPICAL 0600,2200 [facility] PRN Reason: Protocol Last Admin: 05/09/18 05:24 Dose: 1 applicatio Pantoprazole Sodium (Protonix) 40 mg PO DAILY [facility] Last Admin: 05/09/18 09:07 Dose: 40 mg Polysaccharide Iron Complex (Ferrex 150) 150 mg PO TID [facility] Last Admin: 05/09/18 12:59 Dose: 150 mg Potassium Chloride (K-Dur) 20 meq PO TIDCM [facility] Last Admin: 05/09/18 12:58 Dose: 20 meq Prednisone () 7.5 mg PO DAILY [facility] Last Admin: 05/09/18 09:08 Dose: 7.5 mg Ranolazine (Ranexa) 500 mg PO BID [facility] Last Admin: 05/09/18 09:07 Dose: 500 mg Sodium Chloride () 5 - 30 ml IV UD PRN PRN Reason: SALINE FLUSH Last Admin: 05/09/18 09:08 Dose: 10 ml Medical Necessity - Tobacco Use Smoking Status: Never smoker Tobacco Use: Non-smoker Assessment/Plan All Active Problems (Last Reviewed 05/07/18 @ 14:50 by Pancho Peterson DO) Acute on chronic diastolic heart failure (Acute) Gait incoordination (Acute) Generalized weakness (Acute) Acute blood loss anemia (Acute) Heart failure with preserved ejection fraction (Acute) NSTEMI (non-ST elevated myocardial infarction) (Acute) Pain in right toe(s) (Acute) Tinea unguium (Acute) Ingrown toenail (Acute) Anemia of chronic renal failure, stage 4 (severe) (Acute) Edema (Acute) Weakness (Acute) Debility (Acute) 1. Acute on chronic blood loss anemia Patient is symptomatic with his hemoglobin at 6.9 Improved to 7.6 after 1 unit, then to 8.8 after 2nd unit Only component is anemia of chronic disease which patient receives Epoetin but cannot rule out other source of bleeding such as from the GI tract. Certainly the aspirin and Plavix would make any bleeding source more active, however, medications were put on for coronary artery disease. I will stop the Plavix however and monitor 2. Acute heart failure with preserved ejection fraction Echocardiogram from April 15 showed an EF of 55% in stage I diastolic dysfunction Improved change lasix back to 40 PO BID Not a candidate for an ALEXIS inhibitor nor angiotensin receptor agustín given his chronic kidney disease start hydralazine and nitrate 3. Coronary artery disease Currently stable Not amenable to intervention Continue with aspirin and nitrate 4. Chronic kidney disease stage IV Creatinine appears to be at baseline Monitor closely 5. DVT prophylaxis with SCDs. Chemical prophylaxis contraindicated in light of the anemia at this time Patient and met with Palliative care today and will continue with them. Dispo: plan for discharge to TCU on 05/11 Code Visit Inpatient E&M: 83674 Subs Hosp L2
[2018-05-09] MEDS: Furosemide 40 MG Tablet PO (17:00)
[2018-05-09] MEDS: hydrALAZINE 10 MG Tablet PO (21:14)
[2018-05-09] MEDS: Atorvastatin Calcium 20 MG Tablet PO (21:15)
[2018-05-10] VITALS (15 sets, daily range): BP systolic 92–127; BP diastolic 50–70; PULSE 74–82; RESP 16–20; TEMP 36.6–36.7; O2SAT 96–99
[2018-05-10 06:10] LABS: Absolute Lymphocyte Count 0.71 X10^3/ul (0.83-4.51); Absolute Neutrophil Count 6.6 X10^3/uL (2.0-7.7); Basophil# 0.03 X10^3/uL; Basophil% 0.4 % (0-1); Hematocrit 28.7 % (40-54); Hemoglobin 8.9 g/dl (13.0-16.5); Lymphocyte # 0.71 X10^3/ul (4.0); Lymphocyte % 9.2 % (19-41); Mean Corpuscular Hgb 27.8 pg (27.0-32.0); Mean Corpuscular Volume 89.7 fL (80-94); Mean Platelet Vol. 9.7 fl (6.2-12.0); Monocyte# 0.35 X10^3/uL; Monocyte% 4.6 % (0-10); Neutrophil # 6.55 X10^3/uL (2.7-7.7); Neutrophil % 85.1 % (47-70); Platelet Count 210 K/mm3 (150-450); RBC Distribution Width CV 17.4 % (11.6-14.6); RBC Distribution Width SD 56.8 fl (35.1-43.9); White Blood Count 7.7 K/mm3 (4.4-11.0)
[2018-05-10 06:19] LABS: POSITIVE COUNT NO; POSITIVE DIFFERENTIAL NO; POSITIVE MORPHOLOGY NO
[2018-05-10 06:50] LABS: Anion Gap 12 (5-15); BUN 46 mg/dL (7-18); BUN/Creat Ratio 18.6 RATIO (10-20); Calcium,Total 8.7 mg/dL (8.5-10.1); Chloride 105 mmol/L (98-107); Creatinine, Serum 2.47 mg/dL (0.70-1.30); EST Glomerular Filtration Rate 27 mL/min (>60); Est Glom Filt Rate - Afr Amer 33 mL/min (>60); Estimated Creatinine Clearance 24.53 ml/min; Glucose 78 mg/dL (74-106); Potassium 3.9 mmol/L (3.5-5.1); Sodium Level 141 mmol/L (136-145)
[2018-05-10] MEDS: hydrALAZINE 10 MG Tablet PO ×3 (06:56→22:32)
[2018-05-10] MEDS: Menthol/Lanolin/Calamine/Znox 113 GM Tube 1 APPLIC TOPICAL ×2 (06:57→22:30)
[2018-05-10] MEDS: Iron Polysaccharide Complex 150 MG CAPSULE PO ×3 (06:57→22:31)
[2018-05-10] MEDS: Nystatin Powder 15gm Bottle 1 APPLIC TOPICAL ×2 (06:57→22:30)
[2018-05-10] MEDS: Aspirin 81 MG TAB.CHEW PO (09:05)
[2018-05-10] MEDS: Furosemide 40 MG Tablet PO ×2 (09:06→17:43)
[2018-05-10] MEDS: Hydroxychloroquine 200 MG Tablet PO ×2 (09:06→17:44)
[2018-05-10] MEDS: Carvedilol 25 MG Tablet PO ×2 (09:06→22:32)
[2018-05-10] MEDS: Isosorbide Mononitrate 30 MG Tablet PO (09:07)
[2018-05-10] MEDS: Leflunomide 10 MG TABLET 5 MG PO (09:07)
[2018-05-10] MEDS: predniSONE 5 MG Tablet 7.5 MG PO (09:08)
[2018-05-10] MEDS: Multivitamins,Therapeutic Tablet 1 TABLET PO (09:08)
[2018-05-10] MEDS: Allopurinol 100 MG Tablet 200 MG PO (09:09)
[2018-05-10] MEDS: Ranolazine 500 MG Tablet PO ×2 (09:09→22:33)
[2018-05-10] MEDS: Pantoprazole Sodium 40 MG Tablet PO (09:09)
--- NOTE | 2018-05-10 13:31 | PCM.PN.HOSP ---
Patient Problems: Active and Suspected Problems (Last Reviewed 05/07/18 @ 14:50 by Pancho Peterson DO) Acute blood loss anemia (Acute) Heart failure with preserved ejection fraction (Acute) Subjective: Still with LAU, sometime worse than others, despite distance. Vitals/I&O's: Vital Signs Temp Pulse Resp BP Pulse Ox 36.6 C 82 19 H 110/50 L 97 05/10/18 09:01 05/10/18 11:14 05/10/18 09:01 05/10/18 09:01 05/10/18 09:01 Oxygen Delivery Method Room Air Weight: 122.1 kg Body Mass Index (BMI) 42.2 Intake and Output for Last 24 Hours 05/08/18 05/09/18 05/10/18 23:59 23:59 23:59 Intake Total 1580 / 1580 840 / 840 940 / 940 Output Total 625 / 625 1575 / 1575 1000 / 1000 Balance 955 / 955 -735 / -735 -60 / -60 General: Alert, No apparent distress HEENT: Atraumatic, Normocephalic Oral: Moist Mucosa, No Gingival or Mucosal Lesions/ Ulcerations Neck: No Nodes, Thyroid Normal Size and Texture Lungs: Clear to auscultation, Normal air movement, No rhonchi, No wheeze Cardiovascular: Regular rate, Regular Rhythm, Normal S1, Normal S2, No murmurs Abdomen: Bowel Sounds Present, Soft, Non Tender, Non-Distended, No Hepato-splenomegaly Extremities: No edema, No Calf Tenderness Laboratory Results 05/10/18 05:42: WBC 7.7, RBC 3.20 L, Hgb 8.9 L, Hct 28.7 L, MCV 89.7, MCH 27.8, MCHC 31.0 L, RDW 17.4 H, RDW Differential 56.8 H, Plt Count 210, MPV 9.7, Immature Gran % (Auto) 0.700, Neut % (Auto) 85.1 H, Lymph % (Auto) 9.2 L, [place] % (Auto) 4.6, Eos % (Auto) 0.0, Baso % (Auto) 0.4, Absolute Neuts (auto) 6.6, Absolute Lymphs (auto) 0.71 L, Total Counted Not Reportable 05/10/18 05:42: Sodium 141, Potassium 3.9, Chloride 105, Carbon Dioxide 24.0, Anion Gap 12, BUN 46 H, Creatinine 2.47 H, Estim Creat Clear Calc 24.53, Est GFR (MDRD) Af Amer 33 L, Est GFR (MDRD) Non-Af 27 L, BUN/Creatinine Ratio 18.6, Glucose 78, Calcium 8.7 Current Medications Acetaminophen (Tylenol) 1,000 mg PO Q8H PRN PRN PRN Reason: MILD PAIN (-11/10) Allopurinol (Zyloprim) 200 mg PO DAILY [facility] Last Admin: 05/10/18 09:09 Dose: 200 mg Aspirin (Aspirin, Baby) 81 mg PO DAILY@0800 [facility] Last Admin: 05/10/18 09:05 Dose: 81 mg Atorvastatin Calcium (Lipitor) 20 mg PO QHS [facility] Last Admin: 05/09/18 21:15 Dose: 20 mg Calamine/Phenol (Calmoseptine Ointment) 1 applic TOPICAL 0600,2200 [facility] PRN Reason: Protocol Last Admin: 05/10/18 06:57 Dose: 1 applicatio Carvedilol (Coreg) 25 mg PO BID [facility] Last Admin: 05/10/18 09:06 Dose: 25 mg Furosemide (Lasix) 40 mg PO BID@1000,1800 [facility] Last Admin: 05/10/18 09:06 Dose: 40 mg Hydralazine HCl (Apresoline) 10 mg PO TID [facility] Last Admin: 05/10/18 06:56 Dose: 10 mg [facility]: 05/10/18 09:06 Dose: 200 mg Isosorbide Mononitrate (Imdur) 30 mg PO DAILY [facility] Last Admin: 05/10/18 09:07 Dose: 30 mg Leflunomide (Leflunomide) 5 mg PO DAILY [facility] Last Admin: 05/10/18 09:07 Dose: 5 mg Magnesium Hydroxide (Milk Of Magnesia) 30 ml PO DAILY PRN PRN Reason: Constipation Multivitamins (Multivitamin) 1 tablet PO DAILY [facility] Last Admin: 05/10/18 09:08 Dose: 1 tablet Nitroglycerin (Nitrostat) 0.4 mg SUBLINGUAL Q5M PRN PRN Reason: CHEST PAIN Nutritional Formula (Lactose Free) (Ensure Enlive) 120 ml PO 4X/DAY [facility] Last Admin: 05/10/18 09:05 Dose: 120 ml Nystatin (Mycostatin Powder) 1 applic TOPICAL 0600,2200 [facility] PRN Reason: Protocol Last Admin: 05/10/18 06:57 Dose: 1 applicatio Pantoprazole Sodium (Protonix) 40 mg PO DAILY [facility] Last Admin: 05/10/18 09:09 Dose: 40 mg Polysaccharide Iron Complex (Ferrex 150) 150 mg PO TID [facility] Last Admin: 05/10/18 06:57 Dose: 150 mg Potassium Chloride (K-Dur) 20 meq PO TIDCM [facility] Last Admin: 05/10/18 11:54 Dose: 20 meq Prednisone () 7.5 mg PO DAILY [facility] Last Admin: 05/10/18 09:08 Dose: 7.5 mg Ranolazine (Ranexa) 500 mg PO BID [facility] Last Admin: 05/10/18 09:09 Dose: 500 mg Sodium Chloride () 5 - 30 ml IV UD PRN PRN Reason: SALINE FLUSH Last Admin: 05/09/18 09:08 Dose: 10 ml Medical Necessity - Tobacco Use Smoking Status: Never smoker Tobacco Use: Non-smoker Assessment/Plan All Active Problems (Last Reviewed 05/07/18 @ 14:50 by Pancho Peterson DO) Acute on chronic diastolic heart failure (Acute) Gait incoordination (Acute) Generalized weakness (Acute) Acute blood loss anemia (Acute) Heart failure with preserved ejection fraction (Acute) NSTEMI (non-ST elevated myocardial infarction) (Acute) Pain in right toe(s) (Acute) Tinea unguium (Acute) Ingrown toenail (Acute) Anemia of chronic renal failure, stage 4 (severe) (Acute) Edema (Acute) Weakness (Acute) Debility (Acute) 1. Acute on chronic blood loss anemia Patient is symptomatic with his hemoglobin at 6.9 Improved to 7.6 after 1 unit, then to 8.9 after 2nd unit Only component is anemia of chronic disease which patient receives Epoetin but cannot rule out other source of bleeding such as from the GI tract. Certainly the aspirin and Plavix would make any bleeding source more active, however, medications were put on for coronary artery disease. I will stop the Plavix however and monitor Currently stable Will need to continue to be monitored as outpt with anticipated periodic transfusions Continue EPO Patient not interested in BMBx 2. Acute heart failure with preserved ejection fraction Stable Echocardiogram from April 15 showed an EF of 55% in stage I diastolic dysfunction Improved change lasix back to 40 PO BID Not a candidate for an ALEXIS inhibitor nor angiotensin receptor agustín given his chronic kidney disease start hydralazine and nitrate 3. Coronary artery disease Currently stable Not amenable to intervention Continue with aspirin and nitrate 4. Chronic kidney disease stage IV Creatinine appears to be at baseline Monitor closely 5. DVT prophylaxis with SCDs. Chemical prophylaxis contraindicated in light of the anemia at this time Patient and met with Palliative care today and will continue with them. Dispo: plan for discharge to TCU on 05/11 Code Visit Inpatient E&M: 95447 Subs Hosp L2
--- NOTE | 2018-05-10 15:24 | CASEMGMT ---
Patient was approved to go to TCU. They will have a bed Sunday. SW notified patient, his , RN, and charge account clerk. Green sheet on chart. Plan: [facility] TCU under skilled level of care. Liz FERGUSON
[2018-05-10] MEDS: Atorvastatin Calcium 20 MG Tablet PO (22:32)
[2018-05-11] VITALS (8 sets, daily range): BP systolic 105–133; BP diastolic 64–69; PULSE 73–80; RESP 14–17; TEMP 36.4–36.6; O2SAT 97
[2018-05-11] MEDS: Iron Polysaccharide Complex 150 MG CAPSULE PO ×2 (06:15→15:02)
[2018-05-11] MEDS: hydrALAZINE 10 MG Tablet PO ×2 (06:16→15:01)
[2018-05-11 06:47] LABS: Absolute Lymphocyte Count 0.64 X10^3/ul (0.83-4.51); Absolute Neutrophil Count 5.5 X10^3/uL (2.0-7.7); Basophil# 0.02 X10^3/uL; Basophil% 0.3 % (0-1); Hematocrit 29.7 % (40-54); Hemoglobin 9.1 g/dl (13.0-16.5); Lymphocyte # 0.64 X10^3/ul (4.0); Lymphocyte % 9.8 % (19-41); Mean Corp Hgb Conc 30.6 g/gl (32-36); Mean Corpuscular Volume 91.4 fL (80-94); Monocyte% 4.6 % (0-10); Neutrophil % 84.4 % (47-70); Platelet Count 206 K/mm3 (150-450); RBC Distribution Width CV 17.2 % (11.6-14.6); RBC Distribution Width SD 55.1 fl (35.1-43.9); Red Blood Count 3.25 M/mm3 (4.6-6.2); White Blood Count 6.5 K/mm3 (4.4-11.0)
[2018-05-11 06:49] LABS: POSITIVE COUNT NO; POSITIVE DIFFERENTIAL NO; POSITIVE MORPHOLOGY NO
[2018-05-11 07:16] LABS: Anion Gap 11 (5-15); BUN 44 mg/dL (7-18); BUN/Creat Ratio 17.8 RATIO (10-20); Calcium,Total 8.8 mg/dL (8.5-10.1); Chloride 105 mmol/L (98-107); Creatinine, Serum 2.47 mg/dL (0.70-1.30); EST Glomerular Filtration Rate 27 mL/min (>60); Est Glom Filt Rate - Afr Amer 33 mL/min (>60); Estimated Creatinine Clearance 24.53 ml/min; Glucose 98 mg/dL (74-106); Sodium Level 142 mmol/L (136-145)
[2018-05-11] MEDS: Aspirin 81 MG TAB.CHEW PO (09:40)
[2018-05-11] MEDS: Hydroxychloroquine 200 MG Tablet PO (09:41)
[2018-05-11] MEDS: Carvedilol 25 MG Tablet PO (09:41)
[2018-05-11] MEDS: Isosorbide Mononitrate 30 MG Tablet PO (09:41)
[2018-05-11] MEDS: Leflunomide 10 MG TABLET 5 MG PO (09:42)
[2018-05-11] MEDS: Furosemide 40 MG Tablet PO ×2 (09:42→16:33)
[2018-05-11] MEDS: Multivitamins,Therapeutic Tablet 1 TABLET PO (09:43)
[2018-05-11] MEDS: predniSONE 5 MG Tablet 7.5 MG PO (09:43)
[2018-05-11] MEDS: Allopurinol 100 MG Tablet 200 MG PO (09:44)
[2018-05-11] MEDS: Ranolazine 500 MG Tablet PO (09:44)
[2018-05-11] MEDS: Pantoprazole Sodium 40 MG Tablet PO (09:44)
--- NOTE | 2018-05-11 12:29 | PCM.PN.HOSP ---
Patient Problems: Active and Suspected Problems (Last Reviewed 05/07/18 @ 14:50 by Pancho Peterson DO) Acute blood loss anemia (Acute) Heart failure with preserved ejection fraction (Acute) Subjective: Still with LAU. Vitals/I&O's: Vital Signs Temp Pulse Resp BP Pulse Ox 36.4 C L 80 14 112/65 97 05/11/18 08:40 05/11/18 11:46 05/11/18 08:40 05/11/18 08:40 05/11/18 08:40 Oxygen Delivery Method Room Air Weight: 122.2 kg Body Mass Index (BMI) 42.2 Intake and Output for Last 24 Hours 05/09/18 05/10/18 05/11/18 23:59 23:59 23:59 Intake Total 840 / 840 1320 / 1320 Output Total 1575 / 1575 1600 / 1600 1250 / 1250 Balance -735 / -735 -280 / -280 -1250 / -1250 General: Alert, No apparent distress HEENT: Atraumatic, Normocephalic Extremities: No Calf Tenderness, Edema Laboratory Results 05/11/18 06:28: WBC 6.5, RBC 3.25 L, Hgb 9.1 L, Hct 29.7 L, MCV 91.4, MCH 28.0, MCHC 30.6 L, RDW 17.2 H, RDW Differential 55.1 H, Plt Count 206, MPV 10.0, Immature Gran % (Auto) 0.900, Neut % (Auto) 84.4 H, Lymph % (Auto) 9.8 L, Rooks % (Auto) 4.6, Eos % (Auto) 0.0, Baso % (Auto) 0.3, Absolute Neuts (auto) 5.5, Absolute Lymphs (auto) 0.64 L, Total Counted Not Reportable 05/11/18 06:28: Sodium 142, Potassium 4.0, Chloride 105, Carbon Dioxide 26.0, Anion Gap 11, BUN 44 H, Creatinine 2.47 H, Estim Creat Clear Calc 24.53, Est GFR (MDRD) Af Amer 33 L, Est GFR (MDRD) Non-Af 27 L, BUN/Creatinine Ratio 17.8, Glucose 98, Calcium 8.8 Current Medications Acetaminophen (Tylenol) 1,000 mg PO Q8H PRN PRN PRN Reason: MILD PAIN (1-310) Allopurinol (Zyloprim) 200 mg PO DAILY [facility] Last Admin: 05/11/18 09:44 Dose: 200 mg Aspirin (Aspirin, Baby) 81 mg PO DAILY@0800 [facility] Last Admin: 05/11/18 09:40 Dose: 81 mg Atorvastatin Calcium (Lipitor) 20 mg PO QHS [facility] Last Admin: 05/10/18 22:32 Dose: 20 mg Calamine/Phenol (Calmoseptine Ointment) 1 applic TOPICAL 0600,2200 [facility] PRN Reason: Protocol Last Admin: 05/11/18 06:13 Dose: Not Given Carvedilol (Coreg) 25 mg PO BID [facility] Last Admin: 05/11/18 09:41 Dose: 25 mg Furosemide (Lasix) 40 mg PO BID@1000,1800 [facility] Last Admin: 05/11/18 09:42 Dose: 40 mg Hydralazine HCl (Apresoline) 10 mg PO TID [facility] Last Admin: 05/11/18 06:16 Dose: 10 mg Hydroxychloroquine Sulfate (Plaquenil) 200 mg PO BIDCM [facility] Last Admin: 05/11/18 09:41 Dose: 200 mg Isosorbide Mononitrate (Imdur) 30 mg PO DAILY [facility] Last Admin: 05/11/18 09:41 Dose: 30 mg Leflunomide (Leflunomide) 5 mg PO DAILY [facility] Last Admin: 05/11/18 09:42 Dose: 5 mg Magnesium Hydroxide (Milk Of Magnesia) 30 ml PO DAILY PRN PRN Reason: Constipation Multivitamins (Multivitamin) 1 tablet PO DAILY [facility] Last Admin: 05/11/18 09:43 Dose: 1 tablet Nitroglycerin (Nitrostat) 0.4 mg SUBLINGUAL Q5M PRN PRN Reason: CHEST PAIN Nutritional Formula (Lactose Free) (Ensure Enlive) 120 ml PO 4X/DAY [facility] Last Admin: 05/11/18 09:58 Dose: 120 ml Nystatin (Mycostatin Powder) 1 applic TOPICAL 0600,2200 [facility] PRN Reason: Protocol Last Admin: 05/11/18 06:13 Dose: Not Given Pantoprazole Sodium (Protonix) 40 mg PO DAILY [facility] Last Admin: 05/11/18 09:44 Dose: 40 mg Polysaccharide Iron Complex (Ferrex 150) 150 mg PO TID [facility] Last Admin: 05/11/18 06:15 Dose: 150 mg Potassium Chloride (K-Dur) 20 meq PO TIDCM [facility] Last Admin: 05/11/18 09:40 Dose: 20 meq Prednisone () 7.5 mg PO DAILY [facility] Last Admin: 05/11/18 09:43 Dose: 7.5 mg Ranolazine (Ranexa) 500 mg PO BID [facility] Last Admin: 05/11/18 09:44 Dose: 500 mg Sodium Chloride () 5 - 30 ml IV UD PRN PRN Reason: SALINE FLUSH Last Admin: 05/09/18 09:08 Dose: 10 ml Medical Necessity - Tobacco Use Smoking Status: Never smoker Tobacco Use: Non-smoker Assessment/Plan All Active Problems (Last Reviewed 05/07/18 @ 14:50 by Pancho Peterson DO) Acute on chronic diastolic heart failure (Acute) Gait incoordination (Acute) Generalized weakness (Acute) Acute blood loss anemia (Acute) Heart failure with preserved ejection fraction (Acute) NSTEMI (non-ST elevated myocardial infarction) (Acute) Pain in right toe(s) (Acute) Tinea unguium (Acute) Ingrown toenail (Acute) Anemia of chronic renal failure, stage 4 (severe) (Acute) Edema (Acute) Weakness (Acute) Debility (Acute) 1. Acute on chronic blood loss anemia Patient is symptomatic with his hemoglobin at 6.9 Improved to 7.6 after 1 unit, then to 9.1 after 2nd unit Only component is anemia of chronic disease which patient receives Epoetin but cannot rule out other source of bleeding such as from the GI tract. Certainly the aspirin and Plavix would make any bleeding source more active, however, medications were put on for coronary artery disease. I will stop the Plavix however and monitor Currently stable Will need to continue to be monitored as outpt with anticipated periodic transfusions Continue EPO Patient not interested in BMBx follow up CBC on routine basis as outpt 2. Acute heart failure with preserved ejection fraction Stable Echocardiogram from April 15 showed an EF of 55% in stage I diastolic dysfunction Improved change lasix back to 40 PO BID Not a candidate for an ALEXIS inhibitor nor angiotensin receptor agustín given his chronic kidney disease start hydralazine and nitrate 3. Coronary artery disease Currently stable Not amenable to intervention Continue with aspirin and nitrate 4. Chronic kidney disease stage IV Creatinine appears to be at baseline Monitor closely 5. DVT prophylaxis with SCDs. Chemical prophylaxis contraindicated in light of the anemia at this time DC to SNF
--- NOTE | 2018-05-11 12:35 | PCM.TXEXTCAR ---
- Diet 05/08/18 16:16 Diet: Cardiac/Low Cholesterol Is pt able to select menu?: Yes Diet Comments: Cardiac/Renal Diet - Routine Orders/Code Status Routine Lab Work: CBC - QMonday and , BMP - QMonday Code Status: DNRCC-A - Wound(s) Left Elbow Wound Type: Skin Tear - Therapies Weight Bearing: Full weight bearing Physical Therapy: Eval and Treat Occupational Therapy: Eval and Treat - Problem/Diagnosis (1) Acute blood loss anemia Status: Acute Current Visit: Yes (2) Heart failure with preserved ejection fraction Status: Acute Current Visit: Yes - Allergies/Procedures Done in Hospital Allergies/Adverse Reactions: Allergies Influenza Virus Vaccines Allergy (Verified 05/07/18 09:24) CAN'T BREATHE Latex, Natural Rubber Allergy (Verified 05/07/18 09:24) Rash Penicillins Allergy (Verified 05/07/18 09:24) CAN'T BREATHE Sulfa (Sulfonamide Antibiotics) Allergy (Verified 05/07/18 09:24) Rash PEPPERS Allergy (Uncoded 05/07/18 09:24) Anaphylaxis - Type of Care/Length of Stay Estimated LOS: Convalescent Care Less Than 30 days Type of Care Needed: Skilled Rehab Potential: Fair Prognosis: Fair - Additional Orders/Day of Discharge Day of Discharge: 05/11/18 - Dietary and Speech Recommendations Dietitian Recommendations/Changes: Rec adv diet as tolerated to cardiac, low sodium w/ fluid restriction as indicated. - Follow Up Care Primary Care Physician: aVughn Armenta III, MD [Primary Care Provider] - Within 2 Weeks
--- NOTE | 2018-05-11 12:37 | PCM.DC.SUM ---
Discharge Date and Diagnosis - Problem List Patient Problems: Active and Suspected Problems (Last Reviewed 05/07/18 @ 14:50 by Pancho Peterson DO) Acute blood loss anemia (Acute) Heart failure with preserved ejection fraction (Acute) Date of Admission: 05/07/18 Date of Discharge: 05/11/18 - Primary Discharge Diagnosis Active and Suspected Problems (Last Reviewed 05/07/18 @ 14:50 by Pancho Peterson DO) Acute blood loss anemia (Acute) Heart failure with preserved ejection fraction (Acute) - Secondary Discharge Diagnosis Chronic Problems (Last Reviewed 05/07/18 @ 14:50 by Pancho Peterson DO) NSTEMI (non-ST elevated myocardial infarction) (Chronic) CHF (congestive heart failure) (Chronic) Allergic rhinitis due to [place] house dust mite (Chronic) History of left heart catheterization (Chronic) 04/05/2016 @ [facility] per Dr. العراقي and 01/01/2017 @ [facility] per Dr. Kam Dyspnea (Chronic) Acute respiratory failure with hypoxia (Chronic) Hypercalcemia (Chronic) Body mass index (BMI) of 40.0-44.9 in adult (Chronic) Chronic diastolic (congestive) heart failure (Chronic) Bilateral leg edema (Chronic) Hypersomnia (Chronic) Chronic kidney disease (Chronic) Hyperlipemia, mixed (Chronic) Diastolic dysfunction (Chronic) Atherosclerosis of [place] coronary artery of [place] heart without angina pectoris (Chronic) Polyarthropathy (Chronic) Morbid obesity (Chronic) Sarcoidosis (Chronic) Cardiomyopathy (Chronic) Iron deficiency anemia (Chronic) Constipation (Chronic) 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 Gout (Chronic) Morbid obesity with BMI of 40.0-44.9, adult (Chronic) GERD (gastroesophageal reflux disease) (Chronic) Allergic rhinitis (Chronic) Hypertension (Chronic) Nephrolithiasis (Chronic) Renal cyst (Chronic) Splenomegaly (Chronic) Coronary artery disease (Chronic) CKD (chronic kidney disease) stage 4, GFR 15-29 ml/min (Chronic) Polyarthropathy of ankle and foot (Chronic) Hospital Course and Treatment Imaging Results: Clinical Impression(s) from Imaging Studies Chest X-Ray 05/07/18 09:39 IMPRESSION: Chronic interstitial changes of the lungs bilaterally, stable compared to prior imaging. No acute cardiopulmonary process is evident. The patient has no documented CT chest at this institution. If follow-up CT of the chest is recommended for better characterization of the chronic interstitial changes in each lung. Electronically Signed: John Husain, at 13:50 EDT Tel , Service support , Operations: None Procedures: None Summary of Care Provided: The patient is a 72 year old M presents with shortness of breath. Found to have symptomatic anemia of 6.9. Transfused 2 units of PRBCs. Additionally, he was in CHF and diuresed. Pt still short of breath w exertion. 1. Acute on chronic blood loss anemia Patient is symptomatic with his hemoglobin at 6.9 Improved to 7.6 after 1 unit, then to 9.1 after 2nd unit Only component is anemia of chronic disease which patient receives Epoetin but cannot rule out other source of bleeding such as from the GI tract. Certainly the aspirin and Plavix would make any bleeding source more active, however, medications were put on for coronary artery disease. I will stop the Plavix however and monitor Currently stable Will need to continue to be monitored as outpt with anticipated periodic transfusions Continue EPO Patient not interested in BMBx follow up CBC on routine basis as outpt Transfuse for Hg less than 7 2. Acute heart failure with preserved ejection fraction Stable Echocardiogram from April 15 showed an EF of 55% in stage I diastolic dysfunction Improved change lasix back to 40 PO BID Not a candidate for an ALEXIS inhibitor nor angiotensin receptor trevor given his chronic kidney disease start hydralazine and nitrate 3. Coronary artery disease Currently stable Not amenable to intervention Continue with aspirin and nitrate 4. Chronic kidney disease stage IV Creatinine appears to be at baseline Monitor closely [] Discharge Diet: Low fat/ Low Cholesterol, 6 Cup Fluid Restriction, 2000 mg Sodium Diet Discharge Activity: Return to Normal Activity Call your doctor if you observe: Fever of 101 or Higher, Shortness of breath Home Medications: Medications to take at Discharge Aspirin [Aspirin, Baby] 81 mg PO DAILY@0800 09/10/16 Carvedilol [Coreg (Beta Trevor)] 25 mg PO BID 09/10/16 Multivitamin [Daily Multiple Vitamin] 1 ea PO DAILY 09/10/16 Hydroxychloroquine [Plaquenil] 200 mg PO BIDCM 12/29/16 Pantoprazole Sodium [Protonix] 40 mg PO DAILY 12/29/16 Allopurinol 200 mg PO DAILY 07/14/17 Iron Polysaccharide Complex [Ferrex 150] 150 mg PO TID #90 07/23/17 leflunomide 10 mg tablet 5 mg PO DAILY 08/16/17 Prednisone 7.5 mg PO DAILY 01/25/18 Furosemide [Lasix] 40 mg PO BID@1000,1800 04/17/18 Acetaminophen [Tylenol] 1,000 mg PO Q8H PRN PRN tablet 04/23/18 Isosorbide Mononitrate [Imdur] 30 mg PO DAILY #30 tab 04/23/18 Menthol/Lanolin/Calamine/Znox [Calmoseptine Ointment] 1 applic TOPICAL 0600,2200 tube 04/23/18 Nitroglycerin [Nitrostat] 0.4 mg SUBLINGUAL Q5M PRN #30 tab 04/23/18 Nystatin Powder [Mycostatin Powder] 1 applic TOPICAL 0600,2200 bottle 04/23/18 Ranolazine [Ranexa] 500 mg PO BID #60 tab 04/23/18 Atorvastatin Calcium [Lipitor] 20 mg PO QHS 05/03/18 Potassium Chloride [K-Dur] 20 meq PO BID 05/07/18 Primary Care Physician: Vaughn Armenta III, MD [Primary Care Provider] - Within 2 Weeks Disposition: [facility] facility Minutes spent on discharge:: 33 Patient Condition:: Fair Medical Necessity - Tobacco Use Smoking Status: Never smoker Tobacco Use: Non-smoker Meaningful Use Info Meaningful Use Diagnoses (Choose all that apply): CHF - CHF ALEXIS/ARB ordered at discharge?: No Reason ALEXIS/ARB not ordered?: Worsening renal disease Documented LVEF (%): 55 Code Visit Inpatient E&M: 36145 Disch Hosp
--- NOTE | 2018-05-11 13:31 | PCA ---
Spoke with , Elza, on the phone notified her of transfer to TCU today.
--- NOTE | 2018-05-11 14:48 | NURSING ---
notified that patient is going to TCU
--- NOTE | 2018-05-11 16:26 | NURSING ---
Called report to [facility]
== END 2018-05-11 17:08 | disposition skilled nursing facility (03) | DRG 811 ==
LOC: ED 12:01 → PCU 12:26
PROVIDERS: Hospitalist; Emergency Provider Emergency Medicine; Family Provider Family Medicine; PCP Family Medicine
DX: D62 Acute posthemorrhagic anemia (principal); I50.33 Acute on chronic diastolic (congestive) heart failure; Z68.41 Body mass index [BMI] 40.0-44.9, adult; N18.4 Chronic kidney disease, stage 4 (severe); I13.0 Hypertensive heart and chronic kidney disease with heart failure and stage 1 through stage 4 chronic kidney disease, or unspecified chronic kidney disease; I42.9 Cardiomyopathy, unspecified; I25.10 Atherosclerotic heart disease of native coronary artery without angina pectoris; E66.01 Morbid (severe) obesity due to excess calories; Z66 Do not resuscitate; D86.9 Sarcoidosis, unspecified; E78.2 Mixed hyperlipidemia; M10.9 Gout, unspecified; K21.9 Gastro-esophageal reflux disease without esophagitis; D63.8 Anemia in other chronic diseases classified elsewhere; M13.0 Polyarthritis, unspecified
CPT/HCPCS: 36415; 71045; 80048; 80053; 81001; 84484; 85025; 85610; 86850; 86900; 86920; 93005; 97110; 97162; 97166; 97530; 97802; 99285; J7030; P9016; A4216; G8978; G8979; G8987; G8988; J1940

== ENCOUNTER 2018-05-11 17:15 | Inpatient (IN) | payer MEDICARE, SELFPAY ==
[2018-05-11 18:02] VITALS: BP 132/29; PULSE 88; RESP 20; TEMP 35.9; O2SAT 97; BMI 42.3
--- NOTE | 2018-05-11 18:03 | NURSING ---
Pt admitted to room 14 from PCU via bed. Oriented to room and call light system explained.
[2018-05-11] MEDS: Nystatin Powder 15gm Bottle 1 APPLIC TOPICAL (21:33)
[2018-05-11] MEDS: Menthol/Lanolin/Calamine/Znox 113 GM Tube 1 APPLIC TOPICAL (21:33)
[2018-05-11] MEDS: Iron Polysaccharide Complex 150 MG CAPSULE PO (21:34)
[2018-05-11] MEDS: Atorvastatin Calcium 20 MG Tablet PO (21:34)
--- NOTE | 2018-05-11 22:22 | PCM.HP.STD ---
Problem List (1) Anemia Status: Acute (2) Chronic diastolic heart failure Status: Chronic (3) Weakness Status: Acute (4) Morbid obesity Status: Chronic (5) Sarcoidosis Status: Chronic (6) Iron deficiency anemia Status: Chronic (7) Gout Status: Chronic Qualifiers: (8) GERD (gastroesophageal reflux disease) Status: Chronic Qualifiers: (9) Hypertension Status: Chronic Qualifiers: (10) Coronary artery disease Status: Chronic Qualifiers: (11) CKD (chronic kidney disease) stage 4, GFR 15-29 ml/min Status: Chronic History of Present Illness Date of Admission: 05/11/18 Chief Complaint: Here for rehabilitation, strengthening, prior to disposition determination. The patient is a 72 year old Male with below past medical history presented to [facility] 05/07/2018 with weakness. 05/07/2018 Chest X-ray showed chronic interstitial changes. Weakness, unable to walk, nausea. Hemoglobin 6.9 on Plavix. 05/07/2018 Admit to Hospital. 1 unit PRBC Blood transfusion for anemia. Stop Plavix. Lasix 40MG PO twice daily changed to IV twice daily. Transfused 2nd unit PRBC. EPO for anemia of chronic kidney disease. Patient declined bone marrow biopsy. Coronary artery disease not amenable to intervention. Chronic Kidney Disease stage 4 stable. 05/11/2018 Admit to TCU with debility, here for rehabilitation, strengthening, prior to disposition determination. Resident may want to consider fci care versus hospice care. Past Medical History Past Medical History (Chronic Problems): Chronic Problems (Last Reviewed 05/07/18 @ 14:50 by Pancho Peterson DO) NSTEMI (non-ST elevated myocardial infarction) (Chronic) CHF (congestive heart failure) (Chronic) Allergic rhinitis due to [place]mese house dust mite (Chronic) Chronic diastolic heart failure (Chronic) History of left heart catheterization (Chronic) 04/05/2016 @ [facility] per Dr. العرقاي and 01/01/2017 @ [facility] per Dr. Kam Dyspnea (Chronic) Acute respiratory failure with hypoxia (Chronic) Hypercalcemia (Chronic) Body mass index (BMI) of 40.0-44.9 in adult (Chronic) Chronic diastolic (congestive) heart failure (Chronic) Bilateral leg edema (Chronic) Hypersomnia (Chronic) Chronic kidney disease (Chronic) Hyperlipemia, mixed (Chronic) Diastolic dysfunction (Chronic) Atherosclerosis of [place] coronary artery of [place] heart without angina pectoris (Chronic) Polyarthropathy (Chronic) Morbid obesity (Chronic) Sarcoidosis (Chronic) Cardiomyopathy (Chronic) Iron deficiency anemia (Chronic) Constipation (Chronic) 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 Gout (Chronic) Morbid obesity with BMI of 40.0-44.9, adult (Chronic) GERD (gastroesophageal reflux disease) (Chronic) Allergic rhinitis (Chronic) Hypertension (Chronic) Nephrolithiasis (Chronic) Renal cyst (Chronic) Splenomegaly (Chronic) Coronary artery disease (Chronic) CKD (chronic kidney disease) stage 4, GFR 15-29 ml/min (Chronic) Polyarthropathy of ankle and foot (Chronic) Medical History: Medical History (Last Reviewed 05/07/18 @ 14:50 by Pancho Peterson DO) Dyspnea (Chronic) R06.00 Acute respiratory failure with hypoxia (Chronic) J96.01 Hypercalcemia (Chronic) E83.52 Body mass index (BMI) of 40.0-44.9 in adult (Chronic) Z68.41 Chronic diastolic (congestive) heart failure (Chronic) I50.32 Bilateral leg edema (Chronic) R60.0 Hypersomnia (Chronic) G47.10 Chronic kidney disease (Chronic) N18.9 Hyperlipemia, mixed (Chronic) E78.2 Diastolic dysfunction (Chronic) I51.9 Atherosclerosis of [place] coronary artery of [place] heart without angina pectoris (Chronic) I25.10 NSTEMI (non-ST elevated myocardial infarction) (Acute) I21.4 Pain in right toe(s) (Acute) M79.674 Tinea unguium (Acute) B35.1 Ingrown toenail (Acute) L60.0 Anemia of chronic renal failure, stage 4 (severe) (Acute) N18.4, D63.1 Polyarthropathy (Chronic) M13.0 Edema (Acute) R60.9 Weakness (Acute) R53.1 Morbid obesity (Chronic) E66.01 Sarcoidosis (Chronic) D86.9 Debility (Acute) R53.81 Cardiomyopathy (Chronic) I42.9 Iron deficiency anemia (Chronic) D50.9 Constipation (Chronic) K59.00 Sarcoidosis of lung (Chronic) D86.0 diagnosed in 2011 on a lung biopsy Gout (Chronic) M10.9 Morbid obesity with BMI of 40.0-44.9, adult (Chronic) E66.01, Z68.41 GERD (gastroesophageal reflux disease) (Chronic) K21.9 Allergic rhinitis (Chronic) J30.9 Hypertension (Chronic) I10 Nephrolithiasis (Chronic) Renal cyst (Chronic) N28.1 Splenomegaly (Chronic) R16.1 Coronary artery disease (Chronic) I25.10 CKD (chronic kidney disease) stage 4, GFR 15-29 ml/min (Chronic) N18.4 Polyarthropathy of ankle and foot (Chronic) M13.0 Allergies Influenza Virus Vaccines Allergy (Verified 05/07/18 09:24) CAN'T BREATHE Latex, Natural Rubber Allergy (Verified 05/07/18 09:24) Rash Penicillins Allergy (Verified 05/07/18 09:24) CAN'T BREATHE Sulfa (Sulfonamide Antibiotics) Allergy (Verified 05/07/18 09:24) Rash PEPPERS Allergy (Uncoded 05/07/18 09:24) Anaphylaxis Home Medications: Ambulatory Orders Medication Instructions Recorded Aspirin [Aspirin, Baby] 81 mg PO DAILY@0800 09/10/16 Carvedilol [Coreg (Beta Trevor)] 25 mg PO BID 09/10/16 Multivitamin [Daily Multiple 1 ea PO DAILY 09/10/16 Vitamin] Hydroxychloroquine [Plaquenil] 200 mg PO BIDCM 12/29/16 Pantoprazole Sodium [Protonix] 40 mg PO DAILY 12/29/16 Allopurinol 200 mg PO DAILY 07/14/17 Iron Polysaccharide Complex 150 mg PO TID #90 07/23/17 [Ferrex 150] leflunomide 10 mg tablet 5 mg PO DAILY 08/16/17 Prednisone 7.5 mg PO DAILY 01/25/18 Furosemide [Lasix] 40 mg PO BID@1000,1800 04/17/18 Acetaminophen [Tylenol] 1,000 mg PO Q8H PRN PRN tablet 04/23/18 Isosorbide Mononitrate [Imdur] 30 mg PO DAILY #30 tab 04/23/18 Nitroglycerin [Nitrostat] 0.4 mg SUBLINGUAL Q5M PRN #30 tab 04/23/18 Ranolazine [Ranexa] 500 mg PO BID #60 tab 04/23/18 Atorvastatin Calcium [Lipitor] 20 mg PO QHS 05/03/18 Potassium Chloride [K-Dur] 20 meq PO BID 05/07/18 Menthol/Lanolin/Calamine/Znox 1 applic TOPICAL 599,219905/11/18 [Calmoseptine Ointment] Nystatin Powder [Mycostatin Powder] 1 applic TOPICAL 05/11/18 Surgical History: Surgical History (Last Reviewed 05/07/18 @ 14:50 by Pancho Peterson DO) History of left heart catheterization (Chronic) Z98.890 04/05/2016 @ [facility] per Dr. العراقي and 01/01/2017 @ [facility] per Dr. Kam Surgical History: no surgical history Psychiatric History: No pertinent psych hx Lives: Spouse/ Significant Other Smoking Status: Never smoker Tobacco Use: Non-smoker Alcohol: None Drugs: None - *Family History Maternal Family History: Family History (Last Reviewed 05/07/18 @ 14:50 by Pancho Peterson DO) Father Diabetes Heart failure Sister Diabetes Mother Diabetes History Items: Diabetes, - - His mother in her 90s of old age Paternal Family History: Family History (Last Reviewed 05/07/18 @ 14:50 by Pancho Peterson DO) Father Diabetes Heart failure Sister Diabetes Mother Diabetes History Items: Diabetes, - - Father of congestive heart failure in his 80s and had diabetes mellitus Sibling Family History: Family History (Last Reviewed 05/07/18 @ 14:50 by Pancho Peterson DO) Father Diabetes Heart failure Sister Diabetes Mother Diabetes History Items: Diabetes - His sister has diabetes. Review of Systems Constitutional: Denies: Chills, Fever, Weight Change HEENT: Denies: Head Aches, Sinus Congestion, Sinus Drainage Cardiovascular: Denies: Chest Pain, Palpitations Respiratory: Denies: Cough, Shortness of breath at rest, Sputum production Gastrointestinal: Denies: Abdominal Pain, Nausea, Vomiting Genitourinary: Denies: Dysuria Musculoskeletal: Denies: Joint Pain, Joint Tenderness Skin: Denies: Rash, Wounds Neurological: Denies: Numbness, Tingling, Focal weakness Psychiatric: Denies: Anxiety, Depression, Homicidal Ideations, Suicidal Ideations Hematologic/ Lymphatic: Denies: Easy Bruising, Easy Bleeding VTE Information - Inpt Only VTE Present on Admission: No VTE Mechan Device Prophylaxis: Knee High MAHAD Hose VTE Pharm Prophylaxis ordered?: No Reason prophylaxis not ordered:: Medical Contraindication Patient Problems: Active and Suspected Problems (Last Reviewed 05/07/18 @ 14:50 by Pancho Peterson DO) Anemia (Acute) - Physical Exam General: Alert, Oriented x3, Cooperative HEENT: Atraumatic, PERRLA, EOMI, Normocephalic Neck: Supple, No JVD, Negative Carotid Bruits Lungs: Clear to auscultation, Normal air movement Cardiovascular: Regular rate, No murmurs Abdomen: Bowel Sounds Present, Soft, Non Tender Extremities: No edema, Capillary Refill Less than 3 Seconds Skin: No rashes, No breakdown Musculoskeletal: No Tenderness to Palpation of Joints or Extremities Neurological: Cranial nerves II-XII grossly intact Psych/Mental Status: Normal Affect, Appropriate Vital Signs Temp Pulse Resp BP Pulse Ox 96.7 F L 88 20 H 132/29 H 97 05/11/18 18:02 05/11/18 18:02 05/11/18 18:02 05/11/18 18:02 05/11/18 18:02 Oxygen Delivery Method Room Air Weight: 122.47 kg Intake and Output for Last 24 Hours 05/09/18 05/10/18 05/11/18 23:59 23:59 23:59 Intake Total 240 / 240 Balance 240 / 240 Assessment/Plan All Active Problems (Last Reviewed 05/07/18 @ 14:50 by Pancho Peterson DO) Acute on chronic diastolic heart failure (Acute) Gait incoordination (Acute) Generalized weakness (Acute) Acute blood loss anemia (Acute) Heart failure with preserved ejection fraction (Acute) Anemia (Acute) NSTEMI (non-ST elevated myocardial infarction) (Acute) Pain in right toe(s) (Acute) Tinea unguium (Acute) Ingrown toenail (Acute) Anemia of chronic renal failure, stage 4 (severe) (Acute) Edema (Acute) Weakness (Acute) Debility (Acute) 72 year old male with below past medical history hospitalized for anemia, transfused 2 units PRBC, admitted to TCU with debility, here for rehabilitation, strengthening, prior to disposition determination, may want to consider fci care versus hospice care. Debility - PT/OT. Pain - Tylenol 1000MG Q8H PRN mild pain, Norflex 60MG IM x 1 dose, Solu-Medrol 125MG IM x 1 dose. Bowel - Miralax 17GM daily, Senna/colace 1 tablet BID, Dulcolax 10MG PO daily PRN. Pneumonia vaccination - Administer Prevnar 13 and/or Pneumovax 23 as needed. DVT prophylaxis - Hold due to blood loss anemia. Gout - Allopurinol 200MG daily. Coronary Artery Disease - Coreg 25MG BID, Imdur 30MG daily, Ranexa 500MG twice daily, Aspirin 81MG daily, NTG 0.4MG SL Q5M PRN. Hyperlipidemia - Atorvastatin 20MG QHS. Chronic diastolic heart failure - Coreg 25MG BID, Imdur 30MG daily, Lasix 40MG BID. Sarcoidosis - Plaquenil 200MG BID, Leflunomide 5MG daily, Prednisone 7.5MG daily. Iron deficiency anemia - Ferrex 150MG TID. Skin irritation - Calmoseptine BID buttocks. Tinea Corporis - Nystatin powder BID groin, abdominal folds. GERD - Pantoprazole 40MG daily. Hypokalemia - K-Dur 20MEQ BID.
--- NOTE | 2018-05-11 22:29 | HP.PCM_ITS ---
Problem List (1) Anemia Status: Acute (2) Chronic diastolic heart failure Status: Chronic (3) Weakness Status: Acute (4) Morbid obesity Status: Chronic (5) Sarcoidosis Status: Chronic (6) Iron deficiency anemia Status: Chronic (7) Gout Status: Chronic Qualifiers: (8) GERD (gastroesophageal reflux disease) Status: Chronic Qualifiers: (9) Hypertension Status: Chronic Qualifiers: (10) Coronary artery disease Status: Chronic Qualifiers: (11) CKD (chronic kidney disease) stage 4, GFR 15-29 ml/min Status: Chronic History of Present Illness Date of Admission: 05/11/18 Chief Complaint: Here for rehabilitation, strengthening, prior to disposition determination. The patient is a 72 year old Male with below past medical history presented to [facility] 05/07/2018 with weakness. 05/07/2018 Chest X-ray showed chronic interstitial changes. Weakness, unable to walk, nausea. Hemoglobin 6.9 on Plavix. 05/07/2018 Admit to Hospital. 1 unit PRBC Blood transfusion for anemia. Stop Plavix. Lasix 40MG PO twice daily changed to IV twice daily. Transfused 2nd unit PRBC. EPO for anemia of chronic kidney disease. Patient declined bone marrow biopsy. Coronary artery disease not amenable to intervention. Chronic Kidney Disease stage 4 stable. 05/11/2018 Admit to TCU with debility, here for rehabilitation, strengthening, prior to disposition determination. Resident may want to consider shelter care versus hospice care. Past Medical History Past Medical History (Chronic Problems): Chronic Problems (Last Reviewed 05/07/18 @ 14:50 by Pancho Peterson DO) NSTEMI (non-ST elevated myocardial infarction) (Chronic) CHF (congestive heart failure) (Chronic) Allergic rhinitis due to [place] house dust mite (Chronic) Chronic diastolic heart failure (Chronic) History of left heart catheterization (Chronic) 04/05/2016 @ [facility] per Dr. العراقي and 01/01/2017 @ [facility] per Dr. Kam Dyspnea (Chronic) Acute respiratory failure with hypoxia (Chronic) Hypercalcemia (Chronic) Body mass index (BMI) of 40.0-44.9 in adult (Chronic) Chronic diastolic (congestive) heart failure (Chronic) Bilateral leg edema (Chronic) Hypersomnia (Chronic) Chronic kidney disease (Chronic) Hyperlipemia, mixed (Chronic) Diastolic dysfunction (Chronic) Atherosclerosis of [place] coronary artery of [place] heart without angina pectoris (Chronic) Polyarthropathy (Chronic) Morbid obesity (Chronic) Sarcoidosis (Chronic) Cardiomyopathy (Chronic) Iron deficiency anemia (Chronic) Constipation (Chronic) 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 Gout (Chronic) Morbid obesity with BMI of 40.0-44.9, adult (Chronic) GERD (gastroesophageal reflux disease) (Chronic) Allergic rhinitis (Chronic) Hypertension (Chronic) Nephrolithiasis (Chronic) Renal cyst (Chronic) Splenomegaly (Chronic) Coronary artery disease (Chronic) CKD (chronic kidney disease) stage 4, GFR 15-29 ml/min (Chronic) Polyarthropathy of ankle and foot (Chronic) Medical History: Medical History (Last Reviewed 05/07/18 @ 14:50 by Pancho Peterson DO) Dyspnea (Chronic) R06.00 Acute respiratory failure with hypoxia (Chronic) J96.01 Hypercalcemia (Chronic) E83.52 Body mass index (BMI) of 40.0-44.9 in adult (Chronic) Z68.41 Chronic diastolic (congestive) heart failure (Chronic) I50.32 Bilateral leg edema (Chronic) R60.0 Hypersomnia (Chronic) G47.10 Chronic kidney disease (Chronic) N18.9 Hyperlipemia, mixed (Chronic) E78.2 Diastolic dysfunction (Chronic) I51.9 Atherosclerosis of [place] coronary artery of [place] heart without angina pectoris (Chronic) I25.10 NSTEMI (non-ST elevated myocardial infarction) (Acute) I21.4 Pain in right toe(s) (Acute) M79.674 Tinea unguium (Acute) B35.1 Ingrown toenail (Acute) L60.0 Anemia of chronic renal failure, stage 4 (severe) (Acute) N18.4, D63.1 Polyarthropathy (Chronic) M13.0 Edema (Acute) R60.9 Weakness (Acute) R53.1 Morbid obesity (Chronic) E66.01 Sarcoidosis (Chronic) D86.9 Debility (Acute) R53.81 Cardiomyopathy (Chronic) I42.9 Iron deficiency anemia (Chronic) D50.9 Constipation (Chronic) K59.00 Sarcoidosis of lung (Chronic) D86.0 diagnosed in 2011 on a lung biopsy Gout (Chronic) M10.9 Morbid obesity with BMI of 40.0-44.9, adult (Chronic) E66.01, Z68.41 GERD (gastroesophageal reflux disease) (Chronic) K21.9 Allergic rhinitis (Chronic) J30.9 Hypertension (Chronic) I10 Nephrolithiasis (Chronic) Renal cyst (Chronic) N28.1 Splenomegaly (Chronic) R16.1 Coronary artery disease (Chronic) I25.10 CKD (chronic kidney disease) stage 4, GFR 15-29 ml/min (Chronic) N18.4 Polyarthropathy of ankle and foot (Chronic) M13.0 Allergies Influenza Virus Vaccines Allergy (Verified 05/07/18 09:24) CAN'T BREATHE Latex, Natural Rubber Allergy (Verified 05/07/18 09:24) Rash Penicillins Allergy (Verified 05/07/18 09:24) CAN'T BREATHE Sulfa (Sulfonamide Antibiotics) Allergy (Verified 05/07/18 09:24) Rash PEPPERS Allergy (Uncoded 05/07/18 09:24) Anaphylaxis Home Medications: Ambulatory Orders Medication Instructions Recorded Aspirin [Aspirin, Baby] 81 mg PO DAILY@0800 09/10/16 Carvedilol [Coreg (Beta Trevor)] 25 mg PO BID 09/10/16 Multivitamin [Daily Multiple 1 ea PO DAILY 09/10/16 Vitamin] Hydroxychloroquine [Plaquenil] 200 mg PO BIDCM 12/29/16 Pantoprazole Sodium [Protonix] 40 mg PO DAILY 12/29/16 Allopurinol 200 mg PO DAILY 07/14/17 Iron Polysaccharide Complex 150 mg PO TID #90 07/23/17 [Ferrex 150] leflunomide 10 mg tablet 5 mg PO DAILY 08/16/17 Prednisone 7.5 mg PO DAILY 01/25/18 Furosemide [Lasix] 40 mg PO BID@1000,1800 04/17/18 Acetaminophen [Tylenol] 1,000 mg PO Q8H PRN PRN tablet 04/23/18 Isosorbide Mononitrate [Imdur] 30 mg PO DAILY #30 tab 04/23/18 Nitroglycerin [Nitrostat] 0.4 mg SUBLINGUAL Q5M PRN #30 tab 04/23/18 Ranolazine [Ranexa] 500 mg PO BID #60 tab 04/23/18 Atorvastatin Calcium [Lipitor] 20 mg PO QHS 05/03/18 Potassium Chloride [K-Dur] 20 meq PO BID 05/07/18 Menthol/Lanolin/Calamine/Znox 1 applic TOPICAL 599,219905/11/18 [Calmoseptine Ointment] Nystatin Powder [Mycostatin Powder] 1 applic TOPICAL 05/11/18 Surgical History: Surgical History (Last Reviewed 05/07/18 @ 14:50 by Pancho Peterson DO) History of left heart catheterization (Chronic) Z98.890 04/05/2016 @ [facility] per Dr. العراقي and 01/01/2017 @ [facility] per Dr. Kam Surgical History: no surgical history Psychiatric History: No pertinent psych hx Lives: Spouse/ Significant Other Smoking Status: Never smoker Tobacco Use: Non-smoker Alcohol: None Drugs: None - *Family History Maternal Family History: Family History (Last Reviewed 05/07/18 @ 14:50 by Pancho Peterson DO) Father Diabetes Heart failure Sister Diabetes Mother Diabetes History Items: Diabetes, - - His mother in her 90s of old age Paternal Family History: Family History (Last Reviewed 05/07/18 @ 14:50 by Pancho Peterson DO) Father Diabetes Heart failure Sister Diabetes Mother Diabetes History Items: Diabetes, - - Father of congestive heart failure in his 80s and had diabetes mellitus Sibling Family History: Family History (Last Reviewed 05/07/18 @ 14:50 by Pancho Peterson DO) Father Diabetes Heart failure Sister Diabetes Mother Diabetes History Items: Diabetes - His sister has diabetes. Review of Systems Constitutional: Denies: Chills, Fever, Weight Change HEENT: Denies: Head Aches, Sinus Congestion, Sinus Drainage Cardiovascular: Denies: Chest Pain, Palpitations Respiratory: Denies: Cough, Shortness of breath at rest, Sputum production Gastrointestinal: Denies: Abdominal Pain, Nausea, Vomiting Genitourinary: Denies: Dysuria Musculoskeletal: Denies: Joint Pain, Joint Tenderness Skin: Denies: Rash, Wounds Neurological: Denies: Numbness, Tingling, Focal weakness Psychiatric: Denies: Anxiety, Depression, Homicidal Ideations, Suicidal Ideations Hematologic/ Lymphatic: Denies: Easy Bruising, Easy Bleeding VTE Information - Inpt Only VTE Present on Admission: No VTE Mechan Device Prophylaxis: Knee High MAHAD Hose VTE Pharm Prophylaxis ordered?: No Reason prophylaxis not ordered:: Medical Contraindication Patient Problems: Active and Suspected Problems (Last Reviewed 05/07/18 @ 14:50 by Pancho Peterson DO) Anemia (Acute) - Physical Exam General: Alert, Oriented x3, Cooperative HEENT: Atraumatic, PERRLA, EOMI, Normocephalic Neck: Supple, No JVD, Negative Carotid Bruits Lungs: Clear to auscultation, Normal air movement Cardiovascular: Regular rate, No murmurs Abdomen: Bowel Sounds Present, Soft, Non Tender Extremities: No edema, Capillary Refill Less than 3 Seconds Skin: No rashes, No breakdown Musculoskeletal: No Tenderness to Palpation of Joints or Extremities Neurological: Cranial nerves II-XII grossly intact Psych/Mental Status: Normal Affect, Appropriate Vital Signs Temp Pulse Resp BP Pulse Ox 96.7 F L 88 20 H 132/29 H 97 05/11/18 18:02 05/11/18 18:02 05/11/18 18:02 05/11/18 18:02 05/11/18 18:02 Oxygen Delivery Method Room Air Weight: 122.47 kg Intake and Output for Last 24 Hours 05/09/18 05/10/18 05/11/18 23:59 23:59 23:59 Intake Total 240 / 240 Balance 240 / 240 Assessment/Plan All Active Problems (Last Reviewed 05/07/18 @ 14:50 by Pancho Peterson DO) Acute on chronic diastolic heart failure (Acute) Gait incoordination (Acute) Generalized weakness (Acute) Acute blood loss anemia (Acute) Heart failure with preserved ejection fraction (Acute) Anemia (Acute) NSTEMI (non-ST elevated myocardial infarction) (Acute) Pain in right toe(s) (Acute) Tinea unguium (Acute) Ingrown toenail (Acute) Anemia of chronic renal failure, stage 4 (severe) (Acute) Edema (Acute) Weakness (Acute) Debility (Acute) 72 year old male with below past medical history hospitalized for anemia, transfused 2 units PRBC, admitted to TCU with debility, here for rehabilitation , strengthening, prior to disposition determination, may want to consider shelter care versus hospice care. * Debility - PT/OT. * Pain - Tylenol 1000MG Q8H PRN mild pain, Norflex 60MG IM x 1 dose, Solu- Medrol 125MG IM x 1 dose. * Bowel - Miralax 17GM daily, Senna/colace 1 tablet BID, Dulcolax 10MG PO daily PRN. * Pneumonia vaccination - Administer Prevnar 13 and/or Pneumovax 23 as needed. * DVT prophylaxis - Hold due to blood loss anemia. * Gout - Allopurinol 200MG daily. * Coronary Artery Disease - Coreg 25MG BID, Imdur 30MG daily, Ranexa 500MG twice daily, Aspirin 81MG daily, NTG 0.4MG SL Q5M PRN. * Hyperlipidemia - Atorvastatin 20MG QHS. * Chronic diastolic heart failure - Coreg 25MG BID, Imdur 30MG daily, Lasix 40MG BID. * Sarcoidosis - Plaquenil 200MG BID, Leflunomide 5MG daily, Prednisone 7.5MG daily. * Iron deficiency anemia - Ferrex 150MG TID. * Skin irritation - Calmoseptine BID buttocks. * Tinea Corporis - Nystatin powder BID groin, abdominal folds. * GERD - Pantoprazole 40MG daily. * Hypokalemia - K-Dur 20MEQ BID.
[2018-05-12] MEDS: Menthol/Lanolin/Calamine/Znox 113 GM Tube 1 APPLIC TOPICAL ×2 (05:06→20:07)
[2018-05-12] MEDS: Carvedilol 25 MG Tablet PO ×2 (05:07→16:17)
[2018-05-12] MEDS: Leflunomide 10 MG TABLET 5 MG PO (05:07)
[2018-05-12] MEDS: Nystatin Powder 15gm Bottle 1 APPLIC TOPICAL ×2 (05:07→20:08)
[2018-05-12] MEDS: Senna/Docusate Sodium 1 Tablet PO ×2 (05:07→16:17)
[2018-05-12] MEDS: Isosorbide Mononitrate 30 MG Tablet PO (05:07)
[2018-05-12] MEDS: Pantoprazole Sodium 40 MG Tablet PO (05:07)
[2018-05-12] MEDS: Ranolazine 500 MG Tablet PO ×2 (05:07→16:17)
[2018-05-12] MEDS: Iron Polysaccharide Complex 150 MG CAPSULE PO ×3 (05:07→20:07)
[2018-05-12 07:27] LABS: Absolute Lymphocyte Count 0.62 X10^3/ul (0.83-4.51); Absolute Neutrophil Count 7.3 X10^3/uL (2.0-7.7); Basophil# 0.02 X10^3/uL; Basophil% 0.2 % (0-1); Hematocrit 28.8 % (40-54); Hemoglobin 8.7 g/dl (13.0-16.5); Lymphocyte # 0.62 X10^3/ul (4.0); Lymphocyte % 7.4 % (19-41); Mean Corp Hgb Conc 30.2 g/gl (32-36); Mean Corpuscular Hgb 27.4 pg (27.0-32.0); Mean Corpuscular Volume 90.6 fL (80-94); Mean Platelet Vol. 9.7 fl (6.2-12.0); Monocyte# 0.47 X10^3/uL; Monocyte% 5.6 % (0-10); Neutrophil # 7.27 X10^3/uL (2.7-7.7); Neutrophil % 86.4 % (47-70); POSITIVE COUNT NO; POSITIVE DIFFERENTIAL NO; POSITIVE MORPHOLOGY NO; Platelet Count 231 K/mm3 (150-450); RBC Distribution Width CV 17.4 % (11.6-14.6); RBC Distribution Width SD 58.1 fl (35.1-43.9); Red Blood Count 3.18 M/mm3 (4.6-6.2); White Blood Count 8.4 K/mm3 (4.4-11.0)
[2018-05-12 08:00] LABS: Anion Gap 10 (5-15); BUN 45 mg/dL (7-18); BUN/Creat Ratio 18.8 RATIO (10-20); Calcium,Total 8.9 mg/dL (8.5-10.1); Chloride 106 mmol/L (98-107); EST Glomerular Filtration Rate 28 mL/min (>60); Est Glom Filt Rate - Afr Amer 34 mL/min (>60); Estimated Creatinine Clearance 25.25 ml/min; Glucose 84 mg/dL (74-106); Potassium 4.3 mmol/L (3.5-5.1); Sodium Level 143 mmol/L (136-145)
[2018-05-12] MEDS: predniSONE 5 MG Tablet 7.5 MG PO (09:32)
[2018-05-12] MEDS: Allopurinol 100 MG Tablet 200 MG PO (09:32)
[2018-05-12] MEDS: Furosemide 40 MG Tablet PO ×2 (09:32→16:17)
[2018-05-12] MEDS: Hydroxychloroquine 200 MG Tablet PO ×2 (09:33→16:17)
[2018-05-12] MEDS: Multivitamins,Therapeutic Tablet 1 TABLET PO (09:33)
[2018-05-12] MEDS: Aspirin 81 MG TAB.CHEW PO (09:33)
[2018-05-12] MEDS: Tuberculin,Purif.prot.deriv. 50 TU/ML Vial 5 ML ID (11:42)
[2018-05-12 15:50] VITALS: BP 109/49; PULSE 79; RESP 18; TEMP 36.4; O2SAT 97
[2018-05-12] MEDS: Atorvastatin Calcium 20 MG Tablet PO (20:07)
[2018-05-13] MEDS: Menthol/Lanolin/Calamine/Znox 113 GM Tube 1 APPLIC TOPICAL ×2 (04:56→20:56)
[2018-05-13] MEDS: Carvedilol 25 MG Tablet PO ×2 (04:58→17:18)
[2018-05-13] MEDS: Leflunomide 10 MG TABLET 5 MG PO (04:58)
[2018-05-13] MEDS: Nystatin Powder 15gm Bottle 1 APPLIC TOPICAL ×2 (04:58→20:56)
[2018-05-13] MEDS: Isosorbide Mononitrate 30 MG Tablet PO (04:58)
[2018-05-13] MEDS: Iron Polysaccharide Complex 150 MG CAPSULE PO ×3 (04:58→20:55)
[2018-05-13] MEDS: Senna/Docusate Sodium 1 Tablet PO ×2 (04:59→17:19)
[2018-05-13] MEDS: Ranolazine 500 MG Tablet PO ×2 (04:59→17:19)
[2018-05-13] MEDS: Pantoprazole Sodium 40 MG Tablet PO (04:59)
[2018-05-13] MEDS: Aspirin 81 MG TAB.CHEW PO (08:42)
[2018-05-13] MEDS: Allopurinol 100 MG Tablet 200 MG PO (08:43)
[2018-05-13] MEDS: Multivitamins,Therapeutic Tablet 1 TABLET PO (08:43)
[2018-05-13] MEDS: predniSONE 5 MG Tablet 7.5 MG PO (08:43)
[2018-05-13] MEDS: Hydroxychloroquine 200 MG Tablet PO ×2 (08:43→17:19)
[2018-05-13] MEDS: Orphenadrine 60 MG/2 ML Ampul IM (09:57)
[2018-05-13] MEDS: MethylPREDNISolone 125 MG/2 ML Vial IM (09:57)
[2018-05-13] MEDS: Furosemide 40 MG Tablet PO ×2 (09:57→17:18)
--- NOTE | 2018-05-13 12:44 | NURSING ---
Addendum entered by Meghna Carmona 05/13/18 17:22: Dr June aware and orders for CXR to be done now. 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 Original Note: Complains of feeling cold, achy and weak today since 0700 this AM. Reports decrease in pain since IM injections given a few hours earlier. Up in a chair at this time. States he sucked with PT today.
[2018-05-13 17:14] VITALS: BP 129/63; PULSE 90; RESP 16; TEMP 37.4; O2SAT 95
--- NOTE | 2018-05-13 17:45 | RAD_ITS ---
STUDY: X-RAY CHEST REASON FOR EXAM: Male, 72 years old. Cough TECHNIQUE: Frontal and lateral views COMPARISON: May 07, 2018 FINDINGS: The lungs are expanded. Stable interstitial/fibrotic changes. Stable cardiomegaly. Normal mediastinum and jacqueline. Normal visualized pulmonary arteries. Calcified aortic arch and descending thoracic aorta. Degenerative changes of the visualized thoracic spine. Normal visualized ribs, clavicles, and shoulders. There is no demonstrated abnormality of the visualized soft tissue structures of the upper abdomen. RAD/Chest PA and Lateral IMPRESSION: Stable chronic interstitial densities/fibrotic changes. Stable cardiomegaly. Electronically Signed: Naveed Santos DO at 21:08 EDT Tel [phone], Service support ,
[2018-05-13] MEDS: Atorvastatin Calcium 20 MG Tablet PO (20:56)
[2018-05-14] MEDS: Pantoprazole Sodium 40 MG Tablet PO (04:50)
[2018-05-14] MEDS: Ranolazine 500 MG Tablet PO ×2 (04:50→17:53)
[2018-05-14] MEDS: Leflunomide 10 MG TABLET 5 MG PO (04:51)
[2018-05-14] MEDS: Senna/Docusate Sodium 1 Tablet PO ×2 (04:51→17:54)
[2018-05-14] MEDS: Isosorbide Mononitrate 30 MG Tablet PO (04:51)
[2018-05-14] MEDS: Nystatin Powder 15gm Bottle 1 APPLIC TOPICAL ×2 (04:52→20:03)
[2018-05-14] MEDS: Menthol/Lanolin/Calamine/Znox 113 GM Tube 1 APPLIC TOPICAL ×2 (04:53→20:04)
[2018-05-14] MEDS: Allopurinol 100 MG Tablet 200 MG PO (08:33)
[2018-05-14] MEDS: Furosemide 40 MG Tablet PO ×2 (08:33→17:53)
[2018-05-14] MEDS: Hydroxychloroquine 200 MG Tablet PO ×2 (08:34→17:53)
[2018-05-14] MEDS: predniSONE 5 MG Tablet 7.5 MG PO (08:34)
[2018-05-14] MEDS: Carvedilol 25 MG Tablet PO ×2 (08:34→17:53)
[2018-05-14] MEDS: Iron Polysaccharide Complex 150 MG CAPSULE PO ×3 (08:34→20:02)
[2018-05-14] MEDS: Aspirin 81 MG TAB.CHEW PO (08:34)
[2018-05-14] MEDS: Multivitamins,Therapeutic Tablet 1 TABLET PO (08:34)
--- NOTE | 2018-05-14 15:09 | NURSING ---
Dr glynn notified of chest xray results, no new orders.
[2018-05-14 16:00] VITALS: BP 121/52; PULSE 88; RESP 20; TEMP 37.2; O2SAT 95
[2018-05-14] MEDS: Atorvastatin Calcium 20 MG Tablet PO (20:01)
[2018-05-15] MEDS: Isosorbide Mononitrate 30 MG Tablet PO (06:17)
[2018-05-15] MEDS: Leflunomide 10 MG TABLET 5 MG PO (06:17)
[2018-05-15] MEDS: Senna/Docusate Sodium 1 Tablet PO ×2 (06:17→16:59)
[2018-05-15] MEDS: Pantoprazole Sodium 40 MG Tablet PO (06:17)
[2018-05-15] MEDS: Nystatin Powder 15gm Bottle 1 APPLIC TOPICAL ×2 (06:19→21:22)
[2018-05-15] MEDS: Menthol/Lanolin/Calamine/Znox 113 GM Tube 1 APPLIC TOPICAL ×2 (06:22→21:23)
[2018-05-15] MEDS: Multivitamins,Therapeutic Tablet 1 TABLET PO (07:38)
[2018-05-15] MEDS: Aspirin 81 MG TAB.CHEW PO (07:38)
[2018-05-15] MEDS: Iron Polysaccharide Complex 150 MG CAPSULE PO ×3 (07:38→21:10)
[2018-05-15] MEDS: predniSONE 5 MG Tablet 7.5 MG PO (07:38)
[2018-05-15] MEDS: Ranolazine 500 MG Tablet PO ×2 (07:38→16:59)
[2018-05-15] MEDS: Furosemide 40 MG Tablet PO ×2 (07:38→16:58)
[2018-05-15] MEDS: Hydroxychloroquine 200 MG Tablet PO ×2 (07:38→16:58)
[2018-05-15] MEDS: Allopurinol 100 MG Tablet 200 MG PO (07:38)
[2018-05-15] MEDS: Carvedilol 25 MG Tablet PO ×2 (07:39→16:58)
--- NOTE | 2018-05-15 12:33 | CASEMGMT ---
Insurance Clinical information faxed. Pending continued stay approval at this time. Auth#[id number] Dinora RIGGINS, HUMAN RESOURCES TALENT MANAGER
--- NOTE | 2018-05-15 13:39 | CASEMGMT ---
Plan of care meeting held. Resident present as well as resident family. No discharge date set at this time. Resident to continue with further care and treatment on the Transitional Care Unit. Resident plans to discharge to home with spouse at time of discharge. Resident with an insurance update due on 05/15/18 and aware that continued stay approval is not guaranteed. Support given. Will continue to follow. Dinora RIGGINS, PROGRAM ADMIN
[2018-05-15 16:00] VITALS: BP 117/46; PULSE 77; RESP 20; TEMP 36.3; O2SAT 95
[2018-05-15] MEDS: Atorvastatin Calcium 20 MG Tablet PO (21:10)
[2018-05-16] MEDS: Leflunomide 10 MG TABLET 5 MG PO (05:27)
[2018-05-16] MEDS: Senna/Docusate Sodium 1 Tablet PO ×2 (05:27→17:01)
[2018-05-16] MEDS: Isosorbide Mononitrate 30 MG Tablet PO (05:27)
[2018-05-16] MEDS: Ranolazine 500 MG Tablet PO ×2 (05:27→17:01)
[2018-05-16] MEDS: Pantoprazole Sodium 40 MG Tablet PO (05:27)
[2018-05-16] MEDS: Menthol/Lanolin/Calamine/Znox 113 GM Tube 1 APPLIC TOPICAL ×2 (05:30→20:01)
[2018-05-16] MEDS: Nystatin Powder 15gm Bottle 1 APPLIC TOPICAL ×2 (05:30→20:02)
[2018-05-16] MEDS: Aspirin 81 MG TAB.CHEW PO (08:01)
[2018-05-16] MEDS: Iron Polysaccharide Complex 150 MG CAPSULE PO ×3 (08:02→20:00)
[2018-05-16] MEDS: Multivitamins,Therapeutic Tablet 1 TABLET PO (08:02)
[2018-05-16] MEDS: Carvedilol 25 MG Tablet PO ×2 (08:02→16:59)
[2018-05-16] MEDS: predniSONE 5 MG Tablet 7.5 MG PO (08:03)
[2018-05-16] MEDS: Hydroxychloroquine 200 MG Tablet PO ×2 (08:03→16:59)
[2018-05-16] MEDS: Allopurinol 100 MG Tablet 200 MG PO (08:04)
[2018-05-16] MEDS: Furosemide 40 MG Tablet PO ×2 (08:04→17:00)
--- NOTE | 2018-05-16 13:06 | MDS.RN ---
Pain interview for [facility] 05/18/18 completed.
[2018-05-16 16:00] VITALS: BP 112/60; PULSE 78; RESP 18; TEMP 36.2; O2SAT 98
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
[2018-05-16] MEDS: Atorvastatin Calcium 20 MG Tablet PO (20:00)
[2018-05-17] MEDS: Senna/Docusate Sodium 1 Tablet PO ×2 (05:57→17:49)
[2018-05-17] MEDS: Ranolazine 500 MG Tablet PO ×2 (05:57→17:50)
[2018-05-17] MEDS: Isosorbide Mononitrate 30 MG Tablet PO (05:58)
[2018-05-17] MEDS: Leflunomide 10 MG TABLET 5 MG PO (05:58)
[2018-05-17] MEDS: Pantoprazole Sodium 40 MG Tablet PO (05:58)
[2018-05-17] MEDS: Nystatin Powder 15gm Bottle 1 APPLIC TOPICAL ×2 (06:02→20:50)
[2018-05-17] MEDS: Menthol/Lanolin/Calamine/Znox 113 GM Tube 1 APPLIC TOPICAL ×2 (06:05→20:49)
[2018-05-17] MEDS: Multivitamins,Therapeutic Tablet 1 TABLET PO (08:39)
[2018-05-17] MEDS: Hydroxychloroquine 200 MG Tablet PO ×2 (08:39→17:49)
[2018-05-17] MEDS: Allopurinol 100 MG Tablet 200 MG PO (08:39)
[2018-05-17] MEDS: Aspirin 81 MG TAB.CHEW PO (08:39)
[2018-05-17] MEDS: Iron Polysaccharide Complex 150 MG CAPSULE PO ×3 (08:39→20:50)
[2018-05-17] MEDS: Carvedilol 25 MG Tablet PO ×2 (08:40→17:49)
[2018-05-17] MEDS: predniSONE 5 MG Tablet 7.5 MG PO (08:40)
[2018-05-17] MEDS: Furosemide 40 MG Tablet PO ×2 (08:40→17:50)
--- NOTE | 2018-05-17 08:53 | NURSING ---
Pt has c/o soreness to right achilles area. Blanchable redness noted to area, extremity warm and pink, pedal pulses 2+. Duoderm applied to area and heels floated on pillow in recliner r/t pressure from foot of recliner to heel.
--- NOTE | 2018-05-17 11:02 | PCM.PN.RX ---
<Ethan Mars D - Last Filed: 05/17/18 11:02> Progress Note - Pharmacy Subjective: TCU Admission Objective: Allergies Influenza Virus Vaccines Allergy (Verified 05/07/18 09:24) CAN'T BREATHE Latex, Natural Rubber Allergy (Verified 05/07/18 09:24) Rash Penicillins Allergy (Verified 05/07/18 09:24) CAN'T BREATHE Sulfa (Sulfonamide Antibiotics) Allergy (Verified 05/07/18 09:24) Rash PEPPERS Allergy (Uncoded 05/07/18 09:24) Anaphylaxis Current Medications Generic Name Dose Route Start Last Admin Trade Name Freq PRN Reason Stop Dose Admin Acetaminophen 1,000 mg 05/11/18 18:11 Tylenol PO Q8H PRN PRN MILD PAIN (1-10) Allopurinol 200 mg 05/12/18 08:00 05/17/18 08:39 Zyloprim PO 200 mg DAILYCM ALEX Administration Aspirin 81 mg 05/12/18 08:00 05/17/18 08:39 Aspirin, Baby PO 81 mg DAILY@0800 ALEX Administration Atorvastatin Calcium 20 mg 05/11/18 22:00 05/16/18 20:00 Lipitor PO 20 mg QHS ALEX Administration Bisacodyl 10 mg 05/11/18 22:38 Dulcolax PO DAILY PRN Constipation Calamine/Phenol 1 applic 05/11/18 22:00 05/17/18 06:05 Calmoseptine Ointment TOPICAL 1 applicatio 0600,2200 [facility] Administration Protocol Carvedilol 25 mg 05/15/18 08:00 05/17/18 08:40 Coreg PO 25 mg 0800,1800 ALEX Administration Furosemide 40 mg 05/12/18 10:00 05/17/18 08:40 Lasix PO 40 mg BID@1000,1800 ALEX Administration Hydroxychloroquine Sulfate 200 mg 05/12/18 08:00 05/17/18 08:39 Plaquenil PO 200 mg BIDCM [facility] Administration Isosorbide Mononitrate 30 mg 05/12/18 06:00 05/17/18 05:58 Imdur PO 30 mg DAILY ALEX Administration Leflunomide 5 mg 05/12/18 06:00 05/17/18 05:58 Leflunomide PO 5 mg DAILY ALEX Administration Multivitamins 1 tablet 05/12/18 08:00 05/17/18 08:39 Multivitamin PO 1 tablet DAILYCM ALEX Administration Nitroglycerin 0.4 mg 05/11/18 18:11 Nitrostat SUBLINGUAL Q5M PRN CHEST PAIN Nutritional Formula (Lactose Free) 120 ml 05/13/18 17:00 05/17/18 05:57 Ensure Enlive PO 120 ml 4X/DAY [facility]EL[facility] Administration Nystatin 1 applic 05/11/18 22:00 05/17/18 06:02 Mycostatin Powder TOPICAL 1 applicatio 0600,2200 ALEX Administration Protocol Pantoprazole Sodium 40 mg 05/12/18 06:00 05/17/18 05:58 Protonix PO 40 mg DAILY ALEX Administration Polyethylene Glycol 17 gm 05/12/18 06:00 05/17/18 05:58 Miralax PO Not Given DAILY [facility] Polysaccharide Iron Complex 150 mg 05/15/18 08:00 05/17/18 08:39 Ferrex 150 PO 150 mg 0800,1400,2200 ALEX Administration Potassium Chloride 20 meq 05/15/18 08:00 05/17/18 08:39 K-Dur PO 20 meq 0800,1800 [facility] Administration Prednisone 7.5 mg 05/12/18 08:00 05/17/18 08:40 PO 7.5 mg DAILYCM ALEX Administration Ranolazine 500 mg 05/12/18 06:00 05/17/18 05:57 Ranexa PO 500 mg BID ALEX Administration Senna/Docusate Sodium 1 tablet 05/12/18 06:00 05/17/18 05:57 Senokot-S, Isa-Colace PO 1 tablet BID ALEX Administration Tuberculin PPD 5 tu 05/19/18 10:00 Tubersol, Aplisol, Ppd ID 05/19/18 10:01 X1 ONE Problem List (Last Reviewed 05/07/18 @ 14:50 by Pancho Peterson DO) Anemia (Acute) Chronic diastolic heart failure (Chronic) Vital Signs Temp Pulse Resp BP Pulse Ox 97.2 F L 78 18 112/60 98 05/16/18 16:00 05/16/18 16:00 05/16/18 16:00 05/16/18 16:00 05/16/18 16:00 Oxygen Delivery Method Room Air Weight: 112.519 kg Body Mass Index (BMI) 42.3 Sodium 143 mmol/L (136-145) 05/12/18 06:55 Potassium 4.3 mmol/L (3.5-5.1) 05/12/18 06:55 Chloride 106 mmol/L (98-107) 05/12/18 06:55 Carbon Dioxide 27.0 mmol/L (21.0-32.0) 05/12/18 06:55 Anion Gap 10 (5-15) 05/12/18 06:55 BUN 45 mg/dL (7-18) H 05/12/18 06:55 Creatinine 2.40 mg/dL (0.70-1.30) H 05/12/18 06:55 Est GFR (MDRD) Af Amer 34 mL/min (>60) L 05/12/18 06:55 Est GFR (MDRD) Non-Af 28 mL/min (>60) L 05/12/18 06:55 BUN/Creatinine Ratio 18.8 RATIO (10-20) 05/12/18 06:55 Glucose 84 mg/dL (74-106) 05/12/18 06:55 Assessment/Plan: 1) Pain APAP for mild pain, hydroxychloroquine, leflunomide, prednisone. Continue to monitor prn medication use, daily pain scores. 2) CAD/CHF Isosorbide, ranolazine, ASA, atorvastatin, carvedilol, furosemide/KCl, prn ntg. Continue to monitor BP/HR, renal function, electrolytes, prn medication use, lipids, s/s chest pain. 3) Nutrition Ensure, Fe, multivitamin. Continue to monitor clinically. 4) Gout Allopurinol daily. Continue to monitor s/s gout. 5) GI Pantoprazole daily. Continue to monitor s/s GI distress. 6) Derm Calmoseptine, nystatin topically. Continue to monitor clinically. Psychotropic Medications: None Unnecessary Medications: None Bowel Regimen: 7) Senna/s, PEG, prn bisacodyl. Continue to monitor prn medication use, for constipation/diarrhea. Date of Note:: 05/17/18 - Provider Comments Provider responsibility: Provider responsible to enter orders to implement recommendations <John June Chi - Last Filed: 05/17/18 14:44> Progress Note - Pharmacy Subjective: [] Objective: Allergies Influenza Virus Vaccines Allergy (Verified 05/07/18 09:24) CAN'T BREATHE Latex, Natural Rubber Allergy (Verified 05/07/18 09:24) Rash Penicillins Allergy (Verified 05/07/18 09:24) CAN'T BREATHE Sulfa (Sulfonamide Antibiotics) Allergy (Verified 05/07/18 09:24) Rash PEPPERS Allergy (Uncoded 05/07/18 09:24) Anaphylaxis Current Medications Generic Name Dose Route Start Last Admin Trade Name Freq PRN Reason Stop Dose Admin Acetaminophen 1,000 mg 05/11/18 18:11 Tylenol PO Q8H PRN PRN MILD PAIN (1-310) Allopurinol 200 mg 05/12/18 08:00 05/17/18 08:39 [facility] Administration Aspirin 81 mg 05/12/18 08:00 05/17/18 08:39 Aspirin, Baby PO 81 mg DAILY@0800 [facility] Administration Atorvastatin Calcium 20 mg 05/11/18 22:00 05/16/18 20:00 Lipitor PO 20 mg QHS [facility] Administration Bisacodyl 10 mg 05/11/18 22:38 Dulcolax PO DAILY PRN Constipation Calamine/Phenol 1 applic 05/11/18 22:00 05/17/18 06:05 Calmoseptine Ointment TOPICAL 1 applicatio 0600,2200 [facility] Administration Protocol Carvedilol 25 mg 05/15/18 08:00 05/17/18 08:40 Coreg PO 25 mg 0800,1800 [facility] Administration Furosemide 40 mg 05/12/18 10:00 05/17/18 08:40 Lasix PO 40 mg BID@1000,1800 [facility] Administration Hydroxychloroquine Sulfate 200 mg 05/12/18 08:00 05/17/18 08:39 Plaquenil PO 200 mg BIDCM [facility] Administration Isosorbide Mononitrate 30 mg 05/12/18 06:00 05/17/18 05:58 Imdur PO 30 mg DAILY [facility] Administration Leflunomide 5 mg 05/12/18 06:00 05/17/18 05:58 Leflunomide PO 5 mg DAILY [facility] Administration Multivitamins 1 tablet 05/12/18 08:00 05/17/18 08:39 [facility] Administration Nitroglycerin 0.4 mg 05/11/18 18:11 Nitrostat SUBLINGUAL Q5M PRN CHEST PAIN Nutritional Formula (Lactose Free) 120 ml 05/13/18 17:00 05/17/18 11:06 Ensure Enlive PO 120 ml 4X/DAY ALEX Administration Nystatin 1 applic 05/11/18 22:00 05/17/18 06:02 Mycostatin Powder TOPICAL 1 applicatio 0600,2200 ALEX Administration Protocol Pantoprazole Sodium 40 mg 05/12/18 06:00 05/17/18 05:58 Protonix PO 40 mg DAILY ALEX Administration Polyethylene Glycol 17 gm 05/12/18 06:00 05/17/18 05:58 Miralax PO Not Given DAILY ALEX Polysaccharide Iron Complex 150 mg 05/15/18 08:00 05/17/18 13:59 Ferrex 150 PO 150 mg 0800,1400,2200 ALEX Administration Potassium Chloride 20 meq 05/15/18 08:00 05/17/18 08:39 K-Dur PO 20 meq 0800,1800 ALEX Administration Prednisone 7.5 mg 05/12/18 08:00 05/17/18 08:40 PO 7.5 mg DAILYCM ALEX Administration Ranolazine 500 mg 05/12/18 06:00 05/17/18 05:57 Ranexa PO 500 mg BID ALEX Administration Senna/Docusate Sodium 1 tablet 05/12/18 06:00 05/17/18 05:57 Senokot-S, Isa-Colace PO 1 tablet BID ALEX Administration Tuberculin PPD 5 tu 05/19/18 10:00 Tubersol, Aplisol, Ppd ID 05/19/18 10:01 X1 ONE Problem List (Last Reviewed 05/07/18 @ 14:50 by Pancho Peterson DO) Anemia (Acute) Chronic diastolic heart failure (Chronic) Vital Signs Temp Pulse Resp BP Pulse Ox 97.2 F L 78 18 112/60 98 05/16/18 16:00 05/16/18 16:00 05/16/18 16:00 05/16/18 16:00 05/16/18 16:00 Oxygen Delivery Method Room Air Weight: 112.519 kg Body Mass Index (BMI) 42.3 Sodium 143 mmol/L (136-145) 05/12/18 06:55 Potassium 4.3 mmol/L (3.5-5.1) 05/12/18 06:55 Chloride 106 mmol/L (98-107) 05/12/18 06:55 Carbon Dioxide 27.0 mmol/L (21.0-32.0) 05/12/18 06:55 Anion Gap 10 (5-15) 05/12/18 06:55 BUN 45 mg/dL (7-18) H 05/12/18 06:55 Creatinine 2.40 mg/dL (0.70-1.30) H 05/12/18 06:55 Est GFR (MDRD) Af Amer 34 mL/min (>60) L 05/12/18 06:55 Est GFR (MDRD) Non-Af 28 mL/min (>60) L 05/12/18 06:55 BUN/Creatinine Ratio 18.8 RATIO (10-20) 05/12/18 06:55 Glucose 84 mg/dL (74-106) 05/12/18 06:55 Assessment/Plan: Psychotropic Medications: Unnecessary Medications: Bowel Regimen: - Provider Comments Provider responsibility: Provider responsible to enter orders to implement recommendations Provider Comments to Recommendations by Pharmacy: Agree
--- NOTE | 2018-05-17 11:06 | PHA.CONS_ITS ---
<Ethan Mars D - Last Filed: 05/17/18 11:02> Progress Note - Pharmacy Subjective: TCU Admission Objective: Allergies Influenza Virus Vaccines Allergy (Verified 05/07/18 09:24) CAN'T BREATHE Latex, Natural Rubber Allergy (Verified 05/07/18 09:24) Rash Penicillins Allergy (Verified 05/07/18 09:24) CAN'T BREATHE Sulfa (Sulfonamide Antibiotics) Allergy (Verified 05/07/18 09:24) Rash PEPPERS Allergy (Uncoded 05/07/18 09:24) Anaphylaxis Current Medications Generic Name Dose Route Start Last Admin Trade Name Freq PRN Reason Stop Dose Admin Acetaminophen 1,000 mg 05/11/18 18:11 Tylenol PO Q8H PRN PRN MILD PAIN (1-10) Allopurinol 200 mg 05/12/18 08:00 05/17/18 08:39 Zyloprim PO 200 mg DAILYCM ALEX Administration Aspirin 81 mg 05/12/18 08:00 05/17/18 08:39 Aspirin, Baby PO 81 mg DAILY@0800 ALEX Administration Atorvastatin Calcium 20 mg 05/11/18 22:00 05/16/18 20:00 Lipitor PO 20 mg QHS ALEX Administration Bisacodyl 10 mg 05/11/18 22:38 Dulcolax PO DAILY PRN Constipation Calamine/Phenol 1 applic 05/11/18 22:00 05/17/18 06:05 Calmoseptine Ointment TOPICAL 1 applicatio 0600,2200 [facility] Administration Protocol Carvedilol 25 mg 05/15/18 08:00 05/17/18 08:40 Coreg PO 25 mg 0800,1800 ALEX Administration Furosemide 40 mg 05/12/18 10:00 05/17/18 08:40 Lasix PO 40 mg BID@1000,1800 ALEX Administration Hydroxychloroquine Sulfate 200 mg 05/12/18 08:00 05/17/18 08:39 Plaquenil PO 200 mg BIDCM [facility] Administration Isosorbide Mononitrate 30 mg 05/12/18 06:00 05/17/18 05:58 Imdur PO 30 mg DAILY [facility] Administration Leflunomide 5 mg 05/12/18 06:00 05/17/18 05:58 Leflunomide PO 5 mg DAILY [facility] Administration Multivitamins 1 tablet 05/12/18 08:00 05/17/18 08:39 Multivitamin PO 1 tablet DAILYCM [facility]LEX Administration Nitroglycerin 0.4 mg 05/11/18 18:11 Nitrostat SUBLINGUAL Q5M PRN CHEST PAIN Nutritional Formula (Lactose Free) 120 ml 05/13/18 17:00 05/17/18 05:57 Ensure Enlive PO 120 ml 4X/DAY ALEX Administration Nystatin 1 applic 05/11/18 22:00 05/17/18 06:02 Mycostatin Powder TOPICAL 1 applicatio 0600,2200 [facility] Administration Protocol Pantoprazole Sodium 40 mg 05/12/18 06:00 05/17/18 05:58 Protonix PO 40 mg DAILY [facility] Administration Polyethylene Glycol 17 gm 05/12/18 06:00 05/17/18 05:58 Miralax PO Not Given DAILY [facility] Polysaccharide Iron Complex 150 mg 05/15/18 08:00 05/17/18 08:39 Ferrex 150 PO 150 mg 0800,1400,2200 [facility] Administration Potassium Chloride 20 meq 05/15/18 08:00 05/17/18 08:39 K-Dur PO 20 meq 0800,1800 [facility] Administration Prednisone 7.5 mg 05/12/18 08:00 05/17/18 08:40 PO 7.5 mg DAILYCM [facility] Administration Ranolazine 500 mg 05/12/18 06:00 05/17/18 05:57 Ranexa PO 500 mg BID [facility] Administration Senna/Docusate Sodium 1 tablet 05/12/18 06:00 05/17/18 05:57 Senokot-S, Isa-Colace PO 1 tablet BID [facility] Administration Tuberculin PPD 5 tu 05/19/18 10:00 Tubersol, Aplisol, Ppd ID 05/19/18 10:01 X1 ONE Problem List (Last Reviewed 05/07/18 @ 14:50 by Pancho Peterson DO) Anemia (Acute) Chronic diastolic heart failure (Chronic) Vital Signs Temp Pulse Resp BP Pulse Ox 97.2 F L 78 18 112/60 98 05/16/18 16:00 05/16/18 16:00 05/16/18 16:00 05/16/18 16:00 05/16/18 16:00 Oxygen Delivery Method Room Air Weight: 112.519 kg Body Mass Index (BMI) 42.3 Sodium 143 mmol/L (136-145) 05/12/18 06:55 Potassium 4.3 mmol/L (3.5-5.1) 05/12/18 06:55 Chloride 106 mmol/L (98-107) 05/12/18 06:55 Carbon Dioxide 27.0 mmol/L (21.0-32.0) 05/12/18 06:55 Anion Gap 10 (5-15) 05/12/18 06:55 BUN 45 mg/dL (7-18) H 05/12/18 06:55 Creatinine 2.40 mg/dL (0.70-1.30) H 05/12/18 06:55 Est GFR (MDRD) Af Amer 34 mL/min (>60) L 05/12/18 06:55 Est GFR (MDRD) Non-Af 28 mL/min (>60) L 05/12/18 06:55 BUN/Creatinine Ratio 18.8 RATIO (10-20) 05/12/18 06:55 Glucose 84 mg/dL (74-106) 05/12/18 06:55 Assessment/Plan: 1) Pain APAP for mild pain, hydroxychloroquine, leflunomide, prednisone. Continue to monitor prn medication use, daily pain scores. 2) CAD/CHF Isosorbide, ranolazine, ASA, atorvastatin, carvedilol, furosemide/KCl, prn ntg. Continue to monitor BP/HR, renal function, electrolytes, prn medication use , lipids, s/s chest pain. 3) Nutrition Ensure, Fe, multivitamin. Continue to monitor clinically. 4) Gout Allopurinol daily. Continue to monitor s/s gout. 5) GI Pantoprazole daily. Continue to monitor s/s GI distress. 6) Derm Calmoseptine, nystatin topically. Continue to monitor clinically. Psychotropic Medications: None Unnecessary Medications: None Bowel Regimen: 7) Senna/s, PEG, prn bisacodyl. Continue to monitor prn medication use, for constipation/diarrhea. Date of Note:: 05/17/18 - Provider Comments Provider responsibility: Provider responsible to enter orders to implement recommendations <John June Chi - Last Filed: 05/17/18 14:44> Progress Note - Pharmacy Subjective: [] Objective: Allergies Influenza Virus Vaccines Allergy (Verified 05/07/18 09:24) CAN'T BREATHE Latex, Natural Rubber Allergy (Verified 05/07/18 09:24) Rash Penicillins Allergy (Verified 05/07/18 09:24) CAN'T BREATHE Sulfa (Sulfonamide Antibiotics) Allergy (Verified 05/07/18 09:24) Rash PEPPERS Allergy (Uncoded 05/07/18 09:24) Anaphylaxis Current Medications Generic Name Dose Route Start Last Admin Trade Name Freq PRN Reason Stop Dose Admin Acetaminophen 1,000 mg 05/11/18 18:11 Tylenol PO Q8H PRN PRN MILD PAIN (1-310) Allopurinol 200 mg 05/12/18 08:00 05/17/18 08:39 [facility] Aspirin 81 mg 05/12/18 08:00 05/17/18 08:39 Aspirin, Baby PO 81 mg DAILY@0800 [facility] Administration Atorvastatin Calcium 20 mg 05/11/18 22:00 05/16/18 20:00 Lipitor PO 20 mg QHS [facility] Administration Bisacodyl 10 mg 05/11/18 22:38 Dulcolax PO DAILY PRN Constipation Calamine/Phenol 1 applic 05/11/18 22:00 05/17/18 06:05 Calmoseptine Ointment TOPICAL 1 applicatio 0600,2200 [facility] Administration Protocol Carvedilol 25 mg 05/15/18 08:00 05/17/18 08:40 Coreg PO 25 mg 0800,1800 [facility] Administration Furosemide 40 mg 05/12/18 10:00 05/17/18 08:40 Lasix PO 40 mg BID@1000,1800 [facility] Administration Hydroxychloroquine Sulfate 200 mg 05/12/18 08:00 05/17/18 08:39 Plaquenil PO 200 mg BIDCM [facility] Administration Isosorbide Mononitrate 30 mg 05/12/18 06:00 05/17/18 05:58 Imdur PO 30 mg DAILY [facility] Administration Leflunomide 5 mg 05/12/18 06:00 05/17/18 05:58 Leflunomide PO 5 mg DAILY [facility] Administration Multivitamins 1 tablet 05/12/18 08:00 05/17/18 08:39 [facility] Nitroglycerin 0.4 mg 05/11/18 18:11 Nitrostat SUBLINGUAL Q5M PRN CHEST PAIN Nutritional Formula (Lactose Free) 120 ml 05/13/18 17:00 05/17/18 11:06 Ensure Enlive PO 120 ml 4X/DAY [facility] Administration Nystatin 1 applic 05/11/18 22:00 05/17/18 06:02 Mycostatin Powder TOPICAL 1 applicatio 0600,2200 [facility] Administration Protocol Pantoprazole Sodium 40 mg 05/12/18 06:00 05/17/18 05:58 Protonix PO 40 mg DAILY [facility] Administration Polyethylene Glycol 17 gm 05/12/18 06:00 05/17/18 05:58 Miralax PO Not Given DAILY [facility] Polysaccharide Iron Complex 150 mg 05/15/18 08:00 05/17/18 13:59 Ferrex 150 PO 150 mg 0800,1400,2200 [facility] Administration Potassium Chloride 20 meq 05/15/18 08:00 05/17/18 08:39 K-Dur PO 20 meq 0800,1800 [facility] Administration Prednisone 7.5 mg 05/12/18 08:00 05/17/18 08:40 PO 7.5 mg DAILYCM [facility] Administration Ranolazine 500 mg 05/12/18 06:00 05/17/18 05:57 Ranexa PO 500 mg BID [facility] Administration Senna/Docusate Sodium 1 tablet 05/12/18 06:00 05/17/18 05:57 Senokot-S, Isa-Colace PO 1 tablet BID [facility] Administration Tuberculin PPD 5 tu 05/19/18 10:00 Tubersol, Aplisol, Ppd ID 05/19/18 10:01 X1 ONE Problem List (Last Reviewed 05/07/18 @ 14:50 by Pancho Peterson DO) Anemia (Acute) Chronic diastolic heart failure (Chronic) Vital Signs Temp Pulse Resp BP Pulse Ox 97.2 F L 78 18 112/60 98 05/16/18 16:00 05/16/18 16:00 05/16/18 16:00 05/16/18 16:00 05/16/18 16:00 Oxygen Delivery Method Room Air Weight: 112.519 kg Body Mass Index (BMI) 42.3 Sodium 143 mmol/L (136-145) 05/12/18 06:55 Potassium 4.3 mmol/L (3.5-5.1) 05/12/18 06:55 Chloride 106 mmol/L (98-107) 05/12/18 06:55 Carbon Dioxide 27.0 mmol/L (21.0-32.0) 05/12/18 06:55 Anion Gap 10 (5-15) 05/12/18 06:55 BUN 45 mg/dL (7-18) H 05/12/18 06:55 Creatinine 2.40 mg/dL (0.70-1.30) H 05/12/18 06:55 Est GFR (MDRD) Af Amer 34 mL/min (>60) L 05/12/18 06:55 Est GFR (MDRD) Non-Af 28 mL/min (>60) L 05/12/18 06:55 BUN/Creatinine Ratio 18.8 RATIO (10-20) 05/12/18 06:55 Glucose 84 mg/dL (74-106) 05/12/18 06:55 Assessment/Plan: Psychotropic Medications: Unnecessary Medications: Bowel Regimen: - Provider Comments Provider responsibility: Provider responsible to enter orders to implement recommendations Provider Comments to Recommendations by Pharmacy: Agree
--- NOTE | 2018-05-17 14:23 | CASEMGMT ---
BIMS and PHQ9 interviews completed on this date for MDS assessment. PHQ9 score 1515 BIMS score 04/29 GILSON Trujillo
[2018-05-17 16:00] VITALS: BP 150/67; PULSE 94; RESP 22; TEMP 36.4; O2SAT 97
[2018-05-17 20:50] VITALS: PULSE 86; O2SAT 96
[2018-05-17] MEDS: Atorvastatin Calcium 20 MG Tablet PO (20:50)
[2018-05-18] MEDS: Menthol/Lanolin/Calamine/Znox 113 GM Tube 1 APPLIC TOPICAL ×2 (05:01→20:08)
[2018-05-18] MEDS: Isosorbide Mononitrate 30 MG Tablet PO (05:02)
[2018-05-18] MEDS: Leflunomide 10 MG TABLET 5 MG PO (05:02)
[2018-05-18] MEDS: Ranolazine 500 MG Tablet PO ×2 (05:03→17:12)
[2018-05-18] MEDS: Pantoprazole Sodium 40 MG Tablet PO (05:03)
[2018-05-18] MEDS: Senna/Docusate Sodium 1 Tablet PO ×2 (05:03→17:14)
[2018-05-18] MEDS: Nystatin Powder 15gm Bottle 1 APPLIC TOPICAL ×2 (05:03→20:05)
[2018-05-18 07:53] VITALS: BP 114/62; PULSE 83; RESP 18; TEMP 36.8; O2SAT 95
[2018-05-18] MEDS: Iron Polysaccharide Complex 150 MG CAPSULE PO ×3 (09:03→20:04)
[2018-05-18] MEDS: Hydroxychloroquine 200 MG Tablet PO ×2 (09:03→17:12)
[2018-05-18] MEDS: Furosemide 40 MG Tablet PO ×2 (09:03→17:13)
[2018-05-18] MEDS: Aspirin 81 MG TAB.CHEW PO (09:03)
[2018-05-18] MEDS: Allopurinol 100 MG Tablet 200 MG PO (09:03)
[2018-05-18] MEDS: predniSONE 5 MG Tablet 7.5 MG PO (09:05)
[2018-05-18 09:31] VITALS: PULSE 80; RESP 18; O2SAT 97
[2018-05-18] MEDS: Carvedilol 25 MG Tablet PO ×2 (11:10→17:13)
[2018-05-18] MEDS: Multivitamins,Therapeutic Tablet 1 TABLET PO (11:10)
[2018-05-18 16:00] VITALS: BP 125/64; PULSE 83; RESP 20; TEMP 36.4; O2SAT 97
[2018-05-18] MEDS: Atorvastatin Calcium 20 MG Tablet PO (20:04)
[2018-05-19] MEDS: Acetaminophen 500 MG Tablet 1000 MG PO (04:21)
[2018-05-19 05:50] LABS: Absolute Lymphocyte Count 0.66 X10^3/ul (0.83-4.51); Absolute Neutrophil Count 5.6 X10^3/uL (2.0-7.7); Basophil# 0.02 X10^3/uL; Basophil% 0.3 % (0-1); Eosinophil# 0.02 X10^3/uL; Eosinophils% 0.3 % (0-5); Hematocrit 25.3 % (40-54); Hemoglobin 7.6 g/dl (13.0-16.5); Lymphocyte # 0.66 X10^3/ul (4.0); Lymphocyte % 9.6 % (19-41); Mean Corpuscular Hgb 27.2 pg (27.0-32.0); Mean Corpuscular Volume 90.7 fL (80-94); Mean Platelet Vol. 10.5 fl (6.2-12.0); Monocyte# 0.45 X10^3/uL; Monocyte% 6.6 % (0-10); Neutrophil # 5.64 X10^3/uL (2.7-7.7); Platelet Count 225 K/mm3 (150-450); RBC Distribution Width CV 16.5 % (11.6-14.6); RBC Distribution Width SD 53.1 fl (35.1-43.9); Red Blood Count 2.79 M/mm3 (4.6-6.2); White Blood Count 6.9 K/mm3 (4.4-11.0)
[2018-05-19 05:56] LABS: Anion Gap 11 (5-15); BUN 56 mg/dL (7-18); BUN/Creat Ratio 25.3 RATIO (10-20); Calcium,Total 8.5 mg/dL (8.5-10.1); Chloride 100 mmol/L (98-107); Creatinine, Serum 2.21 mg/dL (0.70-1.30); EST Glomerular Filtration Rate 31 mL/min (>60); Est Glom Filt Rate - Afr Amer 38 mL/min (>60); Estimated Creatinine Clearance 27.42 ml/min; Glucose 86 mg/dL (74-106); Potassium 3.8 mmol/L (3.5-5.1); Sodium Level 140 mmol/L (136-145)
[2018-05-19 06:10] LABS: POSITIVE COUNT NO; POSITIVE DIFFERENTIAL NO; POSITIVE MORPHOLOGY NO
[2018-05-19] MEDS: Pantoprazole Sodium 40 MG Tablet PO (06:37)
[2018-05-19] MEDS: Leflunomide 10 MG TABLET 5 MG PO (06:37)
[2018-05-19] MEDS: Senna/Docusate Sodium 1 Tablet PO ×2 (06:37→18:41)
[2018-05-19] MEDS: Isosorbide Mononitrate 30 MG Tablet PO (06:37)
[2018-05-19] MEDS: Ranolazine 500 MG Tablet PO ×2 (06:38→18:41)
[2018-05-19] MEDS: Nystatin Powder 15gm Bottle 1 APPLIC TOPICAL ×2 (06:39→20:56)
[2018-05-19] MEDS: Menthol/Lanolin/Calamine/Znox 113 GM Tube 1 APPLIC TOPICAL ×2 (06:40→20:57)
[2018-05-19] MEDS: Aspirin 81 MG TAB.CHEW PO (08:36)
[2018-05-19] MEDS: Multivitamins,Therapeutic Tablet 1 TABLET PO (08:37)
[2018-05-19] MEDS: predniSONE 5 MG Tablet 7.5 MG PO (08:37)
[2018-05-19] MEDS: Iron Polysaccharide Complex 150 MG CAPSULE PO ×3 (08:37→20:55)
[2018-05-19] MEDS: Furosemide 40 MG Tablet PO ×2 (08:37→18:41)
[2018-05-19] MEDS: Allopurinol 100 MG Tablet 200 MG PO (08:37)
[2018-05-19] MEDS: Hydroxychloroquine 200 MG Tablet PO ×2 (08:37→18:41)
[2018-05-19] MEDS: Carvedilol 25 MG Tablet PO ×2 (08:38→18:41)
[2018-05-19 09:58] VITALS: O2SAT 97
--- NOTE | 2018-05-19 12:47 | NURSING ---
pt c/o no appetite, has not been eating food on his trays. Pt orders very little at each meal. pt w/increased drowsiness. New order to type & cross one unit blood and transfuse one unit blood today d/t anemia, hgb 7.6 today. also new order remeron d/t poor appetite. pt updated on new orders.
[2018-05-19] MEDS: Tuberculin,Purif.prot.deriv. 50 TU/ML Vial 5 ML ID (13:25)
--- NOTE | 2018-05-19 14:59 | NURSING ---
pt being taken to room MS305 for blood transfusion.
[2018-05-19 15:53] VITALS: BP 129/57; PULSE 80; RESP 20; TEMP 36.4; O2SAT 96
--- NOTE | 2018-05-19 19:59 | NURSING ---
Dr June ordered H & H after blood transfusion, order entered
[2018-05-19] MEDS: Mirtazapine 15 MG Tablet 7.5 MG PO (20:55)
[2018-05-19] MEDS: Atorvastatin Calcium 20 MG Tablet PO (20:55)
[2018-05-20 05:53] LABS: Hematocrit 28.3 % (40-54); Hemoglobin 8.8 g/dl (13.0-16.5)
[2018-05-20] MEDS: Pantoprazole Sodium 40 MG Tablet PO (06:17)
[2018-05-20] MEDS: Senna/Docusate Sodium 1 Tablet PO ×2 (06:17→16:38)
[2018-05-20] MEDS: Leflunomide 10 MG TABLET 5 MG PO (06:17)
[2018-05-20] MEDS: Ranolazine 500 MG Tablet PO ×2 (06:17→16:38)
[2018-05-20] MEDS: Isosorbide Mononitrate 30 MG Tablet PO (06:17)
[2018-05-20] MEDS: Nystatin Powder 15gm Bottle 1 APPLIC TOPICAL ×2 (06:23→20:05)
[2018-05-20] MEDS: Menthol/Lanolin/Calamine/Znox 113 GM Tube 1 APPLIC TOPICAL ×2 (06:24→20:04)
[2018-05-20] MEDS: Allopurinol 100 MG Tablet 200 MG PO (10:31)
[2018-05-20] MEDS: Multivitamins,Therapeutic Tablet 1 TABLET PO (10:31)
[2018-05-20] MEDS: Furosemide 40 MG Tablet PO ×2 (10:31→16:36)
[2018-05-20] MEDS: Carvedilol 25 MG Tablet PO ×2 (10:32→16:37)
[2018-05-20] MEDS: predniSONE 5 MG Tablet 7.5 MG PO (10:32)
[2018-05-20] MEDS: Hydroxychloroquine 200 MG Tablet PO ×2 (10:32→16:37)
[2018-05-20] MEDS: Aspirin 81 MG TAB.CHEW PO (10:33)
[2018-05-20] MEDS: Iron Polysaccharide Complex 150 MG CAPSULE PO ×3 (10:33→20:01)
--- NOTE | 2018-05-20 11:16 | NURSING ---
Pt has c/o right ankle/foot pain radiating to toes. Dr. June in to see patient, NO for medrol dosepak.
--- NOTE | 2018-05-20 12:24 | CASEMGMT ---
Insurance Received phone call from insurance that clinical update is due today. Clinicals faxed. Will await continued stay determination. Auth # [id number] GILSON Trujillo
[2018-05-20] MEDS: MethylPREDNISolone DosePak 4 MG BOX PO ×3 (12:54→20:01)
[2018-05-20 15:23] VITALS: BP 115/54; PULSE 78; RESP 17; TEMP 36.4; O2SAT 95
[2018-05-20] MEDS: Mirtazapine 15 MG Tablet 7.5 MG PO (20:01)
[2018-05-20] MEDS: Atorvastatin Calcium 20 MG Tablet PO (20:01)
[2018-05-21] MEDS: Leflunomide 10 MG TABLET 5 MG PO (06:23)
[2018-05-21] MEDS: Isosorbide Mononitrate 30 MG Tablet PO (06:23)
[2018-05-21] MEDS: Ranolazine 500 MG Tablet PO ×2 (06:23→16:41)
[2018-05-21] MEDS: Senna/Docusate Sodium 1 Tablet PO ×2 (06:23→16:40)
[2018-05-21] MEDS: Pantoprazole Sodium 40 MG Tablet PO (06:23)
[2018-05-21] MEDS: Nystatin Powder 15gm Bottle 1 APPLIC TOPICAL ×2 (06:30→20:14)
[2018-05-21] MEDS: Menthol/Lanolin/Calamine/Znox 113 GM Tube 1 APPLIC TOPICAL ×2 (06:30→20:12)
[2018-05-21] MEDS: MethylPREDNISolone DosePak 4 MG BOX PO ×4 (09:29→20:13)
[2018-05-21] MEDS: predniSONE 5 MG Tablet 7.5 MG PO (09:30)
[2018-05-21] MEDS: Multivitamins,Therapeutic Tablet 1 TABLET PO (09:30)
[2018-05-21] MEDS: Hydroxychloroquine 200 MG Tablet PO ×2 (09:30→16:39)
[2018-05-21] MEDS: Furosemide 40 MG Tablet PO ×2 (09:30→16:41)
[2018-05-21] MEDS: Iron Polysaccharide Complex 150 MG CAPSULE PO ×3 (09:30→20:12)
[2018-05-21] MEDS: Allopurinol 100 MG Tablet 200 MG PO (09:31)
[2018-05-21] MEDS: Carvedilol 25 MG Tablet PO ×2 (09:31→16:40)
[2018-05-21] MEDS: Aspirin 81 MG TAB.CHEW PO (09:31)
--- NOTE | 2018-05-21 13:40 | CASEMGMT ---
Insurance Continued stay approved with update due 05/27. Pt notified and agreeable to continued stay. Auth #[id number] GILSON Marcial
[2018-05-21 15:54] VITALS: BP 111/52; PULSE 84; RESP 18; TEMP 36.3; O2SAT 95
[2018-05-21] MEDS: Atorvastatin Calcium 20 MG Tablet PO (20:13)
[2018-05-21] MEDS: Mirtazapine 15 MG Tablet 7.5 MG PO (20:15)
[2018-05-22] MEDS: Menthol/Lanolin/Calamine/Znox 113 GM Tube 1 APPLIC TOPICAL ×2 (05:48→20:43)
[2018-05-22] MEDS: Nystatin Powder 15gm Bottle 1 APPLIC TOPICAL ×2 (05:50→20:42)
[2018-05-22] MEDS: Pantoprazole Sodium 40 MG Tablet PO (05:50)
[2018-05-22] MEDS: Ranolazine 500 MG Tablet PO ×2 (05:50→17:42)
[2018-05-22] MEDS: Senna/Docusate Sodium 1 Tablet PO ×2 (05:50→17:42)
[2018-05-22] MEDS: Leflunomide 10 MG TABLET 5 MG PO (05:50)
[2018-05-22] MEDS: Isosorbide Mononitrate 30 MG Tablet PO (05:50)
[2018-05-22 06:06] LABS: Hematocrit 28.2 % (40-54); Hemoglobin 8.6 g/dl (13.0-16.5)
[2018-05-22] MEDS: Aspirin 81 MG TAB.CHEW PO (07:37)
[2018-05-22] MEDS: Multivitamins,Therapeutic Tablet 1 TABLET PO (07:37)
[2018-05-22] MEDS: predniSONE 5 MG Tablet 7.5 MG PO (07:38)
[2018-05-22] MEDS: Iron Polysaccharide Complex 150 MG CAPSULE PO ×3 (07:38→20:41)
[2018-05-22] MEDS: Allopurinol 100 MG Tablet 200 MG PO (07:38)
[2018-05-22] MEDS: Carvedilol 25 MG Tablet PO ×2 (07:38→17:43)
[2018-05-22] MEDS: MethylPREDNISolone DosePak 4 MG BOX PO ×4 (07:38→20:40)
[2018-05-22] MEDS: Furosemide 40 MG Tablet PO ×2 (07:38→17:42)
[2018-05-22] MEDS: Hydroxychloroquine 200 MG Tablet PO ×2 (07:39→17:42)
[2018-05-22 16:00] VITALS: BP 134/67; PULSE 85; RESP 18; TEMP 36.2; O2SAT 95
[2018-05-22] MEDS: Mirtazapine 15 MG Tablet 7.5 MG PO (20:40)
[2018-05-22] MEDS: Atorvastatin Calcium 20 MG Tablet PO (20:40)
[2018-05-23] MEDS: Ranolazine 500 MG Tablet PO ×2 (05:17→17:22)
[2018-05-23] MEDS: Leflunomide 10 MG TABLET 5 MG PO (05:18)
[2018-05-23] MEDS: Senna/Docusate Sodium 1 Tablet PO ×2 (05:18→17:22)
[2018-05-23] MEDS: Pantoprazole Sodium 40 MG Tablet PO (05:18)
[2018-05-23] MEDS: Isosorbide Mononitrate 30 MG Tablet PO (05:19)
[2018-05-23] MEDS: Nystatin Powder 15gm Bottle 1 APPLIC TOPICAL ×2 (05:20→21:57)
[2018-05-23] MEDS: Menthol/Lanolin/Calamine/Znox 113 GM Tube 1 APPLIC TOPICAL ×2 (05:20→21:56)
[2018-05-23] MEDS: predniSONE 5 MG Tablet 7.5 MG PO (08:30)
[2018-05-23] MEDS: MethylPREDNISolone DosePak 4 MG BOX PO ×3 (08:30→21:54)
[2018-05-23] MEDS: Iron Polysaccharide Complex 150 MG CAPSULE PO ×3 (08:31→21:55)
[2018-05-23] MEDS: Allopurinol 100 MG Tablet 200 MG PO (08:31)
[2018-05-23] MEDS: Hydroxychloroquine 200 MG Tablet PO ×2 (08:32→17:23)
[2018-05-23] MEDS: Multivitamins,Therapeutic Tablet 1 TABLET PO (08:32)
[2018-05-23] MEDS: Carvedilol 25 MG Tablet PO ×2 (08:33→17:23)
[2018-05-23] MEDS: Aspirin 81 MG TAB.CHEW PO (08:34)
[2018-05-23] MEDS: Furosemide 40 MG Tablet PO ×2 (10:21→17:22)
--- NOTE | 2018-05-23 15:26 | CASEMGMT ---
Social Work Met with pt per her request. Pt inquiring about mechanical engineering manager care should pt not be able to return home upon d/c. Provided verbal and written information on home health, assisted living and shelter care. Also explained Medicaid system. At this time pt would have resources for extended care facility if needed. SW will continue to follow d/c planning and support. GILSON Trujillo
[2018-05-23 15:44] VITALS: BP 134/62; PULSE 83; RESP 18; TEMP 36; O2SAT 96
[2018-05-23] MEDS: Mirtazapine 15 MG Tablet 7.5 MG PO (21:55)
[2018-05-23] MEDS: Atorvastatin Calcium 20 MG Tablet PO (21:55)
[2018-05-24] MEDS: Leflunomide 10 MG TABLET 5 MG PO (05:03)
[2018-05-24] MEDS: Ranolazine 500 MG Tablet PO ×2 (05:03→16:26)
[2018-05-24] MEDS: Isosorbide Mononitrate 30 MG Tablet PO (05:03)
[2018-05-24] MEDS: Pantoprazole Sodium 40 MG Tablet PO (05:04)
[2018-05-24] MEDS: Senna/Docusate Sodium 1 Tablet PO ×2 (05:04→16:26)
[2018-05-24] MEDS: Nystatin Powder 15gm Bottle 1 APPLIC TOPICAL ×2 (05:05→20:38)
[2018-05-24] MEDS: Menthol/Lanolin/Calamine/Znox 113 GM Tube 1 APPLIC TOPICAL ×2 (05:05→20:36)
[2018-05-24] MEDS: Carvedilol 25 MG Tablet PO ×2 (09:20→16:25)
[2018-05-24] MEDS: Multivitamins,Therapeutic Tablet 1 TABLET PO (09:20)
[2018-05-24] MEDS: Aspirin 81 MG TAB.CHEW PO (09:20)
[2018-05-24] MEDS: Iron Polysaccharide Complex 150 MG CAPSULE PO ×3 (09:20→20:37)
[2018-05-24] MEDS: Hydroxychloroquine 200 MG Tablet PO ×2 (09:21→16:25)
[2018-05-24] MEDS: MethylPREDNISolone DosePak 4 MG BOX PO ×2 (09:21→20:38)
[2018-05-24] MEDS: predniSONE 5 MG Tablet 7.5 MG PO (09:21)
[2018-05-24] MEDS: Allopurinol 100 MG Tablet 200 MG PO (09:22)
[2018-05-24] MEDS: Furosemide 40 MG Tablet PO ×2 (09:22→16:26)
--- NOTE | 2018-05-24 11:40 | MDS.RN ---
Information for the mds was obtained from review of the clinical record, interview of resident, staff, and direct observation of resident's care.
--- NOTE | 2018-05-24 15:40 | MDS.RN ---
Pain interview for [facility] 05/25/18 completed.
[2018-05-24 16:00] VITALS: BP 125/55; PULSE 82; RESP 16; TEMP 36.7
--- NOTE | 2018-05-24 16:04 | CASEMGMT ---
BIMS and PHQ9 interviews completed on this date for MDS assessment. BIMS score 15/15, PHQ9 score 03/29 GILSON Trujillo
--- NOTE | 2018-05-24 16:08 | PCM.TCUNOT ---
Subjective: Resident seen in room, along with spouse. Resident requesting to have EPO injections stopped, he feels the EPO injections made him worse. We also had long discussion about end of life care. I explained that [facility], [facility], feels weak, presents to [facility] ED, then admitted to ICU, PCU, then [facility] floor, then back to TCU. Jace states that when one of his organ systems is fixed, then another organ system will break. I have been seeing Jace for some time, I believe he is on slow decline to . Jace is considering [facility]. Jace and his spouse are agreeable to [facility]. I reassured them Hospice is reversible, and if he improves while on hospice care, he can always stop hospice services. Vitals/I&O's: Vital Signs Temp Pulse Resp BP Pulse Ox 96.8 F L 83 18 134/62 H 96 05/23/18 15:44 05/23/18 15:44 05/23/18 15:44 05/23/18 15:44 05/23/18 15:44 Oxygen Delivery Method Room Air Weight: 121.676 kg Body Mass Index (BMI) 42.3 Intake and Output for Last 24 Hours 05/22/18 05/23/18 05/24/18 23:59 23:59 23:59 Intake Total 720 / 720 480 / 480 300 / 300 Output Total 1470 / 1470 600 / 600 775 / 775 Balance -750 / -750 -120 / -120 -475 / -475 Past Medical History Past Medical History (Chronic Problems): Chronic Problems (Last Reviewed 05/24/18 @ 10:30 by Ministerio Kam MD) NSTEMI (non-ST elevated myocardial infarction) (Chronic) CHF (congestive heart failure) (Chronic) Allergic rhinitis due to Guyanese house dust mite (Chronic) Chronic diastolic heart failure (Chronic) History of left heart catheterization (Chronic) 04/05/2016 @ [facility] per Dr. العراقي and 01/01/2017 @ [facility] per Dr. Kam Dyspnea (Chronic) Acute respiratory failure with hypoxia (Chronic) Hypercalcemia (Chronic) Body mass index (BMI) of 40.0-44.9 in adult (Chronic) Chronic diastolic (congestive) heart failure (Chronic) Bilateral leg edema (Chronic) Hypersomnia (Chronic) Chronic kidney disease (Chronic) Hyperlipemia, mixed (Chronic) Diastolic dysfunction (Chronic) Atherosclerosis of [place] coronary artery of [place] heart without angina pectoris (Chronic) Polyarthropathy (Chronic) Morbid obesity (Chronic) Sarcoidosis (Chronic) Cardiomyopathy (Chronic) Iron deficiency anemia (Chronic) Constipation (Chronic) 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 Gout (Chronic) Morbid obesity with BMI of 40.0-44.9, adult (Chronic) GERD (gastroesophageal reflux disease) (Chronic) Allergic rhinitis (Chronic) Hypertension (Chronic) Nephrolithiasis (Chronic) Renal cyst (Chronic) Splenomegaly (Chronic) Coronary artery disease (Chronic) CKD (chronic kidney disease) stage 4, GFR 15-29 ml/min (Chronic) Polyarthropathy of ankle and foot (Chronic) Medical History: Medical History (Last Reviewed 05/24/18 @ 10:30 by Ministerio Kam MD) Dyspnea (Chronic) R06.00 Acute respiratory failure with hypoxia (Chronic) J96.01 Hypercalcemia (Chronic) E83.52 Body mass index (BMI) of 40.0-44.9 in adult (Chronic) Z68.41 Chronic diastolic (congestive) heart failure (Chronic) I50.32 Bilateral leg edema (Chronic) R60.0 Hypersomnia (Chronic) G47.10 Chronic kidney disease (Chronic) N18.9 Hyperlipemia, mixed (Chronic) E78.2 Diastolic dysfunction (Chronic) I51.9 Atherosclerosis of [place] coronary artery of [place] heart without angina pectoris (Chronic) I25.10 NSTEMI (non-ST elevated myocardial infarction) (Acute) I21.4 Pain in right toe(s) (Acute) M79.674 Tinea unguium (Acute) B35.1 Ingrown toenail (Acute) L60.0 Anemia of chronic renal failure, stage 4 (severe) (Acute) N18.4, D63.1 Polyarthropathy (Chronic) M13.0 Edema (Acute) R60.9 Weakness (Acute) R53.1 Morbid obesity (Chronic) E66.01 Sarcoidosis (Chronic) D86.9 Debility (Acute) R53.81 Cardiomyopathy (Chronic) I42.9 Iron deficiency anemia (Chronic) D50.9 Constipation (Chronic) K59.00 Sarcoidosis of lung (Chronic) D86.0 diagnosed in 2011 on a lung biopsy Gout (Chronic) M10.9 Morbid obesity with BMI of 40.0-44.9, adult (Chronic) E66.01, Z68.41 GERD (gastroesophageal reflux disease) (Chronic) K21.9 Allergic rhinitis (Chronic) J30.9 Hypertension (Chronic) I10 Nephrolithiasis (Chronic) Renal cyst (Chronic) N28.1 Splenomegaly (Chronic) R16.1 Coronary artery disease (Chronic) I25.10 CKD (chronic kidney disease) stage 4, GFR 15-29 ml/min (Chronic) N18.4 Polyarthropathy of ankle and foot (Chronic) M13.0 Allergies Influenza Virus Vaccines Allergy (Verified 05/24/18 08:49) CAN'T BREATHE Latex, Natural Rubber Allergy (Verified 05/24/18 08:49) Rash Penicillins Allergy (Verified 05/24/18 08:49) CAN'T BREATHE Sulfa (Sulfonamide Antibiotics) Allergy (Verified 05/24/18 08:49) Rash PEPPERS Allergy (Uncoded 05/24/18 08:49) Anaphylaxis Home Medications: Ambulatory Orders Medication Instructions Recorded Aspirin [Aspirin, Baby] 81 mg PO DAILY@0800 09/10/16 Carvedilol [Coreg (Beta Trevor)] 25 mg PO BID 09/10/16 Multivitamin [Daily Multiple 1 ea PO DAILY 09/10/16 Vitamin] Hydroxychloroquine [Plaquenil] 200 mg PO BIDCM 12/29/16 Pantoprazole Sodium [Protonix] 40 mg PO DAILY 12/29/16 Allopurinol 200 mg PO DAILY 07/14/17 Iron Polysaccharide Complex 150 mg PO TID #90 07/23/17 [Ferrex 150] leflunomide 10 mg tablet 5 mg PO DAILY 08/16/17 Prednisone 7.5 mg PO DAILY 01/25/18 Furosemide [Lasix] 40 mg PO BID@1000,1800 04/17/18 Acetaminophen [Tylenol] 1,000 mg PO Q8H PRN PRN tab 04/23/18 Isosorbide Mononitrate [Imdur] 30 mg PO DAILY #30 tab 04/23/18 Nitroglycerin [Nitrostat] 0.4 mg SUBLINGUAL Q5M PRN #30 tab 04/23/18 Ranolazine [Ranexa] 500 mg PO BID #60 tab 04/23/18 Atorvastatin Calcium [Lipitor] 20 mg PO QHS 05/03/18 Potassium Chloride [K-Dur] 20 meq PO BID 05/07/18 Menthol/Lanolin/Calamine/Znox 1 applic TOPICAL 0600,219905/11/18 [Calmoseptine Ointment] Nystatin Powder [Mycostatin Powder] 1 applic TOPICAL 00,219905/11/18 Surgical History: Surgical History (Last Reviewed 05/24/18 @ 10:30 by Ministerio aKm MD) History of left heart catheterization (Chronic) Z98.890 04/05/2016 @ [facility] per Dr. العراقي and 01/01/2017 @ [facility] per Dr. Kam Surgical History: no surgical history Psychiatric History: No pertinent psych hx Lives: Spouse/ Significant Other Smoking Status: Never smoker Tobacco Use: Non-smoker Alcohol: None Drugs: None - *Family History Maternal Family History: Family History (Last Reviewed 05/24/18 @ 10:30 by Ministerio Kam MD) Father Diabetes Heart failure Sister Diabetes Mother Diabetes History Items: Diabetes, - - His mother in her 90s of old age Paternal Family History: Family History (Last Reviewed 05/24/18 @ 10:30 by Ministerio Kam MD) Father Diabetes Heart failure Sister Diabetes Mother Diabetes History Items: Diabetes, - - Father of congestive heart failure in his 80s and had diabetes mellitus Sibling Family History: Family History (Last Reviewed 05/24/18 @ 10:30 by Ministerio Kam MD) Father Diabetes Heart failure Sister Diabetes Mother Diabetes History Items: Diabetes - His sister has diabetes. Review of Systems Constitutional: Denies: Chills, Fever, Weight Change HEENT: Denies: Head Aches, Sinus Congestion, Sinus Drainage Cardiovascular: Denies: Chest Pain, Palpitations Respiratory: Denies: Cough, Shortness of breath at rest, Sputum production Gastrointestinal: Denies: Abdominal Pain, Nausea, Vomiting Genitourinary: Denies: Dysuria Musculoskeletal: Denies: Joint Pain, Joint Tenderness Skin: Denies: Rash, Wounds Neurological: Denies: Numbness, Tingling, Focal weakness Psychiatric: Denies: Anxiety, Depression, Homicidal Ideations, Suicidal Ideations Hematologic/ Lymphatic: Denies: Easy Bruising, Easy Bleeding Patient Problems: Active and Suspected Problems (Last Reviewed 05/24/18 @ 10:30 by Ministerio Kam MD) Anemia (Acute) - Physical Exam General: Alert, Oriented x3, Cooperative HEENT: Atraumatic, PERRLA, EOMI, Normocephalic Neck: Supple, No JVD, Negative Carotid Bruits Lungs: Clear to auscultation, Normal air movement Cardiovascular: Regular rate, No murmurs Abdomen: Bowel Sounds Present, Soft, Non Tender Extremities: No edema, Capillary Refill Less than 3 Seconds Skin: No rashes, No breakdown Musculoskeletal: No Tenderness to Palpation of Joints or Extremities Neurological: Cranial nerves II-XII grossly intact Psych/Mental Status: Normal Affect, Appropriate Vital Signs Temp Pulse Resp BP Pulse Ox 96.8 F L 83 18 134/62 H 96 05/23/18 15:44 05/23/18 15:44 05/23/18 15:44 05/23/18 15:44 05/23/18 15:44 Oxygen Delivery Method Room Air Weight: 121.676 kg Body Mass Index (BMI) 42.3 Intake and Output for Last 24 Hours 05/22/18 05/23/18 05/24/18 23:59 23:59 23:59 Intake Total 720 / 720 480 / 480 300 / 300 Output Total 1470 / 1470 600 / 600 775 / 775 Balance -750 / -750 -120 / -120 -475 / -475 Assessment/Plan All Active Problems (Last Reviewed 05/24/18 @ 10:30 by Ministerio Kam MD) Acute on chronic diastolic heart failure (Acute) Gait incoordination (Acute) Generalized weakness (Acute) Acute blood loss anemia (Acute) Heart failure with preserved ejection fraction (Acute) Anemia (Acute) NSTEMI (non-ST elevated myocardial infarction) (Acute) Pain in right toe(s) (Acute) Tinea unguium (Acute) Ingrown toenail (Acute) Anemia of chronic renal failure, stage 4 (severe) (Acute) Edema (Acute) Weakness (Acute) Debility (Acute) 72 year old male with below past medical history hospitalized for anemia, transfused 2 units PRBC, admitted to TCU with debility, here for rehabilitation, strengthening, prior to disposition determination, may want to consider [facility] care versus hospice care. End of Life Care - Recommend [facility].
--- NOTE | 2018-05-24 16:12 | PN_ITS ---
Subjective: Resident seen in room, along with spouse. Resident requesting to have EPO injections stopped, he feels the EPO injections made him worse. We also had long discussion about end of life care. I explained that [facility]. [facility], [facility], feels weak, presents to [facility] ED, then admitted to ICU, PCU, then [facility] floor, then back to TCU. Jace states that when one of his organ systems is fixed, then another organ system will break. I have been seeing Jace for some time, I believe he is on slow decline to . Jace is considering discharging to [facility] from [facility]. Jace and his spouse are agreeable to [facility]. I reassured them Hospice is reversible, and if he improves while on hospice care, he can always stop hospice services. Vitals/I&O's: Vital Signs Temp Pulse Resp BP Pulse Ox 96.8 F L 83 18 134/62 H 96 05/23/18 15:44 05/23/18 15:44 05/23/18 15:44 05/23/18 15:44 05/23/18 15:44 Oxygen Delivery Method Room Air Weight: 121.676 kg Body Mass Index (BMI) 42.3 Intake and Output for Last 24 Hours 05/22/18 05/23/18 05/24/18 23:59 23:59 23:59 Intake Total 720 / 720 480 / 480 300 / 300 Output Total 1470 / 1470 600 / 600 775 / 775 Balance -750 / -750 -120 / -120 -475 / -475 Past Medical History Past Medical History (Chronic Problems): Chronic Problems (Last Reviewed 05/24/18 @ 10:30 by Ministerio Kam MD) NSTEMI (non-ST elevated myocardial infarction) (Chronic) CHF (congestive heart failure) (Chronic) Allergic rhinitis due to Tunisian house dust mite (Chronic) Chronic diastolic heart failure (Chronic) History of left heart catheterization (Chronic) 04/05/2016 @ [facility] per Dr. العراقي and 01/01/2017 @ [facility] per Dr. 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 Gout (Chronic) Morbid obesity with BMI of 40.0-44.9, adult (Chronic) GERD (gastroesophageal reflux disease) (Chronic) Allergic rhinitis (Chronic) Hypertension (Chronic) Nephrolithiasis (Chronic) Renal cyst (Chronic) Splenomegaly (Chronic) Coronary artery disease (Chronic) CKD (chronic kidney disease) stage 4, GFR 15-29 ml/min (Chronic) Polyarthropathy of ankle and foot (Chronic) Medical History: Medical History (Last Reviewed 05/24/18 @ 10:30 by Ministerio Kam MD) Dyspnea (Chronic) R06.00 Acute respiratory failure with hypoxia (Chronic) J96.01 Hypercalcemia (Chronic) E83.52 Body mass index (BMI) of 40.0-44.9 in adult (Chronic) Z68.41 Chronic diastolic (congestive) heart failure (Chronic) I50.32 Bilateral leg edema (Chronic) R60.0 Hypersomnia (Chronic) G47.10 Chronic kidney disease (Chronic) N18.9 Hyperlipemia, mixed (Chronic) E78.2 Diastolic dysfunction (Chronic) I51.9 Atherosclerosis of [place] coronary artery of [place] heart without angina pectoris (Chronic) I25.10 NSTEMI (non-ST elevated myocardial infarction) (Acute) I21.4 Pain in right toe(s) (Acute) M79.674 Tinea unguium (Acute) B35.1 Ingrown toenail (Acute) L60.0 Anemia of chronic renal failure, stage 4 (severe) (Acute) N18.4, D63.1 Polyarthropathy (Chronic) M13.0 Edema (Acute) R60.9 Weakness (Acute) R53.1 Morbid obesity (Chronic) E66.01 Sarcoidosis (Chronic) D86.9 Debility (Acute) R53.81 Cardiomyopathy (Chronic) I42.9 Iron deficiency anemia (Chronic) D50.9 Constipation (Chronic) K59.00 Sarcoidosis of lung (Chronic) D86.0 diagnosed in 2011 on a lung biopsy Gout (Chronic) M10.9 Morbid obesity with BMI of 40.0-44.9, adult (Chronic) E66.01, Z68.41 GERD (gastroesophageal reflux disease) (Chronic) K21.9 Allergic rhinitis (Chronic) J30.9 Hypertension (Chronic) I10 Nephrolithiasis (Chronic) Renal cyst (Chronic) N28.1 Splenomegaly (Chronic) R16.1 Coronary artery disease (Chronic) I25.10 CKD (chronic kidney disease) stage 4, GFR 15-29 ml/min (Chronic) N18.4 Polyarthropathy of ankle and foot (Chronic) M13.0 Allergies Influenza Virus Vaccines Allergy (Verified 05/24/18 08:49) CAN'T BREATHE Latex, Natural Rubber Allergy (Verified 05/24/18 08:49) Rash Penicillins Allergy (Verified 05/24/18 08:49) CAN'T BREATHE Sulfa (Sulfonamide Antibiotics) Allergy (Verified 05/24/18 08:49) Rash PEPPERS Allergy (Uncoded 05/24/18 08:49) Anaphylaxis Home Medications: Ambulatory Orders Medication Instructions Recorded Aspirin [Aspirin, Baby] 81 mg PO DAILY@0800 09/10/16 Carvedilol [Coreg (Beta Trevor)] 25 mg PO BID 09/10/16 Multivitamin [Daily Multiple 1 ea PO DAILY 09/10/16 Vitamin] Hydroxychloroquine [Plaquenil] 200 mg PO BIDCM 12/29/16 Pantoprazole Sodium [Protonix] 40 mg PO DAILY 12/29/16 Allopurinol 200 mg PO DAILY 07/14/17 Iron Polysaccharide Complex 150 mg PO TID #90 07/23/17 [Ferrex 150] leflunomide 10 mg tablet 5 mg PO DAILY 08/16/17 Prednisone 7.5 mg PO DAILY 01/25/18 Furosemide [Lasix] 40 mg PO BID@1000,1800 04/17/18 Acetaminophen [Tylenol] 1,000 mg PO Q8H PRN PRN tab 04/23/18 Isosorbide Mononitrate [Imdur] 30 mg PO DAILY #30 tab 04/23/18 Nitroglycerin [Nitrostat] 0.4 mg SUBLINGUAL Q5M PRN #30 tab 04/23/18 Ranolazine [Ranexa] 500 mg PO BID #60 tab 04/23/18 Atorvastatin Calcium [Lipitor] 20 mg PO QHS 05/03/18 Potassium Chloride [K-Dur] 20 meq PO BID 05/07/18 Menthol/Lanolin/Calamine/Znox 1 applic TOPICAL 0600,219905/11/18 [Calmoseptine Ointment] Nystatin Powder [Mycostatin Powder] 1 applic TOPICAL 00,219905/11/18 Surgical History: Surgical History (Last Reviewed 05/24/18 @ 10:30 by Ministerio Kam MD) History of left heart catheterization (Chronic) Z98.890 04/05/2016 @ [facility] per Dr. العراقي and 01/01/2017 @ [facility] per Dr. Kam Surgical History: no surgical history Psychiatric History: No pertinent psych hx Lives: Spouse/ Significant Other Smoking Status: Never smoker Tobacco Use: Non-smoker Alcohol: None Drugs: None - *Family History Maternal Family History: Family History (Last Reviewed 05/24/18 @ 10:30 by Ministerio Kam MD) Father Diabetes Heart failure Sister Diabetes Mother Diabetes History Items: Diabetes, - - His mother in her 90s of old age Paternal Family History: Family History (Last Reviewed 05/24/18 @ 10:30 by Ministerio Kam MD) Father Diabetes Heart failure Sister Diabetes Mother Diabetes History Items: Diabetes, - - Father of congestive heart failure in his 80s and had diabetes mellitus Sibling Family History: Family History (Last Reviewed 05/24/18 @ 10:30 by Ministerio Kam MD) Father Diabetes Heart failure Sister Diabetes Mother Diabetes History Items: Diabetes - His sister has diabetes. Review of Systems Constitutional: Denies: Chills, Fever, Weight Change HEENT: Denies: Head Aches, Sinus Congestion, Sinus Drainage Cardiovascular: Denies: Chest Pain, Palpitations Respiratory: Denies: Cough, Shortness of breath at rest, Sputum production Gastrointestinal: Denies: Abdominal Pain, Nausea, Vomiting Genitourinary: Denies: Dysuria Musculoskeletal: Denies: Joint Pain, Joint Tenderness Skin: Denies: Rash, Wounds Neurological: Denies: Numbness, Tingling, Focal weakness Psychiatric: Denies: Anxiety, Depression, Homicidal Ideations, Suicidal Ideations Hematologic/ Lymphatic: Denies: Easy Bruising, Easy Bleeding Patient Problems: Active and Suspected Problems (Last Reviewed 05/24/18 @ 10:30 by Ministerio Kam MD ) Anemia (Acute) - Physical Exam General: Alert, Oriented x3, Cooperative HEENT: Atraumatic, PERRLA, EOMI, Normocephalic Neck: Supple, No JVD, Negative Carotid Bruits Lungs: Clear to auscultation, Normal air movement Cardiovascular: Regular rate, No murmurs Abdomen: Bowel Sounds Present, Soft, Non Tender Extremities: No edema, Capillary Refill Less than 3 Seconds Skin: No rashes, No breakdown Musculoskeletal: No Tenderness to Palpation of Joints or Extremities Neurological: Cranial nerves II-XII grossly intact Psych/Mental Status: Normal Affect, Appropriate Vital Signs Temp Pulse Resp BP Pulse Ox 96.8 F L 83 18 134/62 H 96 05/23/18 15:44 05/23/18 15:44 05/23/18 15:44 05/23/18 15:44 05/23/18 15:44 Oxygen Delivery Method Room Air Weight: 121.676 kg Body Mass Index (BMI) 42.3 Intake and Output for Last 24 Hours 05/22/18 05/23/18 05/24/18 23:59 23:59 23:59 Intake Total 720 / 720 480 / 480 300 / 300 Output Total 1470 / 1470 600 / 600 775 / 775 Balance -750 / -750 -120 / -120 -475 / -475 Assessment/Plan All Active Problems (Last Reviewed 05/24/18 @ 10:30 by Ministerio Kam MD) Acute on chronic diastolic heart failure (Acute) Gait incoordination (Acute) Generalized weakness (Acute) Acute blood loss anemia (Acute) Heart failure with preserved ejection fraction (Acute) Anemia (Acute) NSTEMI (non-ST elevated myocardial infarction) (Acute) Pain in right toe(s) (Acute) Tinea unguium (Acute) Ingrown toenail (Acute) Anemia of chronic renal failure, stage 4 (severe) (Acute) Edema (Acute) Weakness (Acute) Debility (Acute) 72 year old male with below past medical history hospitalized for anemia, transfused 2 units PRBC, admitted to TCU with debility, here for rehabilitation , strengthening, prior to disposition determination, may want to consider fpc care versus hospice care. * End of Life Care - Recommend [facility].
[2018-05-24] MEDS: Atorvastatin Calcium 20 MG Tablet PO (20:38)
[2018-05-24] MEDS: Mirtazapine 15 MG Tablet 7.5 MG PO (20:39)
[2018-05-25] MEDS: Nystatin Powder 15gm Bottle 1 APPLIC TOPICAL ×2 (05:15→20:33)
[2018-05-25] MEDS: Leflunomide 10 MG TABLET 5 MG PO (05:15)
[2018-05-25] MEDS: Menthol/Lanolin/Calamine/Znox 113 GM Tube 1 APPLIC TOPICAL ×2 (05:15→20:32)
[2018-05-25] MEDS: Isosorbide Mononitrate 30 MG Tablet PO (05:15)
[2018-05-25] MEDS: Senna/Docusate Sodium 1 Tablet PO ×2 (05:16→16:09)
[2018-05-25] MEDS: Ranolazine 500 MG Tablet PO ×2 (05:16→16:09)
[2018-05-25] MEDS: Pantoprazole Sodium 40 MG Tablet PO (05:16)
[2018-05-25] MEDS: Furosemide 40 MG Tablet PO ×2 (10:05→16:08)
[2018-05-25] MEDS: Allopurinol 100 MG Tablet 200 MG PO (10:05)
[2018-05-25] MEDS: Iron Polysaccharide Complex 150 MG CAPSULE PO ×3 (10:06→20:31)
[2018-05-25] MEDS: predniSONE 5 MG Tablet 7.5 MG PO (10:06)
[2018-05-25] MEDS: Carvedilol 25 MG Tablet PO ×2 (10:06→16:09)
[2018-05-25] MEDS: Multivitamins,Therapeutic Tablet 1 TABLET PO (10:06)
[2018-05-25] MEDS: Hydroxychloroquine 200 MG Tablet PO ×2 (10:06→16:08)
[2018-05-25] MEDS: Aspirin 81 MG TAB.CHEW PO (10:06)
[2018-05-25 15:16] VITALS: BP 112/55; PULSE 77; RESP 18; TEMP 36.4; O2SAT 97
[2018-05-25] MEDS: Mirtazapine 15 MG Tablet 7.5 MG PO (20:31)
[2018-05-25] MEDS: Atorvastatin Calcium 20 MG Tablet PO (20:31)
[2018-05-26] MEDS: Isosorbide Mononitrate 30 MG Tablet PO (04:59)
[2018-05-26] MEDS: Pantoprazole Sodium 40 MG Tablet PO (05:00)
[2018-05-26] MEDS: Senna/Docusate Sodium 1 Tablet PO ×2 (05:00→17:02)
[2018-05-26] MEDS: Ranolazine 500 MG Tablet PO ×2 (05:00→17:02)
[2018-05-26] MEDS: Leflunomide 10 MG TABLET 5 MG PO (05:00)
[2018-05-26] MEDS: Nystatin Powder 15gm Bottle 1 APPLIC TOPICAL ×2 (05:02→21:54)
[2018-05-26] MEDS: Menthol/Lanolin/Calamine/Znox 113 GM Tube 1 APPLIC TOPICAL ×2 (05:02→17:02)
[2018-05-26 07:29] LABS: Absolute Lymphocyte Count 0.72 X10^3/ul (0.83-4.51); Basophil# 0.01 X10^3/uL; Basophil% 0.1 % (0-1); Hematocrit 27.1 % (40-54); Hemoglobin 8.2 g/dl (13.0-16.5); Lymphocyte # 0.72 X10^3/ul (4.0); Lymphocyte % 6.9 % (19-41); Mean Corp Hgb Conc 30.3 g/gl (32-36); Mean Corpuscular Hgb 27.7 pg (27.0-32.0); Mean Corpuscular Volume 91.6 fL (80-94); Mean Platelet Vol. 10.1 fl (6.2-12.0); Monocyte% 5.8 % (0-10); Neutrophil # 8.98 X10^3/uL (2.7-7.7); Neutrophil % 86.2 % (47-70); Platelet Count 242 K/mm3 (150-450); RBC Distribution Width SD 54.4 fl (35.1-43.9); Red Blood Count 2.96 M/mm3 (4.6-6.2); White Blood Count 10.4 K/mm3 (4.4-11.0)
[2018-05-26 07:33] LABS: POSITIVE COUNT NO; POSITIVE DIFFERENTIAL NO; POSITIVE MORPHOLOGY NO
[2018-05-26 07:54] LABS: Anion Gap 9 (5-15); BUN 73 mg/dL (7-18); BUN/Creat Ratio 35.8 RATIO (10-20); Calcium,Total 8.3 mg/dL (8.5-10.1); Chloride 106 mmol/L (98-107); Creatinine, Serum 2.04 mg/dL (0.70-1.30); EST Glomerular Filtration Rate 34 mL/min (>60); Est Glom Filt Rate - Afr Amer 41 mL/min (>60); Glucose 88 mg/dL (74-106); Potassium 3.7 mmol/L (3.5-5.1); Sodium Level 145 mmol/L (136-145)
[2018-05-26] MEDS: Aspirin 81 MG TAB.CHEW PO (08:26)
[2018-05-26] MEDS: Carvedilol 25 MG Tablet PO ×2 (08:27→17:01)
[2018-05-26] MEDS: Multivitamins,Therapeutic Tablet 1 TABLET PO (08:28)
[2018-05-26] MEDS: Allopurinol 100 MG Tablet 200 MG PO (08:28)
[2018-05-26] MEDS: predniSONE 5 MG Tablet 7.5 MG PO (08:28)
[2018-05-26] MEDS: Furosemide 40 MG Tablet PO ×2 (08:29→17:02)
[2018-05-26] MEDS: Hydroxychloroquine 200 MG Tablet PO ×2 (08:29→17:01)
[2018-05-26] MEDS: Iron Polysaccharide Complex 150 MG CAPSULE PO ×3 (08:30→21:52)
[2018-05-26 15:17] VITALS: BP 131/43; PULSE 86; RESP 18; TEMP 35.9; O2SAT 95
[2018-05-26] MEDS: Atorvastatin Calcium 20 MG Tablet PO (21:52)
[2018-05-26] MEDS: Mirtazapine 15 MG Tablet 7.5 MG PO (21:52)
--- NOTE | 2018-05-26 22:56 | PCA ---
Cliveight Resident was unable to stand from the toilet even with assistance from 2 aides and an RN. This aide, Alize ESPARZA and CARMEN Hansen attempted a stand pivot with a gaitbelt and resident was unable to bear any weight on his legs. We ended up having to use the [place] to get him off of the toilet and back into his recliner safely. CARMEN Hernandez and CARMEN Wei were notified.
[2018-05-27] MEDS: Ranolazine 500 MG Tablet PO ×2 (05:01→16:47)
[2018-05-27] MEDS: Polyethylene Glycol 3350 17 GM PACKET PO (05:01)
[2018-05-27] MEDS: Pantoprazole Sodium 40 MG Tablet PO (05:01)
[2018-05-27] MEDS: Senna/Docusate Sodium 1 Tablet PO ×2 (05:01→16:47)
[2018-05-27] MEDS: Leflunomide 10 MG TABLET 5 MG PO (05:01)
[2018-05-27] MEDS: Isosorbide Mononitrate 30 MG Tablet PO (05:01)
[2018-05-27] MEDS: Nystatin Powder 15gm Bottle 1 APPLIC TOPICAL ×2 (05:12→21:07)
[2018-05-27] MEDS: Menthol/Lanolin/Calamine/Znox 113 GM Tube 1 APPLIC TOPICAL ×2 (05:12→21:07)
[2018-05-27 08:57] VITALS: BP 112/59; PULSE 86; RESP 18; TEMP 36.3; O2SAT 96
[2018-05-27] MEDS: Furosemide 40 MG Tablet PO ×2 (09:20→16:47)
[2018-05-27] MEDS: Hydroxychloroquine 200 MG Tablet PO ×2 (09:20→16:47)
[2018-05-27] MEDS: Allopurinol 100 MG Tablet 200 MG PO (09:20)
[2018-05-27] MEDS: Carvedilol 25 MG Tablet PO ×2 (09:20→16:47)
[2018-05-27] MEDS: Multivitamins,Therapeutic Tablet 1 TABLET PO (09:20)
[2018-05-27] MEDS: Iron Polysaccharide Complex 150 MG CAPSULE PO ×3 (09:21→21:04)
[2018-05-27] MEDS: Aspirin 81 MG TAB.CHEW PO (09:21)
[2018-05-27] MEDS: predniSONE 5 MG Tablet 7.5 MG PO (09:23)
--- NOTE | 2018-05-27 13:15 | CASEMGMT ---
Insurance clinical update faxed. Will await continued stay determination. Auth # [id number] GILSON Trujillo
[2018-05-27 14:06] VITALS: O2SAT 95
[2018-05-27 15:44] VITALS: BP 108/50; PULSE 77; RESP 22; TEMP 36.4; O2SAT 98
--- NOTE | 2018-05-27 16:57 | CASEMGMT ---
Insurance Continued stay approved with update due 06/03. Auth # [id number] left with pt informing of decision. GILSON Trujillo
[2018-05-27] MEDS: Mirtazapine 15 MG Tablet 7.5 MG PO (21:04)
[2018-05-27] MEDS: Atorvastatin Calcium 20 MG Tablet PO (21:04)
[2018-05-28] MEDS: Menthol/Lanolin/Calamine/Znox 113 GM Tube 1 APPLIC TOPICAL ×2 (04:10→20:00)
[2018-05-28] MEDS: Senna/Docusate Sodium 1 Tablet PO ×2 (04:11→16:58)
[2018-05-28] MEDS: Ranolazine 500 MG Tablet PO ×2 (04:11→16:57)
[2018-05-28] MEDS: Isosorbide Mononitrate 30 MG Tablet PO (04:11)
[2018-05-28] MEDS: Pantoprazole Sodium 40 MG Tablet PO (04:11)
[2018-05-28] MEDS: Leflunomide 10 MG TABLET 5 MG PO (04:11)
[2018-05-28] MEDS: Nystatin Powder 15gm Bottle 1 APPLIC TOPICAL ×2 (04:11→20:00)
[2018-05-28] MEDS: Multivitamins,Therapeutic Tablet 1 TABLET PO (08:40)
[2018-05-28] MEDS: Furosemide 40 MG Tablet PO ×2 (08:40→16:57)
[2018-05-28] MEDS: Hydroxychloroquine 200 MG Tablet PO ×2 (08:40→16:57)
[2018-05-28] MEDS: Allopurinol 100 MG Tablet 200 MG PO (08:40)
[2018-05-28] MEDS: Carvedilol 25 MG Tablet PO ×2 (08:41→16:57)
[2018-05-28] MEDS: predniSONE 5 MG Tablet 7.5 MG PO (08:41)
[2018-05-28] MEDS: Aspirin 81 MG TAB.CHEW PO (08:41)
[2018-05-28] MEDS: Iron Polysaccharide Complex 150 MG CAPSULE PO ×3 (08:41→20:00)
--- NOTE | 2018-05-28 12:10 | NURSING ---
palliative notified, spoke with Joyce. Dr Slade on Vac[facility] and they will send someone out on Sunday or sunday. Pt not in any pain but physically declining, increased weakness. Pt would like some of his meds discontinued or reviewed by a doctor. will update pt.
[2018-05-28 16:00] VITALS: BP 153/64; PULSE 82; RESP 20; TEMP 36.4; O2SAT 97
[2018-05-28] MEDS: Mirtazapine 15 MG Tablet 7.5 MG PO (19:57)
[2018-05-28] MEDS: Atorvastatin Calcium 20 MG Tablet PO (19:57)
[2018-05-28 20:03] VITALS: O2SAT 95
[2018-05-29] MEDS: Isosorbide Mononitrate 30 MG Tablet PO (04:52)
[2018-05-29] MEDS: Ranolazine 500 MG Tablet PO ×2 (04:52→17:16)
[2018-05-29] MEDS: Pantoprazole Sodium 40 MG Tablet PO (04:52)
[2018-05-29] MEDS: Senna/Docusate Sodium 1 Tablet PO ×2 (04:52→17:16)
[2018-05-29] MEDS: Leflunomide 10 MG TABLET 5 MG PO (04:52)
[2018-05-29] MEDS: Nystatin Powder 15gm Bottle 1 APPLIC TOPICAL ×2 (04:54→22:08)
[2018-05-29] MEDS: Menthol/Lanolin/Calamine/Znox 113 GM Tube 1 APPLIC TOPICAL ×2 (04:55→22:08)
[2018-05-29] MEDS: Iron Polysaccharide Complex 150 MG CAPSULE PO ×3 (09:26→22:07)
[2018-05-29] MEDS: Aspirin 81 MG TAB.CHEW PO (09:26)
[2018-05-29] MEDS: Multivitamins,Therapeutic Tablet 1 TABLET PO (09:26)
[2018-05-29] MEDS: Hydroxychloroquine 200 MG Tablet PO ×2 (09:26→17:15)
[2018-05-29] MEDS: predniSONE 5 MG Tablet 7.5 MG PO (09:27)
[2018-05-29] MEDS: Carvedilol 25 MG Tablet PO ×2 (09:27→17:14)
[2018-05-29] MEDS: Allopurinol 100 MG Tablet 200 MG PO (09:27)
[2018-05-29] MEDS: Furosemide 40 MG Tablet PO ×2 (09:27→17:16)
[2018-05-29 10:00] VITALS: PULSE 80; RESP 18; O2SAT 97
[2018-05-29 16:00] VITALS: BP 129/55; PULSE 84; RESP 20; TEMP 36.3; O2SAT 97
--- NOTE | 2018-05-29 17:11 | NURSING ---
Pt has two open areas to BL posterior upper thighs from moisture. Lina, wound RN updated, NO to apply mepilex dressing to areas q5days and PRN.
[2018-05-29] MEDS: Mirtazapine 15 MG Tablet 7.5 MG PO (22:06)
[2018-05-29] MEDS: Atorvastatin Calcium 20 MG Tablet PO (22:07)
--- NOTE | 2018-05-30 03:38 | NURSING ---
Pt requesting to get up in chair d/t being able to breath better sitting up. O2 99% on 2L. Pt wanting to get washed up before transfer. Urinal noted to have 100cc. Rt abdominal fold excoriated and bleeding. Abdominal folds cleansed and ABDs placed along them to prevent them from rubbing together. Isa care was provided and urine noted to be on sheets. Pt stating he had not realized he had spilled it. Educated pt on importance of asking for help so pt does not become saturated in urine. Mepilex to bilateral upper thighs were removed d/t being soiled. Bilateral upper thighs excoriated and bleeding. Wounds cleansed with NS and ABDs applied. Pt unable to tolerate lying flat for short periods of time. Pt yelling at staff to raise HOB d/t being unable to breath. HOB was raised and O2 98% on 2L. Much encouragement was given for pt to only be up in the chair for a short amount of time. Pt stating I am concerned about my breathing and that is it right now. Pt was transferred to the recliner x2 assist with the benjamin. Oxygen on and call light in reach. Pt denied any further needs at this time.
[2018-05-30] MEDS: Leflunomide 10 MG TABLET 5 MG PO (06:19)
[2018-05-30] MEDS: Isosorbide Mononitrate 30 MG Tablet PO (06:19)
[2018-05-30] MEDS: Senna/Docusate Sodium 1 Tablet PO ×2 (06:20→16:41)
[2018-05-30] MEDS: Ranolazine 500 MG Tablet PO ×2 (06:20→16:42)
[2018-05-30] MEDS: Pantoprazole Sodium 40 MG Tablet PO (06:20)
[2018-05-30] MEDS: Nystatin Powder 15gm Bottle 1 APPLIC TOPICAL ×2 (06:21→20:12)
[2018-05-30] MEDS: Menthol/Lanolin/Calamine/Znox 113 GM Tube 1 APPLIC TOPICAL ×2 (06:22→20:13)
[2018-05-30] MEDS: Aspirin 81 MG TAB.CHEW PO (08:31)
[2018-05-30] MEDS: Hydroxychloroquine 200 MG Tablet PO ×2 (08:33→16:41)
[2018-05-30] MEDS: Carvedilol 25 MG Tablet PO ×2 (08:33→16:41)
[2018-05-30] MEDS: Multivitamins,Therapeutic Tablet 1 TABLET PO (08:33)
[2018-05-30] MEDS: Iron Polysaccharide Complex 150 MG CAPSULE PO ×3 (08:33→20:10)
[2018-05-30] MEDS: predniSONE 5 MG Tablet 7.5 MG PO (08:34)
[2018-05-30] MEDS: Furosemide 40 MG Tablet PO ×2 (08:35→16:42)
[2018-05-30] MEDS: Allopurinol 100 MG Tablet 200 MG PO (08:35)
[2018-05-30 08:39] VITALS: PULSE 85; RESP 20; O2SAT 98
[2018-05-30 08:40] VITALS: PULSE 85; RESP 20
--- NOTE | 2018-05-30 10:07 | NURSING ---
called . informed her that hospice will be calling her to set up time to talk with pt
--- NOTE | 2018-05-30 10:28 | CASEMGMT ---
Social Work Touching base with resident on hospice/palliative care referral. Resident agreeable and aware that palliative care referral has been made already. Resident voicing to have spoken with Dr. June in regards to hospice services but is thinking to not be at that point yet. Resident wanting to continue with care and treatment on the Transitional Care Unit at this time. Current plan is to continue unless resident voices otherwise, resident is agreeable to this plan. Support given. Will continue to follow. Dinora RIGGINS, GLASS CLEANING MACHINE TENDER
--- NOTE | 2018-05-30 11:28 | CASEMGMT ---
Social Work Spoke with resident in room after speaking further with nursing. Resident is now agreeable to meeting with hospice today at 2:00pm. Resident spouse is aware of meeting and will be present as well. Referral to hospice has already been initiated. Will continue to follow. Dinora RIGGINS, AIR CONDITIONING MECHANIC
--- NOTE | 2018-05-30 13:49 | NURSING ---
hospice in speaking with pt
[2018-05-30 15:32] VITALS: BP 108/60; PULSE 91; RESP 18; TEMP 36.2; O2SAT 97
[2018-05-30] MEDS: Mirtazapine 15 MG Tablet 7.5 MG PO (20:10)
[2018-05-30] MEDS: Atorvastatin Calcium 20 MG Tablet PO (20:10)
--- NOTE | 2018-05-31 00:19 | NURSING ---
Discussed code status with pt. DNRCC-A and DNRCC discussed throughly with pt and pt wishing to change to DNRCC. Pauline raymundo applied and paperwork signed.
[2018-05-31] MEDS: Polyethylene Glycol 3350 17 GM PACKET PO (05:25)
[2018-05-31] MEDS: Ranolazine 500 MG Tablet PO ×2 (05:28→16:32)
[2018-05-31] MEDS: Pantoprazole Sodium 40 MG Tablet PO (05:28)
[2018-05-31] MEDS: Leflunomide 10 MG TABLET 5 MG PO (05:28)
[2018-05-31] MEDS: Isosorbide Mononitrate 30 MG Tablet PO (05:28)
[2018-05-31] MEDS: Senna/Docusate Sodium 1 Tablet PO ×2 (05:28→16:33)
[2018-05-31] MEDS: Nystatin Powder 15gm Bottle 1 APPLIC TOPICAL ×2 (05:29→20:22)
[2018-05-31] MEDS: Menthol/Lanolin/Calamine/Znox 113 GM Tube 1 APPLIC TOPICAL ×2 (05:29→20:20)
[2018-05-31 06:49] VITALS: O2SAT 99
[2018-05-31] MEDS: predniSONE 5 MG Tablet 7.5 MG PO (08:36)
[2018-05-31] MEDS: Carvedilol 25 MG Tablet PO ×2 (08:36→16:32)
[2018-05-31] MEDS: Furosemide 40 MG Tablet PO ×2 (08:36→16:32)
[2018-05-31] MEDS: Hydroxychloroquine 200 MG Tablet PO ×2 (08:36→16:32)
[2018-05-31] MEDS: Allopurinol 100 MG Tablet 200 MG PO (08:36)
[2018-05-31] MEDS: Aspirin 81 MG TAB.CHEW PO (08:37)
[2018-05-31] MEDS: Multivitamins,Therapeutic Tablet 1 TABLET PO (08:37)
[2018-05-31] MEDS: Iron Polysaccharide Complex 150 MG CAPSULE PO ×3 (08:37→20:22)
--- NOTE | 2018-05-31 10:47 | CASEMGMT ---
Brief interview for mental status (BIMS) and resident mood interview (PHQ-9) completed on this day. BIMS score 15/15. PHQ-9 score 04/29
--- NOTE | 2018-05-31 10:48 | CASEMGMT ---
Social Work Met with resident in room in regards to hospice meeting yesterday. Resident reporting to have signed papers for hospice and plans to be hospice on discharge from the Transitional Care Unit. Resident is wanting to continue with care and treatment on the Transitional Care Unit at this time. Support given. Will continue to follow. Dinora RIGGINS, TURBINATED BONE GRINDER
[2018-05-31 15:49] VITALS: BP 127/52; PULSE 78; RESP 20; TEMP 35.7; O2SAT 100
[2018-05-31] MEDS: Mirtazapine 15 MG Tablet 7.5 MG PO (20:22)
[2018-05-31] MEDS: Atorvastatin Calcium 20 MG Tablet PO (20:22)
[2018-06-01] MEDS: Acetaminophen 500 MG Tablet 1000 MG PO ×2 (02:31→22:10)
[2018-06-01] MEDS: Menthol/Lanolin/Calamine/Znox 113 GM Tube 1 APPLIC TOPICAL ×2 (04:55→19:54)
[2018-06-01] MEDS: Polyethylene Glycol 3350 17 GM PACKET PO (04:56)
[2018-06-01] MEDS: Isosorbide Mononitrate 30 MG Tablet PO (04:57)
[2018-06-01] MEDS: Senna/Docusate Sodium 1 Tablet PO ×2 (04:57→17:00)
[2018-06-01] MEDS: Nystatin Powder 15gm Bottle 1 APPLIC TOPICAL ×2 (04:57→19:54)
[2018-06-01] MEDS: Ranolazine 500 MG Tablet PO ×2 (04:57→16:59)
[2018-06-01] MEDS: Leflunomide 10 MG TABLET 5 MG PO (04:57)
[2018-06-01] MEDS: Pantoprazole Sodium 40 MG Tablet PO (04:57)
[2018-06-01 05:26] VITALS: PULSE 65; O2SAT 99
[2018-06-01 06:33] VITALS: O2SAT 98
[2018-06-01] MEDS: Allopurinol 100 MG Tablet 200 MG PO (09:24)
[2018-06-01] MEDS: Aspirin 81 MG TAB.CHEW PO (09:24)
[2018-06-01] MEDS: Furosemide 40 MG Tablet PO ×2 (09:24→16:58)
[2018-06-01] MEDS: Multivitamins,Therapeutic Tablet 1 TABLET PO (09:24)
[2018-06-01] MEDS: Hydroxychloroquine 200 MG Tablet PO ×2 (09:24→16:59)
[2018-06-01] MEDS: Carvedilol 25 MG Tablet PO ×2 (09:25→16:59)
[2018-06-01] MEDS: predniSONE 5 MG Tablet 7.5 MG PO (09:25)
[2018-06-01] MEDS: Iron Polysaccharide Complex 150 MG CAPSULE PO ×3 (09:25→19:54)
[2018-06-01 15:34] VITALS: BP 116/50; PULSE 73; RESP 20; TEMP 36.2; O2SAT 98
[2018-06-01] MEDS: Atorvastatin Calcium 20 MG Tablet PO (19:54)
[2018-06-01] MEDS: Mirtazapine 15 MG Tablet 7.5 MG PO (19:54)
--- NOTE | 2018-06-01 22:23 | NURSING ---
Addendum entered by Myriam Cobb 06/01/18 23:38: Brenda, hospice nurse, concerned about if pt's insurance will be accepted this evening. Phone call placed to [facility] registration; unable to give this nurse information regarding insurance. Multiple calls made in attempt to reach fixed income manager and SW; unsuccessful. Original Note: Addendum entered by Myriam Cobb 06/01/18 23:12: and son arrived to unit at this time. Original Note: Pt with increase uncomfortable this evening with repositioning and increase of SOB. This nurse approached the subject of inpatient hospice. Pt agreeable to hospice. Phone call placed to hospice nurse, Brenda. Brenda updated on pt's condition. Hospice nurse to come in tonight to see pt. Pt's updated. Wishes to be updated after hospice nurse sees pt. Dr June updated.
[2018-06-01] MEDS: LORazepam 1 MG Tablet PO (23:09)
--- NOTE | 2018-06-01 23:19 | NURSING ---
Pt with increased anxiety with SOB. Dr June updated. N.O. for x1 dose Ativan 1mg.
--- NOTE | 2018-06-01 23:45 | NURSING ---
Assisted pt with urinal at this time. Wishes to not be repositioned at this time. and son at bedside holding pt's hands. Pt stating Help me go, Lord, help me go. Pt and family deny needs at this time.
--- NOTE | 2018-06-02 00:02 | NURSING ---
Addendum entered by Myriam Cobb 06/02/18 00:10: Dr June updated. Original Note: Hospice nurse present at this time. Pt in room, surrounded by family. siderographist believes he . This RN along with Ronit MORALES listened for heartbeat and spontaneous respirations; none present.
--- NOTE | 2018-06-02 01:30 | NURSING ---
home personnel on unit at this time.
--- NOTE | 2018-06-02 13:01 | DCINST_ITS ---
Allergies/Adverse Reactions: Allergies Influenza Virus Vaccines Allergy (Verified 05/24/18 08:49) CAN'T BREATHE Latex, Natural Rubber Allergy (Verified 05/24/18 08:49) Rash Penicillins Allergy (Verified 05/24/18 08:49) CAN'T BREATHE Sulfa (Sulfonamide Antibiotics) Allergy (Verified 05/24/18 08:49) Rash PEPPERS Allergy (Uncoded 05/24/18 08:49) Anaphylaxis Medications to take at Discharge Aspirin [Aspirin, Baby] 81 mg PO DAILY@0800 09/10/16 Carvedilol [Coreg (Beta Trevor)] 25 mg PO BID 09/10/16 Multivitamin [Daily Multiple Vitamin] 1 ea PO DAILY 09/10/16 Hydroxychloroquine [Plaquenil] 200 mg PO BIDCM 12/29/16 Pantoprazole Sodium [Protonix] 40 mg PO DAILY 12/29/16 Allopurinol 200 mg PO DAILY 07/14/17 Iron Polysaccharide Complex [Ferrex 150] 150 mg PO TID #90 07/23/17 leflunomide 10 mg tablet 5 mg PO DAILY 08/16/17 Prednisone 7.5 mg PO DAILY 01/25/18 Furosemide [Lasix] 40 mg PO BID@1000,1800 04/17/18 Acetaminophen [Tylenol] 1,000 mg PO Q8H PRN PRN tab 04/23/18 Isosorbide Mononitrate [Imdur] 30 mg PO DAILY #30 tab 04/23/18 Nitroglycerin [Nitrostat] 0.4 mg SUBLINGUAL Q5M PRN #30 tab 04/23/18 Ranolazine [Ranexa] 500 mg PO BID #60 tab 04/23/18 Atorvastatin Calcium [Lipitor] 20 mg PO QHS 05/03/18 Potassium Chloride [K-Dur] 20 meq PO BID 05/07/18 Menthol/Lanolin/Calamine/Znox [Calmoseptine Ointment] 1 applic TOPICAL 0600,0 05/11/18 Nystatin Powder [Mycostatin Powder] 1 applic TOPICAL 06,219905/11/18 Primary Care Physician: Vaughn Armenta III, MD [Primary Care Provider] - Please follow up with your Primary Care Physician in: N/A. Test Results: Test results from this visit will be discussed in further detail at your follow- up appointment, if applicable. Please Follow Up With: Infusion Center When: N/A. Please Follow Up With: cardiology [facility] When: N/A. Proposed Discharge Date: 06/02/18
--- NOTE | 2018-06-02 13:01 | PCM.DC.SUM ---
Discharge Date and Diagnosis Date of Admission: 05/11/18 Date of Discharge: 06/02/18 - Secondary Discharge Diagnosis Chronic Problems (Last Reviewed 05/24/18 @ 10:30 by Ministerio Kam MD) NSTEMI (non-ST elevated myocardial infarction) (Chronic) CHF (congestive heart failure) (Chronic) Allergic rhinitis due to [place] house dust mite (Chronic) Chronic diastolic heart failure (Chronic) History of left heart catheterization (Chronic) 04/05/2016 @ [facility] per Dr. العراقي and 01/01/2017 @ [facility] per Dr. Kam Dyspnea (Chronic) Acute respiratory failure with hypoxia (Chronic) Hypercalcemia (Chronic) Body mass index (BMI) of 40.0-44.9 in adult (Chronic) Chronic diastolic (congestive) heart failure (Chronic) Bilateral leg edema (Chronic) Hypersomnia (Chronic) Chronic kidney disease (Chronic) Hyperlipemia, mixed (Chronic) Diastolic dysfunction (Chronic) Atherosclerosis of [place] coronary artery of [place] heart without angina pectoris (Chronic) Polyarthropathy (Chronic) Morbid obesity (Chronic) Sarcoidosis (Chronic) Cardiomyopathy (Chronic) Iron deficiency anemia (Chronic) Constipation (Chronic) 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 Gout (Chronic) Morbid obesity with BMI of 40.0-44.9, adult (Chronic) GERD (gastroesophageal reflux disease) (Chronic) Allergic rhinitis (Chronic) Hypertension (Chronic) Nephrolithiasis (Chronic) Renal cyst (Chronic) Splenomegaly (Chronic) Coronary artery disease (Chronic) CKD (chronic kidney disease) stage 4, GFR 15-29 ml/min (Chronic) Polyarthropathy of ankle and foot (Chronic) Hospital Course and Treatment Consultations 05/30/18 15:58 Consult: Onc/Wound/service dispatcher Routine Comment: NEW PRESSURE AREA TO COCCYX/EXCORIATED BOTTOM Reason for Consult:: NEW PRESSURE AREA/EXCORIATED BOTTOM/ABD FOLDS Operations: None Procedures: None Summary of Care Provided: The patient is a 72 year old Male with below past medical history hospitalized for anemia, transfused 2 units PRBC, admitted to TCU with debility, here for rehabilitation, strengthening, prior to disposition determination, may want to consider usp care versus hospice care. [facility] consulted, but resident not ready for hospice services. 06/01/2018 Resident told nursing staff he was read to go to hospice, inpatient hospice staff en route to evaluate resident. 06/02/2018 Resident prior to inpatient hospice staff arrival. Resident on TCU. Home Medications: Medications to take at Discharge Aspirin [Aspirin, Baby] 81 mg PO DAILY@0800 09/10/16 Carvedilol [Coreg (Beta Trevor)] 25 mg PO BID 09/10/16 Multivitamin [Daily Multiple Vitamin] 1 ea PO DAILY 09/10/16 Hydroxychloroquine [Plaquenil] 200 mg PO BIDCM 12/29/16 Pantoprazole Sodium [Protonix] 40 mg PO DAILY 12/29/16 Allopurinol 200 mg PO DAILY 07/14/17 Iron Polysaccharide Complex [Ferrex 150] 150 mg PO TID #90 07/23/17 leflunomide 10 mg tablet 5 mg PO DAILY 08/16/17 Prednisone 7.5 mg PO DAILY 01/25/18 Furosemide [Lasix] 40 mg PO BID@1000,1800 04/17/18 Acetaminophen [Tylenol] 1,000 mg PO Q8H PRN PRN tab 04/23/18 Isosorbide Mononitrate [Imdur] 30 mg PO DAILY #30 tab 04/23/18 Nitroglycerin [Nitrostat] 0.4 mg SUBLINGUAL Q5M PRN #30 tab 04/23/18 Ranolazine [Ranexa] 500 mg PO BID #60 tab 04/23/18 Atorvastatin Calcium [Lipitor] 20 mg PO QHS 05/03/18 Potassium Chloride [K-Dur] 20 meq PO BID 05/07/18 Menthol/Lanolin/Calamine/Znox [Calmoseptine Ointment] 1 applic TOPICAL 0600,0 05/11/18 Nystatin Powder [Mycostatin Powder] 1 applic TOPICAL 0600,0 05/11/18 Primary Care Physician: Vaughn Armenta III, MD [Primary Care Provider] - Please follow up with your Primary Care Physician in: N/A. Please Follow Up With: Infusion Center When: N/A. Please Follow Up With: cardiology [facility] When: N/A. Disposition: Minutes spent on discharge:: 15 Medical Necessity - Tobacco Use Smoking Status: Never smoker Tobacco Use: Non-smoker Meaningful Use Info Meaningful Use Diagnoses (Choose all that apply): None applicable
--- NOTE | 2018-06-02 13:05 | DS.PCM_ITS ---
Discharge Date and Diagnosis Date of Admission: 05/11/18 Date of Discharge: 06/02/18 - Secondary Discharge Diagnosis Chronic Problems (Last Reviewed 05/24/18 @ 10:30 by Ministerio Kam MD) NSTEMI (non-ST elevated myocardial infarction) (Chronic) CHF (congestive heart failure) (Chronic) Allergic rhinitis due to [place] house dust mite (Chronic) Chronic diastolic heart failure (Chronic) History of left heart catheterization (Chronic) 04/05/2016 @ [facility] per Dr. العرايق and 01/01/2017 @ [facility] per Dr. 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 Gout (Chronic) Morbid obesity with BMI of 40.0-44.9, adult (Chronic) GERD (gastroesophageal reflux disease) (Chronic) Allergic rhinitis (Chronic) Hypertension (Chronic) Nephrolithiasis (Chronic) Renal cyst (Chronic) Splenomegaly (Chronic) Coronary artery disease (Chronic) CKD (chronic kidney disease) stage 4, GFR 15-29 ml/min (Chronic) Polyarthropathy of ankle and foot (Chronic) Hospital Course and Treatment Consultations 05/30/18 15:58 Consult: Onc/Wound/hotel lobby concierge Routine Comment: NEW PRESSURE AREA TO COCCYX/EXCORIATED BOTTOM Reason for Consult:: NEW PRESSURE AREA/EXCORIATED BOTTOM/ABD FOLDS Operations: None Procedures: None Summary of Care Provided: The patient is a 72 year old Male with below past medical history hospitalized for anemia, transfused 2 units PRBC, admitted to TCU with debility, here for rehabilitation, strengthening, prior to disposition determination, may want to consider senior care care versus hospice care. [facility] consulted, but resident not ready for hospice services. 06/01/2018 Resident told nursing staff he was read to go to hospice, inpatient hospice staff en route to evaluate resident. 06/02/2018 Resident prior to inpatient hospice staff arrival. Resident on TCU. Home Medications: Medications to take at Discharge Aspirin [Aspirin, Baby] 81 mg PO DAILY@0800 09/10/16 Carvedilol [Coreg (Beta Trevor)] 25 mg PO BID 09/10/16 Multivitamin [Daily Multiple Vitamin] 1 ea PO DAILY 09/10/16 Hydroxychloroquine [Plaquenil] 200 mg PO BIDCM 12/29/16 Pantoprazole Sodium [Protonix] 40 mg PO DAILY 12/29/16 Allopurinol 200 mg PO DAILY 07/14/17 Iron Polysaccharide Complex [Ferrex 150] 150 mg PO TID #90 07/23/17 leflunomide 10 mg tablet 5 mg PO DAILY 08/16/17 Prednisone 7.5 mg PO DAILY 01/25/18 Furosemide [Lasix] 40 mg PO BID@1000,1800 04/17/18 Acetaminophen [Tylenol] 1,000 mg PO Q8H PRN PRN tab 04/23/18 Isosorbide Mononitrate [Imdur] 30 mg PO DAILY #30 tab 04/23/18 Nitroglycerin [Nitrostat] 0.4 mg SUBLINGUAL Q5M PRN #30 tab 04/23/18 Ranolazine [Ranexa] 500 mg PO BID #60 tab 04/23/18 Atorvastatin Calcium [Lipitor] 20 mg PO QHS 05/03/18 Potassium Chloride [K-Dur] 20 meq PO BID 05/07/18 Menthol/Lanolin/Calamine/Znox [Calmoseptine Ointment] 1 applic TOPICAL 0600,0 05/11/18 Nystatin Powder [Mycostatin Powder] 1 applic TOPICAL 0600,0 05/11/18 Primary Care Physician: Vaughn Armenta III, MD [Primary Care Provider] - Please follow up with your Primary Care Physician in: N/A. Please Follow Up With: Infusion Center When: N/A. Please Follow Up With: cardiology [facility] When: N/A. Disposition: Minutes spent on discharge:: 15 Medical Necessity - Tobacco Use Smoking Status: Never smoker Tobacco Use: Non-smoker Meaningful Use Info Meaningful Use Diagnoses (Choose all that apply): None applicable
--- NOTE | 2018-06-03 14:51 | CASEMGMT ---
Insurance Notified insurance that resident on 06/02/18 on unit. Auth#[id number] Dinora RIGGINS, [employer]OUNTS PAYABLE SUPERVISOR
== END 2018-06-02 01:30 | DRG 947 ==
PROVIDERS: Admitting Provider Family Medicine Geriatric Medicine; Family Provider Family Medicine; PCP Family Medicine; Visit Provider Family Medicine Geriatric Medicine
DX: R53.81 Other malaise (principal); J96.21 Acute and chronic respiratory failure with hypoxia; I13.0 Hypertensive heart and chronic kidney disease with heart failure and stage 1 through stage 4 chronic kidney disease, or unspecified chronic kidney disease; N18.4 Chronic kidney disease, stage 4 (severe); I50.32 Chronic diastolic (congestive) heart failure; Z68.41 Body mass index [BMI] 40.0-44.9, adult; I25.2 Old myocardial infarction; E11.22 Type 2 diabetes mellitus with diabetic chronic kidney disease; D63.1 Anemia in chronic kidney disease; E66.01 Morbid (severe) obesity due to excess calories; Z71.3 Dietary counseling and surveillance; D50.9 Iron deficiency anemia, unspecified; K21.9 Gastro-esophageal reflux disease without esophagitis; I25.10 Atherosclerotic heart disease of native coronary artery without angina pectoris; M10.9 Gout, unspecified; E78.2 Mixed hyperlipidemia; B35.4 Tinea corporis; E87.6 Hypokalemia; D86.0 Sarcoidosis of lung
CPT/HCPCS: 36415; 71046; 80048; 85014; 85018; 85025; 97110; 97116; 97162; 97166; 97530; 97535; 97802

== ENCOUNTER → 2018-05-17 14:07 | Outpatient (CLI) | payer MEDICARE, SELFPAY ==
[2018-05-17 14:34] LABS: Absolute Lymphocyte Count 0.52 X10^3/ul (0.83-4.51); Absolute Neutrophil Count 6.3 X10^3/uL (2.0-7.7); Basophil# 0.01 X10^3/uL; Basophil% 0.1 % (0-1); Hematocrit 27.5 % (40-54); Hemoglobin 8.4 g/dl (13.0-16.5); Lymphocyte # 0.52 X10^3/ul (4.0); Lymphocyte % 7.4 % (19-41); Mean Corp Hgb Conc 30.5 g/gl (32-36); Mean Corpuscular Hgb 27.3 pg (27.0-32.0); Mean Corpuscular Volume 89.3 fL (80-94); Mean Platelet Vol. 9.1 fl (6.2-12.0); Monocyte# 0.16 X10^3/uL; Monocyte% 2.3 % (0-10); Neutrophil # 6.34 X10^3/uL (2.7-7.7); Neutrophil % 89.9 % (47-70); Platelet Count 215 K/mm3 (150-450); RBC Distribution Width SD 56.4 fl (35.1-43.9); Red Blood Count 3.08 M/mm3 (4.6-6.2); White Blood Count 7.1 K/mm3 (4.4-11.0)
[2018-05-17 14:38] LABS: POSITIVE COUNT NO; POSITIVE DIFFERENTIAL NO; POSITIVE MORPHOLOGY NO
[2018-05-17 14:47] LABS: BUN 67 mg/dL (7-18); BUN/Creat Ratio 27.9 RATIO (10-20); Calcium,Total 8.9 mg/dL (8.5-10.1); Chloride 104 mmol/L (98-107); EST Glomerular Filtration Rate 28 mL/min (>60); Est Glom Filt Rate - Afr Amer 34 mL/min (>60); Glucose 121 mg/dL (74-106); Phosphorus 3.2 mg/dL (2.5-4.9); Potassium 4.6 mmol/L (3.5-5.1); Sodium Level 141 mmol/L (136-145)
[2018-05-17 15:16] VITALS: BP 144/87; PULSE 88; RESP 16; TEMP 36.1; BMI 40.7
== END ==
PROVIDERS: Family Provider Family Medicine; PCP Family Medicine; Visit Provider Internal Medicine Nephrology
DX: N18.4 Chronic kidney disease, stage 4 (severe) (principal); D63.1 Anemia in chronic kidney disease
CPT/HCPCS: 36415; 80069; 85025; 96372; J0885

== ENCOUNTER 2018-05-19 15:05 | Outpatient (CLI) | payer MEDICARE, SELFPAY ==
[2018-05-19 15:34] VITALS: BP 134/56; PULSE 80; RESP 16; TEMP 36.6; O2SAT 98; BMI 41.5
[2018-05-19 15:43] VITALS: BP 134/56; PULSE 80; RESP 16; TEMP 36.6; O2SAT 98
[2018-05-19 15:58] VITALS: BP 144/62; PULSE 82; RESP 16; TEMP 36.9; O2SAT 97
[2018-05-19 16:53] VITALS: BP 148/50; PULSE 76; RESP 16; TEMP 36; O2SAT 97
[2018-05-19 17:56] VITALS: BP 152/47; PULSE 79; RESP 16; TEMP 36.1; O2SAT 99
[2018-05-19] MEDS: 0.9% NaCl Peripheral Flush Adult/Peds IV (18:08)
== END 2018-05-19 18:20 | disposition home or self-care (01) ==
LOC: MS3OUT 15:28 → MS3 15:29
PROVIDERS: Family Provider Family Medicine; PCP Family Medicine; Visit Provider Internal Medicine
DX: D64.9 Anemia, unspecified (principal)
CPT/HCPCS: 36430; 86850; 86900; 86920; 86922; J7040; P9016; A4216